=== PATIENT | female | born 1955 | race Hispanic/Latino ===

== ENCOUNTER 2016-11-19 06:08 | Day surgery (SDC) | payer BC ==
[2016-11-06 10:46] VITALS: BMI 31.3
[2016-11-19 06:46] VITALS: RESP 18
--- NOTE | 2016-11-19 07:15 | CP.SDSHP ---
Same Day Surgery H & P - History Proposed Procedure: partial osteoctomy tarsal metatarsal left foot Pre-Op Diagnosis: left dorsal ostosis with neuritis - Allergies Allergies: Allergies amoxicillin Allergy (Severe, Verified 06/06/15 09:43) VOMITING Sulfa (Sulfonamide Antibiotics) Allergy (Severe, Verified 06/06/15 09:43) CONVULSION moxifloxacin HCl [From Avelox] Adverse Reaction (Severe, Verified 06/06/15 09:43 ) MUSCLE PAIN - Physical Exam Vital Signs: Vital Signs 11/19/16 06:41 Temperature 98.2 F Pulse Rate 62 Respiratory 18 Rate Blood Pressure 111/53 L O2 Sat by Pulse 100 Oximetry Mental Status: Alert & Oriented x3 - Impression Impression: . Pt was seen and examined in [facility]. Pt NPO status was confirmed. All Pre-op testing and clearance was in the chart. Pt has exhausted all conservative treatment at this time and is opting for surgical intervention. Pt was explained procedure and post-operative course. All pt's questions were answered to satisfaction. No guarantees were made. Pt understands all risks, benefits and complications of procedure. Pt will follow-up with Dr. 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 Pt to resume medications per medical reconciliation. Resume regular diet. Please keep dressing clean, dry, & intact to surgical site, use plastic bag over bandage for showering, wear post op shoe at all times when ambulating, call clinic if you see signs of infection (redness, swelling, malodor), please make an appointment to see Dr. Dubon in office/clinic within 1 week for post-op check Progress Note/Discharge Note with Instructions: - Patient evaluated bedside in recovery s/p surgical procedure. - After surgical procedure patient in NAD - (+) Void, (+) Appetite - Capillary refill time <3s and NVSI intact. - Patient denies complaints at this time - Post operative instructions and plan of care explained to patient at length. - Pt. acknowledges understanding. - Patient stable for DC per podiatric surgery
--- NOTE | 2016-11-19 07:18 | CP.PCM.PN ---
Subjective - Date & Time of Evaluation Date of Evaluation: 11/19/16 Time of Evaluation: 07:15 - Subjective Subjective: 61 year old female with PMH of DM, HTN, GERD, COPD presents to [facility] for left foot dorsal ostosis with neuritis. Patient states that she has had this problem in the past and had surgery to resect the bone spur that was causing the problem. Had no problems for the last 18 years later, but recently reports having the same type pain. States the bone spur has grown back with bony prominence seen on the foot. Describes the pain as a tingling and shooting pain. With walking or standing, she rates the pain 10/10 with shooting pains radiating to her toes. She denies n/v/sob/cp or f. PMH: DM, HTN, GERD, COPD PSH: hysterectomy, bladder benign tumors removal, hernia repair, fistula repair ALL: amoxicillin, sulfa, moxifloxacin, avelox Meds: see medication list SH: 1ppd >40 years, socially drinks, denies elicited drug use FH: noncontributory Objective - Vital Signs/Intake and Output Vital Signs (last 24 hours): Temp Pulse Resp BP Pulse Ox 98.2 F 62 18 111/53 L 100 11/19/16 06:41 11/19/16 06:41 11/19/16 06:41 11/19/16 06:41 11/19/16 06:41 - Constitutional Appears: Well, Non-toxic, No Acute Distress - Extremities Exam Additional comments: Vasc: DP and PT 2/4 bilaterally, Temperature gradient WNL, CFT< 3 seconds, no edema Ortho: tinnel sign positive dorsal intermediate and medial cutaneous nerves, MM is 5/5 in dorsiflexion, plantarflexion, inversion, and eversion Neuro: reports numbness and tingling, gross sensation slightly diminished Derm: osvaldo prominence noted to the dorsum of the right foot at the medial tarsal metatarsal, skin is well hydrated, nails 1-10 wnl - Neurological Exam Neurological Exam: Alert, Awake, Oriented x3 - Psychiatric Exam Psychiatric exam: Normal Affect, Normal Mood Assessment and Plan - Assessment and Plan (Free Text) Assessment: 61 year old female with PMH of DM and HTN seen in same day surgery for left dorsal ostosis with neuritis Plan: Pt was seen and examined in [facility] Pt NPO status was confirmed All Pre-op testing and clearance was in the chart Pt has exhausted all conservative treatment at this time and is opting for surgical intervention Pt was explained procedure and post-operative course All pt's questions were answered to satisfaction No guarantees were made Pt understands all risks, benefits and complications of procedure Pt will follow-up with Dr. Dubon
[2016-11-19] MEDS ORDERED: Lidocaine 1% Inj (20ml) ONE (07:30)
[2016-11-19] MEDS ORDERED: Bupivacaine 0.5% Inj(30mL) ONE (07:30)
[2016-11-19] MEDS ORDERED: Lidocaine 2% Inj (20ml) ONE (07:40)
[2016-11-19] MEDS ORDERED: Propofol 10 mg/ml Inj (20 ML) ONE ×2 (07:40→07:54)
[2016-11-19] MEDS ORDERED: Midazolam 2 MG/2 ML VIAL ONE (07:40)
[2016-11-19] MEDS ORDERED: ePHEDrine 50 mg/ml Inj ONE ×2 (08:00→08:32)
[2016-11-19] MEDS ORDERED: Bupivacaine 0.5% Inj(30mL) SC ONE (08:02)
[2016-11-19] MEDS ORDERED: Lidocaine 1% Inj (20ml) SC ONE (08:02)
[2016-11-19] MEDS ORDERED: Liquid Adhesive TOP ONE (08:37)
[2016-11-19] MEDS ORDERED: Oxycodone/Acetaminophen 5/325 mg Tab PO PRN ×2 (08:58)
[2016-11-19] MEDS ORDERED: HYDROmorphone 0.5 mg/0.5 ml ISec IVP PRN (09:04)
[2016-11-19] MEDS ORDERED: Lactated Ringer's 1,000 ML IV SCH (09:15)
[2016-11-19] MEDS ORDERED: HYDROmorphone 0.5 mg/0.5 ml ISec ONE ×2 (09:30→09:47)
[2016-11-19] MEDS ORDERED: HYDROmorphone 0.5 mg/0.5 ml ISec IVP ONE ×2 (09:32→09:48)
[2016-11-19] MEDS ORDERED: Oxycodone/Acetaminophen 5/325 mg Tab ONE (10:39)
[2016-11-19 10:48] VITALS: PULSE 67; TEMP 97.9; O2SAT 93
--- NOTE | 2016-11-19 11:50 | RAD ---
PROCEDURE: Left Foot Radiographs. HISTORY: s/p left foot surgery COMPARISON: None. FINDINGS: BONES: Normal. No fracture. JOINTS: Normal. SOFT TISSUES: Normal. OTHER FINDINGS: There is a calcaneal spur. Small bony fragments are seen on the lateral aspect of the base of the 1st and 2nd proximal phalanges IMPRESSION: No acute findings
[2016-11-19 11:54] VITALS: BP 109/48
--- NOTE | 2016-11-20 03:14 | OP ---
PROCEDURE DATE: 11/19/2016 PREOPERATIVE DIAGNOSIS: Left foot dorsal ostosis with neuritis. POSTOPERATIVE DIAGNOSIS: Left foot dorsal ostosis with neuritis. PROCEDURE: Left foot exostectomy of tarsometatarsal ostosis. SURGEON: Erasmo Dubon DPM FOREIGN SERVICE OFFICER: Narendra Lomax DPM, PGY1 TYPE OF ANESTHESIA: IV sedation and local. ANESTHESIOLOGIST: Virgil Narvaez MD INDICATIONS: The patient is a 61-year-old female with above diagnosis. The patient has exhausted all conservative treatment at this time and now requires surgical intervention. The patient signed the consent after careful explanation of risks, benefits, complications and alternatives for surgical procedure. No guarantees were given nor implied. N.p.o. status was confirmed prior to taking the patient to the OR. PREPARATION: The patient was brought in to the operating room and placed to the operating room table in a supine position. Timeout was performed for identification of the correct patient procedure. After IV induction, the patient received a total of 10 mL of 0.5% Marcaine and 1% lidocaine plain in the local block fashion to the left lower extremity. Once local anesthesia was achieved, the left foot and ankle was then prepped and draped in a normal sterile manner. The patient's left foot was then exsanguinated with elevation and the pneumatic ankle tourniquet was inflated to 225 mmHg and the procedure began. DESCRIPTION OF PROCEDURE: Attention was directed to the medial left foot at the location of the tarsometatarsal joint where a bony prominence measuring approximately 1 cm x 1 cm was located. Using a marking pen, the bony prominence was marked circumferentially to identify the location throughout surgery and a surgical incision was drawn out. Next, utilizing a number 15 blade, a curvilinear incision about 4 cm in length was made along the dorsum of the second metatarsal base and intermediate cuneiform. The incision was carried down through subcutaneous tissue being careful to retract and ligate all neurovascular structures as necessary. The periosteum structures were then carefully dissected free of the osseous attachment and retracted medially and laterally thus exposing the second metatarsal base and intermediate cuneiform down to the operative site. At this time, noted to the second metatarsal base and the intermediate cuneiform were multiple large exostosis consistent with the site of the patient's pain. Next, utilizing a mallet and rongeur, the exostosis were removed and passed off the operating field to be sent to pathology. Next, utilizing a rongeur and nasal rasp all bony prominences from the second metatarsal base and intermediate cuneiform were smoothed. The wound was irrigated with copious amounts of normal sterile saline solution. Next, utilizing a #3-0 Vicryl suture material, the periosteum and subcutaneous layers were re-approximated. Then with the use of# 4-0 Biosyn, the skin edges were re-approximated and coapted with a running stitch. The Steri-Strips were then applied to the surgical site. Next, a total of 10 mL of 0.5% Marcaine plain and 1 mL of dexamethasone were injected surrounding the surgical site. The wound was then dressed with adaptic, gauze, Kerlix and Mj. The patient tolerated the anesthesia and procedure well and was escorted to the recovery room with the vital signs stable and neurovascular status intact to the left foot. The patient will follow up with Dr. Dubon in 1 week. Narendra Lomax DPM Erasmo Dubon DPM MTDRainer
== END 2016-11-19 12:15 | disposition home or self-care (01) ==
LOC: SDS 06:08
PROVIDERS: ATTEND Podiatrist
DX: D16.32 Benign neoplasm of short bones of left lower limb (principal); E11.41 Type 2 diabetes mellitus with diabetic mononeuropathy; K21.9 Gastro-esophageal reflux disease without esophagitis; I10 Essential (primary) hypertension; J44.9 Chronic obstructive pulmonary disease, unspecified; Z79.84 Long term (current) use of oral hypoglycemic drugs; Z88.1 Allergy status to other antibiotic agents; Z88.2 Allergy status to sulfonamides
CPT/HCPCS: 28104; 73630; 82948; 88304; 88311; J1100; J1170; J2250; J2704; J3010; J7120 ×2

== ENCOUNTER 2016-12-09 15:50 | Inpatient (IN) | payer BC ==
[2016-12-09 15:51] VITALS: BMI 31.3
--- NOTE | 2016-12-09 16:27 | ED PDOC ---
Arrival/HPI <Garrett Recio - Last Filed: 12/09/16 17:34> - General Historian: Patient - History of Present Illness Time/Duration: < week Symptom Course: Worsening Quality: Other (stinging) Severity Level: Mild, Moderate Context: Home <Karmen Hdz - Last Filed: 12/09/16 18:13> <Ike Nicolas - Last Filed: 12/09/16 22:01> - General Chief Complaint: Abdominal Pain Time Seen by Provider: 12/09/16 15:57 - History of Present Illness Narrative History of Present Illness (Text): 12/09/16 16:22 61F w/PMH sig for HTN, HLD, DM evaluated for abdominal pain x 1 week. Pain is "stinging", located in lower abdomen/suprapubic, with redness of lower abdominal hysterectomy scar, non radiating, intermittent, worse with pressure. Pt saw Dr. Wiggins with needle aspiration w/o aspirate in his clinic on 11/27, pt placed on Zyvox, continued to have abdominal pain, re-assessed on 12/07 with needle aspiration with purulent aspirate. Dr. Wiggins performed an I & D with more purulent drainage-sent for culture. Culture positive for Klebsiella Oxytoca. Dr. Wiggins saw pt on day of evaluation with recommendation to present to ED for CT of abdomen and lab work. Admits to fevers (Tmax 101.4), chills, nausea, poor appetite. Advil helped the fevers. Denies emesis, changes in bowel or bladder habits, SOB, chest pain, other complaints. PMH: HTN, HLD, DM, hx recto-vaginal fistula s/p colostomy reversal PSH: Ventral hernia repair x 2, hysterectomy, L foot surgery, colostomy w/ reversal and re-creation, bladder resection & bladder stimulator, L breast bx All: Amoxicillin, sulfa, moxifloxacin SH: Denies ETOH or illicit drug use, admits to tobacco use, 1ppd x 30+ yrs PMD: [facility] Out pt surgeon: Feliciano (Karmen Hdz) Past Medical History - Provider Review Nursing Documentation Reviewed: Yes - Past History Past History: No Previous - Tetanus Immunization Tetanus Immunization: Unknown - Cardiac Hx Pacemaker: No - Pulmonary Hx Chronic Obstructive Pulmonary Disease (COPD): Yes - Neurological Hx Paralysis: No - HEENT Hx HEENT Disorder: Yes (WEARS RX READING GLASSES) - Renal Hx Neurogenic Bladder: Yes (frequency) - Endocrine/Metabolic Hx Endocrine Disorders: Yes (borderline diabetic dx 2014) - Hematological/Oncological Hx Blood Transfusions: No Hx Blood Transfusion Reaction: No - Integumentary Hx Dermatological Disorder: No Other/Comment: abd dressing with binder and justine x1 intact - Musculoskeletal/Rheumatological Hx Musculoskeletal Disorders: No - Gastrointestinal Hx Gastrointestinal Disorders: Yes Hx Gastroesophageal Reflux: Yes - Genitourinary/Gynecological Hx Genitourinary Disorders: Yes - Psychiatric Hx Emotional Abuse: No Hx Physical Abuse: No Hx Substance Use: No - Surgical History Hx Appendectomy: Yes Hx Cardiac Catheterization: Yes (2010) Hx Hysterectomy: Yes Hx Inguinal Hernia Repair: Yes (11/02/13) Hx Orthopedic Surgery: Yes (l ft) Other/Comment: multiple hernia sx's, inguinal hernia repair 11/02/13, 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,ap, left ft sx,interstim of bladder [facility] 2004, box removed wires intact 2008, hernia sx today 06/19/2014, anastamosis, lysis of adnesions, removal of mech insertion of mesh that dissolves, justine, abd wound was reopening, recto/vaginal fistula - Anesthesia Hx Anesthesia Reactions: No Hx Malignant Hyperthermia: No - Suicidal Assessment Feels Threatened In Home Enviroment: No <Karmen Hdz - Last Filed: 12/09/16 18:13> Family/Social History - Physician Review Nursing Documentation Reviewed: Yes Family/Social History: No Known Family HX Smoking Status: Light Smoker < 10 Cigarettes Daily Hx Alcohol Use: No Hx Substance Use: No Hx Substance Use Treatment: No <Karmen Hdz - Last Filed: 12/09/16 18:13> Allergies/Home Meds <Garrett Recio - Last Filed: 12/09/16 17:34> <Karmen Hdz - Last Filed: 12/09/16 18:13> <Ike Nicolas - Last Filed: 12/09/16 22:01> Allergies/Adverse Reactions: Allergies amoxicillin Allergy (Severe, Verified 06/06/15 09:43) VOMITING Sulfa (Sulfonamide Antibiotics) Allergy (Severe, Verified 06/06/15 09:43) CONVULSION moxifloxacin HCl [From Avelox] Adverse Reaction (Severe, Verified 06/06/15 09:43 ) MUSCLE PAIN Home Medications: Home Meds Medication Instructions Recorded Confirmed Glimepiride 2 mg PO BID 06/06/15 12/09/16 Simvastatin 80 mg PO DAILY 06/06/15 12/09/16 Amlodipine/Valsartan [Exforge 1 tab PO DAILY 11/06/16 12/09/16 10-320 mg Tablet] Propranolol HCl [Propranolol HCl 60 mg PO DAILY 11/06/16 12/09/16 ER] cloNIDine [Catapres] 0.1 mg PO BID 11/06/16 12/09/16 oxyCODONE/Acetaminophen 1/2TAB 0.5 ea PO PRN PRN 11/06/16 12/09/16 [Percocet 5-325 mg HALF TAB] Ezetimibe [Zetia] 10 mg PO DAILY 11/07/16 12/09/16 Linezolid [Zyvox] 600 mg PO BID 12/09/16 12/09/16 Review of Systems - Review of Systems Constitutional: Fevers. absent: Normal Eyes: Normal. absent: Vision Changes ENT: Normal. absent: Sore Throat Respiratory: Normal. absent: SOB Cardiovascular: Normal. absent: Chest Pain Gastrointestinal: Abdominal Pain, Nausea, Appetite Changes (decreased). absent : Normal, Stool Changes, Constipation, Diarrhea, Vomiting Genitourinary Female: Normal. absent: Dysuria, Hematuria Musculoskeletal: Normal. absent: Arthralgias, Back Pain Skin: Cellulitis (lower abdomen). absent: Normal Neurological: Headache (chronic). absent: Normal Endocrine: Normal. absent: Diaphoresis <Karmen Hdz - Last Filed: 12/09/16 18:13> Physical Exam Vital Signs Reviewed: Yes Temperature: Afebrile Blood Pressure: Normal Pulse: Regular Respiratory Rate: Normal Appearance: Positive for: Non-Toxic, Comfortable Pain Distress: None Mental Status: Positive for: Alert and Oriented X 3 - Systems Exam Head: Present: Atraumatic, Normocephalic Extroacular Muscles: Present: EOMI Conjunctiva: Present: Normal Mouth: Present: Moist Mucous Membranes Nose (External): Present: Atraumatic Neck: Present: Normal Range of Motion Respiratory/Chest: Present: Clear to Auscultation, Good Air Exchange. No: Respiratory Distress, Accessory Muscle Use Cardiovascular: Present: Regular Rate and Rhythm, Normal S1, S2. No: Murmurs Abdomen: Present: Tenderness (infraumbilical), Normal Bowel Sounds, Guarding ( suprapubic/infraumbilical), Ostomy Tubes (RUQ), Scars (suprapubic to infraumbilical). No: Distention, Peritoneal Signs, Rebound Back: Present: Normal Inspection. No: CVA Tenderness Upper Extremity: Present: Normal Inspection. No: Cyanosis, Edema Lower Extremity: Present: Normal Inspection. No: Edema Neurological: Present: GCS=15, CN II-XII Intact, Speech Normal Skin: Present: Warm, Dry, Erythematous (suprapubic/ infraumbilical), Induration (suprapubic/ infraumbilical), Other (suprapubic/ infraumbilical area with small opening in skin, able to express purulent material from site) Psychiatric: Present: Alert, Oriented x 3, Normal Insight, Normal Concentration <Karmen Hdz - Last Filed: 12/09/16 18:13> Vital Signs Temp Pulse Resp BP Pulse Ox 12/09/16 16:00 99.2 F 66 18 124/65 98 Medical Decision Making <Garrett Recio - Last Filed: 12/09/16 17:34> <Karmen Hdz - Last Filed: 12/09/16 18:13> - RAD Interpretation Tile Ditcher: Radiologist <Ike Nicolas - Last Filed: 12/09/16 22:01> ED Course and Treatment: Patient Seen With Resident: In agreement with resident note which contains more details about the patient. Patient was seen and evaluated with resident. Came up with plan and treatment together. (Garrett Recio) 12/09/16 16:44 Pt seen/evaluated, case DW ED attending, will order imaging desired by Dr. Wiggins and lab work. 12/09/16 16:53 executive assistant to president notified. Will come assess pt. 12/09/16 17:[address] Cuellar assessing pt. 12/09/16 18:[address] scan results, Dr. Wiggins to be notified after results to determine if pt is to be admitted. (Karmen Hdz) 12/09/16 19:10 Case endorsed to me from .HPI noted.Sent by her surgeon for further evaluation.Pt. awaiting CT Abd/pelvis to rule out possible abdominal abscess/fistula.Pt. has been evaluated by the surgical scrub tech CT Abdomen and Pelvis Without Intravenous Contrast IMPRESSION: 1. There is an ostomy within the right ventral abdominal wall, with shallow herniation of small bowel into this defect. Eventration of the ventral abdominal wall is also visualized. A herniation is again visualized within the right inferior abdominal wall. 2. Postoperative changes are identified involving the ventral abdominal wall. Within the ventral abdominal subcutaneous tissues, there is soft tissue swelling and a small collection of gas. This collection of gas measures 1.8 x 1.1 cm and is new compared to the prior study. These changes have progressed and are likely postoperative or infectious in etiology. 3. There is a small fluid collection with foci of gas within the ventral abdominal wall. This fluid collection measures approximately 5.4 x 0.9 x 2.9 cm. This has also mildly progressed, and is likely postoperative or infectious. 4. At the right lung base, there is a stable 3-4 mm nodule on series 2 image 24. Mild atelectatic changes are identified within the lungs bilaterally. 5. Additional CT findings described above. Dictated and Authenticated by: Gurmeet Trimble MD 12/09/2016 8:37 PM Eastern Time ([place] & [place]) 12/09/16 21:[address] scan noted.executive assistant to president and aware/Request pt. admitted to service.Case to be d/w .Call placed to her service. 12/09/16 21:45 Case d/w .Accepted to her service. (Ike Nicolas) - Lab Interpretations Lab Results: 12/09/16 16:50 12/09/16 16:50 Lab Results 12/09/16 20:54: POC Glucose (mg/dL) 82 12/09/16 16:55: Urine Color Yellow, Urine Appearance Clear, Urine pH 6.0, Ur Specific Rex 1.020, Urine Protein Negative, Urine Glucose (UA) Negative, Urine Ketones Negative, Urine Blood Negative, Urine Nitrate Negative, Urine Bilirubin Negative, Urine Urobilinogen 0.2, Ur Leukocyte Esterase Trace H, Urine RBC Negative, Urine WBC 1 - 3, Ur Epithelial Cells 3 - 4, Urine Bacteria Few, Urine Other Uyeast 12/09/16 16:50: Sodium 139, Potassium 3.9, Chloride 103, Carbon Dioxide 24, Anion Gap 16, BUN 21, Creatinine 0.6 L, Est GFR ( Amer) > 60, Est GFR ( Non-Af Amer) > 60, Random Glucose 127 H, Calcium 9.9, Total Bilirubin 0.4, AST 26, ALT 51, Alkaline Phosphatase 117, Total Protein 7.3, Albumin 4.2, Globulin 3.1, Albumin/Globulin Ratio 1.4 12/09/16 16:50: WBC 8.1, RBC 4.53, Hgb 14.6, Hct 40.5, MCV 89.4, MCH 32.2, MCHC 36.0, RDW 12.6, Plt Count 310, MPV 10.2, Gran % 59.2, Lymph % (Auto) 24.4, Ford % (Auto) 9.3 H, Eos % (Auto) 6.5 H, Baso % (Auto) 0.6, Gran # 4.77, Lymph # 2.0 , Ford # 0.8 H, Eos # 0.5, Baso # 0.05 - RAD Interpretation Narrative RAD Interpretations (Text): 12/09/16 20:43 CT Abd/Pelvis-IMPRESSION: 1. There is an ostomy within the right ventral abdominal wall, with shallow herniation of small bowel into this defect. Eventration of the ventral abdominal wall is also visualized. A herniation is again visualized within the right inferior abdominal wall. 2. Postoperative changes are identified involving the ventral abdominal wall. Within the ventral abdominal subcutaneous tissues, there is soft tissue swelling and a small collection of gas. This collection of gas measures 1.8 x 1.1 cm and is new compared to the prior study. These changes have progressed and are likely postoperative or infectious in etiology. 3. There is a small fluid collection with foci of gas within the ventral abdominal wall. This fluid collection measures approximately 5.4 x 0.9 x 2.9 cm. This has also mildly progressed, and is likely postoperative or infectious. 4. At the right lung base, there is a stable 3-4 mm nodule on series 2 image 24. Mild atelectatic changes are identified within the lungs bilaterally. 5. Additional CT findings described above. (Ike Nicolas) Radiology Orders: 12/09/16 16:33 ABDOMEN & PELVIS [ABD & PELVIS PO CONTRAST ONLY] [CT] Stat - Medication Orders Current Medication Orders: Acetaminophen (Tylenol 325mg Tab) 650 mg PO Q6H PRN PRN Reason: Fever >100.4 F Amlodipine Besylate (Norvasc) 10 mg PO DAILY [facility] Atorvastatin Calcium (Lipitor) 40 mg PO DAILY [facility] Clonidine HCl (Catapres) 0.1 mg PO BID [facility] Glimepiride (Amaryl) 2 mg PO BID [facility] Heparin Sodium (Porcine) (Heparin) 5,000 units SC Q12 [facility] PRN Reason: Protocol Ceftazidime/Avibactam 1.25 gm/ (Sodium Chloride) 100 mls @ 50 mls/hr IVPB Q8H [facility] Stop: 12/10/16 07:29 Vancomycin HCl (Vancomycin 1gm) 1 gm in 250 mls @ 167 mls/hr IVPB Q12H [facility] PRN Reason: Protocol Insulin Human Regular (Humulin R Med) 0 units SC ACHS [facility] PRN Reason: Protocol Ondansetron HCl (Zofran Inj) 4 mg IVP Q4 PRN PRN Reason: Nausea/Vomiting Oxycodone/Acetaminophen (Percocet 5/325 Mg Tab) 1 tab PO Q4 PRN PRN Reason: Pain, severe (8-10) Stop: 12/13/16 00:01 Pantoprazole Sodium (Protonix Inj) 40 mg IVP ONCE [facility] Propranolol HCl (Inderal La) 60 mg PO DAILY [facility] Valsartan (Diovan) 320 mg PO DAILY [facility] Discontinued Medications Meropenem 1g/NS 100mL IVPB (Meropenem 1g/Ns 100ml Ivpb) 1 gm in 100 mls @ 100 mls/hr IVPB Q8 [facility] PRN Reason: Protocol Stop: 12/09/16 19:20 Last Admin: 12/09/16 21:20 Dose: 100 mls/hr eMAR Start Stop Document 12/09/16 21:20 SHANT (Rec: 12/09/16 21:21 SHANT [id number]) Intravenous Solution Start Date 12/09/16 Start Time 21:20 End Date 12/09/16 End time 22:20 Total Infusion Time 60 Ketorolac Tromethamine (Toradol) 15 mg IVP STAT STA Stop: 12/09/16 17:50 Last Admin: 12/09/16 18:13 Dose: 15 mg MAR Pain Assessment Document 12/09/16 18:13 AD (Rec: 12/09/16 18:14 AD [id number]) Pain Reassessment Is this a pain reassessment? No Presence of Pain Presence of Pain Yes Pain Scale Used Pain Scale Used Numeric Location Pain Location Body Site Abdomen Description Intensity of Pain at present 8 Pain Behavior Facial Grimacing IVP Administration Document 12/09/16 18:13 AD (Rec: 12/09/16 18:14 AD [id number]) Charges for Administration # of IVP Administrations 1 Ketorolac Tromethamine (Toradol) 15 mg IVP STAT STA Stop: 12/09/16 21:40 Ondansetron HCl (Zofran Inj) 4 mg IVP STAT STA Stop: 12/09/16 16:50 Last Admin: 12/09/16 17:02 Dose: 4 mg IVP Administration Document 12/09/16 17:02 AD (Rec: 12/09/16 17:03 AD [id number]) Charges for Administration # of IVP Administrations 1 Disposition/Present on Arrival <Garrett Recio - Last Filed: 12/09/16 17:34> - Present on Arrival Any Indicators Present on Arrival: No History of DVT/PE: No History of Uncontrolled Diabetes: No Urinary Catheter: No History Surgical Site Infection Following: None - Disposition Have Diagnosis and Disposition been Completed?: No Disposition Time: 19:00 <Karmen Hdz - Last Filed: 12/09/16 18:13> - Present on Arrival Any Indicators Present on Arrival: No History of DVT/PE: No History of Uncontrolled Diabetes: No Urinary Catheter: No History of Decub. Ulcer: No History Surgical Site Infection Following: None - Disposition Have Diagnosis and Disposition been Completed?: Yes Patient Plan: Observation <Ike Nicolas - Last Filed: 12/09/16 22:01> - Disposition Diagnosis: Infection of subcutaneous tissue Disposition: HOSPITALIZED Patient Problems: Current Active Problems Problem Status Onset Infection of subcutaneous tissue Acute Condition: STABLE Referrals: Olga Goyal MD [Primary Care Provider] - Follow up with primary Forms: Wander (Bahamian)
[2016-12-09 17:04] LABS: BASO # 0.05 K/mm3 (0.0-2.0); BASO % 0.6 % (0.0-3.0); EOS # 0.5 (0.0-0.7); EOS % 6.5 % (1.5-5.0); GRAN # 4.77 (1.4-6.5); GRAN % 59.2 % (50.0-68.0); HEMATOCRIT 40.5 % (36.0-48.0); LYMPH % 24.4 % (22.0-35.0); MEAN CELL VOLUME 89.4 fl (80.0-105.0); MEAN CORPUSCULAR HEMOGLOBIN 32.2 pg (25.0-35.0); MEAN PLATELET VOLUME 10.2 fl (7.0-11.0); MONO # 0.8 (0.1-0.6); MONO % 9.3 % (1.0-6.0); RED CELL DISTRIBUTION WIDTH 12.6 % (11.5-14.5); WHITE BLOOD COUNT 8.1 10^3/ul (4.5-11.0)
[2016-12-09 17:10] LABS: URINE BILIRUBIN NEGATIVE (NEGATIVE); URINE BLOOD NEGATIVE (NEGATIVE); URINE GLUCOSE (UA) NEGATIVE (NEGATIVE); URINE KETONE NEGATIVE (NEGATIVE); URINE LEUKOCYTE ESTERASE TRACE Leu/uL (NEGATIVE); URINE PROTEIN NEGATIVE mg/dL (<30 mg/dL); URINE UROBILINOGEN 0.2 E.U./dL (<1 E.U./dL)
[2016-12-09] MEDS ORDERED: Iohexol 240 (50 ml) ONE (17:11)
[2016-12-09 17:12] LABS: URINE APPEARANCE CLEAR (CLEAR); URINE COLOR YELLOW (YELLOW)
[2016-12-09 17:12] LABS: ALB/GLOB RATIO 1.4 (1.1-1.8); ALKALINE PHOSPHATASE 117 U/L (38-126); ALT/SGPT 51 U/L (7-56); AST/SGOT 26 U/L (14-36); BILIRUBIN,TOTAL 0.4 mg/dL (0.2-1.3); BLOOD UREA NITROGEN 21 mg/dL (7-21); CALCIUM 9.9 mg/dL (8.4-10.5); CARBON DIOXIDE 24 mmol/L (21-33); CHLORIDE 103 mmol/L (98-107); GFR AFRICAN-AMERICAN > 60; GLUCOSE,RANDOM 127 mg/dL (70-110); POTASSIUM 3.9 mmol/L (3.6-5.0); SODIUM 139 mmol/L (132-148); TOTAL PROTEIN 7.3 g/dL (5.8-8.3)
[2016-12-09 17:19] LABS: URINE BACTERIA FEW (NEG); URINE RBC NEGATIVE /hpf (0-2)
--- NOTE | 2016-12-09 17:42 | CP.PCM.CON ---
<Donte Cuellar - Last Filed: 12/09/16 21:46> History of Present Illness - History of Present Illness History of Present Illness: General Surgery Consult Note- Dr. Wiggins 61F pmhx significant for DM, hysterectomy in 2000, bladder resection, temporary colostomy to reversal to permanent colostomy approximately 5 years ago presented to [facility] with lower abdominal/ suprapubic burning sensation that started two weeks ago. She went to visit Dr. Wiggins Friday12/04/16 and performed a needle aspiration with minimal draw back. Zyvox was prescribed. Pt had continued pain w/ fever on and Friday Tm: 101.4. Reassesed Friday12/07/16 w I&D at Dr. Wiggins office with significant purulent drainage. Drainage continued to occur and was recommended by Dr. Wiggins to come in to get a CT w/ lab work. Cultures + Kelbsiella Oxytoca Denies Current fevers, chills, chest pain, shortness of breath, vomiting, diarrhea, headaches, numbness/tingling in extremities PMH: DM, HTN, HLD, hx of Fibroids, Bladder stimulator, recto-vaginal fistula, s/ p colostomy PSH: Hysterectomy 2000 03/2 uterine fibroids, ventral/incisional hernia repair w / mesh & appendectomy, s/p infected mesh, bladder resection, bladder stimulator , colostomy to reversal to permanent colostomy, left foot surgery, breast biopsy +cyst ALL: Amoxicillin, Sufa, Moxifloxacin SocialHx: +Tobacco 1ppd for 30 years, denies recreational or ETOH use. Review of Systems - Review of Systems All systems: reviewed and no additional remarkable complaints except - Constitutional Constitutional: As Per HPI Past Patient History - Infectious Disease Hx of Infectious Diseases: None - Tetanus Immunizations Tetanus Immunization: Unknown - Past Social History Smoking Status: Light Smoker < 10 Cigarettes Daily - CARDIAC Hx Pacemaker: No - PULMONARY Hx Chronic Obstructive Pulmonary Disease (COPD): Yes - NEUROLOGICAL Hx Paralysis: No - HEENT Hx HEENT Problems: Yes (WEARS RX READING GLASSES) - RENAL Hx Neurogenic Bladder: Yes (frequency) - ENDOCRINE/METABOLIC Hx Endocrine Disorders: Yes (borderline diabetic dx 2014) - HEMATOLOGICAL/ONCOLOGICAL Hx Blood Transfusions: No Hx Blood Transfusion Reaction: No - INTEGUMENTARY Hx Dermatological Problems: No Other/Comment: abd dressing with binder and justine x1 intact - MUSCULOSKELETAL/RHEUMATOLOGICAL Hx Musculoskeletal Disorders: No - GASTROINTESTINAL Hx Gastrointestinal Disorders: Yes Hx Gastroesophageal Reflux: Yes - GENITOURINARY/GYNECOLOGICAL Hx Genitourinary Disorders: Yes - PSYCHIATRIC Hx Emotional Abuse: No Hx Physical Abuse: No Hx Substance Use: No - SURGICAL HISTORY Hx Appendectomy: Yes Hx Cardiac Catheterization: Yes (2010) Hx Hysterectomy: Yes Hx Orthopedic Surgery: Yes (l ft) Other/Comment: multiple hernia sx's, inguinal hernia repair 11/02/13, 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,ap, left ft sx,interstim of bladder [facility] 2004, box removed wires intact 2008, hernia sx today 06/19/2014, anastamosis, lysis of adnesions, removal of mech insertion of mesh that dissolves, justine, abd wound was reopening, recto/vaginal fistula - ANESTHESIA Hx Anesthesia Reactions: No Hx Malignant Hyperthermia: No Meds Allergies/Adverse Reactions: Allergies Allergy/AdvReac Type Severity Reaction Status Date / Time amoxicillin Allergy Severe VOMITING Verified 06/06/15 09:43 Sulfa (Sulfonamide Allergy Severe CONVULSION Verified 06/06/15 09:43 Antibiotics) moxifloxacin HCl AdvReac Severe MUSCLE PAIN Verified 06/06/15 09:43 [From Avelox] adhesive tape AdvReac REDNESS Verified 12/10/16 16:38 Physical Exam - Constitutional Appears: Non-toxic, No Acute Distress - Head Exam Head Exam: ATRAUMATIC - Eye Exam Eye Exam: EOMI. absent: Scleral icterus - ENT Exam ENT Exam: Mucous Membranes Moist - Respiratory Exam Respiratory Exam: NORMAL BREATHING PATTERN. absent: Accessory Muscle Use, Respiratory Distress - Cardiovascular Exam Cardiovascular Exam: +S1, +S2. absent: Bradycardia, Tachycardia - GI/Abdominal Exam GI & Abdominal Exam: Guarding, Soft, Tenderness. absent: Distended, Firm, Rigid Additional comments: Tender to palpation subumbilical/suprapubic Actively draining open wound; indurated 5cm diameter around drainage site. - Neurological Exam Neurological exam: Alert, Oriented x3 - Psychiatric Exam Psychiatric exam: Normal Affect - Skin Skin Exam: Warm Results - Vital Signs Recent Vital Signs: Last Vital Signs Temp 99.2 F 12/09/16 16:00 Pulse 66 12/09/16 16:00 Resp 18 12/09/16 16:00 BP 124/65 12/09/16 16:00 Pulse Ox 98 12/09/16 16:00 - Labs Result Diagrams: 12/09/16 16:50 12/09/16 16:50 Labs: Laboratory Results - last 24 hr 12/09/16 12/09/16 12/09/16 16:50 16:50 16:55 WBC 8.1 RBC 4.53 Hgb 14.6 Hct 40.5 MCV 89.4 MCH 32.2 MCHC 36.0 RDW 12.6 Plt Count 310 MPV 10.2 Gran % 59.2 Lymph % (Auto) 24.4 [place] % (Auto) 9.3 H Eos % (Auto) 6.5 H Baso % (Auto) 0.6 Gran # 4.77 Lymph # 2.0 [place] # 0.8 H Eos # 0.5 Baso # 0.05 Sodium 139 Potassium 3.9 Chloride 103 Carbon Dioxide 24 Anion Gap 16 BUN 21 Creatinine 0.6 L Est GFR ( Amer) > 60 Est GFR (Non-Af Amer) > 60 Random Glucose 127 H Calcium 9.9 Total Bilirubin 0.4 AST 26 ALT 51 Alkaline Phosphatase 117 Total Protein 7.3 Albumin 4.2 Globulin 3.1 Albumin/Globulin Ratio 1.4 Urine Color Yellow Urine Appearance Clear Urine pH 6.0 Ur Specific [place] 1.020 Urine Protein Negative Urine Glucose (UA) Negative Urine Ketones Negative Urine Blood Negative Urine Nitrate Negative Urine Bilirubin Negative Urine Urobilinogen 0.2 Ur Leukocyte Esterase Trace H Urine RBC Negative Urine WBC 1 - 3 Ur Epithelial Cells 3 - 4 Urine Bacteria Few Urine Other Uyeast Assessment & Plan - Assessment and Plan (Free Text) Assessment: 61F w/ multiple abdominal surgeries w/ purulent drainage from abdomen growing Kelbsiella oxytoca, intra-abdominal abscess Plan: - CBC/CMP - CT with PO contrast to r/o fistula - IV Antibiotics- one does of Meropenam * ID consulted recs appreciated - patient admitted; will continue conservative management for now - Dressing changes PRN - further recs per Dr. Feliciano Cuellar PGY1 <Devon Wiggins - Last Filed: 12/12/16 09:27> Meds - Medications Medications: Current Medications Acetaminophen (Tylenol 325mg Tab) 650 mg PO Q6H PRN PRN Reason: Fever >100.4 F Last Admin: 12/11/16 08:13 Dose: 650 mg Amlodipine Besylate (Norvasc) 10 mg PO DAILY [facility] Last Admin: 12/11/16 10:07 Dose: 10 mg Atorvastatin Calcium (Lipitor) 40 mg PO DAILY [facility] Last Admin: 12/11/16 10:08 Dose: 40 mg Clonidine HCl (Catapres) 0.1 mg PO BID [facility] Last Admin: 12/11/16 17:25 Dose: Not Given Fluticasone Propionate (Flonase) 1 actuation NS DAILY [facility] Last Admin: 12/11/16 14:35 Dose: 1 spr Glimepiride (Amaryl) 2 mg PO BID [facility] Last Admin: 12/11/16 17:25 Dose: 2 mg Heparin Sodium (Porcine) (Heparin) 5,000 units SC Q12 [facility] PRN Reason: Protocol Last Admin: 12/11/16 21:44 Dose: 5,000 units Meropenem (Merrem Iv 1 Gm Premix) 50 mls @ 100 mls/hr IVPB Q8 [facility] PRN Reason: Protocol Stop: 12/17/16 07:01 Last Admin: 12/12/16 05:35 Dose: 100 mls/hr Insulin Human Regular (Humulin R Med) 0 units SC ACHS [facility] PRN Reason: Protocol Last Admin: 12/11/16 21:29 Dose: Not Given Ketorolac Tromethamine (Toradol) 30 mg IVP Q6 PRN PRN Reason: Breakthrough pain Last Admin: 12/12/16 06:23 Dose: 30 mg Metoclopramide HCl (Reglan) 5 mg IVP TID [facility] Last Admin: 12/11/16 17:24 Dose: 5 mg Ondansetron HCl (Zofran Inj) 4 mg IVP Q4 PRN PRN Reason: Nausea/Vomiting Last Admin: 12/11/16 21:55 Dose: 4 mg Oxycodone/Acetaminophen (Percocet 5/325 Mg Tab) 1 tab PO Q4 PRN PRN Reason: Pain, severe (8-10) Stop: 12/13/16 00:01 Last Admin: 12/12/16 03:26 Dose: 1 tab Pantoprazole Sodium (Protonix Inj) 40 mg IVP ONCE [facility] Last Admin: 12/11/16 08:15 Dose: Not Given Propranolol HCl (Inderal La) 60 mg PO DAILY [facility] Last Admin: 12/11/16 10:08 Dose: 60 mg Valsartan (Diovan) 320 mg PO DAILY [facility] Last Admin: 12/11/16 10:07 Dose: 320 mg Results - Vital Signs Recent Vital Signs: Last Vital Signs Temp 97.7 F 12/11/16 16:00 Pulse 50 L 12/11/16 16:00 Resp 19 12/11/16 16:00 BP 111/50 L 12/11/16 17:25 Pulse Ox 95 12/11/16 16:00 - Labs Result Diagrams: 12/12/16 07:00 12/12/16 07:00 Labs: Laboratory Results - last 24 hr 12/11/16 12/11/16 12/11/16 11:29 15:58 21:06 WBC RBC Hgb Hct MCV MCH MCHC RDW Plt Count MPV Gran % Lymph % (Auto) [place] % (Auto) Eos % (Auto) Baso % (Auto) Gran # Lymph # [place] # Eos # Baso # Sodium Potassium Chloride Carbon Dioxide Anion Gap BUN Creatinine Est GFR ( Amer) Est GFR (Non-Af Amer) POC Glucose (mg/dL) 252 H 106 197 H Random Glucose Calcium 12/12/16 12/12/16 12/12/16 07:00 07:00 07:41 WBC 7.0 RBC 4.36 Hgb 13.5 Hct 39.5 MCV 90.6 MCH 31.0 MCHC 34.2 RDW 12.4 Plt Count 270 MPV 10.2 Gran % 51.8 Lymph % (Auto) 31.1 [place] % (Auto) 10.4 H Eos % (Auto) 6.3 H Baso % (Auto) 0.4 Gran # 3.65 Lymph # 2.2 [place] # 0.7 H Eos # 0.4 Baso # 0.03 Sodium 143 Potassium 4.1 Chloride 105 Carbon Dioxide 31 Anion Gap 11 BUN 12 Creatinine 0.6 L Est GFR ( Amer) > 60 Est GFR (Non-Af Amer) > 60 POC Glucose (mg/dL) 135 H Random Glucose 130 H Calcium 9.4 Assessment & Plan - Assessment and Plan (Free Text) Assessment: Dx Abdominal wall infection(Klebsiella abscess)-? Contamination from urine This consult done under my supervision Mila Wiggins MD FACS
[2016-12-09] MEDS ORDERED: Meropenem 1g/NS 100mL IVPB 1 GM/100 ML PIGGYBACK IVPB SCH (18:21)
--- NOTE | 2016-12-09 20:38 | CT ---
EXAM: CT Abdomen and Pelvis Without Intravenous Contrast EXAM DATE/TIME: 12/09/2016 7:10 PM CLINICAL HISTORY: The patient age is 61 years old and is female; Signs and symptoms; Other: Abdominal infection TECHNIQUE: Axial computed tomography images of the abdomen and pelvis without intravenous contrast. All CT scans at this facility use one or more dose reduction techniques, viz.: automated exposure control; ma/kV adjustment per patient size (including targeted exams where dose is matched to indication; i.e. head); or iterative reconstruction technique. Coronal and sagittal reformatted images were created and reviewed. COMPARISON: CT - ABD PELVIS PO CONTRAST ONLY 2015-04-25 13:31 FINDINGS: Lower thorax: At the right lung base, there is a 3-4 mm nodule on series 2 image 24. Mild atelectatic changes are identified within the lungs bilaterally. ABDOMEN: Liver: The previously described herniation of the left hepatic lobe has decreased. Gallbladder and bile ducts: No calcified stones. No ductal dilation. Pancreas: Mild atrophic changes are noted of the pancreas. Spleen: No splenomegaly. Adrenals: No mass. Kidneys and ureters: No obstructing stones. No hydronephrosis. There is a tiny calcification or nonobstructing calculus within the left kidney. Stomach and bowel: There is an ostomy within the right ventral abdominal wall, with shallow herniation of small bowel into this defect. Eventration of the ventral abdominal wall is also visualized. A herniation is again visualized within the right inferior abdominal wall. There is no obstruction of small bowel. A partial colectomy is visualized. A duodenal diverticulum is visualized. Appendix: Aside from the base of the appendix, the appendix is not visualized. PELVIS: Bladder: No stones. Reproductive: The uterus is absent. ABDOMEN and PELVIS: Intraperitoneal space: Multiple surgical lily are identified within the abdomen and pelvis. Bones/joints: Mild degenerative changes are identified within the lumbar spine. Soft tissues: Postoperative changes are identified involving the ventral abdominal wall. Within the ventral abdominal subcutaneous tissues, there is soft tissue swelling and a small collection of gas. This collection of gas measures 1.8 x 1.1 cm and is new compared to the prior study. These changes have progressed and are likely postoperative or infectious in etiology. There is a small fluid collection with foci of gas within the ventral abdominal wall. This fluid collection measures approximately 5.4 x 0.9 x 2.9 cm. This has also mildly progressed, and is likely postoperative or infectious. Vasculature: There is atherosclerotic calcification of the abdominal aorta. No abdominal aortic aneurysm. Lymph nodes: No enlarged lymph nodes. IMPRESSION: 1. There is an ostomy within the right ventral abdominal wall, with shallow herniation of small bowel into this defect. Eventration of the ventral abdominal wall is also visualized. A herniation is again visualized within the right inferior abdominal wall. 2. Postoperative changes are identified involving the ventral abdominal wall. Within the ventral abdominal subcutaneous tissues, there is soft tissue swelling and a small collection of gas. This collection of gas measures 1.8 x 1.1 cm and is new compared to the prior study. These changes have progressed and are likely postoperative or infectious in etiology. 3. There is a small fluid collection with foci of gas within the ventral abdominal wall. This fluid collection measures approximately 5.4 x 0.9 x 2.9 cm. This has also mildly progressed, and is likely postoperative or infectious. 4. At the right lung base, there is a stable 3-4 mm nodule on series 2 image 24. Mild atelectatic changes are identified within the lungs bilaterally. 5. Additional CT findings described above.
[2016-12-09] MEDS: Insulin Reg-MEDIUM-Coverage SC SCH (22:12)
[2016-12-10] MEDS: Oxycodone/Acetaminophen 5/325 mg Tab PO PRN ×3 (00:27→21:17)
[2016-12-10] MEDS: Vancomycin 1gm in NS 250ml 1 GM/250 ML BAG IVPB SCH ×2 (05:48→17:40)
[2016-12-10 06:28] LABS: BASO # 0.04 K/mm3 (0.0-2.0); BASO % 0.6 % (0.0-3.0); EOS # 0.4 (0.0-0.7); EOS % 5.9 % (1.5-5.0); GRAN # 3.43 (1.4-6.5); GRAN % 49.4 % (50.0-68.0); HEMATOCRIT 38.9 % (36.0-48.0); LYMPH # 2.3 (1.2-3.4); LYMPH % 33.3 % (22.0-35.0); MEAN CORPUSCULAR HEMOGLOBIN 31.1 pg (25.0-35.0); MEAN PLATELET VOLUME 10.1 fl (7.0-11.0); MONO # 0.8 (0.1-0.6); MONO % 10.8 % (1.0-6.0); RED CELL DISTRIBUTION WIDTH 12.5 % (11.5-14.5); WHITE BLOOD COUNT 6.9 10^3/ul (4.5-11.0)
[2016-12-10 06:59] LABS: BLOOD UREA NITROGEN 16 mg/dL (7-21); CALCIUM 9.4 mg/dL (8.4-10.5); CARBON DIOXIDE 27 mmol/L (21-33); CHLORIDE 104 mmol/L (95-110); GFR AFRICAN-AMERICAN > 60; GLUCOSE,RANDOM 124 mg/dL (70-110); POTASSIUM 3.8 mmol/L (3.6-5.0); SODIUM 139 mmol/L (132-148)
[2016-12-10] MEDS ORDERED: Meropenem 1g/NS 100mL IVPB 1 GM/100 ML PIGGYBACK IVPB SCH (07:00)
--- NOTE | 2016-12-10 08:30 | CP.PCM.PN ---
Subjective - Date & Time of Evaluation Date of Evaluation: 12/10/16 Time of Evaluation: 08:25 - Subjective Subjective: General Surgery Note for Dr. Wiggins Patient seen and examined at beside this morning. Patient is seen resting comfortably in bed. Patient states she is still experiencing some discomfort in her abdomen but her pain has been well controlled. Patient is tolerating her diet. Denies f/c, n/v, sob, cp or headache. Objective - Vital Signs/Intake and Output Vital Signs (last 24 hours): Temp Pulse Resp BP Pulse Ox 97.6 F 62 20 118/65 96 12/10/16 08:19 12/10/16 08:19 12/10/16 08:19 12/10/16 08:19 12/10/16 08:19 - Medications Medications: Current Medications Acetaminophen (Tylenol 325mg Tab) 650 mg PO Q6H PRN PRN Reason: Fever >100.4 F Amlodipine Besylate (Norvasc) 10 mg PO DAILY [facility] Atorvastatin Calcium (Lipitor) 40 mg PO DAILY [facility] Clonidine HCl (Catapres) 0.1 mg PO BID [facility] Glimepiride (Amaryl) 2 mg PO BID [facility] Heparin Sodium (Porcine) (Heparin) 5,000 units SC Q12 [facility] PRN Reason: Protocol Vancomycin HCl (Vancomycin 1gm) 1 gm in 250 mls @ 167 mls/hr IVPB Q12H [facility] PRN Reason: Protocol Last Admin: 12/10/16 05:48 Dose: 167 mls/hr Meropenem 1g/NS 100mL IVPB (Meropenem 1g/Ns 100ml Ivpb) 1 gm in 100 mls @ 100 mls/hr IVPB Q8 [facility] PRN Reason: Protocol Stop: 12/17/16 07:01 Last Admin: 12/10/16 07:25 Dose: 100 mls/hr Insulin Human Regular (Humulin R Med) 0 units SC ACHS [facility] PRN Reason: Protocol Last Admin: 12/09/16 22:12 Dose: Not Given Ondansetron HCl (Zofran Inj) 4 mg IVP Q4 PRN PRN Reason: Nausea/Vomiting Last Admin: 12/10/16 06:17 Dose: 4 mg Oxycodone/Acetaminophen (Percocet 5/325 Mg Tab) 1 tab PO Q4 PRN PRN Reason: Pain, severe (8-10) Stop: 12/13/16 00:01 Last Admin: 12/10/16 00:27 Dose: 1 tab Pantoprazole Sodium (Protonix Inj) 40 mg IVP ONCE [facility] Propranolol HCl (Inderal La) 60 mg PO DAILY [facility] Valsartan (Diovan) 320 mg PO DAILY [facility] - Labs Labs: APTT 29.7 Seconds (25.1-36.5) 12/10/16 06:00 - Constitutional Appears: Non-toxic, No Acute Distress - Head Exam Head Exam: ATRAUMATIC - Eye Exam Eye Exam: EOMI, Normal appearance. absent: Scleral icterus - ENT Exam ENT Exam: Mucous Membranes Moist - Respiratory Exam Respiratory Exam: NORMAL BREATHING PATTERN. absent: Accessory Muscle Use, Respiratory Distress - Cardiovascular Exam Cardiovascular Exam: REGULAR RHYTHM, +S1, +S2. absent: Bradycardia, Tachycardia - GI/Abdominal Exam GI & Abdominal Exam: Guarding, Soft, Tenderness (subumbilical/suprapubic). absent: Distended, Rigid Additional comments: Actively draining purulent fluid from open wound; indurated 5cm diameter around drainage site. Ostomy bag in place, no leakage. - Neurological Exam Neurological Exam: Alert, Awake, Oriented x3 - Psychiatric Exam Psychiatric exam: Normal Affect, Normal Mood - Skin Skin Exam: Dry, Warm Assessment and Plan - Assessment and Plan (Free Text) Assessment: 61F w/ multiple abdominal surgeries w/ purulent drainage from abdomen growing Kelbsiella oxytoca, intra-abdominal abscess Plan: - f/u CT with PO contrast to r/o fistula - f/u wound culture - IV Antibiotics- one dose of Meropenam * ID consulted recs appreciated - continue conservative management for now - Dressing changes PRN - further recs per Dr. Wiggins Will discuss case with Dr. Feliciano Salomon Charlie PGY1
[2016-12-10] MEDS: Insulin Reg-MEDIUM-Coverage SC SCH ×4 (09:42→21:17)
[2016-12-10] MEDS: Propranolol 60 mg ER Cap PO SCH (09:42)
[2016-12-10] MEDS ORDERED: VALSARTAN PO SCH (10:00)
[2016-12-10] MEDS ORDERED: AMLODIPINE PO SCH (10:00)
--- NOTE | 2016-12-10 11:51 | CP.PCM.CON ---
History of Present Illness - History of Present Illness History of Present Illness: 61 year old female with PMH of obesity with BMI 31, DM, HTN, history of bladder resection with history of rectovaginal fistula, history of uterine fibroids S/P hysterectomy, S/P colostomy placement, history of ventral hernia S/P repair and mesh placement with history of mesh infection and removal, S/P appendectomy was sent in to [facility] because of lower abdominal pain. She initially had it about 2 weeks ago which was sharp in nature. She saw her surgeon and at the time needle aspiration was done with minimal amount of fluid aspirated. She was then started on PO Zyvox. Her pain continued and started having fevers about 4-5 days ago. She then came back to her surgeon, aspiration again was done which then showed purulent fluid. It was sent for cultures and bacteria grew. She has occasional nausea but no vomiting, no diarrhea, no headache or dizziness, no muscle aches, no sore throat, no cough or colds, no dysuria. Infectious diseases consult is requested to further evaluate and manage. Review of Systems - Review of Systems All systems: reviewed and no additional remarkable complaints except (as per HPI ) Past Patient History - Infectious Disease Hx of Infectious Diseases: None - Tetanus Immunizations Tetanus Immunization: Unknown - Past Social History Smoking Status: Heavy Smoker > 10 Cigarettes Daily - CARDIAC Hx Hypertension: Yes Hx Pacemaker: No - PULMONARY Hx Chronic Obstructive Pulmonary Disease (COPD): Yes - NEUROLOGICAL Hx Neurological Disorder: Yes (NEUROPATHY) Other/Comment: headaches - HEENT Hx HEENT Problems: Yes (WEARS RX READING GLASSES) - RENAL Hx Neurogenic Bladder: Yes (frequency) - ENDOCRINE/METABOLIC Hx Endocrine Disorders: Yes (borderline diabetic dx 2014) - HEMATOLOGICAL/ONCOLOGICAL Hx Blood Disorders: Yes Hx Anemia: Yes - INTEGUMENTARY Hx Dermatological Problems: No Other/Comment: abd dressing with binder and justine x1 intact - MUSCULOSKELETAL/RHEUMATOLOGICAL Hx Falls: Yes - GASTROINTESTINAL Hx Gastrointestinal Disorders: Yes Hx Gastroesophageal Reflux: Yes - GENITOURINARY/GYNECOLOGICAL Hx Genitourinary Disorders: Yes - PSYCHIATRIC Hx Emotional Abuse: No Hx Physical Abuse: No - SURGICAL HISTORY Hx Appendectomy: Yes Hx Cardiac Catheterization: Yes (2010) Hx Hysterectomy: Yes Hx Orthopedic Surgery: Yes (l ft) Other/Comment: multiple hernia sx's, inguinal hernia repair 11/02/13, 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,ap, left ft sx,interstim of bladder [facility] 2004, box removed wires intact 2008, hernia sx today 06/19/2014, anastamosis, lysis of adnesions, removal of mech insertion of mesh that dissolves, justine, abd wound was reopening, recto/vaginal fistula - ANESTHESIA Hx Anesthesia Reactions: No Hx Malignant Hyperthermia: No Meds Allergies/Adverse Reactions: Allergies Allergy/AdvReac Type Severity Reaction Status Date / Time amoxicillin Allergy Severe VOMITING Verified 06/06/15 09:43 Sulfa (Sulfonamide Allergy Severe CONVULSION Verified 06/06/15 09:43 Antibiotics) moxifloxacin HCl AdvReac Severe MUSCLE PAIN Verified 06/06/15 09:43 [From Avelox] - Medications Medications: Current Medications Acetaminophen (Tylenol 325mg Tab) 650 mg PO Q6H PRN PRN Reason: Fever >100.4 F Amlodipine Besylate (Norvasc) 10 mg PO DAILY [facility] Atorvastatin Calcium (Lipitor) 40 mg PO DAILY [facility] Clonidine HCl (Catapres) 0.1 mg PO BID [facility] Glimepiride (Amaryl) 2 mg PO BID [facility] Heparin Sodium (Porcine) (Heparin) 5,000 units SC Q12 [facility] PRN Reason: Protocol Ceftazidime/Avibactam 1.25 gm/ (Sodium Chloride) 100 mls @ 50 mls/hr IVPB Q8H [facility] Stop: 12/10/16 07:29 Last Admin: 12/10/16 06:18 Dose: 50 mls/hr Vancomycin HCl (Vancomycin 1gm) 1 gm in 250 mls @ 167 mls/hr IVPB Q12H [facility] PRN Reason: Protocol Last Admin: 12/10/16 05:48 Dose: 167 mls/hr Insulin Human Regular (Humulin R Med) 0 units SC ACHS [facility] PRN Reason: Protocol Last Admin: 12/09/16 22:12 Dose: Not Given Ondansetron HCl (Zofran Inj) 4 mg IVP Q4 PRN PRN Reason: Nausea/Vomiting Last Admin: 12/10/16 06:17 Dose: 4 mg Oxycodone/Acetaminophen (Percocet 5/325 Mg Tab) 1 tab PO Q4 PRN PRN Reason: Pain, severe (8-10) Stop: 12/13/16 00:01 Last Admin: 12/10/16 00:27 Dose: 1 tab Pantoprazole Sodium (Protonix Inj) 40 mg IVP ONCE [facility] Propranolol HCl (Inderal La) 60 mg PO DAILY [facility] Valsartan (Diovan) 320 mg PO DAILY [facility] Physical Exam - Constitutional Appears: Non-toxic, No Acute Distress - Head Exam Head Exam: NORMAL INSPECTION - ENT Exam ENT Exam: Mucous Membranes Moist - Neck Exam Neck exam: Negative for: Lymphadenopathy, Meningismus - Respiratory Exam Respiratory Exam: Decreased Breath Sounds. absent: Rales - Cardiovascular Exam Cardiovascular Exam: +S1, +S2 - GI/Abdominal Exam GI & Abdominal Exam: Soft, Tenderness (with area of induration in the lower abdomen) Results - Vital Signs Recent Vital Signs: Last Vital Signs Temp 97.8 F 12/10/16 00:41 Pulse 61 12/10/16 00:41 Resp 20 12/10/16 00:41 BP 130/62 12/10/16 00:41 Pulse Ox 100 12/09/16 21:51 - Labs Result Diagrams: 12/10/16 06:00 12/10/16 06:00 Labs: Laboratory Results - last 24 hr 12/10/16 06:00 APTT 29.7 Assessment & Plan - Assessment and Plan (Free Text) Plan: Assessment probable abdominal wall skin and skin structure infection, purulent, growing Klebsiella oxytoca obesity with BMI 31 DM HTN history of bladder resection with history of rectovaginal fistula history of uterine fibroids S/P hysterectomy S/P colostomy placement history of ventral hernia S/P repair and mesh placement with history of mesh infection and removal S/P appendectomy Plan Started patient on Merrem and follow up further Surgical plans; patient is for CT scan of the abdomen and pelvis to rule out fistula will monitor clinically
[2016-12-10] MEDS: Meropenem IV 1 gm in NS 50 ML IVPB SCH ×2 (13:37→21:17)
[2016-12-11] MEDS: Oxycodone/Acetaminophen 5/325 mg Tab PO PRN ×4 (03:24→19:22)
[2016-12-11] MEDS: Vancomycin 1gm in NS 250ml 1 GM/250 ML BAG IVPB SCH (05:17)
[2016-12-11] MEDS: Meropenem IV 1 gm in NS 50 ML IVPB SCH ×3 (05:18→21:44)
[2016-12-11 06:41] LABS: BASO # 0.03 K/mm3 (0.0-2.0); BASO % 0.5 % (0.0-3.0); EOS # 0.4 (0.0-0.7); EOS % 5.9 % (1.5-5.0); GRAN # 3.34 (1.4-6.5); GRAN % 51.8 % (50.0-68.0); HEMATOCRIT 37.6 % (36.0-48.0); LYMPH % 30.9 % (22.0-35.0); MEAN CELL VOLUME 90.2 fl (80.0-105.0); MEAN CORPUSCULAR HEMOGLOBIN 30.9 pg (25.0-35.0); MEAN CORPUSCULAR HGB CONC 34.3 g/dl (31.0-37.0); MEAN PLATELET VOLUME 9.9 fl (7.0-11.0); MONO # 0.7 (0.1-0.6); MONO % 10.9 % (1.0-6.0); RED CELL DISTRIBUTION WIDTH 12.7 % (11.5-14.5); WHITE BLOOD COUNT 6.4 10^3/ul (4.5-11.0)
[2016-12-11 07:14] LABS: BLOOD UREA NITROGEN 16 mg/dL (7-21); CALCIUM 9.2 mg/dL (8.4-10.5); CARBON DIOXIDE 27 mmol/L (21-33); CHLORIDE 106 mmol/L (98-107); GFR AFRICAN-AMERICAN > 60; GLUCOSE,RANDOM 121 mg/dL (70-110); SODIUM 141 mmol/L (132-148)
[2016-12-11] MEDS: Insulin Reg-MEDIUM-Coverage SC SCH ×4 (08:05→21:29)
[2016-12-11] MEDS: Propranolol 60 mg ER Cap PO SCH (10:08)
--- NOTE | 2016-12-11 10:37 | CP.PCM.PN ---
Subjective - Date & Time of Evaluation Date of Evaluation: 12/11/16 Time of Evaluation: 10:34 - Subjective Subjective: General Surgery Note for Dr. Wiggins Patient seen and examined at beside this morning. No acute events overnight. Patient states she has some mild discomfort in the LLQ of her abdomen but her pain has been well controlled. She reports needing multiple dressing changes throughout yesterday and this morning due to persistent drainage. Patient is tolerating her diet. Denies f/c, n/v, sob, cp or headache. Objective - Vital Signs/Intake and Output Vital Signs (last 24 hours): Temp Pulse Resp BP Pulse Ox 97.9 F 53 L 18 148/63 95 12/11/16 09:08 12/11/16 09:08 12/11/16 09:08 12/11/16 10:08 12/11/16 09:08 Intake and Output: 12/11/16 12/11/16 06:59 18:59 Intake Total 650 240 Balance 650 240 - Medications Medications: Current Medications Acetaminophen (Tylenol 325mg Tab) 650 mg PO Q6H PRN PRN Reason: Fever >100.4 F Last Admin: 12/11/16 08:13 Dose: 650 mg Amlodipine Besylate (Norvasc) 10 mg PO DAILY [facility] Last Admin: 12/11/16 10:07 Dose: 10 mg Atorvastatin Calcium (Lipitor) 40 mg PO DAILY [facility] Last Admin: 12/11/16 10:08 Dose: 40 mg Clonidine HCl (Catapres) 0.1 mg PO BID [facility] Last Admin: 12/11/16 10:07 Dose: 0.1 mg Glimepiride (Amaryl) 2 mg PO BID [facility] Last Admin: 12/11/16 10:07 Dose: 2 mg Heparin Sodium (Porcine) (Heparin) 5,000 units SC Q12 [facility] PRN Reason: Protocol Last Admin: 12/11/16 10:04 Dose: 5,000 units Meropenem (Merrem Iv 1 Gm Premix) 50 mls @ 100 mls/hr IVPB Q8 [facility] PRN Reason: Protocol Stop: 12/17/16 07:01 Last Admin: 12/11/16 05:18 Dose: 100 mls/hr Insulin Human Regular (Humulin R Med) 0 units SC ACHS [facility] PRN Reason: Protocol Last Admin: 12/11/16 08:05 Dose: Not Given Ketorolac Tromethamine (Toradol) 30 mg IVP Q6 PRN PRN Reason: Breakthrough pain Last Admin: 12/10/16 18:40 Dose: 30 mg Ondansetron HCl (Zofran Inj) 4 mg IVP Q4 PRN PRN Reason: Nausea/Vomiting Last Admin: 12/11/16 09:39 Dose: 4 mg Oxycodone/Acetaminophen (Percocet 5/325 Mg Tab) 1 tab PO Q4 PRN PRN Reason: Pain, severe (8-10) Stop: 12/13/16 00:01 Last Admin: 12/11/16 10:20 Dose: 1 tab Pantoprazole Sodium (Protonix Inj) 40 mg IVP ONCE [facility] Last Admin: 12/11/16 08:15 Dose: Not Given Propranolol HCl (Inderal La) 60 mg PO DAILY [facility] Last Admin: 12/11/16 10:08 Dose: 60 mg Valsartan (Diovan) 320 mg PO DAILY [facility] Last Admin: 12/11/16 10:07 Dose: 320 mg - Labs Labs: 12/11/16 05:30 12/11/16 05:30 APTT 29.7 Seconds (25.1-36.5) 12/10/16 06:00 - Constitutional Appears: Non-toxic, No Acute Distress - Head Exam Head Exam: ATRAUMATIC, NORMOCEPHALIC - Eye Exam Eye Exam: EOMI, Normal appearance. absent: Scleral icterus - ENT Exam ENT Exam: Mucous Membranes Moist - Respiratory Exam Respiratory Exam: NORMAL BREATHING PATTERN. absent: Accessory Muscle Use, Respiratory Distress - GI/Abdominal Exam GI & Abdominal Exam: Guarding (midline/LLQ), Soft, Tenderness (midline/LLQ) Additional comments: Draining purulent fluid from open wound, dressing was changed; indurated 5cm diameter around drainage site. Ostomy bag in place, no leakage. - Extremities Exam Extremities Exam: absent: Calf Tenderness, Pedal Edema - Neurological Exam Neurological Exam: Alert, Awake, Oriented x3 - Psychiatric Exam Psychiatric exam: Normal Affect, Normal Mood - Skin Skin Exam: Dry, Warm Assessment and Plan - Assessment and Plan (Free Text) Assessment: 61F w/ multiple abdominal surgeries w/ purulent drainage from abdomen growing Kelbsiella oxytoca, intra-abdominal abscess Plan: - CT with PO contrast - no fistula seen. Within the ventral abdominal subcutaneous tissues, there is soft tissue swelling and a small collection of gas. This collection of gas measures 1.8 x 1.1 cm and is new compared to the prior study. These changes have progressed and are likely postoperative or infectious in etiology - f/u wound culture: grew 2 types of gram negative rods - IV Antibiotics per ID recs - continue conservative management for now - Dressing changes PRN - further recs per Dr. Wiggins Will discuss case with Dr. Feliciano Salomon Charlie PGY1
--- NOTE | 2016-12-11 12:01 | HP ---
HISTORY OF PRESENT ILLNESS: The patient is a 61-year-old known to me from multiple previous admissions. The patient states at the end of last week, she started to have abdominal discomfort. She stated when she leans against the sink, she was having some discomfort in lower abdominal area. The next day, she spiked fever. She went to see Dr. Wiggins who tried to aspirate fluid from her lower abdominal swelling area and sent to the lab that grew Klebsiella. The patient states after that lot of yellowish blood tinged fluid started to come out. She called Dr. Wiggins who advised her to come to the Emergency Room for further evaluation, although once she started having discharge, her fever subsided. PAST MEDICAL HISTORY: She has very complicated past medical history includin, Hypertension. 2. Mgn-bioqvxd-whpqbkiyw diabetes. 3. History of rectovaginal fistula. 4. History of multiple surgeries for uterine fibroid. 5. Status post hysterectomy. 6. Status post colostomy. 7. Multiple surgeries for ventral hernia repair and mesh placement and she had mesh removal multiple times. 8. Status post appendectomy. ALLERGIES: SHE IS ALLERGIC TO AMOXICILLIN, BUT SHE IS NOT SURE THAT ONLY GIVE HER DIARRHEA, BUT THERE WAS NO RASH NOTED; HOWEVER, SHE IS HIGHLY ALLERGIC TO SULFA AND AVELOX AND ADHESIVE TAPE. MEDICATIONS AT HOME: She was taking Zyvox for 4 to 5 days prior to coming to the hospital, Percocet as needed, clonidine 0.1 twice a day, simvastatin 80 mg daily, propranolol 60 mg daily, mg daily, and Exforge 10/320 mg daily. SOCIAL HISTORY: She is single, active smoker. Denies alcohol use. REVIEW OF SYSTEMS: Significant for lower abdominal discomfort. PHYSICAL EXAMINATION GENERAL: She is awake, alert, oriented, communicative,and not in any distress. VITAL SIGNS: She is afebrile, pulse is 57, respirations are 20, and blood pressure is 98/51. LUNGS: Bilateral good air flow. No rhonchi or crackle. HEART: S1 and S2 audible. ABDOMEN: Soft. Lower abdomen revealed scar that is gaining yellowish blood tinged pus. EXTREMITIES: Bilateral legs; no edema. LABORATORY DATA: WBC is 6.9, hemoglobin is 13.6, hematocrit is 38.9, and platelets are 276. Chemistry: Sodium of 139, potassium of 3.8, chloride of 104, CO2 of 27, BUN of 16, creatinine of 0.5, and blood sugar of 290. Urinalysis was unremarkable. DIAGNOSTIC DATA: CT scan of the abdomen and pelvis was done that shows there is ostomy within the abdominal wall with shallow herniation of the small bowel into the defect. Postoperative changes with the ventral abdominal wall swelling and small collection of gas. Small fluid collection in the focus of the gas within the ventral abdominal wall area. ASSESSMENT: 1. Abdominal wall abscess, status post incision and drainage. 2. Hypertension. 3. Aje-yjyzfrk-jzqrvydys diabetes. 4. Status post colostomy. PLAN: Currently, the patient is on DVT prophylaxis. Her blood sugar is being monitored. She is on meropenem. We will follow up her wound cultures, out of bed to chair and local wound. Olga Goyal MD
--- NOTE | 2016-12-11 13:24 | CP.PCM.PN ---
Subjective - Date & Time of Evaluation Date of Evaluation: 12/11/16 Time of Evaluation: 10:55 - Subjective Subjective: Comfortable, not in distress but still with pain in the abdomen, no fevers overnight. Objective - Vital Signs/Intake and Output Vital Signs (last 24 hours): Temp Pulse Resp BP Pulse Ox 97.9 F 53 L 18 148/63 95 12/11/16 09:08 12/11/16 09:08 12/11/16 09:08 12/11/16 09:08 12/11/16 09:08 Intake and Output: 12/11/16 12/11/16 06:59 18:59 Intake Total 650 240 Balance 650 240 - Medications Medications: Current Medications Acetaminophen (Tylenol 325mg Tab) 650 mg PO Q6H PRN PRN Reason: Fever >100.4 F Last Admin: 12/11/16 08:13 Dose: 650 mg Amlodipine Besylate (Norvasc) 10 mg PO DAILY [facility] Last Admin: 12/10/16 09:43 Dose: 10 mg Atorvastatin Calcium (Lipitor) 40 mg PO DAILY [facility] Last Admin: 12/10/16 09:42 Dose: 40 mg Clonidine HCl (Catapres) 0.1 mg PO BID [facility] Last Admin: 12/10/16 17:39 Dose: Not Given Glimepiride (Amaryl) 2 mg PO BID [facility] Last Admin: 12/10/16 17:39 Dose: 2 mg Heparin Sodium (Porcine) (Heparin) 5,000 units SC Q12 [facility]EROY PRN Reason: Protocol Last Admin: 12/10/16 21:17 Dose: 5,000 units Vancomycin HCl (Vancomycin 1gm) 1 gm in 250 mls @ 167 mls/hr IVPB Q12H [facility] PRN Reason: Protocol Last Admin: 12/11/16 05:17 Dose: 167 mls/hr Meropenem (Merrem Iv 1 Gm Premix) 50 mls @ 100 mls/hr IVPB Q8 [facility] PRN Reason: Protocol Stop: 12/17/16 07:01 Last Admin: 12/11/16 05:18 Dose: 100 mls/hr Insulin Human Regular (Humulin R Med) 0 units SC ACHS [facility] PRN Reason: Protocol Last Admin: 12/11/16 08:05 Dose: Not Given Ketorolac Tromethamine (Toradol) 30 mg IVP Q6 PRN PRN Reason: Breakthrough pain Last Admin: 12/10/16 18:40 Dose: 30 mg Ondansetron HCl (Zofran Inj) 4 mg IVP Q4 PRN PRN Reason: Nausea/Vomiting Last Admin: 12/11/16 09:39 Dose: 4 mg Oxycodone/Acetaminophen (Percocet 5/325 Mg Tab) 1 tab PO Q4 PRN PRN Reason: Pain, severe (8-10) Stop: 12/13/16 00:01 Last Admin: 12/11/16 03:24 Dose: 1 tab Pantoprazole Sodium (Protonix Inj) 40 mg IVP ONCE [facility] Last Admin: 12/11/16 08:15 Dose: Not Given Propranolol HCl (Inderal La) 60 mg PO DAILY [facility] Last Admin: 12/10/16 09:42 Dose: 60 mg Valsartan (Diovan) 320 mg PO DAILY [facility] Last Admin: 12/10/16 09:40 Dose: 320 mg - Labs Labs: 12/11/16 05:30 12/11/16 05:30 APTT 29.7 Seconds (25.1-36.5) 12/10/16 06:00 - Constitutional Appears: Non-toxic - Head Exam Head Exam: NORMAL INSPECTION - ENT Exam ENT Exam: Mucous Membranes Moist - Neck Exam Neck Exam: absent: Lymphadenopathy, Meningismus - Respiratory Exam Respiratory Exam: Decreased Breath Sounds - Cardiovascular Exam Cardiovascular Exam: +S1, +S2 - GI/Abdominal Exam GI & Abdominal Exam: Soft, Tenderness (in the mid to lower abdomen ) Assessment and Plan - Assessment and Plan (Free Text) Plan: Assessment probable abdominal wall skin and skin structure infection, purulent, growing Klebsiella oxytoca, new cultures with two types of gram negative abcilli obesity with BMI 31 DM HTN history of bladder resection with history of rectovaginal fistula history of uterine fibroids S/P hysterectomy S/P colostomy placement history of ventral hernia S/P repair and mesh placement with history of mesh infection and removal S/P appendectomy Plan continue Merrem day 2 and will follow up identification and sensitivities of the gram negative bacilli in the wound;reviewed CT scan of the abdomen and pelvis discussed with Dr. Wiggins will continue to monitor clinically
[2016-12-11] MEDS: Fluticasone Nasal 50 mcg/Spray NS SCH (14:35)
--- NOTE | 2016-12-11 15:00 | PN ---
DATE: SUBJECTIVE: The patient is a 61-year-old, seen and examined, lying in bed, seems to be comfortable, complaining of feeling nauseous at times, currently Zofran is not working. No complaint of fever or chills. She does have nausea that comes in waves at times. PHYSICAL EXAMINATION VITAL SIGNS: She is afebrile, pulse is 53, respiration 18, blood pressure 148/63. LUNGS: Bilateral fair airflow. No rhonchi or crackle. HEART: S1 and S2 audible. ABDOMEN: She has a small opening in the lower part of her old surgical site where she is draining blood-tinged pus. NEUROLOGIC: She is awake, alert, oriented, communicative. LABORATORY DATA: WBC is 6.4, hemoglobin 12.9, hematocrit 37.6, platelets of 254. Chemistry; sodium 141, potassium 4.0, chloride 106, CO2 of 27, BUN 16, creatinine 0.6, blood sugar 252. Urine is unremarkable. Her abdominal wound is growing Gram-negative rods, identification to follow. ASSESSMENT: 1. Abdominal wall abscess status post incision and drainage, growing Klebsiella. 2. Hypertension. 3. Kue-aogeocq-wcacvkkfm diabetes. 4. Hyperlipidemia. PLAN: The patient also complained of some postnasal drip. I will order for Flonase and the patient states her Zofran is not relieving her nausea. I will start her on Reglan and I will follow sensitivity and for now, she is on antibiotics as recommended by ID, that is, meropenem. We will follow up with this patient. Olga Goyal MD
[2016-12-12] MEDS: Oxycodone/Acetaminophen 5/325 mg Tab PO PRN (03:26)
[2016-12-12] MEDS: Meropenem IV 1 gm in NS 50 ML IVPB SCH ×2 (05:35→13:42)
--- NOTE | 2016-12-12 07:40 | CP.PCM.PN ---
Subjective - Date & Time of Evaluation Date of Evaluation: 12/12/16 Time of Evaluation: 07:35 - Subjective Subjective: PGY1 General Surgery Note for Dr. Wiggins Patient seen and examined at bedside this morning. No acute events overnight. Patient states she is still experiencing a stinging pain towards the left of site draining. The patient reports that her dressing needed to be changed multiple times throughout the day/night yesterday due to becoming saturated. She states the percocet and toradol are helping with the pain and that it tolerable at this time. She reports periodic episodes of nausea with no vomiting. The nausea is quickly resolved once she asks the nurse for nausea medication. She denies fevers, chills, diarrhea, constipation, sob, chest pain or headache. Objective - Vital Signs/Intake and Output Vital Signs (last 24 hours): Temp Pulse Resp BP Pulse Ox 97.7 F 50 L 19 111/50 L 95 12/11/16 16:00 12/11/16 16:00 12/11/16 16:00 12/11/16 17:25 12/11/16 16:00 Intake and Output: 12/12/16 12/12/16 06:59 18:59 Intake Total 690 240 Balance 690 240 - Medications Medications: Current Medications Acetaminophen (Tylenol 325mg Tab) 650 mg PO Q6H PRN PRN Reason: Fever >100.4 F Last Admin: 12/11/16 08:13 Dose: 650 mg Amlodipine Besylate (Norvasc) 10 mg PO DAILY [facility] Last Admin: 12/11/16 10:07 Dose: 10 mg Atorvastatin Calcium (Lipitor) 40 mg PO DAILY [facility] Last Admin: 12/11/16 10:08 Dose: 40 mg Clonidine HCl (Catapres) 0.1 mg PO BID [facility] Last Admin: 12/11/16 17:25 Dose: Not Given Fluticasone Propionate (Flonase) 1 actuation NS DAILY [facility] Last Admin: 12/11/16 14:35 Dose: 1 spr Glimepiride (Amaryl) 2 mg PO BID [facility] Last Admin: 12/11/16 17:25 Dose: 2 mg Heparin Sodium (Porcine) (Heparin) 5,000 units SC Q12 [facility] PRN Reason: Protocol Last Admin: 12/11/16 21:44 Dose: 5,000 units Meropenem (Merrem Iv 1 Gm Premix) 50 mls @ 100 mls/hr IVPB Q8 [facility] PRN Reason: Protocol Stop: 12/17/16 07:01 Last Admin: 12/12/16 05:35 Dose: 100 mls/hr Insulin Human Regular (Humulin R Med) 0 units SC ACHS [facility] PRN Reason: Protocol Last Admin: 12/11/16 21:29 Dose: Not Given Ketorolac Tromethamine (Toradol) 30 mg IVP Q6 PRN PRN Reason: Breakthrough pain Last Admin: 12/12/16 06:23 Dose: 30 mg Metoclopramide HCl (Reglan) 5 mg IVP TID [facility] Last Admin: 12/11/16 17:24 Dose: 5 mg Ondansetron HCl (Zofran Inj) 4 mg IVP Q4 PRN PRN Reason: Nausea/Vomiting Last Admin: 12/11/16 21:55 Dose: 4 mg Oxycodone/Acetaminophen (Percocet 5/325 Mg Tab) 1 tab PO Q4 PRN PRN Reason: Pain, severe (8-10) Stop: 12/13/16 00:01 Last Admin: 12/12/16 03:26 Dose: 1 tab Pantoprazole Sodium (Protonix Inj) 40 mg IVP ONCE [facility] Last Admin: 12/11/16 08:15 Dose: Not Given Propranolol HCl (Inderal La) 60 mg PO DAILY [facility] Last Admin: 12/11/16 10:08 Dose: 60 mg Valsartan (Diovan) 320 mg PO DAILY [facility] Last Admin: 12/11/16 10:07 Dose: 320 mg - Labs Labs: 12/11/16 05:30 12/11/16 05:30 APTT 29.7 Seconds (25.1-36.5) 12/10/16 06:00 - Constitutional Appears: Non-toxic, No Acute Distress - Head Exam Head Exam: ATRAUMATIC, NORMOCEPHALIC - Eye Exam Eye Exam: EOMI, Normal appearance - ENT Exam ENT Exam: Mucous Membranes Moist - Respiratory Exam Respiratory Exam: NORMAL BREATHING PATTERN. absent: Accessory Muscle Use, Respiratory Distress - Cardiovascular Exam Cardiovascular Exam: REGULAR RHYTHM - GI/Abdominal Exam GI & Abdominal Exam: Soft, Tenderness (left and inferior to drainging site ( inferior to umbilicus), dressing was saturated with brown/pinkish purulent fluid. No active draining during dressing change.). absent: Distended, Firm, Guarding, Rigid - Extremities Exam Extremities Exam: Normal Inspection. absent: Calf Tenderness, Pedal Edema - Neurological Exam Neurological Exam: Alert, Awake, Oriented x3 - Psychiatric Exam Psychiatric exam: Normal Affect, Normal Mood - Skin Skin Exam: Dry, Warm Additional comments: erythema surrounding drainage site, most likely 2/2 adhesive irritation. Assessment and Plan - Assessment and Plan (Free Text) Assessment: 61F w/ multiple abdominal surgeries w/ purulent drainage from abdomen growing Kelbsiella oxytoca, intra-abdominal abscess Plan: - CT with PO contrast - no fistula seen. Within the ventral abdominal subcutaneous tissues, there is soft tissue swelling and a small collection of gas. This collection of gas measures 1.8 x 1.1 cm and is new compared to the prior study. These changes have progressed and are likely postoperative or infectious in etiology - f/u wound culture: grew 2 types of gram negative rods; blood cultures neg at 48 hours. - IV Antibiotics per ID recs - continue conservative management for now - Dressing changes PRN - further recs per Dr. Wiggins Will discuss case with Dr. Feliciano Salomon Charlie PGY1
[2016-12-12 07:49] LABS: BASO # 0.03 K/mm3 (0.0-2.0); BASO % 0.4 % (0.0-3.0); EOS # 0.4 (0.0-0.7); EOS % 6.3 % (1.5-5.0); GRAN # 3.65 (1.4-6.5); GRAN % 51.8 % (50.0-68.0); HEMATOCRIT 39.5 % (36.0-48.0); LYMPH # 2.2 (1.2-3.4); LYMPH % 31.1 % (22.0-35.0); MEAN CELL VOLUME 90.6 fl (80.0-105.0); MEAN CORPUSCULAR HGB CONC 34.2 g/dl (31.0-37.0); MEAN PLATELET VOLUME 10.2 fl (7.0-11.0); MONO # 0.7 (0.1-0.6); MONO % 10.4 % (1.0-6.0); RED CELL DISTRIBUTION WIDTH 12.4 % (11.5-14.5)
[2016-12-12 07:56] LABS: BLOOD UREA NITROGEN 12 mg/dL (7-21); CALCIUM 9.4 mg/dL (8.4-10.5); CARBON DIOXIDE 31 mmol/L (21-33); CHLORIDE 105 mmol/L (98-107); GFR AFRICAN-AMERICAN > 60; GLUCOSE,RANDOM 130 mg/dL (70-110); POTASSIUM 4.1 mmol/L (3.6-5.0); SODIUM 143 mmol/L (132-148)
[2016-12-12] MEDS: Fluticasone Nasal 50 mcg/Spray NS SCH (09:21)
[2016-12-12] MEDS: Propranolol 60 mg ER Cap PO SCH (09:22)
[2016-12-12] MEDS: Insulin Reg-MEDIUM-Coverage SC SCH ×4 (09:22→21:38)
--- NOTE | 2016-12-12 13:07 | CP.PCM.PN ---
Subjective - Date & Time of Evaluation Date of Evaluation: 12/12/16 Time of Evaluation: 11:00 - Subjective Subjective: Comfortable, not in distress, afebrile, still with drainage from the abdominal area. Objective - Vital Signs/Intake and Output Vital Signs (last 24 hours): Temp Pulse Resp BP Pulse Ox 97.9 F 53 L 18 127/57 L 94 L 12/12/16 09:26 12/12/16 09:26 12/12/16 09:26 12/12/16 09:26 12/12/16 09:26 Intake and Output: 12/12/16 12/12/16 06:59 18:59 Intake Total 690 240 Balance 690 240 - Medications Medications: Current Medications Acetaminophen (Tylenol 325mg Tab) 650 mg PO Q6H PRN PRN Reason: Fever >100.4 F Last Admin: 12/11/16 08:13 Dose: 650 mg Amlodipine Besylate (Norvasc) 10 mg PO DAILY [facility] Last Admin: 12/12/16 09:22 Dose: 10 mg Atorvastatin Calcium (Lipitor) 40 mg PO DAILY [facility] Last Admin: 12/11/16 10:08 Dose: 40 mg Clonidine HCl (Catapres) 0.1 mg PO BID [facility] Last Admin: 12/12/16 09:21 Dose: Not Given Fluticasone Propionate (Flonase) 1 actuation NS DAILY [facility] Last Admin: 12/12/16 09:21 Dose: 1 spr Glimepiride (Amaryl) 2 mg PO BID [facility] Last Admin: 12/12/16 09:21 Dose: 2 mg Heparin Sodium (Porcine) (Heparin) 5,000 units SC Q12 [facility] PRN Reason: Protocol Last Admin: 12/12/16 09:21 Dose: 5,000 units Meropenem (Merrem Iv 1 Gm Premix) 50 mls @ 100 mls/hr IVPB Q8 [facility] PRN Reason: Protocol Stop: 12/17/16 07:01 Last Admin: 12/12/16 05:35 Dose: 100 mls/hr Insulin Human Regular (Humulin R Med) 0 units SC ACHS [facility] PRN Reason: Protocol Last Admin: 12/12/16 09:22 Dose: Not Given Ketorolac Tromethamine (Toradol) 30 mg IVP Q6 PRN PRN Reason: Breakthrough pain Last Admin: 12/12/16 06:23 Dose: 30 mg Metoclopramide HCl (Reglan) 5 mg IVP TID [facility] Last Admin: 12/12/16 09:23 Dose: 5 mg Ondansetron HCl (Zofran Inj) 4 mg IVP Q4 PRN PRN Reason: Nausea/Vomiting Last Admin: 12/11/16 21:55 Dose: 4 mg Oxycodone/Acetaminophen (Percocet 5/325 Mg Tab) 1 tab PO Q4 PRN PRN Reason: Pain, severe (8-10) Stop: 12/13/16 00:01 Last Admin: 12/12/16 03:26 Dose: 1 tab Pantoprazole Sodium (Protonix Inj) 40 mg IVP ONCE [facility] Last Admin: 12/11/16 08:15 Dose: Not Given Propranolol HCl (Inderal La) 60 mg PO DAILY [facility] Last Admin: 12/12/16 09:22 Dose: 60 mg Valsartan (Diovan) 320 mg PO DAILY [facility] Last Admin: 12/12/16 09:21 Dose: 320 mg - Labs Labs: 12/12/16 07:00 12/12/16 07:00 APTT 29.7 Seconds (25.1-36.5) 12/10/16 06:00 - Constitutional Appears: Non-toxic, No Acute Distress - Head Exam Head Exam: NORMAL INSPECTION - ENT Exam ENT Exam: Mucous Membranes Moist - Neck Exam Neck Exam: absent: Meningismus - Respiratory Exam Respiratory Exam: Decreased Breath Sounds - Cardiovascular Exam Cardiovascular Exam: +S1, +S2 - GI/Abdominal Exam GI & Abdominal Exam: Soft. absent: Tenderness Additional comments: dressings in place Assessment and Plan - Assessment and Plan (Free Text) Plan: Assessment probable abdominal wall skin and skin structure infection, purulent, growing Klebsiella oxytoca and E. coli obesity with BMI 31 DM HTN history of bladder resection with history of rectovaginal fistula history of uterine fibroids S/P hysterectomy S/P colostomy placement history of ventral hernia S/P repair and mesh placement with history of mesh infection and removal S/P appendectomy Plan continue Merrem day 3; reviewed CT scan of the abdomen and pelvis awaiting further plans by surgery discussed with patient regarding antibiotic allergies - probably had side effects instead of true allergies to amoxicillin - we can switch to PO Keflex and Flagyl if no surgical intervention is necessary for 10-14 days with outpatient follow up with PMD and surgery will continue to monitor clinically
[2016-12-12] MEDS: HYDROmorphone 0.5 mg/0.5 ml ISec IVP PRN ×2 (14:54→21:16)
--- NOTE | 2016-12-12 17:12 | PN ---
DATE: SUBJECTIVE: Complained of excessive purulent discharge from her abdominal wound, complained of feeling nausea. No fever or chills. PHYSICAL EXAMINATION VITAL SIGNS: She is afebrile, pulse 53, respirations 18, blood pressure 127/57. LUNGS: Bilateral fair airflow. No rhonchi or crackle. HEART: S1 and S2 audible. ABDOMEN: Soft. She has small knotted area that is palpably painful on the left side of her discharging wound. LABORATORY DATA: WBCs 7.0, hemoglobin 13, hematocrit 39, and platelet of 270. Chemistry: Sodium 143, potassium 4.1, chloride 105, CO2 of 31, BUN 12, and creatinine 0.6. Blood sugar of 195. Urinalysis is unremarkable. She is growing Klebsiella and E. coli from her abdominal wound, sensitive to meropenem. ASSESSMENT: 1. Abdominal wall cellulitis and abscess, status post incision and drainage, currently being treated for Klebsiella and Escherichia coli. 2. Hypertension. 3. Hyperlipidemia. 4. Qef-ryfznxi-itstusywl diabetes. PLAN: Continue the patient on local wound care. She is on oral hypoglycemic. She is getting oral antihypertensive. She is on DVT prophylaxis. , we will follow this patient. Olga Goyal MD
[2016-12-12] MEDS: Meropenem 1 GM in Sodium Chloride 0.9% 100 ML IVPB SCH (21:52)
[2016-12-13] MEDS: HYDROmorphone 0.5 mg/0.5 ml ISec IVP PRN ×5 (01:00→20:57)
[2016-12-13] MEDS: Meropenem 1 GM in Sodium Chloride 0.9% 100 ML IVPB SCH ×3 (05:40→22:05)
[2016-12-13 07:16] LABS: BASO # 0.02 K/mm3 (0.0-2.0); BASO % 0.3 % (0.0-3.0); EOS # 0.5 (0.0-0.7); EOS % 5.7 % (1.5-5.0); GRAN # 4.58 (1.4-6.5); GRAN % 58.4 % (50.0-68.0); HEMATOCRIT 39.9 % (36.0-48.0); LYMPH # 2.1 (1.2-3.4); LYMPH % 26.5 % (22.0-35.0); MEAN CELL VOLUME 91.1 fl (80.0-105.0); MEAN CORPUSCULAR HEMOGLOBIN 31.1 pg (25.0-35.0); MEAN CORPUSCULAR HGB CONC 34.1 g/dl (31.0-37.0); MONO # 0.7 (0.1-0.6); MONO % 9.1 % (1.0-6.0); RED CELL DISTRIBUTION WIDTH 12.4 % (11.5-14.5); WHITE BLOOD COUNT 7.8 10^3/ul (4.5-11.0)
--- NOTE | 2016-12-13 07:21 | CP.PCM.PCO ---
Physician Communication Note - Physician Communication Note Physician Communication Note: Wound source prob colostomy into skin--Abscess
[2016-12-13 07:37] LABS: BLOOD UREA NITROGEN 11 mg/dL (7-21); CALCIUM 9.7 mg/dL (8.4-10.5); CARBON DIOXIDE 32 mmol/L (21-33); CHLORIDE 106 mmol/L (98-107); GFR AFRICAN-AMERICAN > 60; GLUCOSE,RANDOM 121 mg/dL (70-110); POTASSIUM 4.3 mmol/L (3.6-5.0); SODIUM 143 mmol/L (132-148)
[2016-12-13] MEDS: Insulin Reg-MEDIUM-Coverage SC SCH ×4 (10:05→22:06)
[2016-12-13] MEDS: Propranolol 60 mg ER Cap PO SCH (10:17)
--- NOTE | 2016-12-13 10:47 | CP.PCM.PN ---
<Aime Guerra - Last Filed: 12/13/16 10:38> Subjective - Date & Time of Evaluation Date of Evaluation: 12/13/16 Time of Evaluation: 10:38 - Subjective Subjective: PGY1 General Surgery Note for Dr. Wiggins Patient seen and examined at bedside this morning. No acute events overnight. Patient is still experiencing pain and drainage from her abdomen. The patient states she needed multiple dressing changes throughout the day and night due to drainage. The patient reports periodic nausea with no vomiting throughout the day yesterday. She is currently not nauseous. Denies fevers, chills, diarrhea, constipation, sob or chest pain. Objective - Vital Signs/Intake and Output Vital Signs (last 24 hours): Temp Pulse Resp BP Pulse Ox 97.7 F 58 L 20 122/68 95 12/13/16 09:16 12/13/16 09:16 12/13/16 09:16 12/13/16 10:17 12/13/16 09:16 Intake and Output: 12/13/16 12/13/16 06:59 18:59 Intake Total 1080 Balance 1080 - Medications Medications: Current Medications Acetaminophen (Tylenol 325mg Tab) 650 mg PO Q6H PRN PRN Reason: Fever >100.4 F Last Admin: 12/13/16 01:01 Dose: 650 mg Amlodipine Besylate (Norvasc) 10 mg PO DAILY [facility] Last Admin: 12/13/16 10:17 Dose: 10 mg Atorvastatin Calcium (Lipitor) 40 mg PO DAILY [facility] Last Admin: 12/13/16 10:17 Dose: 40 mg Clonidine HCl (Catapres) 0.1 mg PO BID [facility] Last Admin: 12/13/16 10:17 Dose: 0.1 mg Fluticasone Propionate (Flonase) 1 actuation NS DAILY [facility] Last Admin: 12/12/16 09:21 Dose: 1 spr Glimepiride (Amaryl) 2 mg PO BID [facility] Last Admin: 12/13/16 10:17 Dose: 2 mg Heparin Sodium (Porcine) (Heparin) 5,000 units SC Q12 [facility] PRN Reason: Protocol Last Admin: 12/13/16 10:18 Dose: 5,000 units Hydromorphone HCl (Dilaudid) 0.5 mg IVP Q4H PRN PRN Reason: Pain, severe (8-10) Last Admin: 12/13/16 06:14 Dose: 0.5 mg Meropenem 1 gm/ Sodium (Chloride) 100 mls @ 100 mls/hr IVPB Q8 [facility] PRN Reason: Protocol Stop: 12/17/16 07:01 Last Admin: 12/13/16 05:40 Dose: 100 mls/hr Insulin Human Regular (Humulin R Med) 0 units SC ACHS [facility] PRN Reason: Protocol Last Admin: 12/13/16 10:05 Dose: Not Given Ketorolac Tromethamine (Toradol) 30 mg IVP Q6 PRN PRN Reason: Breakthrough pain Last Admin: 12/12/16 06:23 Dose: 30 mg Metoclopramide HCl (Reglan) 5 mg IVP TID [facility] Last Admin: 12/13/16 10:18 Dose: 5 mg Ondansetron HCl (Zofran Inj) 4 mg IVP Q4 PRN PRN Reason: Nausea/Vomiting Last Admin: 12/11/16 21:55 Dose: 4 mg Pantoprazole Sodium (Protonix Inj) 40 mg IVP DAILY [facility] Last Admin: 12/13/16 10:17 Dose: 40 mg Propranolol HCl (Inderal La) 60 mg PO DAILY [facility] Last Admin: 12/13/16 10:17 Dose: 60 mg Valsartan (Diovan) 320 mg PO DAILY [facility] Last Admin: 12/13/16 10:17 Dose: 320 mg - Labs Labs: 12/13/16 06:50 12/13/16 06:50 APTT 29.7 Seconds (25.1-36.5) 12/10/16 06:00 - Constitutional Appears: Non-toxic, No Acute Distress - Head Exam Head Exam: ATRAUMATIC, NORMOCEPHALIC - Eye Exam Eye Exam: EOMI, Normal appearance. absent: Scleral icterus - ENT Exam ENT Exam: Mucous Membranes Moist - Respiratory Exam Respiratory Exam: NORMAL BREATHING PATTERN. absent: Accessory Muscle Use, Respiratory Distress - GI/Abdominal Exam GI & Abdominal Exam: Soft, Tenderness (eft and inferior to drainging site ( inferior to umbilicus), dressing was saturated with brown/pinkish purulent fluid. No active draining during dressing change.). absent: Distended, Firm, Guarding, Rigid, Rebound - Exam Exam: NORMAL INSPECTION - Extremities Exam Extremities Exam: Normal Inspection. absent: Calf Tenderness, Pedal Edema - Neurological Exam Neurological Exam: Alert, Awake, Oriented x3 - Psychiatric Exam Psychiatric exam: Normal Affect, Normal Mood - Skin Skin Exam: Dry, Warm Additional comments: erythema surrounding drainage site Assessment and Plan - Assessment and Plan (Free Text) Assessment: 61F w/ multiple abdominal surgeries w/ purulent drainage from abdomen growing Kelbsiella oxytoca, intra-abdominal abscess Plan: - CT with PO contrast - no fistula seen. Within the ventral abdominal subcutaneous tissues, there is soft tissue swelling and a small collection of gas. This collection of gas measures 1.8 x 1.1 cm and is new compared to the prior study. These changes have progressed and are likely postoperative or infectious in etiology - wound culture: Klebsiella and E.Coli; blood cultures neg at 72 hours. - IV Antibiotics per ID recs - continue conservative management for now - Dressing changes PRN - further recs per Dr. Wiggins Will discuss case with Dr. Feliciano Bostonn PGY1 <Devon Wiggins - Last Filed: 12/13/16 13:18> Objective - Vital Signs/Intake and Output Vital Signs (last 24 hours): Temp Pulse Resp BP Pulse Ox 97.7 F 58 L 20 122/68 95 12/13/16 09:16 12/13/16 09:16 12/13/16 09:16 12/13/16 10:17 12/13/16 09:16 Intake and Output: 12/13/16 12/13/16 06:59 18:59 Intake Total 1080 Balance 1080 - Medications Medications: Current Medications Acetaminophen (Tylenol 325mg Tab) 650 mg PO Q6H PRN PRN Reason: Fever >100.4 F Last Admin: 12/13/16 01:01 Dose: 650 mg Amlodipine Besylate (Norvasc) 10 mg PO DAILY [facility] Last Admin: 12/13/16 10:17 Dose: 10 mg Atorvastatin Calcium (Lipitor) 40 mg PO DAILY [facility] Last Admin: 12/13/16 10: Dose: 40 mg Clonidine HCl (Catapres) 0.1 mg PO BID [facility] Last Admin: 12/13/16 10:17 Dose: 0.1 mg Fluticasone Propionate (Flonase) 1 actuation NS DAILY [facility] Last Admin: 12/12/16 09:21 Dose: 1 spr Glimepiride (Amaryl) 2 mg PO BID [facility] Last Admin: 10/27/17 10:17 Dose: 2 mg Heparin Sodium (Porcine) (Heparin) 5,000 units SC Q12 [facility] PRN Reason: Protocol Last Admin: 12/13/16 10:18 Dose: 5,000 units Hydromorphone HCl (Dilaudid) 0.5 mg IVP Q4H PRN PRN Reason: Pain, severe (8-10) Last Admin: 12/13/16 11:20 Dose: 0.5 mg Meropenem 1 gm/ Sodium (Chloride) 100 mls @ 100 mls/hr IVPB Q8 [facility] PRN Reason: Protocol Stop: 12/17/16 07:01 Last Admin: 12/13/16 05:40 Dose: 100 mls/hr Insulin Human Regular (Humulin R Med) 0 units SC ACHS [facility] PRN Reason: Protocol Last Admin: 12/13/16 10:05 Dose: Not Given Ketorolac Tromethamine (Toradol) 30 mg IVP Q6 PRN PRN Reason: Breakthrough pain Last Admin: 12/12/16 06:23 Dose: 30 mg Metoclopramide HCl (Reglan) 5 mg IVP TID [facility] Last Admin: 12/13/16 10:18 Dose: 5 mg Ondansetron HCl (Zofran Inj) 4 mg IVP Q4 PRN PRN Reason: Nausea/Vomiting Last Admin: 12/13/16 11:20 Dose: 4 mg Pantoprazole Sodium (Protonix Inj) 40 mg IVP DAILY [facility] Last Admin: 12/13/16 10:17 Dose: 40 mg Propranolol HCl (Inderal La) 60 mg PO DAILY [facility] Last Admin: 12/13/16 10:17 Dose: 60 mg Valsartan (Diovan) 320 mg PO DAILY [facility] Last Admin: 12/13/16 10:17 Dose: 320 mg - Labs Labs: 12/13/16 06:50 12/13/16 06:50 APTT 29.7 Seconds (25.1-36.5) 12/10/16 06:00 Assessment and Plan - Assessment and Plan (Free Text) Assessment: Wound Infection(E>Coli/Klebsiella) secondary to stoma skin contamination and abscess formation Wound opened further to facilitate drainage Needs 48 Hrs IV Mercalista Wiggins MD FACS
--- NOTE | 2016-12-13 12:45 | CP.PCM.PN ---
Subjective - Date & Time of Evaluation Date of Evaluation: 12/13/16 Time of Evaluation: 10:35 - Subjective Subjective: Still with some pain in the lower abdomen, no fevers overnight, abdominal wound is still draining. Objective - Vital Signs/Intake and Output Vital Signs (last 24 hours): Temp Pulse Resp BP Pulse Ox 97.7 F 58 L 20 122/68 95 12/13/16 09:16 12/13/16 09:16 12/13/16 09:16 12/13/16 09:16 12/13/16 09:16 Intake and Output: 12/13/16 12/13/16 06:59 18:59 Intake Total 1080 Balance 1080 - Medications Medications: Current Medications Acetaminophen (Tylenol 325mg Tab) 650 mg PO Q6H PRN PRN Reason: Fever >100.4 F Last Admin: 12/13/16 01:01 Dose: 650 mg Amlodipine Besylate (Norvasc) 10 mg PO DAILY [facility] Last Admin: 12/12/16 09:22 Dose: 10 mg Atorvastatin Calcium (Lipitor) 40 mg PO DAILY [facility] Last Admin: 12/12/16 10:00 Dose: 40 mg Clonidine HCl (Catapres) 0.1 mg PO BID [facility] Last Admin: 12/12/16 18:00 Dose: 0.1 mg Fluticasone Propionate (Flonase) 1 actuation NS DAILY [facility] Last Admin: 12/12/16 09:21 Dose: 1 spr Glimepiride (Amaryl) 2 mg PO BID [facility] Last Admin: 12/12/16 18:00 Dose: 2 mg Heparin Sodium (Porcine) (Heparin) 5,000 units SC Q12 [facility] PRN Reason: Protocol Last Admin: 12/12/16 21:17 Dose: 5,000 units Hydromorphone HCl (Dilaudid) 0.5 mg IVP Q4H PRN PRN Reason: Pain, severe (8-10) Last Admin: 12/13/16 06:14 Dose: 0.5 mg Meropenem 1 gm/ Sodium (Chloride) 100 mls @ 100 mls/hr IVPB Q8 [facility] PRN Reason: Protocol Stop: 12/17/16 07:01 Last Admin: 12/13/16 05:40 Dose: 100 mls/hr Insulin Human Regular (Humulin R Med) 0 units SC ACHS [facility] PRN Reason: Protocol Last Admin: 12/12/16 21:38 Dose: Not Given Ketorolac Tromethamine (Toradol) 30 mg IVP Q6 PRN PRN Reason: Breakthrough pain Last Admin: 12/12/16 06:23 Dose: 30 mg Metoclopramide HCl (Reglan) 5 mg IVP TID [facility] Last Admin: 12/12/16 18:00 Dose: 5 mg Ondansetron HCl (Zofran Inj) 4 mg IVP Q4 PRN PRN Reason: Nausea/Vomiting Last Admin: 12/11/16 21:55 Dose: 4 mg Pantoprazole Sodium (Protonix Inj) 40 mg IVP DAILY [facility] Propranolol HCl (Inderal La) 60 mg PO DAILY [facility] Last Admin: 12/12/16 09:22 Dose: 60 mg Valsartan (Diovan) 320 mg PO DAILY [facility] Last Admin: 12/12/16 09:21 Dose: 320 mg - Labs Labs: 12/13/16 06:50 12/13/16 06:50 APTT 29.7 Seconds (25.1-36.5) 12/10/16 06:00 - Constitutional Appears: Non-toxic - Head Exam Head Exam: NORMAL INSPECTION - ENT Exam ENT Exam: Mucous Membranes Moist - Neck Exam Neck Exam: absent: Lymphadenopathy, Meningismus - Respiratory Exam Respiratory Exam: Decreased Breath Sounds. absent: Rales - Cardiovascular Exam Cardiovascular Exam: +S1, +S2 - GI/Abdominal Exam GI & Abdominal Exam: Soft, Tenderness (around the abdominal wound site on the lower abdomen, still with serosanguinous drainage) Assessment and Plan - Assessment and Plan (Free Text) Plan: Assessment probable abdominal wall skin and skin structure infection, purulent, growing Klebsiella oxytoca and E. coli S/P I and D at the bedside today by Dr. 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 Wiggins and discussed with him discussed with patient regarding antibiotic allergies - probably had side effects instead of true allergies to amoxicillin - we can switch to PO Keflex and Flagyl if cleared by surgery to complete up to 10 days of therapy with outpatient follow up with PMD and surgery will continue to monitor clinically
[2016-12-13] MEDS: Fluticasone Nasal 50 mcg/Spray NS SCH (13:51)
--- NOTE | 2016-12-13 22:58 | PN ---
DATE: SUBJECTIVE: The patient is a 61-year-old, seen and examined. She said she had I and D done by the bedside and the spot was stinging, otherwise she is doing okay. She does have nausea, but no vomiting. PHYSICAL EXAMINATION: VITAL SIGNS: She is afebrile, pulse 58, respirations 20, blood pressure 94/51. LUNGS: Bilateral fair airflow. No rhonchi or crackle. HEART: S1 and S2 audible. ABDOMEN: She has left paraumbilical area induration and discomfort with blood-tinged discharge on the dressing. LABORATORY EXAM: WBC 7.8, hemoglobin 13.6, hematocrit 39.9, and platelet 269. Chemistry: Sodium 143, potassium 4.3, chloride 106, CO2 of 32, BUN 11, and creatinine 0.6. Blood sugar of 157. ASSESSMENT AND PLAN: 1. Status post bedside incision and drainage. 2. Klebsiella wound infection. 3. [id number] diabetes. 4. Hypertension. 5. Active smoker. PLAN: We will give her small dose of Nicoderm patch. The patient may take shower and we will continue her on current medication that include meropenem. Follow up her blood sugar. Follow up in a.m. Olga Goyal MD
[2016-12-14] MEDS: Meropenem 1 GM in Sodium Chloride 0.9% 100 ML IVPB SCH ×3 (06:00→22:00)
[2016-12-14] MEDS: HYDROmorphone 0.5 mg/0.5 ml ISec IVP PRN ×5 (06:02→22:45)
[2016-12-14] MEDS: Insulin Reg-MEDIUM-Coverage SC SCH ×4 (09:55→22:00)
[2016-12-14] MEDS: Propranolol 60 mg ER Cap PO SCH (09:55)
--- NOTE | 2016-12-14 11:14 | CP.PCM.PCO ---
Physician Communication Note - Physician Communication Note Physician Communication Note: I&D Packing out-? PO AB AM Friday
[2016-12-14] MEDS: Fluticasone Nasal 50 mcg/Spray NS SCH (14:02)
--- NOTE | 2016-12-14 16:44 | PN ---
DATE: SUBJECTIVE: The patient is 61 years old, seen and examined. Still complaining of pain around the wound area that is draining. Denies any fever or chills. She is stable at home. PHYSICAL EXAMINATION: VITAL SIGNS: She is afebrile. Pulse 57, respirations 20 and blood pressure 132/57. LUNGS: Bilateral fair airflow. No rhonchi or crackle. HEART: S1 and S2 audible. ABDOMEN: Soft. Has dressing at the wound that was I&D'ed yesterday, draining blood-tinge serous fluid. NEUROLOGIC: She is awake, alert, oriented and communicative. LABORATORY DATA: Blood sugar is 168. She is growing Klebsiella pneumoniae and E. coli from the wound. Blood cultures are negative. ASSESSMENT: 1. Abdominal wall abscess, status post incision and drainage, growing Klebsiella and Escherichia coli. 2. Hypertension. 3. Hyperlipidemia. 4. Noninsulin-dependent diabetes. PLAN: Currently, the patient is on meropenem. She was on Cipro as outpatient. Discussed with the surgeon. Probably can be discharged tomorrow on p.o. antibiotics as per ID recommendation. Olga Goyal MD
--- NOTE | 2016-12-15 01:25 | PN ---
DATE: 12/14/2016 SUBJECTIVE: The patient is in bed, in no acute distress, and nontoxic. PHYSICAL EXAMINATION: VITAL SIGNS: Temperature is 98, blood pressure is 120/80, and respiratory rate of 16. soft. LABORATORY DATA: Reveals a white count of 7.8, hemoglobin of 13.6, and platelets of 269. Chemistry reveals the patient has a BUN of 11 and creatinine of 0.6. Urinalysis is noted. Microbiology reveals there is Klebsiella species in the abdominal wound. Review of orders reveals the patient to be on meropenem. ASSESSMENT AND PLAN: This is a 61-year-old female with probable abdominal wall, skin and skin soft tissue infection and purulent growing Klebsiella and Escherichia coli. The patient with diabetes, hypertension, obesity, and body mass index of 31. Currently, on day number 5 of meropenem. We will follow with you. Juan Thompson MD
[2016-12-15] MEDS: HYDROmorphone 0.5 mg/0.5 ml ISec IVP PRN ×3 (02:39→11:36)
[2016-12-15] MEDS: Meropenem 1 GM in Sodium Chloride 0.9% 100 ML IVPB SCH (06:18)
--- NOTE | 2016-12-15 08:02 | CP.PCM.PCO ---
Physician Communication Note - Physician Communication Note Physician Communication Note: OK discharge home-f/u office this week
[2016-12-15] MEDS: Insulin Reg-MEDIUM-Coverage SC SCH ×2 (08:46→11:35)
[2016-12-15 09:34] VITALS: BP 162/79; PULSE 54; RESP 18; TEMP 98.3; O2SAT 96
[2016-12-15] MEDS: Propranolol 60 mg ER Cap PO SCH (10:01)
[2016-12-15] MEDS: Fluticasone Nasal 50 mcg/Spray NS SCH (10:02)
--- NOTE | 2016-12-15 17:25 | PN ---
DATE: 12/15/2016 SUBJECTIVE: The patient is in bed, in no acute distress, nontoxic. PHYSICAL EXAMINATION: VITAL SIGNS: Temperature is 98, blood pressure is 160/50, respiratory of 18. HEENT: Unremarkable. NECK: Supple. LUNGS: Have decreased breath sounds. HEART: Normal S1, S2. ABDOMEN: Soft, nontender. LABORATORY EXAMINATION: Reveals a white count of 7.8, hemoglobin of 13. Chemistries are noted. BUN of 11, creatinine of 0.6. Review of orders reveals the patient to be on meropenem. Dr. Portillo's communication report this morning is reviewed. ASSESSMENT AND PLAN: This is a 61-year-old female, probable abdominal wall skin and skin soft tissue infection, purulent, growing Klebsiella and Escherichia coli and hypertension, obesity, BMI of 31, currently on day #6 of meropenem with microbiology significant for Klebsiella species and Escherichia coli species, pansensitive, sensitive ceftriaxone, may be able to use p.o. Vantin 10 and p.o. Flagyl, although THE PATIENT IS ALLERGIC TO AMOXICILLIN, TYPE OF ALLERGY IS NOT ENTIRELY CLEAR. We will follow with you. Juan Thompson MD
--- NOTE | 2016-12-16 00:44 | DS ---
DISCHARGE DIAGNOSES: 1. Abdominal wall abscess status post drainage. 2. Hypertension. 3. Lipidemia. 4. Diabetes mellitus type 2. 5. Leukocytosis. HOSPITAL COURSE: The patient was admitted with abdominal wall abscess. Incision and drainage done. She was treated with IV antibiotics and meropenem. The wound first grew Klebsiella and Escherichia coli, sensitive to ciprofloxacin. She is being discharged on oral antibiotics. Surgery followed during the hospitalization. Infectious Diseases specialist also followed during hospitalization. PHYSICAL EXAMINATION ON DISCHARGE: VITAL SIGNS: Afebrile, heart rate is 60 per minute, respiratory is 18 per minute, and blood pressure 130/60. HEENT: Normal. CHEST: Air entry present and equal bilateral. No added sounds. CARDIOVASCULAR: S1 and S2 normal. No murmur. No gallop. ABDOMEN: Soft and nontender. No hepatosplenomegaly. EXTREMITIES: No edema. SPINE: Nontender. CENTRAL NERVOUS SYSTEM: Alert and oriented x3. No sensory or motor deficits. CONDITION ON DISCHARGE: Stable. DISPOSITION: Discharge home. DISCHARGE MEDICATIONS: Cipro 500 mg p.o. b.i.d. for two weeks, Norvasc 5 mg daily, Lipitor 40 mg daily, Catapres 0.1 mg p.o. b.i.d., Flonase p.r.n., Amaryl 2 mg p.o. b.i.d., Diovan 320 mg daily, and Inderal 60 mg daily. DISCHARGE INSTRUCTIONS: Follow up with Dr. Goyal in one week and followup with surgery in one week. DIET: Regular. Prescription given to the patient. Discussed with the staff nurse, discussed with the patient. Time spent in preparing discharge and coordinating care is 50 minutes. Cece Andres MD
== END 2016-12-15 15:09 | disposition home or self-care (01) | DRG 603 ==
LOC: ED 15:50 → ERH 21:45 → 3RSO 12-10 00:17 → OBSVTOIN 12-10 07:37
PROVIDERS: ADMIT Internal Medicine; ATTEND Internal Medicine
PROC: 0W9F3ZZ Drainage of Abdominal Wall, Percutaneous Approach (ICD-10-PCS; principal; 2016-12-13)
DX: L02.211 Cutaneous abscess of abdominal wall (principal); L03.311 Cellulitis of abdominal wall; B96.1 Klebsiella pneumoniae [K. pneumoniae] as the cause of diseases classified elsewhere; B96.20 Unspecified Escherichia coli [E. coli] as the cause of diseases classified elsewhere; I10 Essential (primary) hypertension; J44.9 Chronic obstructive pulmonary disease, unspecified; E11.9 Type 2 diabetes mellitus without complications; E78.5 Hyperlipidemia, unspecified; F17.210 Nicotine dependence, cigarettes, uncomplicated; K21.9 Gastro-esophageal reflux disease without esophagitis; R09.82 Postnasal drip; E66.9 Obesity, unspecified; Z68.31 Body mass index [BMI] 31.0-31.9, adult; Z79.84 Long term (current) use of oral hypoglycemic drugs; Z93.3 Colostomy status; Z90.49 Acquired absence of other specified parts of digestive tract; Z90.710 Acquired absence of both cervix and uterus; Z88.0 Allergy status to penicillin

== ENCOUNTER 2017-01-28 06:48 | Inpatient (IN) | payer BC ==
[2017-01-28 06:48] VITALS: BMI 31.3
[2017-01-28] MEDS ORDERED: cefTRIAXone 1 gm 1 GM/100 ML BAG IVPB STA (07:19)
--- NOTE | 2017-01-28 07:21 | ED PDOC ---
Arrival/HPI - General Chief Complaint: Wound Check Time Seen by Provider: 01/28/17 06:55 Historian: Patient - History of Present Illness Time/Duration: Other (2 months) Symptom Onset: Gradual Symptom Course: Worsening Severity Level: Moderate Activities at Onset: Rest Associated Symptoms (Text): 01/28/17 07:18 Patient complains of a 2 month history of an abdominal wall abscess. She was admitted to the hospital approximately 6 weeks ago for one week of IV antibiotics, but is not getting better. The wound grew Klebsiella and Escherichia coli pansensitive. Both are sensitive to Rocephin. The patient has a penicillin allergy on her chart. I discussed this in detail with the patient. She reports that she is not allergic to penicillin, but is rather allergic to sulfa medications. She states that she had a problem with Augmentin causing diarrhea and upset stomach but no allergic reaction. Therefore, Rocephin will be used as the treatment of choice. I spoke with her surgeon Dr. Wiggins who is planning on taking her to the operating room later today for wide excision. I also discussed the case with the surgical services director. Nothing by mouth this morning. Her colostomy is functioning well. No fever or chills. No vomiting or diarrhea. Past Medical History - Past History Past History: No Previous - Infectious Disease Hx of Infectious Diseases: None - Tetanus Immunization Tetanus Immunization: Unknown - Reproductive Currently : No - Cardiac Hx Hypertension: Yes Hx Pacemaker: No - Pulmonary Hx Chronic Obstructive Pulmonary Disease (COPD): Yes - Neurological Hx Neurological Disorder: Yes (NEUROPATHY) Other/Comment: headaches - HEENT Hx HEENT Disorder: Yes (WEARS RX READING GLASSES) - Renal Hx Neurogenic Bladder: Yes (frequency) - Endocrine/Metabolic Hx Endocrine Disorders: Yes (borderline diabetic dx 2014) - Hematological/Oncological Hx Blood Disorders: Yes Hx Anemia: Yes - Integumentary Hx Dermatological Disorder: No Other/Comment: abd dressing with binder and justine x1 intact - Musculoskeletal/Rheumatological Hx Falls: Yes - Gastrointestinal Hx Gastrointestinal Disorders: Yes Hx Gastroesophageal Reflux: Yes - Genitourinary/Gynecological Hx Genitourinary Disorders: Yes - Psychiatric Hx Emotional Abuse: No Hx Physical Abuse: No Hx Substance Use: No - Surgical History Hx Appendectomy: Yes Hx Cardiac Catheterization: Yes (2010) Hx Hysterectomy: Yes Hx Orthopedic Surgery: Yes (l ft) Other/Comment: multiple hernia sx's, inguinal hernia repair 11/02/13, 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,ap, left ft sx,interstim of bladder [facility] 2004, box removed wires intact 2008, hernia sx today 06/19/2014, anastamosis, lysis of adnesions, removal of mech insertion of mesh that dissolves, justine, abd wound was reopening, recto/vaginal fistula - Anesthesia Hx Anesthesia Reactions: No Hx Malignant Hyperthermia: No - Suicidal Assessment Feels Threatened In Home Enviroment: No Family/Social History - Physician Review Nursing Documentation Reviewed: Yes Family/Social History: Unknown Family HX Smoking Status: Heavy Smoker > 10 Cigarettes Daily Hx Alcohol Use: No Hx Substance Use: No Hx Substance Use Treatment: No Allergies/Home Meds Allergies/Adverse Reactions: Allergies amoxicillin Allergy (Severe, Verified 06/06/15 09:43) VOMITING Sulfa (Sulfonamide Antibiotics) Allergy (Severe, Verified 06/06/15 09:43) CONVULSION moxifloxacin HCl [From Avelox] Adverse Reaction (Severe, Verified 06/06/15 09:43 ) MUSCLE PAIN adhesive tape Adverse Reaction (Verified 12/10/16 16:38) REDNESS Home Medications: Home Meds Medication Instructions Recorded Confirmed Glimepiride 2 mg PO BID 06/06/15 01/28/17 Simvastatin 80 mg PO DAILY 06/06/15 01/28/17 Amlodipine/Valsartan [Exforge 1 tab PO DAILY 11/06/16 01/28/17 10-320 mg Tablet] Propranolol HCl [Propranolol HCl 60 mg PO DAILY 11/06/16 01/28/17 ER] cloNIDine [Catapres] 0.1 mg PO BID 11/06/16 01/28/17 oxyCODONE/Acetaminophen 1/2TAB 0.5 ea PO PRN PRN 11/06/16 01/28/17 [Percocet 5-325 mg HALF TAB] Ezetimibe [Zetia] 10 mg PO DAILY 11/07/16 01/28/17 Linezolid [Zyvox] 600 mg PO BID 12/09/16 01/28/17 Review of Systems - Physician Review All systems were reviewed & negative as marked: Yes - Review of Systems Constitutional: absent: Fatigue, Fevers Respiratory: Normal Cardiovascular: Normal Gastrointestinal: absent: Constipation, Diarrhea, Nausea, Vomiting, Anorexia Genitourinary Female: absent: Dysuria, Frequency, Hematuria Neurological: Normal Physical Exam Vital Signs Temp Pulse Resp BP Pulse Ox 01/28/17 06:48 98.1 F 68 16 136/76 100 Temperature: Afebrile Blood Pressure: Normal Pulse: Regular Respiratory Rate: Normal Appearance: Positive for: Well-Appearing, Non-Toxic, Comfortable Pain Distress: None Mental Status: Positive for: Alert and Oriented X 3 - Systems Exam Head: Present: Atraumatic, Normocephalic Pupils: Present: PERRL Extroacular Muscles: Present: EOMI Conjunctiva: Present: Normal Mouth: Present: Moist Mucous Membranes Pharnyx: No: ERYTHEMA, EXUDATE, TONSILS ENLARGED Neck: Present: Normal Range of Motion Respiratory/Chest: Present: Clear to Auscultation, Good Air Exchange. No: Respiratory Distress, Accessory Muscle Use Cardiovascular: Present: Regular Rate and Rhythm, Normal S1, S2. No: Murmurs Abdomen: Present: Tenderness, Other (There is a functioning colostomy. Multiple previous surgical scars. There is an open wound with purulent drainage. She has some mild tenderness to the left of the wound. No guarding or rebound.) Back: Present: Normal Inspection Upper Extremity: Present: Normal Inspection. No: Cyanosis, Edema Lower Extremity: Present: Normal Inspection. No: Edema Neurological: Present: GCS=15, CN II-XII Intact, Speech Normal, Motor Func Grossly Intact Skin: Present: Other (as above) Psychiatric: Present: Alert, Oriented x 3, Normal Insight, Normal Concentration Medical Decision Making ED Course and Treatment: 01/28/17 07:59 EKG shows normal sinus rhythm rate approximately [address] or T-wave changes - Lab Interpretations Lab Results: 01/28/17 07:32 Lab Results 01/28/17 07:32: WBC 12.7 H D, RBC 5.04, Hgb 16.1 H D, Hct 45.6, MCV 90.5, MCH 31.9, MCHC 35.3, RDW 13.2, Plt Count 255, MPV 11.1 H, Gran % 78.1 H, Lymph % ( Auto) 12.8 L, [place] % (Auto) 6.4 H, Eos % (Auto) 2.4, Baso % (Auto) 0.3, Gran # 9.88 H, Lymph # 1.6, [place] # 0.8 H, Eos # 0.3, Baso # 0.04 - RAD Interpretation Radiology Orders: 01/28/17 07:11 CHEST PORTABLE [RAD] Stat - Medication Orders Current Medication Orders: Acetaminophen (Tylenol 325mg Tab) 650 mg PO Q6 PRN PRN Reason: Pain, moderate (4-7) Docusate Sodium (Colace) 100 mg PO BID LEROY Vancomycin HCl (Vancomycin 1gm) 1 gm in 250 mls @ 167 mls/hr IVPB Q12H LEROY PRN Reason: Protocol Piperacillin Sod/Tazobactam Sod (Zosyn 3.375 In Ns 100ml) 100 mls @ 200 mls/hr IVPB Q6 LEROY PRN Reason: Protocol Stop: 01/28/17 18:29 Ibuprofen (Motrin Tab) 400 mg PO Q6 PRN PRN Reason: Fever >100.4 F Ondansetron HCl (Zofran Inj) 4 mg IVP Q6 PRN PRN Reason: Nausea/Vomiting Discontinued Medications Ceftriaxone Sodium (Rocephin 1 Gram Ivpb (D5w)) 1 gm in 100 mls @ 200 mls/hr IVPB STAT STA PRN Reason: Protocol Stop: 01/28/17 07:48 Last Admin: 01/28/17 07:51 Dose: 200 mls/hr eMAR Start Stop Document 01/28/17 07:51 MR (Rec: 01/28/17 07:51 MR [id number]) Intravenous Solution Start Date 01/28/17 Start Time 07:51 End Date 01/28/17 End time 08:21 Total Infusion Time 30 Disposition/Present on Arrival - Present on Arrival Any Indicators Present on Arrival: No History of DVT/PE: No History of Uncontrolled Diabetes: No Urinary Catheter: No History of Decub. Ulcer: No History Surgical Site Infection Following: None - Disposition Have Diagnosis and Disposition been Completed?: Yes Diagnosis: Infection of subcutaneous tissue, Wound dehiscence, Surgical wound infection, Abscess Disposition: HOSPITALIZED Disposition Time: 07:22 Patient Plan: Admission Patient Problems: Current Active Problems Problem Status Onset Abscess Acute Infection of subcutaneous tissue Acute Surgical wound infection Acute Wound dehiscence Acute Condition: GOOD
--- NOTE | 2017-01-28 07:45 | CP.PCM.HP ---
History of Present Illness - History of Present Illness History of Present Illness: General Surgery H/P - Dr. Wiggins HPI: 61F presents to the ED with a 2 month history of and draining abscess in her abdomen. She is also complaining of pain in her left abdomen. She has been following with Dr. Wiggins regularly. She complains that the abscess is tender. Nothing makes it better or worse. She describes the pain as dull in nature. It radiates to the left side of her abdomen. The pain is constant. She denies any nausea or vomiting. Denies chest pain or SOB. No Fevers or chills PMH: DM, HTN, HLD, hx of Fibroids, Bladder stimulator, recto-vaginal fistula, s/ p colostomy PSH: Hysterectomy 2000 03/2 uterine fibroids, ventral/incisional hernia repair w / mesh & appendectomy, s/p infected mesh, bladder resection, bladder stimulator , colostomy to reversal to permanent colostomy, left foot surgery, breast biopsy +cyst FH: Noncontributory SH: +Tobacco 1ppd for 30 years, denies recreational or ETOH use Meds: See MAR All: Amoxicillin, Sufa, Moxifloxacin Present on Admission - Present on Admission Any Indicators Present on Admission: No Review of Systems - Review of Systems Review of Systems: per hpi Past Patient History - Infectious Disease Hx of Infectious Diseases: None - Tetanus Immunizations Tetanus Immunization: Unknown - Past Social History Smoking Status: Heavy Smoker > 10 Cigarettes Daily - CARDIAC Hx Hypertension: Yes Hx Pacemaker: No - PULMONARY Hx Chronic Obstructive Pulmonary Disease (COPD): Yes - NEUROLOGICAL Hx Neurological Disorder: Yes (NEUROPATHY) Other/Comment: headaches - HEENT Hx HEENT Problems: Yes (WEARS RX READING GLASSES) - RENAL Hx Neurogenic Bladder: Yes (frequency) - ENDOCRINE/METABOLIC Hx Endocrine Disorders: Yes (borderline diabetic dx 2014) - HEMATOLOGICAL/ONCOLOGICAL Hx Blood Disorders: Yes Hx Anemia: Yes - INTEGUMENTARY Hx Dermatological Problems: No Other/Comment: abd dressing with binder and justine x1 intact - MUSCULOSKELETAL/RHEUMATOLOGICAL Hx Falls: Yes - GASTROINTESTINAL Hx Gastrointestinal Disorders: Yes Hx Gastroesophageal Reflux: Yes - GENITOURINARY/GYNECOLOGICAL Hx Genitourinary Disorders: Yes - PSYCHIATRIC Hx Emotional Abuse: No Hx Physical Abuse: No Hx Substance Use: No - SURGICAL HISTORY Hx Appendectomy: Yes Hx Cardiac Catheterization: Yes (2010) Hx Hysterectomy: Yes Hx Orthopedic Surgery: Yes (l ft) Other/Comment: multiple hernia sx's, inguinal hernia repair 11/02/13, 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,ap, left ft sx,interstim of bladder [facility] 2004, box removed wires intact 2008, hernia sx today 06/19/2014, anastamosis, lysis of adnesions, removal of mech insertion of mesh that dissolves, justine, abd wound was reopening, recto/vaginal fistula - ANESTHESIA Hx Anesthesia Reactions: No Hx Malignant Hyperthermia: No Meds Allergies/Adverse Reactions: Allergies Allergy/AdvReac Type Severity Reaction Status Date / Time amoxicillin Allergy Severe VOMITING Verified 06/06/15 09:43 Sulfa (Sulfonamide Allergy Severe CONVULSION Verified 06/06/15 09:43 Antibiotics) moxifloxacin HCl AdvReac Severe MUSCLE PAIN Verified 06/06/15 09:43 [From Avelox] adhesive tape AdvReac REDNESS Verified 12/10/16 16:38 Physical Exam - Constitutional Appears: Non-toxic - Head Exam Head Exam: ATRAUMATIC, NORMAL INSPECTION, NORMOCEPHALIC - Eye Exam Eye Exam: EOMI Pupil Exam: NORMAL ACCOMODATION - ENT Exam ENT Exam: Mucous Membranes Moist - Respiratory Exam Respiratory Exam: Clear to Auscultation Bilateral, NORMAL BREATHING PATTERN - Cardiovascular Exam Cardiovascular Exam: REGULAR RHYTHM - GI/Abdominal Exam GI & Abdominal Exam: Soft, Tenderness (mild tnederness to palpation around abscess). absent: Distended - Extremities Exam Extremities exam: Negative for: joint swelling, tenderness - Neurological Exam Neurological exam: Alert, Oriented x3 - Psychiatric Exam Psychiatric exam: Normal Affect, Normal Mood - Skin Skin Exam: Dry, Intact, Normal Color, Warm Results - Vital Signs Recent Vital Signs: Last Vital Signs Temp 98.1 F 01/28/17 06:48 Pulse 68 01/28/17 06:48 Resp 16 01/28/17 06:48 BP 136/76 01/28/17 06:48 Pulse Ox 100 01/28/17 06:48 Assessment & Plan - Assessment and Plan (Free Text) Assessment: 61F w/ abdominal wall abscess Plan: * OR today for I/D of abdominal wall abscess * Abx: Vanco/Zosyn * NPO * DW Dr. Feliciano Murillo PGY1
[2017-01-28 07:51] LABS: BASO # 0.04 K/mm3 (0.0-2.0); BASO % 0.3 % (0.0-3.0); EOS # 0.3 (0.0-0.7); EOS % 2.4 % (1.5-5.0); GRAN # 9.88 (1.4-6.5); GRAN % 78.1 % (50.0-68.0); HEMATOCRIT 45.6 % (36.0-48.0); LYMPH # 1.6 (1.2-3.4); LYMPH % 12.8 % (22.0-35.0); MEAN CELL VOLUME 90.5 fl (80.0-105.0); MEAN CORPUSCULAR HEMOGLOBIN 31.9 pg (25.0-35.0); MEAN CORPUSCULAR HGB CONC 35.3 g/dl (31.0-37.0); MEAN PLATELET VOLUME 11.1 fl (7.0-11.0); MONO # 0.8 (0.1-0.6); MONO % 6.4 % (1.0-6.0); RED CELL DISTRIBUTION WIDTH 13.2 % (11.5-14.5); WHITE BLOOD COUNT 12.7 10^3/ul (4.5-11.0)
[2017-01-28 08:01] LABS: ALB/GLOB RATIO 1.4 (1.1-1.8); ALKALINE PHOSPHATASE 101 U/L (38-126); ALT/SGPT 48 U/L (7-56); AST/SGOT 39 U/L (14-36); BILIRUBIN,TOTAL 0.6 mg/dL (0.2-1.3); BLOOD UREA NITROGEN 15 mg/dL (7-21); CALCIUM 10.1 mg/dL (8.4-10.5); CARBON DIOXIDE 27 mmol/L (21-33); CHLORIDE 105 mmol/L (98-107); GFR AFRICAN-AMERICAN > 60; GLUCOSE,RANDOM 186 mg/dL (70-110); POTASSIUM 4.2 mmol/L (3.6-5.0); SODIUM 141 mmol/L (132-148); TOTAL PROTEIN 7.4 g/dL (5.8-8.3)
[2017-01-28 08:09] LABS: INR 1.07 (0.93-1.08)
[2017-01-28 08:12] LABS: TROPONIN I < 0.01 ng/mL
--- NOTE | 2017-01-28 08:37 | RAD ---
HISTORY: OR COMPARISON: 11/18/2026 the. FINDINGS: LUNGS: The lungs are well inflated. There is mild pulmonary venous congestion. There is linear scarring in the right lower lobe. No focal consolidation. PLEURA: No significant pleural effusion identified, no pneumothorax apparent. CARDIOVASCULAR: This persistent severe cardiomegaly. OSSEOUS STRUCTURES: No significant abnormalities. VISUALIZED UPPER ABDOMEN: Normal. OTHER FINDINGS: None. IMPRESSION: Severe cardiomegaly and mild pulmonary venous congestion. No focal consolidation.
[2017-01-28] MEDS: Vancomycin 1gm in NS 250ml 1 GM/250 ML BAG IVPB SCH ×2 (08:46→21:59)
[2017-01-28 10:56] LABS: URINE BILIRUBIN NEGATIVE (NEGATIVE); URINE BLOOD NEGATIVE (NEGATIVE); URINE COLOR YELLOW (YELLOW); URINE GLUCOSE (UA) NEGATIVE (NEGATIVE); URINE KETONE NEGATIVE (NEGATIVE); URINE LEUKOCYTE ESTERASE TRACE Leu/uL (NEGATIVE); URINE PROTEIN NEGATIVE mg/dL (<30 mg/dL); URINE UROBILINOGEN 0.2 E.U./dL (<1 E.U./dL)
[2017-01-28 10:57] LABS: URINE APPEARANCE CLEAR (CLEAR)
[2017-01-28 11:05] LABS: URINE BACTERIA TRACE (NEG); URINE EPITHELIAL CELLS MANY /hpf (0-5); URINE RBC NEGATIVE /hpf (0-2)
[2017-01-28] MEDS ORDERED: Lactated Ringer's 1,000 ML IV SCH ×2 (12:00→14:45)
[2017-01-28] MEDS: Piperacillin/Tazobact 3.375 gm 100 ML IVPB SCH ×2 (12:03→18:18)
[2017-01-28] MEDS ORDERED: Methylene Blue 10 mg/mL(10ml) IV ONE (12:31)
[2017-01-28] MEDS ORDERED: Bupivacaine 0.5% Inj(30mL) ONE (12:32)
[2017-01-28] MEDS ORDERED: Propofol 10 mg/ml Inj (20 ML) ONE (12:44)
[2017-01-28] MEDS ORDERED: Rocuronium 10 mg/ml (5 ml) ONE (12:45)
[2017-01-28] MEDS ORDERED: Midazolam 2 MG/2 ML VIAL ONE (12:45)
[2017-01-28] MEDS ORDERED: Neostigmine Methylsulfate 3mg/3ml Syringe IV ONE (13:49)
[2017-01-28] MEDS ORDERED: Glycopyrrolate 0.2 mg/ml (2ml vial) ONE (13:49)
[2017-01-28] MEDS ORDERED: Racepinephrine 2.25% Inhal Soln 0.5 ML UD ONE (14:15)
[2017-01-28] MEDS ORDERED: Levalbuterol 1.25 MG/3 ML Inhal Soln UD ONE (14:19)
[2017-01-28] MEDS ORDERED: Levalbuterol 1.25 MG/3 ML Inhal Soln UD IH ONE (14:20)
[2017-01-28] MEDS: HYDROmorphone 0.5 mg/0.5 ml ISec IVP PRN ×6 (14:20→20:19)
[2017-01-28] MEDS ORDERED: HYDROmorphone 0.5 mg/0.5 ml ISec ONE ×5 (14:20→16:27)
[2017-01-28] MEDS ORDERED: HYDROmorphone 0.5 mg/0.5 ml ISec IVP PRN ×2 (14:28→14:42)
[2017-01-28] MEDS ORDERED: HYDROmorphone 1 mg/ml ISec IVP STA (14:40)
[2017-01-28] MEDS ORDERED: HYDROmorphone 1 mg/ml ISec ONE (14:41)
--- NOTE | 2017-01-28 14:46 | PCM.SURG1 ---
Surgeon's Initial Post Op Note - Surgeon's Notes Surgeon: Feliciano Developmental Behavioral Physician: PGY1, Chidi PGY1 Type of Anesthesia: General Endo Pre-Operative Diagnosis: Abdominal wall abscess Operative Findings: Ventral abdominal hernia and infected mesh Post-Operative Diagnosis: Ventral abdominal hernia and infected mesh Operation Performed: Wide/Deep Excision of Abdominal wall abscess, removal of infected mesh, lysis of adhesions, primary closure of abdominal wall Specimen/Specimens Removed: infected mesh Estimated Blood Loss: EBL {In ML}: 5 Blood Products Given: N/A Drains Used: Wound Vac Post-Op Condition: Good Date of Surgery/Procedure: 01/28/17 Time of Surgery/Procedure: 14:45
[2017-01-28] MEDS ORDERED: Albuterol-Ipratrop 3 mg / 0.5 (3 ml) UD IH PRN (14:54)
--- NOTE | 2017-01-28 15:15 | RAD ---
HISTORY: post-op COMPARISON: 01/28/2017 FINDINGS: LUNGS: No active pulmonary disease. PLEURA: No significant pleural effusion identified, no pneumothorax apparent. CARDIOVASCULAR: Moderate cardiomegaly OSSEOUS STRUCTURES: No significant abnormalities. VISUALIZED UPPER ABDOMEN: Normal. OTHER FINDINGS: None. IMPRESSION: No active disease.
--- NOTE | 2017-01-28 16:08 | CP.PCM.PN ---
Subjective - Date & Time of Evaluation Date of Evaluation: 01/28/17 Time of Evaluation: 16:00 - Subjective Subjective: Anesthesia Note post Procedure, patient had an episode of desaturation in the PACU which recovered after supplemental oxygen; patient states that she feels short of breath as compared to her baseline. Currently, her oxygen saturation is wnl with oxygen, and she is responding appropriately Ordered chest xray Spoke to surgery team regarding her preexisting comorbities; in the light of current/recent status evolution, patient will benefit from follow up with PMD; Dr. Richardson, who is known to the patient, has been requested to follow up with the patient. Patient currently is being set for transport out of the pacu as her vital signs has been stable ever since the initial/single desaturation event and is currently awaiting medical evaluation Objective - Vital Signs/Intake and Output Vital Signs (last 24 hours): Temp Pulse Resp BP Pulse Ox 98.1 F 73 17 111/54 L 96 01/28/17 14:09 01/28/17 14:09 01/28/17 14:09 01/28/17 14:09 01/28/17 14:09 Intake and Output: 01/28/17 01/28/17 06:59 18:59 Output Total 300 Balance -300 - Medications Medications: Current Medications Acetaminophen (Tylenol 325mg Tab) 650 mg PO Q6 PRN PRN Reason: Pain, moderate (4-7) Last Admin: 01/28/17 08:27 Dose: 650 mg Albuterol/Ipratropium (Duoneb 3 Mg/0.5 Mg (3 Ml) Ud) 3 ml IH Q2H PRN PRN Reason: Shortness of Breath Amlodipine Besylate (Norvasc) 10 mg PO DAILY LEROY Clonidine HCl (Catapres) 0.1 mg PO BID LEROY Docusate Sodium (Colace) 100 mg PO BID LEROY Ezetimibe (Zetia) 10 mg PO DAILY LEROY Hydromorphone HCl (Dilaudid) 0.5 mg IVP Q15M PRN PRN Reason: Pain, moderate (4-7) Stop: 01/28/17 23:59 Hydromorphone HCl (Dilaudid) 0.5 mg IVP Q15M PRN PRN Reason: Pain, moderate (4-7) Stop: 01/28/17 16:42 Hydromorphone HCl (Dilaudid) 0.5 mg IVP Q4H PRN PRN Reason: Pain, moderate (4-7) Vancomycin HCl (Vancomycin 1gm) 1 gm in 250 mls @ 167 mls/hr IVPB Q12H LEROY PRN Reason: Protocol Last Admin: 01/28/17 08:46 Dose: 167 mls/hr Piperacillin Sod/Tazobactam Sod (Zosyn 3.375 In Ns 100ml) 100 mls @ 200 mls/hr IVPB Q6 LEROY PRN Reason: Protocol Stop: 01/28/17 18:29 Last Admin: 01/28/17 12:03 Dose: 0 mls Lactated Ringer's (Lactated Ringer's) 1,000 mls @ 75 mls/hr IV .[id number] [facility] Stop: 01/28/17 20:01 Lactated Ringer's (Lactated Ringer's) 1,000 mls @ 75 mls/hr IV .[id number] [facility] Stop: 01/28/17 16:46 Ibuprofen (Motrin Tab) 400 mg PO Q6 PRN PRN Reason: Fever >100.4 F Insulin Human Regular (Humulin R Med) 0 units SC ACHS [facility] PRN Reason: Protocol Ondansetron HCl (Zofran Inj) 4 mg IVP Q6 PRN PRN Reason: Nausea/Vomiting Ondansetron HCl (Zofran Inj) 4 mg IVP ONCE PRN PRN Reason: Nausea/Vomiting Ondansetron HCl (Zofran Inj) 4 mg IVP Q4H PRN PRN Reason: Nausea/Vomiting Pantoprazole Sodium (Protonix Inj) 40 mg IVP Q12 [facility] Propranolol HCl (Inderal La) 60 mg PO DAILY [facility] Valsartan (Diovan) 320 mg PO DAILY [facility] - Labs Labs: 01/28/17 07:32 01/28/17 07:32 PT 11.8 SECONDS (9.4-12.5) 01/28/17 07:32 INR 1.07 (0.93-1.08) 01/28/17 07:32 APTT 29.0 Seconds (25.1-36.5) 01/28/17 07:32
[2017-01-28] MEDS ORDERED: Insulin Reg-MEDIUM-Coverage SC SCH (16:30)
--- NOTE | 2017-01-28 17:33 | CARD ---
APPROVED REPORT EKG Measurement Heart [id number] <Conclusion> Normal sinus rhythm Normal ECG
[2017-01-28] MEDS: Insulin Reg-MEDIUM-Coverage SC SCH ×2 (17:53→22:01)
--- NOTE | 2017-01-28 23:10 | CP.PCM.CON ---
History of Present Illness - History of Present Illness History of Present Illness: Infectious Disease Consultation: January 28, 2017 61 yo female known to me from the outpatient setting. The patient again has abdominal wall abscess with history of ventral abdominal hernia with multiple operations and infected mesh. 2 month history of draining abscess in the abdominal with increasing pain in the left lower abdomen. The patient has multiple surgeries to the abdominal area over the last few years. There is alot of adhesions and scar tissue in the abdominal area. Taken to OR and wound vac placed now. PMHx: DM, HTN, hyperlipidemia, Fibroids, recto-vaginal surgery PSHx: Hysterectomy 2000 for uterine fibroids, ventral/incisional hernia repair with mesh, appendectomy, bladder resection, bladder stimulator, colostomy, reversal of colostomy, permanent colostomy now, left foot surgery, breast biopsy Allergies: Amoxicillin, Sulfa, Moxifloxacin Social Hx: 30 year history of tobacco, No EtOH or illicit drug use Active Medications Acetaminophen (Tylenol 325mg Tab) 650 mg PO Q6 PRN PRN Reason: Pain, moderate (4-7) Last Admin: 01/28/17 08:27 Dose: 650 mg Albuterol/Ipratropium (Duoneb 3 Mg/0.5 Mg (3 Ml) Ud) 3 ml IH Q2H PRN PRN Reason: Shortness of Breath Amlodipine Besylate (Norvasc) 10 mg PO DAILY [facility] Clonidine HCl (Catapres) 0.1 mg PO BID [facility] Last Admin: 01/28/17 17:52 Dose: Not Given Docusate Sodium (Colace) 100 mg PO BID [facility] Last Admin: 01/28/17 17:52 Dose: Not Given Ezetimibe (Zetia) 10 mg PO DAILY [facility] Hydromorphone HCl (Dilaudid) 0.5 mg IVP Q4H PRN PRN Reason: Pain, moderate (4-7) Last Admin: 01/29/17 00:26 Dose: 0.5 mg Vancomycin HCl (Vancomycin 1gm) 1 gm in 250 mls @ 167 mls/hr IVPB Q12H [facility] PRN Reason: Protocol Last Admin: 01/28/17 21:59 Dose: 167 mls/hr Ibuprofen (Motrin Tab) 400 mg PO Q6 PRN PRN Reason: Fever >100.4 F Insulin Human Regular (Humulin R Med) 0 units SC ACHS [facility] PRN Reason: Protocol Last Admin: 01/28/17 22:01 Dose: Not Given Ondansetron HCl (Zofran Inj) 4 mg IVP Q6 PRN PRN Reason: Nausea/Vomiting Ondansetron HCl (Zofran Inj) 4 mg IVP ONCE PRN PRN Reason: Nausea/Vomiting Ondansetron HCl (Zofran Inj) 4 mg IVP Q4H PRN PRN Reason: Nausea/Vomiting Oxycodone/Acetaminophen (Percocet 5/325 Mg Tab) 2 tab PO Q4H PRN PRN Reason: Pain, moderate (4-7) Stop: 01/31/17 23:20 Last Admin: 01/28/17 23:24 Dose: 2 tab Pantoprazole Sodium (Protonix Inj) 40 mg IVP Q12 [facility] Last Admin: 01/28/17 22:37 Dose: 40 mg Propranolol HCl (Inderal La) 60 mg PO DAILY [facility] Valsartan (Diovan) 320 mg PO DAILY [facility] Family Hx: none given ROS: abdominal pain, abdominal abscess drainage. No fevers, chills, nausea, vomiting, diarrhea, headaches, dizziness, chest pain , melena, hematuria, hematemesis, hematochezia, depression Past Patient History - Infectious Disease Hx of Infectious Diseases: None - Tetanus Immunizations Tetanus Immunization: Unknown - Past Social History Smoking Status: Current Some Days Smoker - CARDIAC Hx Hypercholesterolemia: Yes Hx Hypertension: Yes - PULMONARY Hx Chronic Obstructive Pulmonary Disease (COPD): Yes - NEUROLOGICAL Hx Neurological Disorder: Yes (NEUROPATHY) Other/Comment: headaches - HEENT Hx HEENT Problems: Yes (WEARS RX READING GLASSES) - RENAL Hx Neurogenic Bladder: Yes (frequency) - ENDOCRINE/METABOLIC Hx Diabetes Mellitus Type 2: Yes - HEMATOLOGICAL/ONCOLOGICAL Hx Blood Transfusions: Yes Hx Blood Transfusion Reaction: No - INTEGUMENTARY Hx Dermatological Problems: No Other/Comment: abd dressing with binder and justine x1 intact - MUSCULOSKELETAL/RHEUMATOLOGICAL Hx Musculoskeletal Disorders: No Hx Falls: Yes (6 months ago) - GASTROINTESTINAL Hx Colostomy: Yes Other/Comment: mid abdomen wound vac. 01-28-17 - GENITOURINARY/GYNECOLOGICAL Hx Genitourinary Disorders: No - PSYCHIATRIC Hx Psychophysiologic Disorder: No - SURGICAL HISTORY Hx Surgeries: Yes Hx Hysterectomy: Yes - ANESTHESIA Hx Anesthesia Reactions: No Hx Malignant Hyperthermia: No Meds Allergies/Adverse Reactions: Allergies Allergy/AdvReac Type Severity Reaction Status Date / Time amoxicillin Allergy Severe VOMITING Verified 06/06/15 09:43 Sulfa (Sulfonamide Allergy Severe CONVULSION Verified 06/06/15 09:43 Antibiotics) moxifloxacin HCl AdvReac Severe MUSCLE PAIN Verified 06/06/15 09:43 [From Avelox] adhesive tape AdvReac REDNESS Verified 12/10/16 16:38 - Medications Medications: Current Medications Acetaminophen (Tylenol 325mg Tab) 650 mg PO Q6 PRN PRN Reason: Pain, moderate (4-7) Last Admin: 01/28/17 08:27 Dose: 650 mg Albuterol/Ipratropium (Duoneb 3 Mg/0.5 Mg (3 Ml) Ud) 3 ml IH Q2H PRN PRN Reason: Shortness of Breath Amlodipine Besylate (Norvasc) 10 mg PO DAILY [facility] Clonidine HCl (Catapres) 0.1 mg PO BID [facility] Last Admin: 01/28/17 17:52 Dose: Not Given Docusate Sodium (Colace) 100 mg PO BID [facility] Last Admin: 01/28/17 17:52 Dose: Not Given Ezetimibe (Zetia) 10 mg PO DAILY [facility] Hydromorphone HCl (Dilaudid) 0.5 mg IVP Q15M PRN PRN Reason: Pain, moderate (4-7) Stop: 01/28/17 23:59 Last Admin: 01/28/17 16:30 Dose: 0.5 mg Hydromorphone HCl (Dilaudid) 0.5 mg IVP Q4H PRN PRN Reason: Pain, moderate (4-7) Last Admin: 01/28/17 20:19 Dose: 0.5 mg Vancomycin HCl (Vancomycin 1gm) 1 gm in 250 mls @ 167 mls/hr IVPB Q12H [facility] PRN Reason: Protocol Last Admin: 01/28/17 21:59 Dose: 167 mls/hr Ibuprofen (Motrin Tab) 400 mg PO Q6 PRN PRN Reason: Fever >100.4 F Insulin Human Regular (Humulin R Med) 0 units SC ACHS [facility] PRN Reason: Protocol Last Admin: 01/28/17 22:01 Dose: Not Given Ondansetron HCl (Zofran Inj) 4 mg IVP Q6 PRN PRN Reason: Nausea/Vomiting Ondansetron HCl (Zofran Inj) 4 mg IVP ONCE PRN PRN Reason: Nausea/Vomiting Ondansetron HCl (Zofran Inj) 4 mg IVP Q4H PRN PRN Reason: Nausea/Vomiting Pantoprazole Sodium (Protonix Inj) 40 mg IVP Q12 [facility] Last Admin: 01/28/17 22:37 Dose: 40 mg Propranolol HCl (Inderal La) 60 mg PO DAILY [facility] Valsartan (Diovan) 320 mg PO DAILY [facility] Physical Exam - Constitutional Appears: Non-toxic, No Acute Distress, Chronically Ill - Head Exam Head Exam: ATRAUMATIC, NORMOCEPHALIC - Eye Exam Eye Exam: EOMI, PERRL Pupil Exam: NORMAL ACCOMODATION, PERRL - ENT Exam ENT Exam: Mucous Membranes Moist, Normal External Ear Exam, TM's Normal Bilaterally - Respiratory Exam Respiratory Exam: Clear to Auscultation Bilateral, NORMAL BREATHING PATTERN. absent: Rales, Rhonchi, Wheezes - Cardiovascular Exam Cardiovascular Exam: REGULAR RHYTHM, RRR, +S1, +S2 - GI/Abdominal Exam GI & Abdominal Exam: Diminished Bowel Sounds, Soft. absent: Distended Additional comments: wound vac in place, colostomy on right side. - Extremities Exam Extremities exam: Positive for: full ROM, normal inspection. Negative for: joint swelling, pedal edema - Neurological Exam Neurological exam: Alert, CN II-XII Intact, Oriented x3 - Psychiatric Exam Psychiatric exam: Normal Affect, Normal Mood - Skin Skin Exam: Intact, Normal Color Results - Vital Signs Recent Vital Signs: Last Vital Signs Temp 98.1 F 01/28/17 16:30 Pulse 54 L 01/28/17 17:52 Resp 15 01/28/17 18:28 BP 104/49 L 01/28/17 17:52 Pulse Ox 97 01/28/17 16:30 - Labs Result Diagrams: 01/28/17 07:32 01/28/17 07:32 Labs: Laboratory Results - last 24 hr 01/28/17 17:47 POC Glucose (mg/dL) 100 Assessment & Plan - Assessment and Plan (Free Text) Assessment: 61 yo female with multiple drug allergies including Amoxicillin, Sulfa , and Moxifloxacin. Patient had I&D with debridement of an abdominal abscess today with placement of a wound vac. Limited antibiotic options for the patient. Klebsiella and E. coli in past cultures. Will start Aztreonam for antibiotic coverage. Wound care as per surgery. Tigecycline may be a reason choice for antibiotics as it enters fatty tissue well. Thank you for allowing me to participate in the care of the patient, we will follow with you.
[2017-01-28] MEDS: Oxycodone/Acetaminophen 5/325 mg Tab PO PRN (23:24)
[2017-01-29] MEDS: HYDROmorphone 0.5 mg/0.5 ml ISec IVP PRN ×3 (00:26→10:41)
--- NOTE | 2017-01-29 02:59 | CON ---
DATE: HISTORY OF PRESENT ILLNESS: The patient is a 61-year-old known to me from multiple previous admission. She was brought in by Dr. Wiggins for the procedure and same day surgery. Postprocedure, the patient had episode of hypoxia while she was in PACU. She complained of short of breath. She was given nebulizer treatment, but being admitted for further observation. She complained of some abdominal discomfort. PAST MEDICAL HISTORY: Significant for: 1. Hypertension. 2. Hyperlipidemia. 3. Multiple abdominal wall surgeries for hernia repair. The patient recently had abscess drained. 4. History of rectovaginal fistula status post colostomy. 5. Status post hysterostomatomy in 2000. 6. Status post ventral incisional repair and mesh placement. 7. Status post appendectomy. SOCIAL HISTORY: She is active smoker. She is single. She works in [employer]. ALLERGIES: SHE IS ALLERGIC TO AMOXICILLIN, SULFA AND AVELOX. MEDICATIONS AT HOME: She is on Zetia 10 mg daily, Keflex 500 b.i.d., daily, glimepiride 2 mg twice a day, simvastatin 80 mg daily, propranolol 60 mg daily, clonidine 0.1 twice a day, metronidazole 500 t.i.d. and Zyvox. REVIEW OF SYSTEMS: Significant for abdominal pain and shortness of breath. PHYSICAL EXAMINATION: GENERAL: She is awake, alert, oriented and communicative. VITAL SIGNS: She is afebrile, pulse is 54, respirations are 15 and blood pressure is 114/49. LUNGS: Bilateral good airflow. No rhonchi or crackles. HEART: S1 and S2 audible. ABDOMEN: Soft, but tender to touch, on surgical wound. NEUROLOGIC: She is awake, alert, oriented and communicative. EXTREMITIES: Bilateral leg, no edema. LABORATORY DATA: WBC of 12.7, hemoglobin of 16, hematocrit of 45 and platelet of 255. Chemistry: Sodium of 141, potassium of 4.2, chloride of 105, CO2 of 27, BUN of 15, creatinine of 0.6 and blood sugar of 188. AST of 39 and ALT of 48. Urinalysis is unremarkable. ASSESSMENT: 1. Ventral hernia repair. 2. Status post infected mesh removal. 3. Hypertension. 4. Hyperlipidemia. 5. Non-insulin dependent diabetes. 6. Postoperative hypoxia. PLAN: We will start the patient on nebulizer treatment. We will resume her usual medication as needed. We will monitor blood sugar. Follow up the patient in a.m. Thank you for the consultation. Olga Goyal MD
[2017-01-29] MEDS: Aztreonam 2 Gm in NS 100mL 100 ML IVPB SCH ×3 (05:38→21:34)
[2017-01-29 07:17] LABS: BASO # 0.03 K/mm3 (0.0-2.0); BASO % 0.3 % (0.0-3.0); EOS # 0.4 (0.0-0.7); EOS % 3.1 % (1.5-5.0); GRAN # 8.91 (1.4-6.5); GRAN % 75.5 % (50.0-68.0); HEMATOCRIT 41.8 % (36.0-48.0); LYMPH # 1.5 (1.2-3.4); LYMPH % 12.4 % (22.0-35.0); MEAN CELL VOLUME 92.7 fl (80.0-105.0); MEAN CORPUSCULAR HEMOGLOBIN 31.3 pg (25.0-35.0); MEAN CORPUSCULAR HGB CONC 33.7 g/dl (31.0-37.0); MEAN PLATELET VOLUME 10.9 fl (7.0-11.0); MONO % 8.7 % (1.0-6.0); RED CELL DISTRIBUTION WIDTH 13.7 % (11.5-14.5); WHITE BLOOD COUNT 11.8 10^3/ul (4.5-11.0)
[2017-01-29] MEDS: Oxycodone/Acetaminophen 5/325 mg Tab PO PRN ×4 (07:27→21:40)
[2017-01-29 07:32] LABS: ALB/GLOB RATIO 1.3 (1.1-1.8); ALKALINE PHOSPHATASE 89 U/L (38-126); ALT/SGPT 45 U/L (7-56); AST/SGOT 19 U/L (14-36); BILIRUBIN,TOTAL 0.8 mg/dL (0.2-1.3); BLOOD UREA NITROGEN 15 mg/dL (7-21); CALCIUM 8.9 mg/dL (8.4-10.5); CARBON DIOXIDE 29 mmol/L (21-33); CHLORIDE 103 mmol/L (98-107); GFR AFRICAN-AMERICAN > 60; GLUCOSE,RANDOM 121 mg/dL (70-110); POTASSIUM 4.2 mmol/L (3.6-5.0); SODIUM 137 mmol/L (132-148); TOTAL PROTEIN 6.5 g/dL (5.8-8.3)
[2017-01-29] MEDS: Vancomycin 1gm in NS 250ml 1 GM/250 ML BAG IVPB SCH ×2 (08:37→21:33)
[2017-01-29] MEDS: Insulin Reg-MEDIUM-Coverage SC SCH ×4 (08:37→21:36)
[2017-01-29] MEDS ORDERED: AMLODIPINE PO SCH (10:00)
[2017-01-29] MEDS ORDERED: VALSARTAN PO SCH (10:00)
[2017-01-29] MEDS: Propranolol 60 mg ER Cap PO SCH (10:54)
--- NOTE | 2017-01-29 11:34 | CP.PCM.PCO ---
Physician Communication Note - Physician Communication Note Physician Communication Note: PO1:Inf Vstt-[id number] 6wk IV AB/Wound Vac
--- NOTE | 2017-01-29 12:48 | CP.PCM.PN ---
Subjective - Date & Time of Evaluation Date of Evaluation: 01/29/17 Time of Evaluation: 10:45 - Subjective Subjective: General Surgery- Dr. Wiggins Patient seen and examined at bedside this AM. No acute events overnight. Patient complaining of rayna-incisional abdominal pain. No output via ostomy. wound vac in place. Tolerating CLD. Denies fevers, chills, chest pain, nausea, vomiting. Objective - Vital Signs/Intake and Output Vital Signs (last 24 hours): Temp Pulse Resp BP Pulse Ox 98.6 F 70 18 106/49 L 95 01/29/17 07:59 01/29/17 10:55 01/29/17 07:59 01/29/17 10:55 01/29/17 07:59 Intake and Output: 01/29/17 01/29/17 06:59 18:59 Intake Total 240 Balance 240 - Medications Medications: Current Medications Acetaminophen (Tylenol 325mg Tab) 650 mg PO Q6 PRN PRN Reason: Pain, moderate (4-7) Last Admin: 01/28/17 08:27 Dose: 650 mg Albuterol/Ipratropium (Duoneb 3 Mg/0.5 Mg (3 Ml) Ud) 3 ml IH Q2H PRN PRN Reason: Shortness of Breath Amlodipine Besylate (Norvasc) 10 mg PO DAILY [facility] Last Admin: 01/29/17 10:55 Dose: 10 mg Clonidine HCl (Catapres) 0.1 mg PO BID [facility] Last Admin: 01/29/17 10:55 Dose: Not Given Docusate Sodium (Colace) 100 mg PO BID [facility] Last Admin: 01/29/17 10:42 Dose: 100 mg Ezetimibe (Zetia) 10 mg PO DAILY [facility] Last Admin: 01/29/17 10:55 Dose: 10 mg Hydromorphone HCl (Dilaudid) 1 mg IVP Q4H PRN PRN Reason: Pain, moderate (4-7) Vancomycin HCl (Vancomycin 1gm) 1 gm in 250 mls @ 167 mls/hr IVPB Q12H [facility] PRN Reason: Protocol Last Admin: 01/29/17 08:37 Dose: 167 mls/hr Aztreonam (Azactam 2 Gm) 100 mls @ 100 mls/hr IVPB Q8 [facility] PRN Reason: Protocol Last Admin: 01/29/17 05:38 Dose: 100 mls/hr Ibuprofen (Motrin Tab) 400 mg PO Q6 PRN PRN Reason: Fever >100.4 F Insulin Human Regular (Humulin R Med) 0 units SC ACHS [facility] PRN Reason: Protocol Last Admin: 01/29/17 12:18 Dose: Not Given Ondansetron HCl (Zofran Inj) 4 mg IVP ONCE PRN PRN Reason: Nausea/Vomiting Ondansetron HCl (Zofran Inj) 4 mg IVP Q4H PRN PRN Reason: Nausea/Vomiting Oxycodone/Acetaminophen (Percocet 5/325 Mg Tab) 2 tab PO Q4H PRN PRN Reason: Pain, moderate (4-7) Stop: 01/31/17 23:20 Last Admin: 01/29/17 12:29 Dose: 2 tab Pantoprazole Sodium (Protonix Inj) 40 mg IVP Q12 [facility] Last Admin: 01/28/17 22:37 Dose: 40 mg Propranolol HCl (Inderal La) 60 mg PO DAILY [facility] Last Admin: 01/29/17 10:54 Dose: 60 mg Valsartan (Diovan) 320 mg PO DAILY [facility] Last Admin: 01/29/17 10:55 Dose: 320 mg - Labs Labs: 01/29/17 07:10 01/29/17 07:10 PT 11.8 SECONDS (9.4-12.5) 01/28/17 07:32 INR 1.07 (0.93-1.08) 01/28/17 07:32 APTT 29.0 Seconds (25.1-36.5) 01/28/17 07:32 - Constitutional Appears: Non-toxic, No Acute Distress - Head Exam Head Exam: ATRAUMATIC - Eye Exam Eye Exam: EOMI. absent: Scleral icterus - ENT Exam ENT Exam: Mucous Membranes Moist - Respiratory Exam Respiratory Exam: NORMAL BREATHING PATTERN. absent: Accessory Muscle Use, Respiratory Distress - Cardiovascular Exam Cardiovascular Exam: +S1, +S2. absent: Bradycardia, Tachycardia - GI/Abdominal Exam GI & Abdominal Exam: Soft, Tenderness. absent: Distended, Firm Additional comments: wound vac in place. no leak. tenderness rayna-incisional - Neurological Exam Neurological Exam: Alert, Awake, Oriented x3 - Psychiatric Exam Psychiatric exam: Normal Affect - Skin Skin Exam: Intact, Warm Assessment and Plan - Assessment and Plan (Free Text) Assessment: 61F s/p ventral hernia repair, removal of infected mess and woundvac placement POD#1 Plan: - will need 6weeks of abx - Abx per ID recs - keep wound vac on - pain control - DVT ppx - further recs per Dr. Wiggins surgical attending Donte Cuellar PGY1
[2017-01-29] MEDS: HYDROmorphone 2 mg/ml ISec IVP PRN ×3 (14:52→23:21)
--- NOTE | 2017-01-29 16:07 | PN ---
DATE: SUBJECTIVE: The patient is 61-year-old female, seen and examined. She complained of abdominal discomfort at wound VAC site. PHYSICAL EXAMINATION: GENERAL: The patient is being prepped for PICC line. VITAL SIGNS: She is afebrile, pulse is 70, respirations are 18, and blood pressure is 106/49. LUNGS: Bilateral good airflow. No rhonchi or crackles. HEART: S1 and S2 audible. ABDOMEN: Soft. She has wound VAC at the surgical site and she has colostomy that is functioning. EXTREMITIES: Bilateral leg, no edema. NEUROLOGIC: The patient is awake, alert, oriented, and able to communicate. LABORATORY DATA: WBC is 11.8, hemoglobin is 14, hematocrit is 41.8, and platelets are . Chemistries: Sodium of 137, potassium of 4.2, chloride of 103, CO2 of 29, BUN of 15, creatinine of 0.7, and blood sugar of 111. She has Gram-negative rods from wound, and sensitivity to follow. ASSESSMENT AND PLAN: 1. Status post infected mesh removal and Gram-negative wound infection. 2. Hypertension. 3. Hyperlipidemia. 4. Active smoker. PLAN: Currently, the patient is on Azactam, also need Gram-negative coverage and will continue all other medications. Monitor her blood sugar. The patient states Percocet is not working, she is requesting for Dilaudid. We will give her 1 mg q.4 hours p.r.n. Olga Goyal MD
--- NOTE | 2017-01-29 23:22 | CP.PCM.PN ---
Subjective - Date & Time of Evaluation Date of Evaluation: 01/29/17 Time of Evaluation: 22:45 - Subjective Subjective: Infectious Disease Follow Up: January 29, 2017 61 yo female known to me from the outpatient setting. The patient again has abdominal wall abscess with history of ventral abdominal hernia with multiple operations and infected mesh. 2 month history of draining abscess in the abdominal with increasing pain in the left lower abdomen. The patient has multiple surgeries to the abdominal area over the last few years. There is alot of adhesions and scar tissue in the abdominal area. Taken to OR and wound vac placed during this hospitalization. Cultures from OR are showing multiple gram negative organisms. Objective - Vital Signs/Intake and Output Vital Signs (last 24 hours): Temp Pulse Resp BP Pulse Ox 97.6 F 57 L 18 123/48 L 98 01/29/17 16:21 01/29/17 17:44 01/29/17 16:21 01/29/17 17:44 01/29/17 16:21 Intake and Output: 01/29/17 01/30/17 18:59 06:59 Intake Total 420 Balance 420 - Medications Medications: Current Medications Acetaminophen (Tylenol 325mg Tab) 650 mg PO Q6 PRN PRN Reason: Pain, moderate (4-7) Last Admin: 01/28/17 08:27 Dose: 650 mg Albuterol/Ipratropium (Duoneb 3 Mg/0.5 Mg (3 Ml) Ud) 3 ml IH Q2H PRN PRN Reason: Shortness of Breath Amlodipine Besylate (Norvasc) 10 mg PO DAILY [facility] Last Admin: 01/29/17 10:55 Dose: 10 mg Clonidine HCl (Catapres) 0.1 mg PO BID [facility] Last Admin: 01/29/17 17:44 Dose: Not Given Docusate Sodium (Colace) 100 mg PO BID [facility] Last Admin: 01/29/17 17:40 Dose: 100 mg Ezetimibe (Zetia) 10 mg PO DAILY [facility] Last Admin: 01/29/17 10:55 Dose: 10 mg Hydromorphone HCl (Dilaudid) 1 mg IVP Q4H PRN PRN Reason: Pain, moderate (4-7) Last Admin: 01/29/17 18:56 Dose: 1 mg Vancomycin HCl (Vancomycin 1gm) 1 gm in 250 mls @ 167 mls/hr IVPB Q12H [facility] PRN Reason: Protocol Last Admin: 01/29/17 21:33 Dose: 167 mls/hr Aztreonam (Azactam 2 Gm) 100 mls @ 100 mls/hr IVPB Q8 [facility] PRN Reason: Protocol Last Admin: 01/29/17 21:34 Dose: 100 mls/hr Ibuprofen (Motrin Tab) 400 mg PO Q6 PRN PRN Reason: Fever >100.4 F Insulin Human Regular (Humulin R Med) 0 units SC ACHS [facility] PRN Reason: Protocol Last Admin: 01/29/17 21:36 Dose: Not Given Ondansetron HCl (Zofran Inj) 4 mg IVP ONCE PRN PRN Reason: Nausea/Vomiting Ondansetron HCl (Zofran Inj) 4 mg IVP Q4H PRN PRN Reason: Nausea/Vomiting Oxycodone/Acetaminophen (Percocet 5/325 Mg Tab) 2 tab PO Q4H PRN PRN Reason: Pain, moderate (4-7) Stop: 01/31/17 23:20 Last Admin: 01/29/17 21:40 Dose: 2 tab Pantoprazole Sodium (Protonix Inj) 40 mg IVP Q12 [facility] Last Admin: 01/29/17 21:40 Dose: 40 mg Propranolol HCl (Inderal La) 60 mg PO DAILY [facility] Last Admin: 01/29/17 10:54 Dose: 60 mg Valsartan (Diovan) 320 mg PO DAILY [facility] Last Admin: 01/29/17 10:55 Dose: 320 mg - Labs Labs: 01/29/17 07:10 01/29/17 07:10 PT 11.8 SECONDS (9.4-12.5) 01/28/17 07:32 INR 1.07 (0.93-1.08) 01/28/17 07:32 APTT 29.0 Seconds (25.1-36.5) 01/28/17 07:32 - Constitutional Appears: Non-toxic, No Acute Distress, Chronically Ill - Head Exam Head Exam: ATRAUMATIC, NORMOCEPHALIC - Eye Exam Eye Exam: EOMI, PERRL Pupil Exam: NORMAL ACCOMODATION, PERRL - ENT Exam ENT Exam: Mucous Membranes Moist, Normal External Ear Exam, TM's Normal Bilaterally - Respiratory Exam Respiratory Exam: Clear to Ausculation Bilateral, NORMAL BREATHING PATTERN. absent: Rales, Rhonchi, Wheezes - Cardiovascular Exam Cardiovascular Exam: REGULAR RHYTHM, RRR, +S1, +S2 - GI/Abdominal Exam GI & Abdominal Exam: Soft, Diminished Bowel Sounds. absent: Distended Additional comments: wound vac in place, colostomy on right side. - Extremities Exam Extremities Exam: Full ROM, Normal Inspection - Neurological Exam Neurological Exam: Alert, Awake, CN II-XII Intact, Oriented x3 - Psychiatric Exam Psychiatric exam: Normal Affect, Normal Mood - Skin Skin Exam: Intact, Normal Color Assessment and Plan - Assessment and Plan (Free Text) Assessment: 61 yo female with multiple drug allergies including Amoxicillin, Sulfa , and Moxifloxacin. Patient had I&D with debridement of an abdominal abscess today with placement of a wound vac. Limited antibiotic options for the patient. Klebsiella and E. coli in past cultures. Will start Aztreonam for antibiotic coverage. Wound care as per surgery. Tigecycline may be a reason choice for antibiotics as it enters fatty tissue well. Awaiting identification and sensitivities of the gram negative rods. Thank you for allowing me to participate in the care of the patient, we will follow with you.
[2017-01-30] MEDS: Oxycodone/Acetaminophen 5/325 mg Tab PO PRN (02:27)
[2017-01-30] MEDS: HYDROmorphone 2 mg/ml ISec IVP PRN ×6 (03:13→23:56)
[2017-01-30] MEDS: Aztreonam 2 Gm in NS 100mL 100 ML IVPB SCH ×3 (05:34→21:29)
[2017-01-30] MEDS ORDERED: Albuterol-Ipratrop 3 mg / 0.5 (3 ml) UD ONE (06:53)
--- NOTE | 2017-01-30 07:32 | CP.PCM.PN ---
Subjective - Date & Time of Evaluation Date of Evaluation: 01/30/17 Time of Evaluation: 06:40 - Subjective Subjective: General Surgery- Dr. Wiggins Patient seen and examined at bedside this AM. No acute events overnight. Patient fusing machine tender, and having abd pain that is not well controlled with current pain regiment. Wound vac on place, no leak. Denies N/V/D F/C/ CP/SOB Objective - Vital Signs/Intake and Output Vital Signs (last 24 hours): Temp Pulse Resp BP Pulse Ox 97.6 F 70 18 123/48 L 98 01/29/17 16:21 01/30/17 06:58 01/29/17 16:21 01/29/17 17:44 01/29/17 16:21 Intake and Output: 01/30/17 01/30/17 06:59 18:59 Intake Total 660 Balance 660 - Medications Medications: Current Medications Acetaminophen (Tylenol 325mg Tab) 650 mg PO Q6 PRN PRN Reason: Pain, moderate (4-7) Last Admin: 01/28/17 08:27 Dose: 650 mg Albuterol/Ipratropium (Duoneb 3 Mg/0.5 Mg (3 Ml) Ud) 3 ml IH Q2H PRN PRN Reason: Shortness of Breath Last Admin: 01/30/17 06:57 Dose: 3 ml Amlodipine Besylate (Norvasc) 10 mg PO DAILY [facility] Last Admin: 01/29/17 10:55 Dose: 10 mg Clonidine HCl (Catapres) 0.1 mg PO BID [facility] Last Admin: 01/29/17 17:44 Dose: Not Given Docusate Sodium (Colace) 100 mg PO BID [facility] Last Admin: 01/29/17 17:40 Dose: 100 mg Ezetimibe (Zetia) 10 mg PO DAILY [facility] Last Admin: 01/29/17 10:55 Dose: 10 mg Hydromorphone HCl (Dilaudid) 1 mg IVP Q4H PRN PRN Reason: Pain, moderate (4-7) Last Admin: 01/30/17 07:04 Dose: 1 mg Vancomycin HCl (Vancomycin 1gm) 1 gm in 250 mls @ 167 mls/hr IVPB Q12H [facility] PRN Reason: Protocol Last Admin: 01/29/17 21:33 Dose: 167 mls/hr Aztreonam (Azactam 2 Gm) 100 mls @ 100 mls/hr IVPB Q8 [facility] PRN Reason: Protocol Last Admin: 01/30/17 05:34 Dose: 100 mls/hr Ibuprofen (Motrin Tab) 400 mg PO Q6 PRN PRN Reason: Fever >100.4 F Insulin Human Regular (Humulin R Med) 0 units SC ACHS [facility] PRN Reason: Protocol Last Admin: 01/29/17 21:36 Dose: Not Given Ondansetron HCl (Zofran Inj) 4 mg IVP ONCE PRN PRN Reason: Nausea/Vomiting Ondansetron HCl (Zofran Inj) 4 mg IVP Q4H PRN PRN Reason: Nausea/Vomiting Oxycodone/Acetaminophen (Percocet 5/325 Mg Tab) 2 tab PO Q4H PRN PRN Reason: Pain, moderate (4-7) Stop: 01/31/17 23:20 Last Admin: 01/30/17 02:27 Dose: 2 tab Pantoprazole Sodium (Protonix Inj) 40 mg IVP Q12 [facility] Last Admin: 01/29/17 21:40 Dose: 40 mg Propranolol HCl (Inderal La) 60 mg PO DAILY [facility] Last Admin: 01/29/17 10:54 Dose: 60 mg Valsartan (Diovan) 320 mg PO DAILY [facility] Last Admin: 01/29/17 10:55 Dose: 320 mg - Labs Labs: 01/29/17 07:10 01/29/17 07:10 PT 11.8 SECONDS (9.4-12.5) 01/28/17 07:32 INR 1.07 (0.93-1.08) 01/28/17 07:32 APTT 29.0 Seconds (25.1-36.5) 01/28/17 07:32 - Constitutional Appears: Non-toxic, No Acute Distress - Eye Exam Eye Exam: EOMI. absent: Scleral icterus - ENT Exam ENT Exam: Mucous Membranes Moist - Respiratory Exam Respiratory Exam: NORMAL BREATHING PATTERN. absent: Accessory Muscle Use, Respiratory Distress - Cardiovascular Exam Cardiovascular Exam: +S1, +S2. absent: Bradycardia, Tachycardia - GI/Abdominal Exam GI & Abdominal Exam: Soft, Tenderness. absent: Distended, Firm, Guarding, Rigid Additional comments: wound vac in place w/ no leaks no output from ostomy - Extremities Exam Extremities Exam: Normal Inspection. absent: Calf Tenderness - Neurological Exam Neurological Exam: Alert, Awake, Oriented x3 - Psychiatric Exam Psychiatric exam: Normal Affect - Skin Skin Exam: Dry, Warm Assessment and Plan - Assessment and Plan (Free Text) Assessment: 61F w/ intrabdominal abscess and infected mesh s/p ventral hernia repair, removal of infected mess and woundvac placement POD#2 Plan: - Abx per ID, recs appreciated - PICC line today - keep wound vac on, plan to DC on wound vac - pain control PRN - rilestor to help w/ bowel function return - DVT ppx - further recs per Dr. Wiggins surgical attending Donte Cuellar PGY1
[2017-01-30] MEDS ORDERED: HYDROmorphone 0.5 mg/0.5 ml ISec IVP STA ×2 (08:20→09:29)
[2017-01-30] MEDS ORDERED: Lidocaine 2% Inj (20ml) ONE (09:34)
[2017-01-30] MEDS: Vancomycin 1gm in NS 250ml 1 GM/250 ML BAG IVPB SCH ×2 (10:48→21:30)
--- NOTE | 2017-01-30 10:53 | CP.PCM.PCO ---
Physician Communication Note - Physician Communication Note Physician Communication Note: +Infect abd mesh:C/O severe abd -back pain/? constipation
[2017-01-30] MEDS: POLYETHYLENE GLYCOL 3350 17 GM/Dose PACKET PO SCH ×2 (10:54→18:18)
[2017-01-30] MEDS ORDERED: Barium Sulfate Susp 2.1% w/v, 2.0% w/w 450 mL Bottle PO ONE (11:16)
[2017-01-30] MEDS: Propranolol 60 mg ER Cap PO SCH (11:42)
[2017-01-30] MEDS: Insulin Reg-MEDIUM-Coverage SC SCH ×4 (13:07→21:39)
[2017-01-30] MEDS ORDERED: Iohexol 350 MG/100 ML VIAL ONE (14:02)
--- NOTE | 2017-01-30 14:16 | CP.PCM.PN ---
Subjective - Date & Time of Evaluation Date of Evaluation: 01/30/17 Time of Evaluation: 13:00 - Subjective Subjective: Infectious Disease Follow Up: January 30, 2017 61 yo female known to me from the outpatient setting. The patient again has abdominal wall abscess with history of ventral abdominal hernia with multiple operations and infected mesh. 2 month history of draining abscess in the abdominal with increasing pain in the left lower abdomen. The patient has multiple surgeries to the abdominal area over the last few years. There is alot of adhesions and scar tissue in the abdominal area. Taken to OR and wound vac placed during this hospitalization. Cultures from OR are showing multiple gram negative organisms. Growth of E. coli and Klebsiella. Both highly sensitive to Aztreonam. Objective - Vital Signs/Intake and Output Vital Signs (last 24 hours): Temp Pulse Resp BP Pulse Ox 97.6 F 60 18 114/52 L 98 01/29/17 16:21 01/30/17 11:42 01/29/17 16:21 01/30/17 11:44 01/29/17 16:21 Intake and Output: 01/30/17 01/30/17 06:59 18:59 Intake Total 660 Balance 660 - Medications Medications: Current Medications Acetaminophen (Tylenol 325mg Tab) 650 mg PO Q6 PRN PRN Reason: Pain, moderate (4-7) Last Admin: 01/28/17 08:27 Dose: 650 mg Albuterol/Ipratropium (Duoneb 3 Mg/0.5 Mg (3 Ml) Ud) 3 ml IH Q2H PRN PRN Reason: Shortness of Breath Last Admin: 01/30/17 06:57 Dose: 3 ml Amlodipine Besylate (Norvasc) 10 mg PO DAILY [facility] Last Admin: 01/30/17 11:44 Dose: Not Given Clonidine HCl (Catapres) 0.1 mg PO BID [facility] Last Admin: 01/30/17 11:41 Dose: 0.1 mg Docusate Sodium (Colace) 100 mg PO BID [facility] Last Admin: 01/30/17 10:54 Dose: 100 mg Ezetimibe (Zetia) 10 mg PO DAILY [facility] Last Admin: 01/30/17 11:41 Dose: 10 mg Hydromorphone HCl (Dilaudid) 1 mg IVP Q4H PRN PRN Reason: Pain, moderate (4-7) Last Admin: 01/30/17 11:07 Dose: 1 mg Vancomycin HCl (Vancomycin 1gm) 1 gm in 250 mls @ 167 mls/hr IVPB Q12H [facility] PRN Reason: Protocol Last Admin: 01/30/17 10:48 Dose: 167 mls/hr Aztreonam (Azactam 2 Gm) 100 mls @ 100 mls/hr IVPB Q8 [facility] PRN Reason: Protocol Last Admin: 01/30/17 13:16 Dose: 100 mls/hr Ibuprofen (Motrin Tab) 400 mg PO Q6 PRN PRN Reason: Fever >100.4 F Insulin Human Regular (Humulin R Med) 0 units SC ACHS [facility] PRN Reason: Protocol Last Admin: 01/30/17 13:08 Dose: Not Given Ondansetron HCl (Zofran Inj) 4 mg IVP ONCE PRN PRN Reason: Nausea/Vomiting Ondansetron HCl (Zofran Inj) 4 mg IVP Q4H PRN PRN Reason: Nausea/Vomiting Last Admin: 01/30/17 13:37 Dose: 4 mg Oxycodone/Acetaminophen (Percocet 5/325 Mg Tab) 2 tab PO Q4H PRN PRN Reason: Pain, moderate (4-7) Stop: 01/31/17 23:20 Last Admin: 01/30/17 02:27 Dose: 2 tab Pantoprazole Sodium (Protonix Inj) 40 mg IVP Q12 [facility] Last Admin: 01/30/17 11:46 Dose: Not Given Polyethylene Glycol (Miralax) 17 gm PO BID [facility] Last Admin: 01/30/17 10:54 Dose: 17 gm Propranolol HCl (Inderal La) 60 mg PO DAILY [facility] Last Admin: 01/30/17 11:42 Dose: 60 mg Valsartan (Diovan) 320 mg PO DAILY [facility] Last Admin: 01/30/17 11:42 Dose: 320 mg - Labs Labs: 01/29/17 07:10 01/29/17 07:10 PT 11.8 SECONDS (9.4-12.5) 01/28/17 07:32 INR 1.07 (0.93-1.08) 01/28/17 07:32 APTT 29.0 Seconds (25.1-36.5) 01/28/17 07:32 - Constitutional Appears: Non-toxic, No Acute Distress, Chronically Ill - Head Exam Head Exam: ATRAUMATIC, NORMOCEPHALIC - Eye Exam Eye Exam: EOMI, PERRL Pupil Exam: NORMAL ACCOMODATION, PERRL - ENT Exam ENT Exam: Mucous Membranes Moist, Normal External Ear Exam, TM's Normal Bilaterally - Neck Exam Neck Exam: Full ROM, Normal Inspection - Respiratory Exam Respiratory Exam: Clear to Ausculation Bilateral, NORMAL BREATHING PATTERN. absent: Rales, Rhonchi, Wheezes - Cardiovascular Exam Cardiovascular Exam: REGULAR RHYTHM, RRR, +S1, +S2 - GI/Abdominal Exam GI & Abdominal Exam: Soft, Normal Bowel Sounds. absent: Distended, Tenderness Additional comments: wound vac in place. right sided colostomy. - Extremities Exam Extremities Exam: Full ROM, Normal Inspection - Neurological Exam Neurological Exam: Alert, Awake, CN II-XII Intact, Oriented x3 - Psychiatric Exam Psychiatric exam: Normal Affect, Normal Mood - Skin Skin Exam: Intact, Normal Color Assessment and Plan - Assessment and Plan (Free Text) Assessment: 61 yo female with multiple drug allergies including Amoxicillin, Sulfa , and Moxifloxacin. Patient had I&D with debridement of an abdominal abscess today with placement of a wound vac. Limited antibiotic options for the patient. Klebsiella and E. coli in past cultures. Will start Aztreonam for antibiotic coverage. Wound care as per surgery. Tigecycline may be a reason choice for antibiotics as it enters fatty tissue well. Awaiting identification and sensitivities of the gram negative rods. Identification of E. coli and Klebsiella. Both highly sensitive to Aztreonam. Will increase dosing of Aztreonam. Patient will need 4 weeks of therapy at the very least if not 6 weeks of therapy with IV Aztreonam. Aminoglycosides normally will be of limited use due to poor tissue penetration of Aminoglycosides. Will consider addition of Tigecycline as well. Spoke with Dr. Wiggins regarding case and extent of infection. Thank you for allowing me to participate in the care of the patient, we will follow with you.
--- NOTE | 2017-01-30 14:57 | OP ---
PROCEDURE DATE: 01/28/2017 MEDICAL BILLING SPECIALIST: DO Alisa, PGY1 [employer]: Antonio Murillo DO, PGY1 TECHNICIAN TRAINEE: Dr. Joshi ANESTHESIA: General endotracheal. PREOPERATIVE DIAGNOSES: 1. Massive chronic abdominal wall infection. 2. Diabetes mellitus. 3. Hypertension. 4. Severe chronic obstructive pulmonary disease. POSTOPERATIVE DIAGNOSES: 1. Massive chronic abdominal wall infection. 2. Diabetes mellitus. 3. Hypertension. 4. Severe chronic obstructive pulmonary disease. 5. Infected ventral hernia (mesh) - intra-abdominal abscess. PROCEDURES: On 01/28/2017 is ventral herniorrhaphy. Wide and deep excision of abdominal wall abscess. OPERATIVE INDICATIONS: The patient is a 61-year-old female with multiple months of abdominal wall drainage with increasing pain and failure to respond to treatment. The patient has grown Klebsiella and a E-coli out of the wound and continues to have worsening pain prompting her visit to the emergency room this morning and subsequent urgent admission. The recommendation at that time was for abdominal wall exploration and wide unroofing to elucidate any tunneling tracks and localizing abscess is not draining. Risks, benefits and alternatives with their anticipated outcomes were discussed with the patient, and she signs the informed consent. OPERATIVE NOTE: The patient is identified by her wrist band, undergoes time-out procedure and was then placed on the operative table in a supine manner. Following the induction of general anesthesia and the insertion of an endotracheal tube, the abdomen was prepped with Betadine and the patient is aseptically draped. Infiltration through the abdominal wall opening with methylene blue and peroxide was performed and once this was done, wide transverse elliptical incision was made over the abdominal wall and the area was estimated to contain abscess pocketing. Sharp dissection was carried on down through the subcutaneous tissues to the anterior abdominal wall fascia and methylene blue was seen alongside this incision and dissection was carried down through the abdominal wall down to the peritoneum. The infection has apparently tracked directly into the abdomen, going through the peritoneum. On opening the peritoneum and exposing the underlying bowel content and multiple adhesions, it was apparent that previous abdominal wall mesh has become secondarily infected. Cultures have been taken at this point once more and the mesh and the abdominal wall abscess was widely excised dissecting carefully onto the small bowel content where the abscess cavity has infiltrated and invaded. Hemostasis was maintained with electrocoagulating cautery throughout and the entire area including blue discolored mesh was excised. This specimen was then submitted to pathology in formalin and extensive dissection was now performed carefully freeing the small bowel from the anterior fascia. It is apparent at this point that an absorbable mesh is not available for placement and a primary approximation with #1 PDS suture, [id number] type closure is utilized which will allow for chronic antibiotic therapy to sterilize any further infection. Once this closure was performed, a wound vacuum mesh sponge was placed into the wound and the wound then covered with the occlusive plastic adhesive tape. Suction was applied. Leak proof seal was obtained, and the patient was then awakened, extubated and transported to the recovery room in a satisfactory condition. Sponge, instrument and suture count were verified as correct at the end of the procedure. Estimated blood loss during this procedure was less than 30 mL of blood. The surgical assistants were present throughout the entire procedure and were extremely helpful in assisting in the dissection and exposure required for this extremely difficult procedure. This dictation will be electronically signed without being read. Devon Wiggins MD
--- NOTE | 2017-01-30 17:03 | CT ---
PROCEDURE: CT Abdomen and Pelvis with contrast HISTORY: r/o obstruction-leak COMPARISON: 12/09/2016 TECHNIQUE: Contrast dose: 100 cc of Omni 350 Radiation dose: Total exam DLP = 1251 mGy-cm. This CT exam was performed using one or more of the following dose reduction techniques: Automated exposure control, adjustment of the mA and/or kV according to patient size, and/or use of iterative reconstruction technique. FINDINGS: LOWER THORAX: Unremarkable. LIVER: Unremarkable. No gross lesion or ductal dilatation. GALLBLADDER AND BILE DUCTS: Unremarkable. PANCREAS: Unremarkable. No gross lesion or ductal dilatation. SPLEEN: Unremarkable. ADRENALS: Unremarkable. No mass. KIDNEYS AND URETERS: Unremarkable. No hydronephrosis. No solid mass. VASCULATURE: Unremarkable. No aortic aneurysm. BOWEL: Unremarkable. No obstruction. No gross mural thickening. There is a colostomy in the right upper abdomen. There has been hernia repair in the ventral abdominal wall. There is some scarring in this area. There is no evidence of bowel obstruction or recurrent herniation. There is some thinning of the rectus muscle and anterior abdominal wall to the right of midline APPENDIX: No evidence of appendicitis PERITONEUM: Unremarkable. No free fluid. No free air. LYMPH NODES: Unremarkable. No enlarged lymph nodes. BLADDER: Unremarkable. REPRODUCTIVE: Unremarkable. BONES: No acute fracture. OTHER FINDINGS: None. IMPRESSION: No acute intra-abdominal findings
[2017-01-30] MEDS ORDERED: Bisacodyl 5mg EC Tab PO ONE (19:37)
--- NOTE | 2017-01-30 19:41 | PN ---
DATE: SUBJECTIVE: The patient is a 61-year-old complain of pain, states she did not have bowel movement for two days. Her colostomy bag is empty, complain of back pain, and hurts when moving even within the bed. PHYSICAL EXAMINATION: VITAL SIGNS: She is afebrile, pulse 60, respirations 18, and blood pressure 114/52. LUNGS: Bilateral good airflow. No rhonchi or crackles. HEART: S1 and S2 audible. ABDOMEN: Soft and tender around the side where wound VAC was placed and radiates to the back. ASSESSMENT: 1. Ventral hernia repair. 2. Infected mesh removal. 3. Hypertension. 4. Hyperlipidemia. PLAN: The patient is currently getting Azactam. She is on clonidine. She is on Colace. She is on Dilaudid 1 mg q.4 hours. We will continue her on valsartan. Monitor her blood sugar. She is on Inderal for her tachycardia and headache. We will follow up this patient in a.m. Dr. Portillo has recommended CT of the abdomen and pelvis and we will follow that. Olga Goyal MD
[2017-01-31] MEDS: HYDROmorphone 2 mg/ml ISec IVP PRN ×5 (04:05→23:49)
[2017-01-31] MEDS: Aztreonam 2 Gm in NS 100mL 100 ML IVPB SCH ×3 (06:55→22:32)
[2017-01-31] MEDS ORDERED: Bisacodyl 5mg EC Tab PO ONE (07:21)
[2017-01-31] MEDS ORDERED: Magnesium Citrate Oral SOL (300 ml) PO ONE (07:22)
[2017-01-31 08:02] LABS: BASO # 0.02 K/mm3 (0.0-2.0); BASO % 0.2 % (0.0-3.0); EOS # 0.6 (0.0-0.7); GRAN # 7.44 (1.4-6.5); GRAN % 72.8 % (50.0-68.0); HEMATOCRIT 38.6 % (36.0-48.0); LYMPH # 1.2 (1.2-3.4); LYMPH % 11.9 % (22.0-35.0); MEAN CELL VOLUME 92.1 fl (80.0-105.0); MEAN CORPUSCULAR HEMOGLOBIN 31.3 pg (25.0-35.0); MEAN CORPUSCULAR HGB CONC 33.9 g/dl (31.0-37.0); MONO # 0.9 (0.1-0.6); MONO % 9.1 % (1.0-6.0); RED CELL DISTRIBUTION WIDTH 13.3 % (11.5-14.5); WHITE BLOOD COUNT 10.2 10^3/ul (4.5-11.0)
[2017-01-31 08:10] LABS: ALB/GLOB RATIO 1.3 (1.1-1.8); ALKALINE PHOSPHATASE 90 U/L (38-126); ALT/SGPT 43 U/L (7-56); AMYLASE < 30 U/L (35-125); AST/SGOT 23 U/L (14-36); BILIRUBIN,TOTAL 0.6 mg/dL (0.2-1.3); BLOOD UREA NITROGEN 12 mg/dL (7-21); CALCIUM 9.2 mg/dL (8.4-10.5); CARBON DIOXIDE 26 mmol/L (21-33); CHLORIDE 107 mmol/L (98-107); GFR AFRICAN-AMERICAN > 60; GLUCOSE,RANDOM 140 mg/dL (70-110); POTASSIUM 4.4 mmol/L (3.6-5.0); SODIUM 138 mmol/L (132-148); TOTAL PROTEIN 6.5 g/dL (5.8-8.3)
[2017-01-31] MEDS: Insulin Reg-MEDIUM-Coverage SC SCH ×4 (08:54→22:39)
[2017-01-31] MEDS: POLYETHYLENE GLYCOL 3350 17 GM/Dose PACKET PO SCH ×2 (09:00→17:47)
--- NOTE | 2017-01-31 09:38 | CP.PCM.PN ---
Subjective - Date & Time of Evaluation Date of Evaluation: 01/31/17 Time of Evaluation: 09:17 - Subjective Subjective: Surgery Progress Note for Dr. Wiggins Pt seen and examined at bedside. No acute overnight events. Pt states that pain is severe in lower abdomen to upper thighs. + BM. Pt denied CP, SOB, nausea, vomiting, diarrhea, fever, chills, DIAS, or fatigue. Objective - Vital Signs/Intake and Output Vital Signs (last 24 hours): Temp Pulse Resp BP Pulse Ox 97.6 F 72 20 119/59 L 95 01/29/17 16:21 01/30/17 20:49 01/30/17 16:00 01/30/17 20:49 01/30/17 16:00 Intake and Output: 01/31/17 01/31/17 06:59 18:59 Intake Total 480 Balance 480 - Medications Medications: Current Medications Acetaminophen (Tylenol 325mg Tab) 650 mg PO Q6 PRN PRN Reason: Pain, moderate (4-7) Last Admin: 01/28/17 08:27 Dose: 650 mg Albuterol/Ipratropium (Duoneb 3 Mg/0.5 Mg (3 Ml) Ud) 3 ml IH Q2H PRN PRN Reason: Shortness of Breath Last Admin: 01/30/17 06:57 Dose: 3 ml Amlodipine Besylate (Norvasc) 10 mg PO DAILY [facility] Clonidine HCl (Catapres) 0.1 mg PO BID [facility] Last Admin: 01/30/17 20:49 Dose: Not Given Docusate Sodium (Colace) 100 mg PO BID [facility] Last Admin: 01/31/17 09:00 Dose: Not Given Ezetimibe (Zetia) 10 mg PO DAILY [facility] Last Admin: 01/30/17 11:41 Dose: 10 mg Gabapentin (Neurontin) 300 mg PO TID [facility] PRN Reason: Protocol Hydromorphone HCl (Dilaudid) 1 mg IVP Q4H PRN PRN Reason: Pain, moderate (4-7) Last Admin: 01/31/17 08:03 Dose: 1 mg Vancomycin HCl (Vancomycin 1gm) 1 gm in 250 mls @ 167 mls/hr IVPB Q12H [facility] PRN Reason: Protocol Last Admin: 01/30/17 21:30 Dose: 167 mls/hr Aztreonam (Azactam 2 Gm) 100 mls @ 100 mls/hr IVPB Q8 [facility] PRN Reason: Protocol Last Admin: 01/31/17 06:55 Dose: 100 mls/hr Ibuprofen (Motrin Tab) 400 mg PO Q6 PRN PRN Reason: Fever >100.4 F Insulin Human Regular (Humulin R Med) 0 units SC ACHS [facility] PRN Reason: Protocol Last Admin: 01/31/17 08:54 Dose: Not Given Ketorolac Tromethamine (Toradol) 15 mg IVP Q6 PRN PRN Reason: Pain, severe (8-10) Last Admin: 01/31/17 00:34 Dose: 15 mg Ondansetron HCl (Zofran Inj) 4 mg IVP ONCE PRN PRN Reason: Nausea/Vomiting Last Admin: 01/30/17 21:42 Dose: 4 mg Ondansetron HCl (Zofran Inj) 4 mg IVP Q4H PRN PRN Reason: Nausea/Vomiting Last Admin: 01/30/17 13:37 Dose: 4 mg Oxycodone/Acetaminophen (Percocet 5/325 Mg Tab) 2 tab PO Q4H PRN PRN Reason: Pain, moderate (4-7) Stop: 01/31/17 23:20 Last Admin: 01/30/17 02:27 Dose: 2 tab Pantoprazole Sodium (Protonix Inj) 40 mg IVP Q12 [facility] Polyethylene Glycol (Miralax) 17 gm PO BID [facility] Last Admin: 01/31/17 09:00 Dose: Not Given Propranolol HCl (Inderal La) 60 mg PO DAILY [facility] Tramadol HCl (Ultram) 50 mg PO TID [facility] Valsartan (Diovan) 320 mg PO DAILY [facility] - Labs Labs: 01/31/17 07:45 01/31/17 07:45 PT 11.8 SECONDS (9.4-12.5) 01/28/17 07:32 INR 1.07 (0.93-1.08) 01/28/17 07:32 APTT 29.0 Seconds (25.1-36.5) 01/28/17 07:32 - Constitutional Appears: No Acute Distress - Head Exam Head Exam: NORMAL INSPECTION - Eye Exam Eye Exam: Normal appearance - ENT Exam ENT Exam: Normal Exam - Respiratory Exam Respiratory Exam: NORMAL BREATHING PATTERN. absent: Accessory Muscle Use, Respiratory Distress - Cardiovascular Exam Cardiovascular Exam: RRR. absent: Gallop, Rubs, Murmur - GI/Abdominal Exam GI & Abdominal Exam: Soft, Tenderness (lower abdomen). absent: Distended, Guarding, Mass, Rebound Additional comments: wound vac in place with good seal - Extremities Exam Extremities Exam: Normal Inspection - Neurological Exam Neurological Exam: Alert, Awake, Oriented x3 - Skin Skin Exam: Normal Color Assessment and Plan - Assessment and Plan (Free Text) Assessment: 61F w/ intrabdominal abscess and infected mesh s/p ventral hernia repair, removal of infected mess and woundvac placement POD#3 Plan: - Abx per ID, recs appreciated - PICC line in place - Cont wound vac, will DC with wound vac - Pain control, added Gabapentin - DVT ppx - DW Dr. Feliciano Ashraf, PGY1
[2017-01-31] MEDS: Propranolol 60 mg ER Cap PO SCH (09:50)
[2017-01-31] MEDS: Vancomycin 1gm in NS 250ml 1 GM/250 ML BAG IVPB SCH ×2 (11:15→20:23)
--- NOTE | 2017-01-31 17:17 | CP.PCM.PN ---
Subjective - Date & Time of Evaluation Date of Evaluation: 01/31/17 Time of Evaluation: 15:30 - Subjective Subjective: Infectious Disease Follow Up: January 31, 2017 61 yo female known to me from the outpatient setting. The patient again has abdominal wall abscess with history of ventral abdominal hernia with multiple operations and infected mesh. 2 month history of draining abscess in the abdominal with increasing pain in the left lower abdomen. The patient has multiple surgeries to the abdominal area over the last few years. There is alot of adhesions and scar tissue in the abdominal area. Taken to OR and wound vac placed during this hospitalization. Cultures from OR are showing multiple gram negative organisms. Growth of E. coli and Klebsiella. Both highly sensitive to Aztreonam. Will continue on Aztreonam for now. Objective - Vital Signs/Intake and Output Vital Signs (last 24 hours): Temp Pulse Resp BP Pulse Ox 98.0 F 63 18 135/51 L 96 01/31/17 08:00 01/31/17 09:50 01/31/17 08:00 01/31/17 09:51 01/31/17 08:00 Intake and Output: 01/31/17 01/31/17 06:59 18:59 Intake Total 480 Balance 480 - Medications Medications: Current Medications Acetaminophen (Tylenol 325mg Tab) 650 mg PO Q6 PRN PRN Reason: Pain, moderate (4-7) Last Admin: 01/28/17 08:27 Dose: 650 mg Albuterol/Ipratropium (Duoneb 3 Mg/0.5 Mg (3 Ml) Ud) 3 ml IH Q2H PRN PRN Reason: Shortness of Breath Last Admin: 01/30/17 06:57 Dose: 3 ml Amlodipine Besylate (Norvasc) 10 mg PO DAILY [facility] Last Admin: 01/31/17 09:51 Dose: 10 mg Clonidine HCl (Catapres) 0.1 mg PO BID [facility] Last Admin: 01/31/17 12:52 Dose: Not Given Docusate Sodium (Colace) 100 mg PO BID [facility] Last Admin: 01/31/17 09:00 Dose: Not Given Ezetimibe (Zetia) 10 mg PO DAILY [facility] Last Admin: 01/31/17 12:45 Dose: 10 mg Gabapentin (Neurontin) 300 mg PO TID [facility] PRN Reason: Protocol Last Admin: 01/31/17 14:07 Dose: 300 mg Hydromorphone HCl (Dilaudid) 1 mg IVP Q4H PRN PRN Reason: Pain, moderate (4-7) Last Admin: 01/31/17 12:44 Dose: 1 mg Vancomycin HCl (Vancomycin 1gm) 1 gm in 250 mls @ 167 mls/hr IVPB Q12H [facility] PRN Reason: Protocol Last Admin: 01/31/17 11:15 Dose: 167 mls/hr Aztreonam (Azactam 2 Gm) 100 mls @ 100 mls/hr IVPB Q8 [facility] PRN Reason: Protocol Last Admin: 01/31/17 14:08 Dose: 100 mls/hr Ibuprofen (Motrin Tab) 400 mg PO Q6 PRN PRN Reason: Fever >100.4 F Insulin Human Regular (Humulin R Med) 0 units SC ACHS [facility] PRN Reason: Protocol Last Admin: 01/31/17 11:36 Dose: Not Given Ketorolac Tromethamine (Toradol) 15 mg IVP Q6 PRN PRN Reason: Pain, severe (8-10) Last Admin: 01/31/17 00:34 Dose: 15 mg Ondansetron HCl (Zofran Inj) 4 mg IVP Q4H PRN PRN Reason: Nausea/Vomiting Last Admin: 01/30/17 13:37 Dose: 4 mg Oxycodone/Acetaminophen (Percocet 5/325 Mg Tab) 2 tab PO Q4H PRN PRN Reason: Pain, moderate (4-7) Stop: 01/31/17 23:20 Last Admin: 01/30/17 02:27 Dose: 2 tab Pantoprazole Sodium (Protonix Inj) 40 mg IVP Q12 [facility] Last Admin: 01/31/17 09:50 Dose: 40 mg Polyethylene Glycol (Miralax) 17 gm PO BID [facility] Last Admin: 01/31/17 09:00 Dose: Not Given Propranolol HCl (Inderal La) 60 mg PO DAILY [facility] Last Admin: 01/31/17 09:50 Dose: 60 mg Tramadol HCl (Ultram) 50 mg PO TID [facility] Last Admin: 01/31/17 14:08 Dose: 50 mg Valsartan (Diovan) 320 mg PO DAILY [facility] Last Admin: 01/31/17 09:51 Dose: 320 mg - Labs Labs: 01/31/17 07:45 01/31/17 07:45 PT 11.8 SECONDS (9.4-12.5) 01/28/17 07:32 INR 1.07 (0.93-1.08) 01/28/17 07:32 APTT 29.0 Seconds (25.1-36.5) 01/28/17 07:32 - Constitutional Appears: Non-toxic, No Acute Distress, Chronically Ill - Head Exam Head Exam: ATRAUMATIC, NORMOCEPHALIC - Eye Exam Eye Exam: EOMI, PERRL Pupil Exam: NORMAL ACCOMODATION, PERRL - ENT Exam ENT Exam: Mucous Membranes Moist, Normal External Ear Exam, TM's Normal Bilaterally - Neck Exam Neck Exam: Full ROM, Normal Inspection - Respiratory Exam Respiratory Exam: Clear to Ausculation Bilateral, NORMAL BREATHING PATTERN. absent: Rales, Rhonchi, Wheezes - Cardiovascular Exam Cardiovascular Exam: REGULAR RHYTHM, RRR, +S1, +S2 - GI/Abdominal Exam GI & Abdominal Exam: Soft, Normal Bowel Sounds. absent: Distended, Tenderness - Extremities Exam Extremities Exam: Full ROM, Normal Inspection - Neurological Exam Neurological Exam: Alert, Awake, CN II-XII Intact, Oriented x3 - Psychiatric Exam Psychiatric exam: Normal Affect, Normal Mood - Skin Skin Exam: Intact, Normal Color Assessment and Plan - Assessment and Plan (Free Text) Assessment: 61 yo female with multiple drug allergies including Amoxicillin, Sulfa , and Moxifloxacin. Patient had I&D with debridement of an abdominal abscess today with placement of a wound vac. Limited antibiotic options for the patient. Klebsiella and E. coli in past cultures. Will start Aztreonam for antibiotic coverage. Wound care as per surgery. Tigecycline may be a reason choice for antibiotics as it enters fatty tissue well. Awaiting identification and sensitivities of the gram negative rods. Identification of E. coli and Klebsiella. Both highly sensitive to Aztreonam. Will increase dosing of Aztreonam. Patient will need 4 weeks of therapy at the very least if not 6 weeks of therapy with IV Aztreonam. Aminoglycosides normally will be of limited use due to poor tissue penetration of Aminoglycosides. Will consider addition of Tigecycline as well. Would see if patient is able to obtain Tigecycline for treatment in concurrence with Aztreonam given patient's complicated infection history. Spoke with Dr. Wiggins regarding case and extent of infection. Thank you for allowing me to participate in the care of the patient, we will follow with you.
--- NOTE | 2017-01-31 19:41 | PN ---
DATE: SUBJECTIVE: The patient is 61-year-old female, seen and examined, sitting in chair. Seems to be relatively doing well. Pain is less, although she still has pain requiring narcotics. PHYSICAL EXAMINATION: VITAL SIGNS: She is afebrile, pulse 63, respirations 18, and blood pressure 135/51. LUNGS: Bilateral good airflow. No rhonchi or crackles. HEART: S1 and S2 audible. ABDOMEN: Soft. Slight palpable discomfort around surgical site. She has wound VAC on. NEUROLOGIC: She is awake, alert, oriented, and communicative. LABORATORY DATA: WBC is 10.2, hemoglobin 13, hematocrit is 38, and platelets are 192. Chemistries: Sodium of 138, potassium 4.4, chloride 107, CO2 of 26, BUN 12, creatinine 0.5, and blood sugar of 125. Her wound cultures are positive for E. coli and Klebsiella pneumonia. ASSESSMENT AND PLAN: 1. Status post ventral hernia repair with old infected mesh removal. 2. Hypertension. 3. Hyperlipidemia. 4. Constipation. PLAN: Currently, the patient is on Azactam. The patient is getting Azactam and she is on clonidine. She was given magnesium citrate, waiting the result. We will continue her on Dilaudid 1 mg q. 3 hour and she stated to wears off and she gets excruciating pain. We will continue the patient on current antibiotic regimen and laxative as needed. She has PICC line placed and scheduled to be discharge on Friday. Olga Goyal MD
--- NOTE | 2017-01-31 20:28 | VASCULAR ---
PROCEDURE: Ultrasound and fluoroscopically placed left upper extremity PICC line. HISTORY: Infected abdominal wall mesh. Long-term IV antibiotics. Needs PICC line PHYSICIAN(S): Erasmo Haney MD. TECHNIQUE: The relative risks and indications of the procedure were explained to the patient and consent obtained. The patient was placed supine on the arteriogram table and the left arm prepped and draped in the usual sterile fashion. A tourniquet was applied to the left axilla. 1% Xylocaine was used to anesthetize the skin and soft tissues at the puncture site above the elbow. The left basilic vein was punctured under direct ultrasound guidance with a micropuncture set. A 0.018 guidewire was advanced centrally and used to measure the length to the SVC/RA junction. A 5 Micronesian single-lumen PICC line 50 cm long was advanced to the SVC/RA junction. The catheter was flushed and secured. The patient tolerated the procedure well. IMPRESSION: 1. Ultrasound and fluoroscopically placed left upper extremity PICC line. A 5 Micronesian single-lumen PICC line 50 cm long was advanced to the SVC/RA junction.
[2017-02-01] MEDS: HYDROmorphone 2 mg/ml ISec IVP PRN (04:25)
[2017-02-01] MEDS: Aztreonam 2 Gm in NS 100mL 100 ML IVPB SCH ×3 (06:12→21:40)
--- NOTE | 2017-02-01 08:46 | CP.PCM.PN ---
Subjective - Date & Time of Evaluation Date of Evaluation: 02/01/17 Time of Evaluation: 07:00 - Subjective Subjective: General Surgery Note for Dr. Wiggins Patient seen and examined at bedside. No acute event overnight. Patient sitting up in bed comfortably. Patient still has some pain in lower abdomen. She is tolerating diet and ambulating without difficulty. She is having normal BMs and passing flatus. No other complaints at this time. Objective - Vital Signs/Intake and Output Vital Signs (last 24 hours): Temp Pulse Resp BP Pulse Ox 98.5 F 62 290 H 115/58 L 98 02/01/17 06:27 02/01/17 06:27 02/01/17 06:27 02/01/17 06:27 02/01/17 06:27 Intake and Output: 02/01/17 02/01/17 06:59 18:59 Intake Total 1020 Balance 1020 - Medications Medications: Current Medications Acetaminophen (Tylenol 325mg Tab) 650 mg PO Q6 PRN PRN Reason: Pain, moderate (4-7) Last Admin: 01/28/17 08:27 Dose: 650 mg Albuterol/Ipratropium (Duoneb 3 Mg/0.5 Mg (3 Ml) Ud) 3 ml IH Q2H PRN PRN Reason: Shortness of Breath Last Admin: 01/30/17 06:57 Dose: 3 ml Amlodipine Besylate (Norvasc) 10 mg PO DAILY [facility] Last Admin: 01/31/17 09:51 Dose: 10 mg Clonidine HCl (Catapres) 0.1 mg PO BID [facility] Last Admin: 01/31/17 18:30 Dose: Not Given Docusate Sodium (Colace) 100 mg PO BID [facility] Last Admin: 01/31/17 17:47 Dose: Not Given Ezetimibe (Zetia) 10 mg PO DAILY [facility] Last Admin: 01/31/17 12:45 Dose: 10 mg Gabapentin (Neurontin) 300 mg PO TID [facility] PRN Reason: Protocol Last Admin: 01/31/17 17:46 Dose: 300 mg Hydromorphone HCl (Dilaudid) 1 mg IVP Q3H PRN PRN Reason: Pain, moderate (4-7) Last Admin: 02/01/17 04:25 Dose: 1 mg Vancomycin HCl (Vancomycin 1gm) 1 gm in 250 mls @ 167 mls/hr IVPB Q12H [facility] PRN Reason: Protocol Last Admin: 01/31/17 20:23 Dose: 167 mls/hr Aztreonam (Azactam 2 Gm) 100 mls @ 100 mls/hr IVPB Q8 [facility] PRN Reason: Protocol Last Admin: 02/01/17 06:12 Dose: 100 mls/hr Ibuprofen (Motrin Tab) 400 mg PO Q6 PRN PRN Reason: Fever >100.4 F Insulin Human Regular (Humulin R Med) 0 units SC ACHS [facility] PRN Reason: Protocol Last Admin: 01/31/17 22:39 Dose: Not Given Ketorolac Tromethamine (Toradol) 15 mg IVP Q6 PRN PRN Reason: Pain, severe (8-10) Last Admin: 01/31/17 00:34 Dose: 15 mg Ondansetron HCl (Zofran Inj) 4 mg IVP Q4H PRN PRN Reason: Nausea/Vomiting Last Admin: 01/30/17 13:37 Dose: 4 mg Pantoprazole Sodium (Protonix Inj) 40 mg IVP Q12 [facility] Last Admin: 01/31/17 22:33 Dose: 40 mg Polyethylene Glycol (Miralax) 17 gm PO BID [facility] Last Admin: 01/31/17 17:47 Dose: Not Given Propranolol HCl (Inderal La) 60 mg PO DAILY [facility] Last Admin: 01/31/17 09:50 Dose: 60 mg Tramadol HCl (Ultram) 50 mg PO TID [facility] Last Admin: 01/31/17 17:46 Dose: 50 mg Valsartan (Diovan) 320 mg PO DAILY [facility] Last Admin: 01/31/17 09:51 Dose: 320 mg - Labs Labs: 01/31/17 07:45 01/31/17 07:45 PT 11.8 SECONDS (9.4-12.5) 01/28/17 07:32 INR 1.07 (0.93-1.08) 01/28/17 07:32 APTT 29.0 Seconds (25.1-36.5) 01/28/17 07:32 - Constitutional Appears: No Acute Distress - Head Exam Head Exam: ATRAUMATIC, NORMOCEPHALIC - Eye Exam Eye Exam: EOMI, Normal appearance Pupil Exam: PERRL - ENT Exam ENT Exam: Mucous Membranes Moist - Respiratory Exam Respiratory Exam: NORMAL BREATHING PATTERN - Cardiovascular Exam Cardiovascular Exam: REGULAR RHYTHM - GI/Abdominal Exam GI & Abdominal Exam: Soft. absent: Distended, Firm, Guarding, Rigid, Tenderness , Rebound Additional comments: wound vac in place with no leak on continuous suction at 125mmhg - Extremities Exam Extremities Exam: Normal Capillary Refill - Neurological Exam Neurological Exam: Alert, Awake, Oriented x3 - Psychiatric Exam Psychiatric exam: Normal Affect, Normal Mood - Skin Skin Exam: Dry, Normal Color, Warm Assessment and Plan - Assessment and Plan (Free Text) Plan: 61F with intrabdominal abscess and infected mesh s/p ventral hernia repair with removal of infected mess and wound vac placement POD#4 -Mod carb consistent diet -Continue IV antibiotics per Infectious disease -Negative pressure wound therapy - discharge home with wound vac -Pain control -GI/DVT ppx -Will discuss with Dr. Feliciano Whitmore PGY1
[2017-02-01] MEDS: Insulin Reg-MEDIUM-Coverage SC SCH ×4 (09:02→21:45)
[2017-02-01] MEDS: Propranolol 60 mg ER Cap PO SCH (09:19)
[2017-02-01] MEDS: POLYETHYLENE GLYCOL 3350 17 GM/Dose PACKET PO SCH ×2 (09:19→17:16)
[2017-02-01] MEDS: Vancomycin 1gm in NS 250ml 1 GM/250 ML BAG IVPB SCH ×2 (09:20→21:31)
[2017-02-01] MEDS: HYDROmorphone 0.5 mg/0.5 ml ISec IVP PRN ×3 (09:20→21:32)
[2017-02-01] MEDS: Levalbuterol 1.25 MG/3 ML Inhal Soln UD IH SCH ×2 (13:32→19:56)
--- NOTE | 2017-02-01 17:25 | CP.PCM.PN ---
Subjective - Date & Time of Evaluation Date of Evaluation: 02/01/17 Time of Evaluation: 16:45 - Subjective Subjective: Infectious Disease Follow Up: February 01, 2017 61 yo female known to me from the outpatient setting. The patient again has abdominal wall abscess with history of ventral abdominal hernia with multiple operations and infected mesh. 2 month history of draining abscess in the abdominal with increasing pain in the left lower abdomen. The patient has multiple surgeries to the abdominal area over the last few years. There is alot of adhesions and scar tissue in the abdominal area. Taken to OR and wound vac placed during this hospitalization. Cultures from OR are showing multiple gram negative organisms. Growth of E. coli and Klebsiella. Both highly sensitive to Aztreonam. Will continue on Aztreonam for now. Objective - Vital Signs/Intake and Output Vital Signs (last 24 hours): Temp Pulse Resp BP Pulse Ox 98.5 F 62 20 115/58 L 98 02/01/17 08:48 02/01/17 09:19 02/01/17 08:48 02/01/17 09:19 02/01/17 08:48 Intake and Output: 02/01/17 02/01/17 06:59 18:59 Intake Total 1020 720 Balance 1020 720 - Medications Medications: Current Medications Acetaminophen (Tylenol 325mg Tab) 650 mg PO Q6 PRN PRN Reason: Pain, moderate (4-7) Last Admin: 02/01/17 11:31 Dose: 650 mg Albuterol/Ipratropium (Duoneb 3 Mg/0.5 Mg (3 Ml) Ud) 3 ml IH Q2H PRN PRN Reason: Shortness of Breath Last Admin: 01/30/17 06:57 Dose: 3 ml Amlodipine Besylate (Norvasc) 10 mg PO DAILY [facility] Last Admin: 02/01/17 09:16 Dose: 10 mg Clonidine HCl (Catapres) 0.1 mg PO BID [facility] Last Admin: 02/01/17 13:54 Dose: Not Given Docusate Sodium (Colace) 100 mg PO BID [facility] Last Admin: 02/01/17 09:17 Dose: 100 mg Ezetimibe (Zetia) 10 mg PO DAILY [facility] Last Admin: 02/01/17 13:50 Dose: 10 mg Gabapentin (Neurontin) 300 mg PO TID [facility] PRN Reason: Protocol Last Admin: 02/01/17 13:25 Dose: 300 mg Hydromorphone HCl (Dilaudid) 0.5 mg IVP Q3H PRN PRN Reason: Pain, moderate (4-7) Last Admin: 02/01/17 13:25 Dose: 0.5 mg Vancomycin HCl (Vancomycin 1gm) 1 gm in 250 mls @ 167 mls/hr IVPB Q12H [facility] PRN Reason: Protocol Last Admin: 02/01/17 09:20 Dose: 167 mls/hr Aztreonam (Azactam 2 Gm) 100 mls @ 100 mls/hr IVPB Q8 [facility] PRN Reason: Protocol Last Admin: 02/01/17 13:23 Dose: 100 mls/hr Ibuprofen (Motrin Tab) 400 mg PO Q6 PRN PRN Reason: Fever >100.4 F Insulin Human Regular (Humulin R Med) 0 units SC ACHS [facility] PRN Reason: Protocol Last Admin: 02/01/17 13:24 Dose: 1 units Ketorolac Tromethamine (Toradol) 15 mg IVP Q6 PRN PRN Reason: Pain, severe (8-10) Last Admin: 01/31/17 00:34 Dose: 15 mg Levalbuterol HCl (Xopenex) 1.25 mg IH [id number] [facility] Last Admin: 02/01/17 13:32 Dose: 1.25 mg Ondansetron HCl (Zofran Inj) 4 mg IVP Q4H PRN PRN Reason: Nausea/Vomiting Last Admin: 01/30/17 13:37 Dose: 4 mg Pantoprazole Sodium (Protonix Inj) 40 mg IVP Q12 [facility] Last Admin: 02/01/17 09:15 Dose: 40 mg Polyethylene Glycol (Miralax) 17 gm PO BID [facility] Last Admin: 02/01/17 09:19 Dose: 17 gm Promethazine HCl/Dextromethorphan (Phenergan Dm Syrup) 5 ml PO Q6H PRN PRN Reason: Cough Propranolol HCl (Inderal La) 60 mg PO DAILY [facility] Last Admin: 02/01/17 09:19 Dose: Not Given Tramadol HCl (Ultram) 50 mg PO TID [facility] Last Admin: 02/01/17 15:22 Dose: 50 mg Valsartan (Diovan) 320 mg PO DAILY [facility] Last Admin: 02/01/17 09:18 Dose: 320 mg - Labs Labs: 01/31/17 07:45 01/31/17 07:45 PT 11.8 SECONDS (9.4-12.5) 01/28/17 07:32 INR 1.07 (0.93-1.08) 01/28/17 07:32 APTT 29.0 Seconds (25.1-36.5) 01/28/17 07:32 - Constitutional Appears: Non-toxic, No Acute Distress, Chronically Ill - Head Exam Head Exam: ATRAUMATIC, NORMOCEPHALIC - Eye Exam Eye Exam: EOMI, PERRL Pupil Exam: NORMAL ACCOMODATION, PERRL - ENT Exam ENT Exam: Mucous Membranes Moist, Normal External Ear Exam, TM's Normal Bilaterally - Neck Exam Neck Exam: Full ROM, Normal Inspection - Respiratory Exam Respiratory Exam: Clear to Ausculation Bilateral, NORMAL BREATHING PATTERN. absent: Rales, Rhonchi, Wheezes - Cardiovascular Exam Cardiovascular Exam: REGULAR RHYTHM, RRR, +S1, +S2 - GI/Abdominal Exam GI & Abdominal Exam: Soft, Normal Bowel Sounds. absent: Distended, Tenderness Additional comments: wound vac in place. - Extremities Exam Extremities Exam: Full ROM, Normal Inspection - Neurological Exam Neurological Exam: Alert, Awake, Oriented x3 - Psychiatric Exam Psychiatric exam: Normal Affect, Normal Mood - Skin Skin Exam: Intact, Normal Color Assessment and Plan - Assessment and Plan (Free Text) Assessment: 61 yo female with multiple drug allergies including Amoxicillin, Sulfa , and Moxifloxacin. Patient had I&D with debridement of an abdominal abscess today with placement of a wound vac. Limited antibiotic options for the patient. Klebsiella and E. coli in past cultures. Will start Aztreonam for antibiotic coverage. Wound care as per surgery. Tigecycline may be a reason choice for antibiotics as it enters fatty tissue well. Awaiting identification and sensitivities of the gram negative rods. Identification of E. coli and Klebsiella. Both highly sensitive to Aztreonam. Will increase dosing of Aztreonam. Patient will need 4 weeks of therapy at the very least if not 6 weeks of therapy with IV Aztreonam. Aminoglycosides normally will be of limited use due to poor tissue penetration of Aminoglycosides. Will consider addition of Tigecycline as well. Would see if patient is able to obtain Tigecycline for treatment in concurrence with Aztreonam given patient's complicated infection history. Spoke with Dr. Wiggins regarding case and extent of infection. Thank you for allowing me to participate in the care of the patient, we will follow with you.
[2017-02-01] MEDS: Promethazine DM 6.25 mg-15 mg/5 ml Syrup PO PRN (21:56)
[2017-02-02] MEDS: Levalbuterol 1.25 MG/3 ML Inhal Soln UD IH SCH ×4 (01:39→19:09)
[2017-02-02] MEDS: HYDROmorphone 0.5 mg/0.5 ml ISec IVP PRN ×2 (01:59→07:04)
--- NOTE | 2017-02-02 02:42 | PN ---
DATE: SUBJECTIVE: The patient is a 61-year-old seen and examined, complained of some abdominal discomfort at the site of wound VAC. The patient does have bowel movement in her colostomy bag. CT scan done yesterday is unremarkable. PHYSICAL EXAMINATION: VITAL SIGNS: She is afebrile, pulse 60, respirations 16, and blood pressure 115/51. LUNGS: Bilateral good airflow. No rhonchi or crackles. HEART: S1 and S2 audible. ABDOMEN: Soft. Slight palpable discomfort around surgical site. She has wound VAC in place. NEUROLOGIC: She is awake, alert, oriented, communicative, and ambulatory. LABORATORY DATA: WBC is 10.2, hemoglobin is 13, hematocrit is 38, and platelets are 192. Chemistries: Blood sugar is 140. Her wound cultures are positive for E. coli and Klebsiella pneumoniae. ASSESSMENT: 1. Status post ventral hernia repair and removal of infected mesh and had wound VAC placed. 2. Vfw-[id number] diabetes. 3. Hypertension. 4. Hyperlipidemia. 5. Status post PICC line placement. PLAN: Currently, patient is on Azactam and vancomycin. Wound VAC is functional and draining blood tinged fluid. The patient is scheduled to be discharged on Friday with wound VAC and IV home infusion to complete her course of antibiotics. Olga Goyal MD
[2017-02-02] MEDS: Promethazine DM 6.25 mg-15 mg/5 ml Syrup PO PRN (03:31)
[2017-02-02] MEDS: Aztreonam 2 Gm in NS 100mL 100 ML IVPB SCH ×3 (07:02→21:04)
--- NOTE | 2017-02-02 08:01 | CP.PCM.PN ---
Objective - Vital Signs/Intake and Output Vital Signs (last 24 hours): Temp Pulse Resp BP Pulse Ox 98.1 F 60 16 115/51 L 96 02/01/17 16:00 02/01/17 17:19 02/01/17 16:00 02/01/17 17:19 02/01/17 16:00 Intake and Output: 02/02/17 02/02/17 06:59 18:59 Intake Total 360 Output Total 0 Balance 360 - Medications Medications: Current Medications Acetaminophen (Tylenol 325mg Tab) 650 mg PO Q6 PRN PRN Reason: Pain, moderate (4-7) Last Admin: 02/01/17 11:31 Dose: 650 mg Albuterol/Ipratropium (Duoneb 3 Mg/0.5 Mg (3 Ml) Ud) 3 ml IH Q2H PRN PRN Reason: Shortness of Breath Last Admin: 01/30/17 06:57 Dose: 3 ml Amlodipine Besylate (Norvasc) 10 mg PO DAILY [facility] Last Admin: 02/01/17 09:16 Dose: 10 mg Clonidine HCl (Catapres) 0.1 mg PO BID [facility] Last Admin: 02/01/17 17:19 Dose: Not Given Docusate Sodium (Colace) 100 mg PO BID [facility] Last Admin: 02/01/17 17:16 Dose: 100 mg Ezetimibe (Zetia) 10 mg PO DAILY [facility] Last Admin: 02/01/17 13:50 Dose: 10 mg Gabapentin (Neurontin) 300 mg PO TID [facility] PRN Reason: Protocol Last Admin: 02/01/17 17:18 Dose: 300 mg Hydromorphone HCl (Dilaudid) 0.5 mg IVP Q3H PRN PRN Reason: Pain, moderate (4-7) Last Admin: 02/02/17 07:04 Dose: 0.5 mg Vancomycin HCl (Vancomycin 1gm) 1 gm in 250 mls @ 167 mls/hr IVPB Q12H [facility] PRN Reason: Protocol Last Admin: 02/01/17 21:31 Dose: 167 mls/hr Aztreonam (Azactam 2 Gm) 100 mls @ 100 mls/hr IVPB Q8 [facility] PRN Reason: Protocol Last Admin: 02/02/17 07:02 Dose: 100 mls/hr Ibuprofen (Motrin Tab) 400 mg PO Q6 PRN PRN Reason: Fever >100.4 F Insulin Human Regular (Humulin R Med) 0 units SC ACHS [facility] PRN Reason: Protocol Last Admin: 02/01/17 21:45 Dose: Not Given Ketorolac Tromethamine (Toradol) 15 mg IVP Q6 PRN PRN Reason: Pain, severe (8-10) Last Admin: 02/02/17 03:31 Dose: 15 mg Levalbuterol HCl (Xopenex) 1.25 mg IH [id number] [facility] Last Admin: 02/02/17 07:04 Dose: 1.25 mg Ondansetron HCl (Zofran Inj) 4 mg IVP Q4H PRN PRN Reason: Nausea/Vomiting Last Admin: 01/30/17 13:37 Dose: 4 mg Pantoprazole Sodium (Protonix Inj) 40 mg IVP Q12 [facility] Last Admin: 02/01/17 21:32 Dose: 40 mg Polyethylene Glycol (Miralax) 17 gm PO BID [facility] Last Admin: 02/01/17 17:16 Dose: 17 gm Promethazine HCl/Dextromethorphan (Phenergan Dm Syrup) 5 ml PO Q6H PRN PRN Reason: Cough Last Admin: 02/02/17 03:31 Dose: 5 ml Propranolol HCl (Inderal La) 60 mg PO DAILY [facility] Last Admin: 02/01/17 09:19 Dose: Not Given Tramadol HCl (Ultram) 50 mg PO TID [facility] Last Admin: 02/01/17 17:17 Dose: 50 mg Valsartan (Diovan) 320 mg PO DAILY [facility] Last Admin: 02/01/17 09:18 Dose: 320 mg - Labs Labs: 01/31/17 07:45 01/31/17 07:45 PT 11.8 SECONDS (9.4-12.5) 01/28/17 07:32 INR 1.07 (0.93-1.08) 01/28/17 07:32 APTT 29.0 Seconds (25.1-36.5) 01/28/17 07:32
[2017-02-02 08:08] LABS: BASO # 0.03 K/mm3 (0.0-2.0); BASO % 0.4 % (0.0-3.0); EOS # 0.6 (0.0-0.7); EOS % 9.2 % (1.5-5.0); GRAN # 4.02 (1.4-6.5); GRAN % 59.4 % (50.0-68.0); LYMPH # 1.5 (1.2-3.4); MEAN CORPUSCULAR HEMOGLOBIN 31.1 pg (25.0-35.0); MEAN CORPUSCULAR HGB CONC 33.8 g/dl (31.0-37.0); MONO # 0.6 (0.1-0.6); WHITE BLOOD COUNT 6.8 10^3/ul (4.5-11.0)
[2017-02-02 08:24] LABS: BLOOD UREA NITROGEN 11 mg/dL (7-21); CALCIUM 8.8 mg/dL (8.4-10.5); CARBON DIOXIDE 27 mmol/L (21-33); CHLORIDE 108 mmol/L (98-107); GFR AFRICAN-AMERICAN > 60; GLUCOSE,RANDOM 101 mg/dL (70-110); POTASSIUM 3.4 mmol/L (3.6-5.0); SODIUM 142 mmol/L (132-148)
[2017-02-02] MEDS: Vancomycin 1gm in NS 250ml 1 GM/250 ML BAG IVPB SCH (08:25)
[2017-02-02] MEDS ORDERED: Potassium Chloride 20 mEq ER Tab PO ONE (08:33)
[2017-02-02] MEDS: Insulin Reg-MEDIUM-Coverage SC SCH ×4 (09:14→21:13)
[2017-02-02] MEDS: Propranolol 60 mg ER Cap PO SCH (09:44)
--- NOTE | 2017-02-02 09:45 | CP.PCM.PCO ---
Physician Communication Note - Physician Communication Note Physician Communication Note: Tapering dilaudid/Silver wound vac 02/03=D/C?
[2017-02-02] MEDS: POLYETHYLENE GLYCOL 3350 17 GM/Dose PACKET PO SCH ×2 (09:46→17:52)
[2017-02-02] MEDS: Oxycodone/Acetaminophen 5/325 mg Tab PO PRN ×2 (11:02→17:53)
[2017-02-02] MEDS: HYDROmorphone 0.5 mg/0.5 ml ISec SC PRN ×2 (13:27→20:35)
--- NOTE | 2017-02-02 18:46 | CP.PCM.PN ---
Subjective - Date & Time of Evaluation Date of Evaluation: 02/02/17 Time of Evaluation: 17:15 - Subjective Subjective: Infectious Disease Follow Up: February 02, 2017 61 yo female known to me from the outpatient setting. The patient again has abdominal wall abscess with history of ventral abdominal hernia with multiple operations and infected mesh. 2 month history of draining abscess in the abdominal with increasing pain in the left lower abdomen. The patient has multiple surgeries to the abdominal area over the last few years. There is alot of adhesions and scar tissue in the abdominal area. Taken to OR and wound vac placed during this hospitalization. Cultures from OR are showing multiple gram negative organisms. Growth of E. coli and Klebsiella. Both highly sensitive to Aztreonam. Will continue on Aztreonam for now. Objective - Vital Signs/Intake and Output Vital Signs (last 24 hours): Temp Pulse Resp BP Pulse Ox 98.5 F 53 L 18 125/56 L 94 L 02/02/17 16:00 02/02/17 17:53 02/02/17 16:00 02/02/17 17:53 02/02/17 16:00 Intake and Output: 02/02/17 02/02/17 06:59 18:59 Intake Total 360 480 Output Total 0 Balance 360 480 - Medications Medications: Current Medications Acetaminophen (Tylenol 325mg Tab) 650 mg PO Q6 PRN PRN Reason: Pain, moderate (4-7) Last Admin: 02/01/17 11:31 Dose: 650 mg Albuterol/Ipratropium (Duoneb 3 Mg/0.5 Mg (3 Ml) Ud) 3 ml IH Q2H PRN PRN Reason: Shortness of Breath Last Admin: 01/30/17 06:57 Dose: 3 ml Amlodipine Besylate (Norvasc) 10 mg PO DAILY [facility] Last Admin: 02/02/17 09:44 Dose: 10 mg Clonidine HCl (Catapres) 0.1 mg PO BID [facility] Last Admin: 02/02/17 17:53 Dose: 0.1 mg Docusate Sodium (Colace) 100 mg PO BID [facility] Last Admin: 02/02/17 17:52 Dose: 100 mg Ezetimibe (Zetia) 10 mg PO DAILY [facility] Last Admin: 02/02/17 11:02 Dose: 10 mg Gabapentin (Neurontin) 300 mg PO TID [facility] PRN Reason: Protocol Last Admin: 02/02/17 17:53 Dose: 300 mg Hydromorphone HCl (Dilaudid) 0.5 mg SC Q6H PRN PRN Reason: Pain, severe (8-10) Last Admin: 02/02/17 13:27 Dose: 0.5 mg Vancomycin HCl (Vancomycin 1gm) 1 gm in 250 mls @ 167 mls/hr IVPB Q12H [facility] PRN Reason: Protocol Last Admin: 02/02/17 08:25 Dose: 167 mls/hr Aztreonam (Azactam 2 Gm) 100 mls @ 100 mls/hr IVPB Q8 [facility] PRN Reason: Protocol Last Admin: 02/02/17 14:51 Dose: 100 mls/hr Ibuprofen (Motrin Tab) 400 mg PO Q6 PRN PRN Reason: Fever >100.4 F Insulin Human Regular (Humulin R Med) 0 units SC ACHS [facility] PRN Reason: Protocol Last Admin: 02/02/17 17:52 Dose: Not Given Ketorolac Tromethamine (Toradol) 15 mg IVP Q6 PRN PRN Reason: Pain, severe (8-10) Last Admin: 02/02/17 03:31 Dose: 15 mg Levalbuterol HCl (Xopenex) 1.25 mg IH [id number] [facility] Last Admin: 02/02/17 14:31 Dose: 1.25 mg Ondansetron HCl (Zofran Inj) 4 mg IVP Q4H PRN PRN Reason: Nausea/Vomiting Last Admin: 01/30/17 13:37 Dose: 4 mg Oxycodone/Acetaminophen (Percocet 5/325 Mg Tab) 1 tab PO Q4H PRN PRN Reason: Pain, moderate (4-7) Stop: 02/05/17 09:43 Last Admin: 02/02/17 17:53 Dose: 1 tab Pantoprazole Sodium (Protonix Inj) 40 mg IVP Q12 [facility] Last Admin: 02/02/17 09:46 Dose: 40 mg Polyethylene Glycol (Miralax) 17 gm PO BID [facility] Last Admin: 02/02/17 17:52 Dose: 17 gm Promethazine HCl/Dextromethorphan (Phenergan Dm Syrup) 5 ml PO Q6H PRN PRN Reason: Cough Last Admin: 02/02/17 03:31 Dose: 5 ml Propranolol HCl (Inderal La) 60 mg PO DAILY [facility] Last Admin: 02/02/17 09:44 Dose: 60 mg Valsartan (Diovan) 320 mg PO DAILY [facility] Last Admin: 02/02/17 09:44 Dose: 320 mg Zolpidem Tartrate (Ambien) 5 mg PO HS [facility] PRN Reason: Protocol - Labs Labs: 02/02/17 07:00 02/02/17 07:00 PT 11.8 SECONDS (9.4-12.5) 01/28/17 07:32 INR 1.07 (0.93-1.08) 01/28/17 07:32 APTT 29.0 Seconds (25.1-36.5) 01/28/17 07:32 - Constitutional Appears: Non-toxic, No Acute Distress, Chronically Ill - Head Exam Head Exam: ATRAUMATIC, NORMOCEPHALIC - Eye Exam Eye Exam: EOMI, PERRL Pupil Exam: NORMAL ACCOMODATION, PERRL - ENT Exam ENT Exam: Mucous Membranes Moist, Normal External Ear Exam, TM's Normal Bilaterally - Neck Exam Neck Exam: Full ROM, Normal Inspection - Respiratory Exam Respiratory Exam: Clear to Ausculation Bilateral, NORMAL BREATHING PATTERN. absent: Rales, Rhonchi, Wheezes - Cardiovascular Exam Cardiovascular Exam: REGULAR RHYTHM, RRR, +S1, +S2 - GI/Abdominal Exam GI & Abdominal Exam: Soft, Normal Bowel Sounds. absent: Distended, Tenderness Additional comments: wound vac in place. - Extremities Exam Extremities Exam: Full ROM, Normal Inspection - Neurological Exam Neurological Exam: Alert, Awake, CN II-XII Intact, Oriented x3 - Psychiatric Exam Psychiatric exam: Normal Affect, Normal Mood - Skin Skin Exam: Intact, Normal Color Assessment and Plan - Assessment and Plan (Free Text) Assessment: 61 yo female with multiple drug allergies including Amoxicillin, Sulfa , and Moxifloxacin. Patient had I&D with debridement of an abdominal abscess today with placement of a wound vac. Limited antibiotic options for the patient. Klebsiella and E. coli in past cultures. Will start Aztreonam for antibiotic coverage. Wound care as per surgery. Tigecycline may be a reason choice for antibiotics as it enters fatty tissue well. Awaiting identification and sensitivities of the gram negative rods. Identification of E. coli and Klebsiella. Both highly sensitive to Aztreonam. Will increase dosing of Aztreonam. Patient will need 4 weeks of therapy at the very least if not 6 weeks of therapy with IV Aztreonam. Aminoglycosides normally will be of limited use due to poor tissue penetration of Aminoglycosides. Will consider addition of Tigecycline as well. Would see if patient is able to obtain Tigecycline for treatment in concurrence with Aztreonam given patient's complicated infection history. Spoke with Dr. Wiggins regarding case and extent of infection. Thank you for allowing me to participate in the care of the patient, we will follow with you.
--- NOTE | 2017-02-02 19:13 | PN ---
DATE: SUBJECTIVE: The patient is a 61-year-old, seen and examined, lying in bed, complaint of cough and congestion. Thus complain of some abdominal discomfort at the wound VAC site. PHYSICAL EXAMINATION: VITAL SIGNS: She is afebrile, pulse 57, respirations 18, and blood pressure 144/72. LUNGS: Bilateral good airflow. No rhonchi or crackles. HEART: S1 and S2 audible. ABDOMEN: Soft. Slight palpable discomfort at the surgical site. NEUROLOGIC: She is awake, alert, oriented, and communicative. LABORATORY DATA: WBC is 6.8, hemoglobin is 12.5, hematocrit is 37, and platelets are 195. Chemistries: Sodium 142, potassium 3.4, chloride 108, CO2 27, BUN 11, creatinine 0.5, blood sugar of 91. ASSESSMENT: 1. Ventral hernia repair. 2. Escherichia coli and Klebsiella pneumonia wound infection. 3. Hypertension. 4. Hyperlipidemia. 5. Status post multiple abdominal wall surgeries in the past. PLAN: Currently, patient has wound VAC. She has PICC line. She will be discharged home on IV antibiotic and she will be followed by visiting nurse services. Complaint of some bronchospasm and also complaint of not sleeping well, give her a dose of zolpidem. Continue her on laxative. Olga Goyal MD
[2017-02-03] MEDS: Levalbuterol 1.25 MG/3 ML Inhal Soln UD IH SCH ×3 (01:51→13:39)
[2017-02-03] MEDS: HYDROmorphone 0.5 mg/0.5 ml ISec SC PRN (04:12)
[2017-02-03] MEDS: Aztreonam 2 Gm in NS 100mL 100 ML IVPB SCH ×2 (05:01→14:25)
[2017-02-03] MEDS: Insulin Reg-MEDIUM-Coverage SC SCH ×2 (08:08→11:53)
[2017-02-03] MEDS: Oxycodone/Acetaminophen 5/325 mg Tab PO PRN ×2 (09:57→14:11)
[2017-02-03] MEDS: POLYETHYLENE GLYCOL 3350 17 GM/Dose PACKET PO SCH (09:57)
[2017-02-03] MEDS: Propranolol 60 mg ER Cap PO SCH (09:58)
[2017-02-03 10:01] VITALS: BP 149/77
[2017-02-03 10:54] VITALS: PULSE 57; RESP 20; TEMP 97.9; O2SAT 95
--- NOTE | 2017-02-03 12:39 | CP.PCM.PN ---
Subjective - Date & Time of Evaluation Date of Evaluation: 02/03/17 Time of Evaluation: 06:35 - Subjective Subjective: General Surgery- Dr. Wiggins Patient seen and examined at bedside this AM. No acute events overnight. Tolerating current diet. Back pain minimal. BM and flatus via ostomy. Denies fevers, chills, chest pain, shortness of breath, nausea, vomiting, diarrhea. wound vac on w/ no leaks Objective - Vital Signs/Intake and Output Vital Signs (last 24 hours): Temp Pulse Resp BP Pulse Ox 97.9 F 57 L 20 149/77 95 02/03/17 07:30 02/03/17 07:30 02/03/17 07:30 02/03/17 09:58 02/03/17 07:30 Intake and Output: 02/03/17 02/03/17 06:59 18:59 Intake Total 900 Balance 900 - Medications Medications: Current Medications Acetaminophen (Tylenol 325mg Tab) 650 mg PO Q6 PRN PRN Reason: Pain, moderate (4-7) Last Admin: 02/01/17 11:31 Dose: 650 mg Albuterol/Ipratropium (Duoneb 3 Mg/0.5 Mg (3 Ml) Ud) 3 ml IH Q2H PRN PRN Reason: Shortness of Breath Last Admin: 01/30/17 06:57 Dose: 3 ml Amlodipine Besylate (Norvasc) 10 mg PO DAILY [facility] Last Admin: 02/03/17 09:58 Dose: 10 mg Clonidine HCl (Catapres) 0.1 mg PO BID [facility] Last Admin: 02/03/17 09:59 Dose: 0.1 mg Docusate Sodium (Colace) 100 mg PO BID [facility] Last Admin: 02/03/17 09:58 Dose: 100 mg Ezetimibe (Zetia) 10 mg PO DAILY [facility] Last Admin: 02/03/17 09:58 Dose: 10 mg Gabapentin (Neurontin) 300 mg PO TID [facility] PRN Reason: Protocol Last Admin: 02/03/17 09:57 Dose: 300 mg Hydromorphone HCl (Dilaudid) 0.5 mg SC Q6H PRN PRN Reason: Pain, severe (8-10) Last Admin: 02/03/17 04:12 Dose: 0.5 mg Aztreonam (Azactam 2 Gm) 100 mls @ 100 mls/hr IVPB Q8 [facility] PRN Reason: Protocol Last Admin: 02/03/17 05:01 Dose: 100 mls/hr Tigecycline 50 mg/ Sodium (Chloride) 100 mls @ 100 mls/hr IVPB Q12 [facility] PRN Reason: Protocol Stop: 02/04/17 22:59 Last Admin: 02/03/17 09:57 Dose: 100 mls/hr Ibuprofen (Motrin Tab) 400 mg PO Q6 PRN PRN Reason: Fever >100.4 F Insulin Human Regular (Humulin R Med) 0 units SC ACHS [facility] PRN Reason: Protocol Last Admin: 02/03/17 11:53 Dose: Not Given Ketorolac Tromethamine (Toradol) 15 mg IVP Q6 PRN PRN Reason: Pain, severe (8-10) Last Admin: 02/02/17 03:31 Dose: 15 mg Levalbuterol HCl (Xopenex) 1.25 mg IH [id number] [facility] Last Admin: 02/03/17 07:27 Dose: 1.25 mg Ondansetron HCl (Zofran Inj) 4 mg IVP Q4H PRN PRN Reason: Nausea/Vomiting Last Admin: 01/30/17 13:37 Dose: 4 mg Oxycodone/Acetaminophen (Percocet 5/325 Mg Tab) 1 tab PO Q4H PRN PRN Reason: Pain, moderate (4-7) Stop: 02/05/17 09:43 Last Admin: 02/03/17 09:57 Dose: 1 tab Pantoprazole Sodium (Protonix Inj) 40 mg IVP Q12 [facility] Last Admin: 02/03/17 09:57 Dose: 40 mg Polyethylene Glycol (Miralax) 17 gm PO BID [facility] Last Admin: 02/03/17 09:57 Dose: 17 gm Promethazine HCl/Dextromethorphan (Phenergan Dm Syrup) 5 ml PO Q6H PRN PRN Reason: Cough Last Admin: 02/02/17 03:31 Dose: 5 ml Propranolol HCl (Inderal La) 60 mg PO DAILY [facility] Last Admin: 02/03/17 09:58 Dose: 60 mg Valsartan (Diovan) 320 mg PO DAILY [facility] Last Admin: 02/03/17 09:58 Dose: 320 mg Zolpidem Tartrate (Ambien) 5 mg PO HS [facility] PRN Reason: Protocol Last Admin: 02/02/17 21:03 Dose: 5 mg - Labs Labs: 02/02/17 07:00 02/02/17 07:00 PT 11.8 SECONDS (9.4-12.5) 01/28/17 07:32 INR 1.07 (0.93-1.08) 01/28/17 07:32 APTT 29.0 Seconds (25.1-36.5) 01/28/17 07:32 - Constitutional Appears: Non-toxic, No Acute Distress - Head Exam Head Exam: ATRAUMATIC - Eye Exam Eye Exam: EOMI. absent: Scleral icterus - ENT Exam ENT Exam: Mucous Membranes Moist - Respiratory Exam Respiratory Exam: absent: Accessory Muscle Use - Cardiovascular Exam Cardiovascular Exam: +S1, +S2. absent: Bradycardia, Tachycardia - GI/Abdominal Exam GI & Abdominal Exam: Soft, Tenderness. absent: Distended, Firm, Guarding, Rigid Additional comments: abd wound vac on in place w/ no leaks ostomy bag in place w/ no leaks; - Extremities Exam Extremities Exam: Normal Inspection. absent: Calf Tenderness - Neurological Exam Neurological Exam: Alert, Awake, Oriented x3 Assessment and Plan - Assessment and Plan (Free Text) Assessment: 61F w/ intrabdominal abscess and infected mesh s/p ventral hernia repair, removal of infected mess and woundvac placement POD#6 Plan: - c/w IV abx; PICC in place - wound vac change today w/ silver foam; will DC with wound vac - Pain control PRN - DVT ppx - cleared for discharge w/ wound vac; plan for D/C today - discussed w/ Dr. Wiggins Surgical attending Donte Cuellar PGY1
[2017-02-03] MEDS: Promethazine DM 6.25 mg-15 mg/5 ml Syrup PO PRN (14:04)
--- NOTE | 2017-02-03 18:25 | CP.PCM.PN ---
Subjective - Date & Time of Evaluation Date of Evaluation: 02/03/17 Time of Evaluation: 15:00 - Subjective Subjective: Infectious Disease Follow Up: February 03, 2017 61 yo female known to me from the outpatient setting. The patient again has abdominal wall abscess with history of ventral abdominal hernia with multiple operations and infected mesh. 2 month history of draining abscess in the abdominal with increasing pain in the left lower abdomen. The patient has multiple surgeries to the abdominal area over the last few years. There is alot of adhesions and scar tissue in the abdominal area. Taken to OR and wound vac placed during this hospitalization. Cultures from OR are showing multiple gram negative organisms. Growth of E. coli and Klebsiella. Both highly sensitive to Aztreonam. Will continue on Aztreonam and Tigecycine for now. For discharge with Home IV infusion for antibiotics. Objective - Vital Signs/Intake and Output Vital Signs (last 24 hours): Temp Pulse Resp BP Pulse Ox 97.9 F 57 L 20 149/77 95 02/03/17 07:30 02/03/17 07:30 02/03/17 07:30 02/03/17 09:58 02/03/17 07:30 Intake and Output: 02/03/17 02/03/17 06:59 18:59 Intake Total 900 300 Balance 900 300 - Labs Labs: 02/02/17 07:00 02/02/17 07:00 PT 11.8 SECONDS (9.4-12.5) 01/28/17 07:32 INR 1.07 (0.93-1.08) 01/28/17 07:32 APTT 29.0 Seconds (25.1-36.5) 01/28/17 07:32 - Constitutional Appears: Non-toxic, No Acute Distress, Chronically Ill - Head Exam Head Exam: ATRAUMATIC, NORMOCEPHALIC - Eye Exam Eye Exam: EOMI, PERRL Pupil Exam: NORMAL ACCOMODATION, PERRL - ENT Exam ENT Exam: Mucous Membranes Moist, Normal External Ear Exam, TM's Normal Bilaterally - Neck Exam Neck Exam: Full ROM, Normal Inspection - Respiratory Exam Respiratory Exam: Clear to Ausculation Bilateral, NORMAL BREATHING PATTERN. absent: Rales, Rhonchi, Wheezes - Cardiovascular Exam Cardiovascular Exam: REGULAR RHYTHM, RRR, +S1, +S2 - GI/Abdominal Exam GI & Abdominal Exam: Soft, Normal Bowel Sounds. absent: Distended, Tenderness Additional comments: wound vac in place. - Extremities Exam Extremities Exam: Full ROM, Normal Inspection - Neurological Exam Neurological Exam: Alert, Awake, CN II-XII Intact, Oriented x3 - Psychiatric Exam Psychiatric exam: Normal Affect, Normal Mood - Skin Skin Exam: Intact, Normal Color Assessment and Plan - Assessment and Plan (Free Text) Assessment: 61 yo female with multiple drug allergies including Amoxicillin, Sulfa , and Moxifloxacin. Patient had I&D with debridement of an abdominal abscess today with placement of a wound vac. Limited antibiotic options for the patient. Klebsiella and E. coli in past cultures. Will start Aztreonam for antibiotic coverage. Wound care as per surgery. Tigecycline may be a reason choice for antibiotics as it enters fatty tissue well. Awaiting identification and sensitivities of the gram negative rods. Identification of E. coli and Klebsiella. Both highly sensitive to Aztreonam. Will increase dosing of Aztreonam. Patient will need 4 weeks of therapy at the very least if not 6 weeks of therapy with IV Aztreonam. Aminoglycosides normally will be of limited use due to poor tissue penetration of Aminoglycosides. Will consider addition of Tigecycline as well. Would see if patient is able to obtain Tigecycline for treatment in concurrence with Aztreonam given patient's complicated infection history. Submitted to outpatient home infusion for approval. Spoke with Dr. Wiggins regarding case and extent of infection. Thank you for allowing me to participate in the care of the patient, we will follow with you.
--- NOTE | 2017-02-04 05:57 | CP.PCM.DIS ---
Provider - Provider Date of Admission: 01/28/17 16:21 Attending physician: Devon Wiggins MD Primary care physician: Olga Goyal MD Time Spent in preparation of Discharge (in minutes): 45 Hospital Course - Lab Results Lab Results: Most Recent Lab Values WBC 6.8 10^3/ul (4.5-11.0) D 02/02/17 07:00 RBC 4.02 10^6/uL (3.5-6.1) 02/02/17 07:00 Hgb 12.5 g/dL (12.0-16.0) 02/02/17 07:00 Hct 37.0 % (36.0-48.0) 02/02/17 07:00 MCV 92.0 fl (80.0-105.0) 02/02/17 07:00 MCH 31.1 pg (25.0-35.0) 02/02/17 07:00 MCHC 33.8 g/dl (31.0-37.0) 02/02/17 07:00 RDW 13.0 % (11.5-14.5) 02/02/17 07:00 Plt Count 195 10^3/uL (120.0-450.0) 02/02/17 07:00 MPV 11.0 fl (7.0-11.0) 02/02/17 07:00 Gran % 59.4 % (50.0-68.0) 02/02/17 07:00 Lymph % (Auto) 22.0 % (22.0-35.0) 02/02/17 07:00 [place] % (Auto) 9.0 % (1.0-6.0) H 02/02/17 07:00 Eos % (Auto) 9.2 % (1.5-5.0) H 02/02/17 07:00 Baso % (Auto) 0.4 % (0.0-3.0) 02/02/17 07:00 Gran # 4.02 (1.4-6.5) 02/02/17 07:00 Lymph # 1.5 (1.2-3.4) 02/02/17 07:00 [place] # 0.6 (0.1-0.6) 02/02/17 07:00 Eos # 0.6 (0.0-0.7) 02/02/17 07:00 Baso # 0.03 K/mm3 (0.0-2.0) 02/02/17 07:00 PT 11.8 SECONDS (9.4-12.5) 01/28/17 07:32 INR 1.07 (0.93-1.08) 01/28/17 07:32 APTT 29.0 Seconds (25.1-36.5) 01/28/17 07:32 Sodium 142 mmol/L (132-148) 02/02/17 07:00 Potassium 3.4 mmol/L (3.6-5.0) L 02/02/17 07:00 Chloride 108 mmol/L (98-107) H 02/02/17 07:00 Carbon Dioxide 27 mmol/L (21-33) 02/02/17 07:00 Anion Gap 10 (10-20) 02/02/17 07:00 BUN 11 mg/dL (7-21) 02/02/17 07:00 Creatinine 0.5 mg/dl (0.7-1.2) L 02/02/17 07:00 Est GFR ( Amer) > 60 02/02/17 07:00 Est GFR (Non-Af Amer) > 60 02/02/17 07:00 POC Glucose (mg/dL) 95 mg/dL (65-110) 02/03/17 11:18 Random Glucose 101 mg/dL (70-110) 02/02/17 07:00 Calcium 8.8 mg/dL (8.4-10.5) 02/02/17 07:00 Total Bilirubin 0.6 mg/dL (0.2-1.3) 01/31/17 07:45 AST 23 U/L (14-36) 01/31/17 07:45 ALT 43 U/L (7-56) 01/31/17 07:45 Alkaline Phosphatase 90 U/L (38-126) 01/31/17 07:45 Lactate Dehydrogenase 433 U/L (333-699) 01/28/17 07:32 Total Creatine Kinase 41 U/L (35-230) 01/28/17 07:32 Troponin I < 0.01 ng/mL 01/28/17 07:32 Total Protein 6.5 g/dL (5.8-8.3) 01/31/17 07:45 Albumin 3.7 g/dL (3.0-4.8) 01/31/17 07:45 Globulin 2.9 gm/dL 01/31/17 07:45 Albumin/Globulin Ratio 1.3 (1.1-1.8) 01/31/17 07:45 Amylase < 30 U/L (35-125) L 01/31/17 07:45 Urine Color Yellow (YELLOW) 01/28/17 10:45 Urine Appearance Clear (CLEAR) 01/28/17 10:45 Urine pH 7.0 (4.7-8.0) 01/28/17 10:45 Ur Specific [place] 1.015 (1.005-1.035) 01/28/17 10:45 Urine Protein Negative mg/dL (<30 mg/dL) 01/28/17 10:45 Urine Glucose (UA) Negative mg/dL (NEGATIVE) 01/28/17 10:45 Urine Ketones Negative mg/dL (NEGATIVE) 01/28/17 10:45 Urine Blood Negative (NEGATIVE) 01/28/17 10:45 Urine Nitrate Negative (NEGATIVE) 01/28/17 10:45 Urine Bilirubin Negative (NEGATIVE) 01/28/17 10:45 Urine Urobilinogen 0.2 E.U./dL (<1 E.U./dL) 01/28/17 10:45 Ur Leukocyte Esterase Trace [place]/uL (NEGATIVE) H 01/28/17 10:45 Urine RBC Negative /hpf (0-2) 01/28/17 10:45 Urine WBC 1 - 3 /hpf (0-6) 01/28/17 10:45 Ur Epithelial Cells Many /hpf (0-5) 01/28/17 10:45 Urine Bacteria Trace (NEG) 01/28/17 10:45 - Hospital Course Hospital Course: 61F presented to the ED with a 2 month history of and draining abscess in her abdomen. She is also complaining of pain in her left abdomen. She has been following with Dr. Wiggins regularly. She complains that the abscess is tender. Nothing makes it better or worse. She describes the pain as dull in nature. It radiates to the left side of her abdomen. After further imaging studies, patient was taken to the OR for an incision and drainage of the abdomen. Upon entry it was determined that the abscess tracked deep and involved infected mesh. lysis of adhesions was performed, fascia was closed primarily and wound vac was placed and patient left the OR in stable condition. During hospital course, patient was started on IV antibiotics, picc line was placed and prior to discharge wound vac was changed. Patient was discharged in stable condition; set to follow up with Dr. Wiggins in 1-2 weeks for a more detailed hospital course please look over progress and consult notes during patient's stay. Discharge Exam - Head Exam Head Exam: ATRAUMATIC, NORMOCEPHALIC - Eye Exam Eye Exam: EOMI. absent: Scleral icterus - ENT Exam ENT Exam: Mucous Membranes Moist - Respiratory Exam Respiratory Exam: NORMAL BREATHING PATTERN. absent: Accessory Muscle Use, Respiratory Distress - Cardiovascular Exam Cardiovascular Exam: +S1, +S2. absent: Bradycardia, Tachycardia - GI/Abdominal Exam GI & Abdominal Exam: Guarding, Soft, Tenderness. absent: Distended, Firm, Hernia, Rebound, Rigid Additional comments: wound vac on, and in place w/ no leaks detected output via ostomy voluntary guarding to palpation - Neurological Exam Neurological exam: Alert, Oriented x3 - Skin Skin Exam: Warm Discharge Plan - Discharge Medications Prescriptions: Aztreonam 2 Gm in NS 100mL [Azactam 2 gm] 2 gm IVPB Q8 28 Days ml Gabapentin [Neurontin] 300 mg PO BID #60 cap oxyCODONE/Acetaminophen [Percocet 5/325 mg Tab] 1 ea PO QID #120 tab Promethazine/Codeine [Codeine/Promethazine 10 MG/5 Ml-6.25 MG/5 Ml] 5 ml PO TID PRN #1 udc PRN Reason: Cough Tigecycline [Tygacil] 50 mg IV Q12 28 Days vial - Follow Up Plan Condition: GOOD Disposition: HOME/ ROUTINE Instructions: Pneumococcal Vaccine for Adults (DC), Peripherally Inserted Central Catheters and Midline Catheters (DC), Influenza Vaccine (GEN), Chronic Wound Care (DC), Abscess (GEN), Negative Pressure Wound Therapy (DC) Additional Instructions: Take medications as directed. Prescription filled. Prescription for blood work given for visiting nurses. Visiting nurses will be at home 02/04/17 IV antibiotic therapy set up for tonight. Continue wound vac educations given. Referrals: Olga Goyal MD [Primary Care Provider] -
== END 2017-02-03 16:41 | disposition home or self-care (01) | DRG 907 ==
LOC: ED 06:48 → SDS 07:49 → ERH 16:21 → 5RSO 17:29
PROVIDERS: ADMIT Surgery; ATTEND Surgery
PROC: 0WPF0JZ Removal of Synthetic Substitute from Abdominal Wall, Open Approach (ICD-10-PCS; 2017-01-28)
PROC: 0WBF0ZZ Excision of Abdominal Wall, Open Approach (ICD-10-PCS; principal; 2017-01-28 13:00)
PROC: 02HV33Z Insertion of Infusion Device into Superior Vena Cava, Percutaneous Approach (ICD-10-PCS; 2017-01-30)
PROC: B548ZZA Ultrasonography of Superior Vena Cava, Guidance (ICD-10-PCS; 2017-01-30)
PROC: 3E0F7GC Introduction of Other Therapeutic Substance into Respiratory Tract, Via Natural or Artificial Opening (ICD-10-PCS; 2017-01-30)
DX: T85.79XA Infection and inflammatory reaction due to other internal prosthetic devices, implants and grafts, initial encounter (principal); L02.211 Cutaneous abscess of abdominal wall; K65.1 Peritoneal abscess; N31.9 Neuromuscular dysfunction of bladder, unspecified; E11.9 Type 2 diabetes mellitus without complications; B96.20 Unspecified Escherichia coli [E. coli] as the cause of diseases classified elsewhere; B96.1 Klebsiella pneumoniae [K. pneumoniae] as the cause of diseases classified elsewhere; E78.5 Hyperlipidemia, unspecified; Y83.2 Surgical operation with anastomosis, bypass or graft as the cause of abnormal reaction of the patient, or of later complication, without mention of misadventure at the time of the procedure; K66.0 Peritoneal adhesions (postprocedural) (postinfection); I10 Essential (primary) hypertension; R09.02 Hypoxemia; K43.9 Ventral hernia without obstruction or gangrene; K59.00 Constipation, unspecified; K21.9 Gastro-esophageal reflux disease without esophagitis; F17.210 Nicotine dependence, cigarettes, uncomplicated; Z93.3 Colostomy status; Z79.84 Long term (current) use of oral hypoglycemic drugs; Z88.2 Allergy status to sulfonamides; Z90.710 Acquired absence of both cervix and uterus

== ENCOUNTER 2017-09-23 13:58 | Emergency (ER) | payer BC ==
[2017-09-23 15:14] VITALS: TEMP 97.8
[2017-09-23 15:16] VITALS: BMI 30.5
[2017-09-23 15:58] LABS: BASO # 0.03 K/mm3 (0.0-2.0); BASO % 0.3 % (0.0-3.0); EOS # 0.3 (0.0-0.7); EOS % 2.5 % (1.5-5.0); GRAN # 8.15 (1.4-6.5); GRAN % 72.4 % (50.0-68.0); HEMOGLOBIN 15.1 g/dL (12.0-16.0); LYMPH # 1.8 (1.2-3.4); LYMPH % 15.5 % (22.0-35.0); MEAN CELL VOLUME 88.5 fl (80.0-105.0); MEAN CORPUSCULAR HEMOGLOBIN 31.7 pg (25.0-35.0); MEAN CORPUSCULAR HGB CONC 35.8 g/dl (31.0-37.0); MONO # 1.1 (0.1-0.6); MONO % 9.3 % (1.0-6.0); RBC 4.77 10^6/uL (3.5-6.1); RED CELL DISTRIBUTION WIDTH 12.5 % (11.5-14.5); WHITE BLOOD COUNT 11.3 10^3/ul (4.5-11.0)
[2017-09-23 16:04] LABS: URINE BILIRUBIN NEGATIVE (NEGATIVE); URINE BLOOD NEGATIVE (NEGATIVE); URINE GLUCOSE (UA) NEGATIVE (NEGATIVE); URINE LEUKOCYTE ESTERASE TRACE Leu/uL (NEGATIVE); URINE PROTEIN NEGATIVE mg/dL (<30 mg/dL); URINE UROBILINOGEN 0.2 E.U./dL (<1 E.U./dL)
[2017-09-23 16:06] LABS: URINE COLOR YELLOW (YELLOW)
[2017-09-23 16:07] LABS: URINE APPEARANCE CLEAR (CLEAR)
[2017-09-23 16:09] LABS: URINE BACTERIA NEG (NEG); URINE RBC NEGATIVE /hpf (0-2); URINE WBC 0 - 2 /hpf (0-6)
[2017-09-23 16:12] LABS: INR 1.03; PARTIAL THROMBOPLASTIN TIME 28.7 Seconds (25.1-36.5); PROTHROMBIN TIME 11.8 SECONDS (9.4-12.5)
[2017-09-23 16:17] LABS: ALB/GLOB RATIO 1.3 (1.1-1.8); ALBUMIN 4.4 g/dL (3.0-4.8); ALT/SGPT 41 U/L (7-56); AST/SGOT 21 U/L (14-36); BLOOD UREA NITROGEN 17 mg/dL (7-21); CALCIUM 10.3 mg/dL (8.4-10.5); GFR AFRICAN-AMERICAN > 60; GFR NON-AFRICAN AMERICAN > 60
--- NOTE | 2017-09-23 16:35 | ED PDOC ---
Arrival/HPI - General Chief Complaint: Abnormal Skin Integrity Time Seen by Provider: 09/23/17 15:00 Historian: Patient - History of Present Illness Narrative History of Present Illness (Text): 09/23/17 62 yo female w/PMHx of DM, HTN, HLD, hx of Fibroids, Bladder stimulator, recto- vaginal fistula, s/p colostomy, 8 months hx of draining abscess in her abdomen s /p last revision on 01/28/17, regularly F/u with . Today, pt present to ED for evaluation of small open wound over incision line, " that was closed with lily#2 2 weeks ago by and one lily came out." Pt also reports, was placed on antibiotic for 2 weeks after wound closure with lily, completed few days ago. Today, noted some red discharge from wound, " was concerned, came to ED'. Otherwise, pt denies fever, chills, recent illness, CP, SOB, denies abdominal pain, N/V/D, back pain, UTI sx, denies any other active complaints. TRiage review, pt was asked again about abd. pain, reports " its mild discomfort around the open wound". Ambulate to Ed for evaluation, not in any apparent distress. PSH: Hysterectomy 2000 03/ uterine fibroids, ventral/incisional hernia repair w / mesh & appendectomy, s/p infected mesh, bladder resection, bladder stimulator , colostomy to reversal to permanent colostomy, left foot surgery, breast biopsy +cyst Past Medical History - Provider Review Nursing Documentation Reviewed: Yes - Travel History Have you recently traveled outside [place] w/in the past 3 mons?: No - Infectious Disease Hx of Infectious Diseases: None - Tetanus Immunization Tetanus Immunization: Unknown - Cardiac Hx Cardiac Disorders: Yes Hx Hypertension: Yes - Pulmonary Hx Respiratory Disorders: Yes Hx Chronic Obstructive Pulmonary Disease (COPD): Yes - Neurological Hx Neurological Disorder: Yes (NEUROPATHY) Other/Comment: headaches - HEENT Hx HEENT Disorder: Yes (WEARS RX READING GLASSES) - Renal Hx Renal Disorder: Yes Hx Neurogenic Bladder: Yes (frequency) - Endocrine/Metabolic Hx Endocrine Disorders: Yes Hx Diabetes Mellitus Type 2: Yes - Hematological/Oncological Hx Blood Disorders: Yes Hx Blood Transfusions: Yes - Integumentary Hx Dermatological Disorder: No Other/Comment: abd dressing with binder and justine x1 intact - Musculoskeletal/Rheumatological Hx Musculoskeletal Disorders: Yes Hx Falls: Yes (6 months ago) - Gastrointestinal Hx Gastrointestinal Disorders: Yes Hx Colostomy: Yes Other/Comment: mid abdomen wound vac. 01-28-17 - Genitourinary/Gynecological Hx Genitourinary Disorders: No - Psychiatric Hx Psychophysiologic Disorder: No Hx Substance Use: No - Surgical History Hx Hysterectomy: Yes - Anesthesia Hx Anesthesia Reactions: No Hx Malignant Hyperthermia: No - Suicidal Assessment Feels Threatened In Home Enviroment: No Family/Social History - Physician Review Nursing Documentation Reviewed: Yes Family/Social History: No Known Family HX Smoking Status: Current Some Days Smoker Hx Alcohol Use: No Hx Substance Use: No Hx Substance Use Treatment: No Allergies/Home Meds Allergies/Adverse Reactions: Allergies amoxicillin Allergy (Severe, Verified 09/23/17 15:25) VOMITING Sulfa (Sulfonamide Antibiotics) Allergy (Severe, Verified 09/23/17 15:25) CONVULSION moxifloxacin HCl [From Avelox] Adverse Reaction (Severe, Verified 09/23/17 15:25 ) MUSCLE PAIN adhesive tape Adverse Reaction (Verified 09/23/17 15:25) REDNESS Home Medications: Home Meds Medication Instructions Recorded Confirmed Glimepiride 2 mg PO BID 06/06/15 01/28/17 Simvastatin 80 mg PO DAILY 06/06/15 01/28/17 Amlodipine/Valsartan [Exforge 1 tab PO DAILY 11/06/16 01/28/17 10-320 mg Tablet] Propranolol HCl [Propranolol HCl 60 mg PO DAILY 11/06/16 01/28/17 ER] cloNIDine [Catapres] 0.1 mg PO BID 11/06/16 01/28/17 oxyCODONE/Acetaminophen 1/2TAB 0.5 ea PO PRN PRN 11/06/16 01/28/17 [Percocet 5-325 mg HALF TAB] Ezetimibe [Zetia] 10 mg PO DAILY 11/07/16 01/28/17 Linezolid [Zyvox] 600 mg PO BID 12/09/16 01/28/17 Review of Systems - Review of Systems Constitutional: Normal Eyes: Normal ENT: Normal Respiratory: Normal Cardiovascular: Normal Gastrointestinal: Normal Genitourinary Female: Normal Musculoskeletal: Normal Skin: Other (chronic open wound over abd incision line) Neurological: Normal Endocrine: Normal Hemo/Lymphatic: Normal Psychiatric: Normal Physical Exam Vital Signs Reviewed: Yes Vital Signs Temp Pulse Resp BP Pulse Ox 09/23/17 16:44 97.8 F 65 19 130/61 98 09/23/17 16:38 97.8 F 65 18 130/61 98 09/23/17 15:14 97.8 F 69 19 139/68 97 Temperature: Afebrile Blood Pressure: Normal Pulse: Regular Respiratory Rate: Normal Appearance: Positive for: Well-Appearing, Non-Toxic, Comfortable Pain Distress: None Mental Status: Positive for: Alert and Oriented X 3 Finger Stick Blood Glucose: 111 - Systems Exam Conjunctiva: Present: Normal Mouth: Present: Moist Mucous Membranes Neck: Present: Trachea Midline. No: JVD, Bruit Respiratory/Chest: Present: Clear to Auscultation, Good Air Exchange. No: Respiratory Distress, Accessory Muscle Use Cardiovascular: Present: Regular Rate and Rhythm, Normal S1, S2. No: Murmurs Abdomen: Present: Scars (inferior to umbilical area well healed scrars, small open wound noted with scant greenish base, no discharge, 1 staple noted inferior to open wound. No palpable mass, no erythema. NO flactulance.), Other ( (+)colostomy, villa,dry, intact). No: Tenderness, Distention, Peritoneal Signs, Rebound, Guarding Back: No: CVA Tenderness Upper Extremity: Present: Normal ROM. No: Deformity Lower Extremity: Present: Normal ROM. No: CALF TENDERNESS, Swelling, Deformity Neurological: Present: GCS=15, Speech Normal Skin: Present: Warm, Dry, Normal Color. No: Rashes Psychiatric: Present: Alert, Oriented x 3, Normal Insight, Normal Concentration Medical Decision Making ED Course and Treatment: 09/23/17 After pt was seen by me initially, was contacted. case discussed with and blood work, wound cx recommend with discharge and outpt f/u tomorrow. Pt was OBS in ED for 3 hours and remained stable. On re-eval, pt remained asymptomatic, afebrile, hemodynamicaly stable. NOn-toxic. Ambulatory in Ed with stable gait. Neck: SUpple, (-) JVD, (-) carotid bruits Lungs: CTA B/L, BS equal B/L. ABd: benign, (-) guarding, (-) rebound, (+) small open wound noted, no evidence of cellulitis, no proxmal streaking or flatulence. neurologicaly intact. Blood work review and appears at baseline. Wound Cx, Blood Cx- pending. As per discussed with , pt has scheduled F/u tomorrow outpt for further eval and tx as need Pt advised, agrees with plan. Pt is stable for discharge now. - Lab Interpretations Lab Results: 09/23/17 15:35 09/23/17 15:35 Lab Results 09/23/17 15:37: POC Glucose (mg/dL) 111 H 09/23/17 15:35: Sodium 141, Potassium 4.2, Chloride 101, Carbon Dioxide 30, Anion Gap 14, BUN 17, Creatinine 0.6 L, Est GFR ( Amer) > 60, Est GFR ( Non-Af Amer) > 60, Random Glucose 112 H, Calcium 10.3, Total Bilirubin 0.5, AST 21, ALT 41, Alkaline Phosphatase 121, Total Protein 7.7, Albumin 4.4, Globulin 3.3, Albumin/Globulin Ratio 1.3 09/23/17 15:35: Urine Color Yellow, Urine Appearance Clear, Urine pH 7.0, Ur Specific [place] 1.010, Urine Protein Negative, Urine Glucose (UA) Negative, Urine Ketones Negative, Urine Blood Negative, Urine Nitrate Negative, Urine Bilirubin Negative, Urine Urobilinogen 0.2, Ur Leukocyte Esterase Trace H, Urine RBC Negative, Urine WBC 0 - 2, Ur Epithelial Cells 1 - 3, Urine Bacteria Neg 09/23/17 15:35: PT 11.8, INR 1.03, APTT 28.7 09/23/17 15:35: WBC 11.3 H D, RBC 4.77, Hgb 15.1 D, Hct 42.2, MCV 88.5 D, MCH 31.7, MCHC 35.8, RDW 12.5, Plt Count 265, MPV 11.0, Gran % 72.4 H, Lymph % (Auto ) 15.5 L, [place] % (Auto) 9.3 H, Eos % (Auto) 2.5, Baso % (Auto) 0.3, Gran # 8.15 H, Lymph # (Auto) 1.8, [place] # (Auto) 1.1 H, Eos # (Auto) 0.3, Baso # (Auto) 0.03 Disposition/Present on Arrival - Present on Arrival Any Indicators Present on Arrival: No History of DVT/PE: No History of Uncontrolled Diabetes: No Urinary Catheter: No History of Decub. Ulcer: No History Surgical Site Infection Following: Abdominal Surgery, None - Disposition Have Diagnosis and Disposition been Completed?: Yes Diagnosis: Chronic wound infection of abdomen Disposition: HOME/ ROUTINE Disposition Time: 16:32 Patient Plan: Discharge Condition: STABLE Discharge Instructions (ExitCare): Surgical Wound (DC) Additional Instructions: Follow up with tomorrow outpatient for re-evaluation without fail. return to Ed if any worsening or new changes. Referrals: Olga Goyal MD [Primary Care Provider] - Follow up with primary Devon Wiggins MD [Staff Provider] - Follow up with primary Forms: [employer] ([place])
[2017-09-23 16:41] VITALS: BP 130/61; PULSE 65; O2SAT 98
[2017-09-23 16:46] VITALS: RESP 19
== END 2017-09-23 16:44 | disposition home or self-care (01) ==
LOC: ED 13:58
DX: T81.4XXA Infection following a procedure, initial encounter (principal); E11.9 Type 2 diabetes mellitus without complications; E78.5 Hyperlipidemia, unspecified; I10 Essential (primary) hypertension

== ENCOUNTER 2017-10-14 18:32 | Inpatient (IN) | payer BC ==
[2017-10-14] MEDS ORDERED: Vancomycin 1gm in NS 250ml 1 GM/250 ML BAG IVPB STA (19:55)
[2017-10-14 20:20] LABS: BASO # 0.02 K/mm3 (0.0-2.0); BASO % 0.2 % (0.0-3.0); EOS # 0.1 (0.0-0.7); EOS % 0.5 % (1.5-5.0); GRAN # 8.51 (1.4-6.5); GRAN % 80.5 % (50.0-68.0); HEMOGLOBIN 14.8 g/dL (12.0-16.0); LYMPH % 9.1 % (22.0-35.0); MEAN CORPUSCULAR HEMOGLOBIN 31.4 pg (25.0-35.0); MEAN CORPUSCULAR HGB CONC 36.1 g/dl (31.0-37.0); MONO % 9.7 % (1.0-6.0); RBC 4.71 10^6/uL (3.5-6.1); RED CELL DISTRIBUTION WIDTH 13.2 % (11.5-14.5); WHITE BLOOD COUNT 10.6 10^3/ul (4.5-11.0)
[2017-10-14 20:21] LABS: ALB/GLOB RATIO 1.5 (1.1-1.8); ALBUMIN 4.4 g/dL (3.0-4.8); ALT/SGPT 37 U/L (7-56); AMYLASE 44 U/L (35-125); AST/SGOT 24 U/L (14-36); BLOOD UREA NITROGEN 19 mg/dL (7-21); CALCIUM 10.2 mg/dL (8.4-10.5); GFR NON-AFRICAN AMERICAN > 60; LIPASE 23 U/L (23-300); URINE BILIRUBIN NEGATIVE (NEGATIVE); URINE BLOOD NEGATIVE (NEGATIVE); URINE GLUCOSE (UA) NEGATIVE (NEGATIVE); URINE LEUKOCYTE ESTERASE NEGATIVE Leu/uL (NEGATIVE); URINE PROTEIN NEGATIVE mg/dL (<30 mg/dL); URINE UROBILINOGEN 0.2 E.U./dL (<1 E.U./dL)
[2017-10-14 20:23] LABS: URINE APPEARANCE CLEAR (CLEAR); URINE COLOR YELLOW (YELLOW)
[2017-10-14 20:25] LABS: INR 1.09; PARTIAL THROMBOPLASTIN TIME 25.4 Seconds (25.1-36.5); PROTHROMBIN TIME 12.5 SECONDS (9.4-12.5)
[2017-10-14 20:32] LABS: TROPONIN I < 0.01 ng/mL
[2017-10-14] MEDS: Morphine 2 mg/ml ISec IVP PRN (20:34)
[2017-10-14] MEDS: Sodium Chloride 0.9% 1,000 ML IV SCH (20:40)
--- NOTE | 2017-10-14 21:15 | ED PDOC ---
Arrival/HPI - General Chief Complaint: Abdominal Pain Time Seen by Provider: 10/14/17 19:18 Historian: Patient - History of Present Illness Narrative History of Present Illness (Text): 10/14/17 19:21 62 year old female, with past medical history of DM, HTN, HLD, hx of Fibroids, Bladder stimulator, and recto-vaginal fistula s/p colostomy, presents to the Emergency department complaining of fever and infected incision area since 1 month. Patient informs infection of the incision area secondary to abdominal hernia surgery and has been started on antibiotics by Dr. Goyal. As per patient, antibiotics has been ineffective with no improvement to symptoms for the past month and was consequently referred to the Emergency department by Dr. Goyal for medical evaluation. Patient denies any chills, nausea, vomiting, diarrhea, abdominal pain, headache, dizziness, chest pain, shortness of breath, dyspnea on exertion, cough, back pain, neck pain, or any other complaints. Patient denies any recent travel or sick contact. PMD: Dr. Goyal Time/Duration: < month Symptom Onset: Gradual Symptom Course: Unchanged Activities at Onset: Light Context: Home Past Medical History - Provider Review Nursing Documentation Reviewed: Yes - Past History Past History: No Previous - Infectious Disease Hx of Infectious Diseases: None - Tetanus Immunization Tetanus Immunization: Unknown - Reproductive Menopause: Yes - Cardiac Hx Cardiac Disorders: Yes Hx Hypertension: Yes - Pulmonary Hx Respiratory Disorders: Yes Hx Chronic Obstructive Pulmonary Disease (COPD): Yes - Neurological Hx Neurological Disorder: Yes (NEUROPATHY) Other/Comment: headaches - HEENT Hx HEENT Disorder: Yes (WEARS RX READING GLASSES) - Renal Hx Renal Disorder: Yes Hx Neurogenic Bladder: Yes (frequency) - Endocrine/Metabolic Hx Endocrine Disorders: Yes Hx Diabetes Mellitus Type 2: Yes - Hematological/Oncological Hx Blood Disorders: Yes Hx Blood Transfusions: Yes - Integumentary Hx Dermatological Disorder: No Other/Comment: abd dressing with binder and justine x1 intact - Musculoskeletal/Rheumatological Hx Musculoskeletal Disorders: Yes Hx Falls: Yes (6 months ago) - Gastrointestinal Hx Gastrointestinal Disorders: Yes Hx Colostomy: Yes Other/Comment: mid abdomen wound vac. 01-28-17 - Genitourinary/Gynecological Hx Genitourinary Disorders: No - Psychiatric Hx Psychophysiologic Disorder: No Hx Substance Use: No - Surgical History Hx Hysterectomy: Yes - Anesthesia Hx Anesthesia Reactions: No Hx Malignant Hyperthermia: No - Suicidal Assessment Feels Threatened In Home Enviroment: No Family/Social History - Physician Review Nursing Documentation Reviewed: Yes Family/Social History: No Known Family HX Smoking Status: Current Some Days Smoker Hx Alcohol Use: No Hx Substance Use: No Hx Substance Use Treatment: No Allergies/Home Meds Allergies/Adverse Reactions: Allergies amoxicillin Allergy (Severe, Verified 09/23/17 15:25) VOMITING Sulfa (Sulfonamide Antibiotics) Allergy (Severe, Verified 09/23/17 15:25) CONVULSION clavulanic acid [From Augmentin] Allergy (Verified 10/14/17 19:00) RASH moxifloxacin HCl [From Avelox] Adverse Reaction (Severe, Verified 09/23/17 15:25 ) MUSCLE PAIN adhesive tape Adverse Reaction (Verified 09/23/17 15:25) REDNESS Home Medications: Home Meds Medication Instructions Recorded Confirmed Glimepiride 2 mg PO BID 06/06/15 10/14/17 Simvastatin 80 mg PO DAILY 06/06/15 10/14/17 Amlodipine/Valsartan [Exforge 1 tab PO DAILY 11/06/16 10/14/17 10-320 mg Tablet] Propranolol HCl [Propranolol HCl 60 mg PO DAILY 11/06/16 10/14/17 ER] cloNIDine [Catapres] 0.1 mg PO BID 11/06/16 10/14/17 Ezetimibe [Zetia] 10 mg PO DAILY 11/07/16 10/14/17 Ciprofloxacin [Cipro] 500 mg PO BID 10/14/17 10/14/17 Dulaglutide [Trulicity] 0.75 mg SQ QWK 10/14/17 10/14/17 Review of Systems - Physician Review All systems were reviewed & negative as marked: Yes - Review of Systems Constitutional: Fevers Respiratory: absent: SOB, Cough Cardiovascular: absent: Chest Pain Gastrointestinal: absent: Abdominal Pain, Diarrhea, Nausea, Vomiting Musculoskeletal: absent: Back Pain, Neck Pain Neurological: absent: Headache, Dizziness Physical Exam Vital Signs Reviewed: Yes Vital Signs Temp Pulse Resp BP Pulse Ox 10/14/17 18:55 100.1 F H 72 20 139/65 96 Temperature: Febrile Blood Pressure: Normal Pulse: Regular Respiratory Rate: Normal Appearance: Positive for: Well-Appearing, Non-Toxic, Comfortable Pain Distress: None Mental Status: Positive for: Alert and Oriented X 3 - Systems Exam Head: Present: Atraumatic, Normocephalic Pupils: Present: PERRL Extroacular Muscles: Present: EOMI Conjunctiva: Present: Normal Mouth: Present: Moist Mucous Membranes Neck: Present: Normal Range of Motion Respiratory/Chest: Present: Clear to Auscultation, Good Air Exchange. No: Respiratory Distress, Accessory Muscle Use Cardiovascular: Present: Regular Rate and Rhythm, Normal S1, S2. No: Murmurs Abdomen: Present: Other (surgical wound noted in lower abdomen draining yellow discharge). No: Tenderness, Distention, Peritoneal Signs Back: Present: Normal Inspection Upper Extremity: Present: Normal Inspection. No: Cyanosis, Edema Lower Extremity: Present: Normal Inspection. No: Edema Neurological: Present: GCS=15, CN II-XII Intact, Speech Normal Skin: Present: Warm, Dry, Normal Color. No: Rashes Psychiatric: Present: Alert, Oriented x 3, Normal Insight, Normal Concentration Medical Decision Making ED Course and Treatment: 10/14/17 19:21 Impression: 62 year old female presents to the Emergency department complaining of infected incision area and fever since past month. Plan: -- CT of Abdomen/Pelvis -- EKG -- Labs -- Morphine -- IV Fluids -- Vancomycin -- Zofran -- Blood Culture -- Urine Culture -- Urinalysis -- Reassess and disposition Prior Visits: Notes and results from previous visits were reviewed. Progress Notes:case d/w dr goyal will admit for iv antibiotics 10/15/17 00:46 - Lab Interpretations Lab Results: 10/14/17 19:54 10/14/17 19:54 Lab Results 10/14/17 19:54: Sodium 141, Potassium 3.9, Chloride 103, Carbon Dioxide 25, Anion Gap 16, BUN 19, Creatinine 0.6 L, Est GFR ( Amer) > 60, Est GFR ( Non-Af Amer) > 60, Random Glucose 76, Calcium 10.2, Total Bilirubin 0.6, AST 24 , ALT 37, Alkaline Phosphatase 105, Lactate Dehydrogenase 484, Total Creatine Kinase 53, Troponin I < 0.01, Total Protein 7.4, Albumin 4.4, Globulin 3.0, Albumin/Globulin Ratio 1.5, Amylase 44, Lipase 23 10/14/17 19:54: Urine Color Yellow, Urine Appearance Clear, Urine pH 6.0, Ur Specific [place] <= 1.005, Urine Protein Negative, Urine Glucose (UA) Negative, Urine Ketones Negative, Urine Blood Negative, Urine Nitrate Negative, Urine Bilirubin Negative, Urine Urobilinogen 0.2, Ur Leukocyte Esterase Negative 10/14/17 19:54: PT 12.5, INR 1.09, APTT 25.4 10/14/17 19:54: WBC 10.6, RBC 4.71, Hgb 14.8, Hct 41.0, MCV 87.0, MCH 31.4, MCHC 36.1, RDW 13.2, Plt Count 210, MPV 11.0, Gran % 80.5 H, Lymph % (Auto) 9.1 L, [place] % (Auto) 9.7 H, Eos % (Auto) 0.5 L, Baso % (Auto) 0.2, Gran # 8.51 H, Lymph # (Auto) 1.0 L, [place] # (Auto) 1.0 H, Eos # (Auto) 0.1, Baso # (Auto) 0.02 - RAD Interpretation Radiology Orders: 10/14/17 19:22 ABD & PELVIS IV CONTRAST ONLY [CT] Stat - Medication Orders Current Medication Orders: Acetaminophen (Tylenol 325mg Tab) 650 mg PO Q6H PRN PRN Reason: Fever >100.4 F Last Admin: 10/14/17 23:31 Dose: 650 mg MAR Pain/Vitals Document 10/14/17 23:31 SS (Rec: 10/14/17 23:32 SS [id number]) Pain Reassessment Is This A Pain ReAssessment? Yes Sleep Is patient sleeping during reassessment? No Presence of Pain Presence of Pain Yes Location Left, Right or Bilateral Left Upper or Lower Lower Pain Location Body Site Abdomen Atorvastatin Calcium (Lipitor) 40 mg PO DAILY LEROY Clonidine HCl (Catapres) 0.1 mg PO BID LEROY Ezetimibe (Zetia) 10 mg PO DAILY LEROY Glimepiride (Amaryl) 2 mg PO BID LEROY Sodium Chloride (Sodium Chloride 0.9%) 1,000 mls @ 80 mls/hr IV .[id number] LEROY Last Admin: 10/14/17 20:40 Dose: 80 mls/hr eMAR Start Stop Document 10/14/17 20:40 SS (Rec: 08/28/18 20:41 SS [id number]) Intravenous Solution Start Date 10/14/17 Start Time 20:41 Vancomycin HCl (Vancomycin 1gm) 1 gm in 250 mls @ 167 mls/hr IVPB Q12H LEROY PRN Reason: Protocol Insulin Human Regular (Humulin R Med) 0 units SC ACHS LEROY PRN Reason: Protocol Morphine Sulfate (Morphine) 2 mg IVP Q4H PRN PRN Reason: Pain, moderate (4-7) Last Admin: 10/15/17 00:34 Dose: 2 mg MAR Pain Assessment Document 10/15/17 00:34 SS (Rec: 10/15/17 00:40 SS [id number]) Pain Reassessment Is this a pain reassessment? Yes Sleep Is patient sleeping during reassessment? No Presence of Pain Presence of Pain Yes Pain Scale Used Pain Scale Used Numeric Location Left, Right or Bilateral Left Upper or Lower Lower Pain Location Body Site Abdomen IVP Administration Document 10/15/17 00:34 SS (Rec: 10/15/17 00:40 SS [id number]) Charges for Administration # of IVP Administrations 1 Ondansetron HCl (Zofran Inj) 4 mg IVP Q6H PRN PRN Reason: Nausea/Vomiting Propranolol HCl (Inderal La) 60 mg PO DAILY LEROY Discontinued Medications Vancomycin HCl (Vancomycin 1gm) 1 gm in 250 mls @ 167 mls/hr IVPB STAT STA PRN Reason: Protocol Stop: 10/14/17 21:24 Last Admin: 10/14/17 20:40 Dose: 167 mls/hr eMAR Start Stop Document 10/14/17 20:40 SS (Rec: 10/14/17 20:40 SS [id number]) Intravenous Solution Start Date 10/14/17 Start Time 20:40 End Date 10/14/17 End time 22:10 Total Infusion Time 90 Meropenem 500 mg/ Sodium (Chloride) 50 mls @ 100 mls/hr IVPB Q12 LEROY PRN Reason: Protocol Stop: 10/14/17 22:44 Last Admin: 10/14/17 23:50 Dose: 100 mls/hr eMAR Start Stop Document 10/14/17 23:50 SS (Rec: 10/14/17 23:51 SS [id number]) Intravenous Solution Start Date 10/14/17 Start Time 23:51 End Date 10/15/17 End time 00:21 Total Infusion Time 30 Ondansetron HCl (Zofran Inj) 4 mg IVP STAT STA Stop: 10/14/17 19:57 Last Admin: 10/14/17 20:34 Dose: 4 mg IVP Administration Document 10/14/17 20:34 SS (Rec: 10/14/17 20:34 SS [id number]) Charges for Administration # of IVP Administrations 1 - Scribe Statement The provider has reviewed the documentation as recorded by the Scribe Thompson Mcmullen. All medical record entries made by the Scribe were at my direction and personally dictated by me. I have reviewed the chart and agree that the record accurately reflects my personal performance of the history, physical exam, medical decision making, and the department course for this patient. I have also personally directed, reviewed, and agree with the discharge instructions and disposition. Disposition/Present on Arrival - Present on Arrival Any Indicators Present on Arrival: No History of DVT/PE: No History of Uncontrolled Diabetes: No Urinary Catheter: No History of Decub. Ulcer: No History Surgical Site Infection Following: Abdominal Surgery - Disposition Have Diagnosis and Disposition been Completed?: Yes Diagnosis: Infection of subcutaneous tissue, Surgical wound infection Disposition: HOSPITALIZED Disposition Time: 22:00 Condition: FAIR
[2017-10-14] MEDS ORDERED: Meropenem 500 MG in Sodium Chloride 0.9% 50 ML IVPB SCH (22:15)
[2017-10-14] MEDS ORDERED: Iohexol 350 MG/100 ML VIAL ONE (22:42)
[2017-10-15] MEDS: Morphine 2 mg/ml ISec IVP PRN ×5 (00:34→20:45)
[2017-10-15 02:28] VITALS: BMI 29.7
[2017-10-15] MEDS: Insulin Reg-MEDIUM-Coverage SC SCH ×4 (08:39→21:52)
[2017-10-15] MEDS: Meropenem IV 1 gm in NS 50 ML IVPB SCH ×3 (08:43→21:47)
[2017-10-15] MEDS ORDERED: Vancomycin 1gm in NS 250ml 1 GM/250 ML BAG IVPB SCH (09:00)
--- NOTE | 2017-10-15 09:42 | CP.PCM.CON ---
History of Present Illness - History of Present Illness History of Present Illness: General Surgery Consult Note for Dr. Linares 62F, PMH of DM, HTN, HLD, hx of Fibroids, Bladder stimulator, recto-vaginal fistula, s/p colostomy, presented to the ED with a changing skin lesion on the abdominal wall. Surgery was consulted for suspected infection of the wound secondary to underlying infected mesh from a previous hernia repair. Patient was seen and evaluated at bedside. There is an open wound with surrounding tenderness and redness that has been going on for one month. She felt the mesh was leaking and increased pressure in the abdomen. She admits to fevers, highest being 103.4 at noon yesterday while at home. She took Tylenol and went to Dr. Goyal's office. She was found to have a temperature of 101.6 in the office and told to come to the ED for further evaluation. Patient was started on antibiotics per her primary care doctor however she states they have not helped or provided significant improvement in her symptoms. She has a history of infected mesh in the past. She sees Dr. Wiggins in the office twice a month for wound care of the abdominal wall wound. PMH: see above PSH: Hysterectomy 03/21 uterine fibroids, ventral/incisional hernia repair w / mesh & appendectomy, s/p infected mesh, bladder resection, bladder stimulator , colostomy to reversal to permanent colostomy, left foot surgery, breast biopsy +cyst FH: Noncontributory SH: +Tobacco 1ppd for 30 years, denies recreational drugs or ETOH use ALL: Amoxicillin, Sufa, Moxifloxacin, Clavulonic acid PMD: Dr. Goyal Review of Systems - Constitutional Constitutional: Fever. absent: Chills, Weakness - EENT Eyes: absent: Blurred Vision, Change in Vision Ears: absent: Ear Discharge, Ear Pain, Tinnitus Nose/Mouth/Throat: absent: Nasal Congestion, Nasal Discharge - Cardiovascular Cardiovascular: absent: Chest Pain, Dyspnea - Respiratory Respiratory: absent: Cough, Dyspnea - Gastrointestinal Gastrointestinal: absent: Abdominal Pain, Nausea, Vomiting - Genitourinary Genitourinary: absent: Difficulty Urinating, Dysuria - Musculoskeletal Musculoskeletal: absent: Back Pain, Neck Pain - Integumentary Integumentary: Changing Lesions, Non-Healing Lesions, Wounds - Neurological Neurological: absent: Confusion, Dizziness, Numbness - Psychiatric Psychiatric: absent: Anxiety, Depression Past Patient History - Infectious Disease Hx of Infectious Diseases: None - Tetanus Immunizations Tetanus Immunization: Unknown - Past Social History Smoking Status: Current Some Days Smoker - CARDIAC Hx Cardiac Disorders: Yes Hx Hypertension: Yes - PULMONARY Hx Respiratory Disorders: Yes Hx Chronic Obstructive Pulmonary Disease (COPD): Yes - NEUROLOGICAL Hx Neurological Disorder: Yes (NEUROPATHY) Other/Comment: headaches - HEENT Hx HEENT Problems: Yes (WEARS RX READING GLASSES) - RENAL Hx Chronic Kidney Disease: Yes Hx Neurogenic Bladder: Yes (frequency) - ENDOCRINE/METABOLIC Hx Endocrine Disorders: Yes Hx Diabetes Mellitus Type 2: Yes - HEMATOLOGICAL/ONCOLOGICAL Hx Blood Disorders: Yes - INTEGUMENTARY Hx Dermatological Problems: No Other/Comment: abd dressing with binder and justine x1 intact - MUSCULOSKELETAL/RHEUMATOLOGICAL Hx Musculoskeletal Disorders: Yes Hx Falls: Yes (6 months ago) - GASTROINTESTINAL Hx Gastrointestinal Disorders: Yes Hx Colostomy: Yes Other/Comment: mid abdomen wound vac. 01-28-17 - GENITOURINARY/GYNECOLOGICAL Hx Genitourinary Disorders: No - PSYCHIATRIC Hx Psychophysiologic Disorder: No Hx Substance Use: No - SURGICAL HISTORY Hx Hysterectomy: Yes - ANESTHESIA Hx Anesthesia Reactions: No Hx Malignant Hyperthermia: No Meds Allergies/Adverse Reactions: Allergies Allergy/AdvReac Type Severity Reaction Status Date / Time amoxicillin Allergy Severe VOMITING Verified 09/23/17 15:25 Sulfa (Sulfonamide Allergy Severe CONVULSION Verified 09/23/17 15:25 Antibiotics) clavulanic acid Allergy RASH Verified 10/14/17 19:00 [From Augmentin] moxifloxacin HCl AdvReac Severe MUSCLE PAIN Verified 09/23/17 15:25 [From Avelox] adhesive tape AdvReac REDNESS Verified 09/23/17 15:25 - Medications Medications: Current Medications Acetaminophen (Tylenol 325mg Tab) 650 mg PO Q6H PRN PRN Reason: Fever >100.4 F Last Admin: 10/14/17 23:31 Dose: 650 mg Atorvastatin Calcium (Lipitor) 40 mg PO DAILY [facility] Clonidine HCl (Catapres) 0.1 mg PO BID [facility] Last Admin: 10/15/17 00:45 Dose: 0.1 mg Ezetimibe (Zetia) 10 mg PO DAILY [facility] Glimepiride (Amaryl) 2 mg PO BID [facility] Last Admin: 10/15/17 05:59 Dose: Not Given Sodium Chloride (Sodium Chloride 0.9%) 1,000 mls @ 80 mls/hr IV .[id number] [facility] Last Admin: 10/14/17 20:40 Dose: 80 mls/hr Vancomycin HCl (Vancomycin 1gm) 1 gm in 250 mls @ 167 mls/hr IVPB Q12H [facility] PRN Reason: Protocol Meropenem (Merrem Iv 1 Gm Premix) 50 mls @ 100 mls/hr IVPB Q8 [facility] PRN Reason: Protocol Stop: 10/24/17 08:32 Last Admin: 10/15/17 08:43 Dose: 100 mls/hr Vancomycin HCl (Vancomycin 1gm) 1 gm in 250 mls @ 167 mls/hr IVPB Q12H [facility] PRN Reason: Protocol Stop: 10/24/17 08:31 Insulin Human Regular (Humulin R Med) 0 units SC ACHS [facility] PRN Reason: Protocol Last Admin: 10/15/17 08:39 Dose: Not Given Morphine Sulfate (Morphine) 2 mg IVP Q4H PRN PRN Reason: Pain, moderate (4-7) Last Admin: 10/15/17 04:45 Dose: 2 mg Ondansetron HCl (Zofran Inj) 4 mg IVP Q6H PRN PRN Reason: Nausea/Vomiting Last Admin: 10/15/17 08:21 Dose: 4 mg Propranolol HCl (Inderal La) 60 mg PO DAILY [facility] Physical Exam - Constitutional Appears: Well, Non-toxic, No Acute Distress - Head Exam Head Exam: ATRAUMATIC, NORMAL INSPECTION, NORMOCEPHALIC - Eye Exam Eye Exam: EOMI Pupil Exam: PERRL - ENT Exam ENT Exam: Mucous Membranes Dry - Respiratory Exam Respiratory Exam: Clear to Auscultation Bilateral, NORMAL BREATHING PATTERN - Cardiovascular Exam Cardiovascular Exam: REGULAR RHYTHM, +S1, +S2. absent: Systolic Murmur - GI/Abdominal Exam GI & Abdominal Exam: Normal Bowel Sounds, Soft. absent: Tenderness - Neurological Exam Neurological exam: Alert, Oriented x3 - Psychiatric Exam Psychiatric exam: Normal Affect, Normal Mood - Skin Additional comments: Abdominal periumbilical wound erythematous, tender to palpation, warm No active drainage of purulent fluid or blood Packed and dressings applied c/d/i Results - Vital Signs Recent Vital Signs: Last Vital Signs Temp 98.3 F 10/15/17 06:00 Pulse 59 L 10/15/17 06:00 Resp 18 10/15/17 06:00 BP 98/47 L 10/15/17 06:00 Pulse Ox 96 10/15/17 06:00 - Labs Result Diagrams: 10/14/17 19:54 10/14/17 19:54 Labs: Laboratory Results - last 24 hr 10/14/17 23:30 POC Glucose (mg/dL) 83 Assessment & Plan - Assessment and Plan (Free Text) Assessment: 62F, w/ abdominal wall wound infection w/ underlying mesh Plan: - Packing BID - Continue Local wound care - Continue to monitor vitals and labs - Medical management per primary team - Further recommendations per Dr. Vijay Carson PGY1
--- NOTE | 2017-10-15 09:52 | HP ---
Copied To: Olga Goyal MD Attending MD: Olga Goyal MD HISTORY OF PRESENT ILLNESS: The patient is 62-year- old known to me from office practice and multiple previous admissions. The patient had ventral hernia surgery done and had mesh placed by Dr. Portillo late last year. She had ventral hernia repair done in 01/2017, the patient states she was well initially, but she started to have discharge from her hernia site. She was followed by Dr. Portillo multiple time in his office, had I&D done, had multiple courses of antibiotics including Zyvox for two weeks along with doxycycline, lately she had wound culture done, sensitive to Cipro; so, she was given Cipro for two weeks by Dr. Portillo. She came to my office, she states since this morning, she woke up very weak, dizzy, lightheaded, sweating and she checked her temperature, it was 103. She was having chills, shakes; so, she came to my office to be evaluated and she took Tylenol before coming to office and temperature was almost 101. So, I advised her to come to Emergency Room for IV antibiotics since oral antibiotics are not working and will need to be evaluated by general surgeon. PAST MEDICAL HISTORY: She has significant past medical history of: 1. Hypertension. 2. History of hysterectomy followed by multiple gynecological procedures for fibroid removal. 3. History of bladder stimulator. 4. History of rectovaginal fistula repair and patient ended up having colostomy that she is dealing with for multiple years. 5. She recently had ventral hernia repair done in 01/2017. 6. She also has history of [id number] diabetes. 7. Status post appendectomy. 8. Status post bladder resection. 9. History of breast biopsy. ALLERGIES: THE PATIENT IS ALLERGIC TO AMOXICILLIN, SULFA AND AVELOX. MEDICATIONS AT HOME: She is on Percocet, she is on clonidine 0.1 twice a day, she is on Cipro 500 twice a day, Trulicity 0.75 once a week. She is on Exforge, glimepiride 2 mg twice a day, Zetia 10 mg daily, simvastatin 80 mg daily and propranolol 60 mg daily. SOCIAL HISTORY: She is active smoker, smokes more when she is anxious. Socially drinks here and there on certain occasions. REVIEW OF SYSTEMS: Feels drained, lightheaded, weak, dizzy because of fever. PHYSICAL EXAMINATION GENERAL: She looks pale, dehydrated. VITAL SIGNS: She has temperature 100.1, pulse 72, respirations 20, blood pressure 139/65. LUNGS: Bilateral good air flow. No rhonchi or crackle. HEART: S1 and S2 audible. ABDOMEN: Soft. Nontender. She has only induration below umbilicus with copious puffy discharge. Colostomy in place. EXTREMITIES: Bilateral legs, no edema. LABORATORY DATA: WBC is 10.6, hemoglobin 14.8, hematocrit 41, platelets 210. PT 12.5, INR 1.09. Chemistry: Sodium of 141, potassium 3.9, chloride 103, CO2 of 25, BUN 19, creatinine 0.6 and blood sugar is 76. LFTs are within normal limits. Urinalysis is unremarkable. CT scan of the abdomen and pelvis was done in 09/29/2017 and shows postop changes along the anterior abdominal wall with loss of fat planes around the adjacent bowel loops. There is no evidence of obstruction of hernia. Colostomy is in place. ASSESSMENT: 1. Abdominal wall draining, infection and abscess. She had incision and drainage done by Dr. Portillo in his office last week and was growing Escherichia coli; so, has been on Cipro, but the patient states she has copious amount of puffy discharge and that messed up all her bed sheet this morning when she woke up. 2. Hypertension. 3. Bic-fvzgapo-tetfghtjd diabetes. 4. Status post colostomy because of rectovaginal fistula. PLAN: The patient will be admitted on Med/Surg floor. We will start her empirically on vancomycin and Maxipime. Analgesic as needed. Monitor blood sugar. We will give antihypertensive. ID consult with Dr. Thompson and surgical consult with Dr. Linares has been requested. Olga Goyal MD
[2017-10-15] MEDS: Propranolol 60 mg ER Cap PO SCH (10:31)
[2017-10-15] MEDS: Vancomycin 1gm in NS 250ml 1 GM/250 ML BAG IVPB SCH ×2 (10:31→20:02)
--- NOTE | 2017-10-15 10:31 | CT ---
Date of service: 10/14/2017 PROCEDURE: CT Abdomen and Pelvis with contrast HISTORY: abd pain COMPARISON: CT abdomen and pelvis without contrast performed 09/29/17 TECHNIQUE: Contrast dose: 95 mL Omnipaque 350 IV Radiation dose: Total exam DLP = 943.57 mGy-cm. This CT exam was performed using one or more of the following dose reduction techniques: Automated exposure control, adjustment of the mA and/or kV according to patient size, and/or use of iterative reconstruction technique. FINDINGS: LOWER THORAX: Mild bibasilar atelectasis. No visible consolidation, pleural effusion, or pneumothorax. LIVER: Unremarkable. GALLBLADDER AND BILE DUCTS: Unremarkable. PANCREAS: Unremarkable. SPLEEN: Unremarkable. ADRENALS: Unremarkable. KIDNEYS AND URETERS: The kidneys enhance symmetrically. No hydronephrosis or obstructing calculus identified. 7 mm hypodensity, right midpole kidney, statistically likely cysts. VASCULATURE: Atherosclerotic calcifications of the aorta and branches. No aortic aneurysm. BOWEL: Stomach is nondistended. Lack of oral contrast limits evaluation for bowel pathology. Postoperative changes re-identified offering anterior abdominal wall consistent with hernia repair. In the region of prior abdominal wall surgery there is evidence of musculature atrophy, skin thickening, and possible 5 x 16 mm fluid collection, possibly small abscess reverses decompressed bowel containing fluid. Correlate clinically. Right lower quadrant colostomy. Status post left hemicolectomy. PERITONEUM: No significant free fluid. No definite free air. LYMPH NODES: No bulky adenopathy identified. BLADDER: Unremarkable. REPRODUCTIVE: The uterus is absent, consistent with hysterectomy. BONES: Degenerative changes. OTHER FINDINGS: None. IMPRESSION: Postoperative changes as above. In the region of prior abdominal wall surgery there is evidence of musculature atrophy, skin thickening, and possible 5 x 16 mm fluid collection, possibly small abscess reverses decompressed bowel containing fluid. Correlate clinically. Additional findings as above. Preliminary impression was provided by virtual radiologic. Study marked for PA review.
--- NOTE | 2017-10-15 11:12 | CARD ---
APPROVED REPORT Date of service: 10/14/2017 EKG Measurement Heart [id number] <Conclusion> Normal sinus rhythm Nonspecific T wave abnormality
[2017-10-15] MEDS: Apap-Butalbital-Caffeine 325-50-40mg Tab PO PRN ×2 (13:39→22:15)
--- NOTE | 2017-10-15 18:21 | CON ---
Copied To: Juan Thompson MD Attending MD: Juan Thompson MD DATE: 10/15/2017 LOCATION: Patient is seen in room 568, bed 2. CHIEF COMPLAINT: Abdominal wound drainage times weeks. HISTORY OF PRESENT ILLNESS: This is a 62-year-old female known to me from previous admissions. 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 Patient has a mesh in the wound. REVIEW OF SYSTEMS: Reveals she denies any abdominal pain, cyst or discharge. No dysuria or frequency. No headaches or blurred vision. PAST MEDICAL HISTORY: Significant for hyperlipidemia, hypertension, coronary artery disease, diabetes mellitus. PAST SURGICAL HISTORY: Significant for colectomy, colostomy, ventral hernia repair with a mesh and appendectomy. ALLERGIES: PATIENT HAS ALLERGIES TO AMOXICILLIN, SULFA, CLAVULANIC ACID, MOXIFLOXACIN, ADHESIVE TAPE. However, she has received cephalosporins in the past and tolerated the antibiotics well. The patient has had Keflex at home. In discussion with Dr. Courtney, allergies that occurred and she had side effects, not true allergy to amoxicillin. PHYSICAL EXAMINATION: VITAL SIGNS: Patient is in bed with a temperature of 98, T-max is 100.1, pulse is 72, respiratory rate of 20, blood pressure is 96/39. HEENT: Unremarkable. NECK: Supple. LUNGS: Decreased breath sounds. HEART: Normal S1 and S2. ABDOMEN: Soft, nontender. Examination of the wound, there is purulent discharge on the abdominal wound. DATA: Laboratory examination reveals a white count of 10,000, hemoglobin of 14. Coagulation is noted. Chemistries reveals the BUN of 19, creatinine of 0.6. Urinalysis is noted. Review of Microbiology revealed in the past patient has had staph epidermidis from the abdominal wound. Patient has also had E. coli and Klebsiella, both have been sensitive in the past and also had Klebsiella and E. coli again in 2017, also pansensitive with another Klebsiella oxytoca from 11/2016, also sensitive. Patient has had yeast in the urine and Enterobacter cloacae and Enterococcus in the abdominal wound. 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 We will treat the patient with vancomycin, meropenem, and pending repeat cultures. The case was discussed with Dr. Wiggins as outpatient. Patient will need a mesh removal. This infection will not improve without surgical intervention of removing the mesh. I have discussed that with the patient this morning. She prefers to wait for Dr. Wiggins to come back from vacation and however at this time since the significant discharge and wound infection in this patient, we will treat the patient with vancomycin, meropenem, pending culture results and we will follow closely with you. We will also order a new wound cultures and Gram stain. Patient has also had a HIV test which was negative in 2013. We will order a fourth generation test. Juan Thompson MD
--- NOTE | 2017-10-15 20:27 | PN ---
Copied To: Olga Goyal MD Attending MD: Olga Goyal MD DATE: 10/15/2017 SUBJECTIVE: The patient is 62 years old, seen and examined, complained of headache. Had surgical team evaluate her wound. Cultures were taken. Has been started on IV antibiotics. Anxious to go home. PHYSICAL EXAMINATION: VITAL SIGNS: She is afebrile, pulse 70, respirations 18, blood pressure 101/56. LUNGS: Bilateral good airflow. No rhonchi or crackle. HEART: S1 and S2 audible. ABDOMEN: Soft. Nontender. There is a dressing on her wound and her colostomy is functional. Blood sugar is 155. ASSESSMENT: 1. Discharging abdominal wall wound, probably infected mesh. There is fluid collection, possibly small abscess. 2. Hypertension. 3. Noninsulin-dependent diabetes. 4. Migraine headache. PLAN: Currently, the patient is on clonidine, glimepiride. We will give her Fioricet. Continue her usual medications. She has been started on meropenem and vancomycin. Follow up blood culture and make further recommendation. Olga Goyal MD
[2017-10-16] MEDS: Morphine 2 mg/ml ISec IVP PRN ×5 (00:44→20:53)
[2017-10-16] MEDS: Meropenem IV 1 gm in NS 50 ML IVPB SCH ×3 (05:00→22:52)
[2017-10-16] MEDS: Apap-Butalbital-Caffeine 325-50-40mg Tab PO PRN (06:07)
[2017-10-16] MEDS: Insulin Reg-MEDIUM-Coverage SC SCH ×4 (08:21→22:57)
[2017-10-16] MEDS: Vancomycin 1gm in NS 250ml 1 GM/250 ML BAG IVPB SCH ×2 (09:33→21:28)
[2017-10-16] MEDS: Propranolol 60 mg ER Cap PO SCH (09:45)
[2017-10-16] MEDS ORDERED: Apap-Butalbital-Caffeine 325-50-40mg Tab PO STA (12:56)
--- NOTE | 2017-10-16 13:40 | PN ---
Copied To: Juan Thompson MD Attending MD: Juan Thompson MD DATE: 10/16/2017 SUBJECTIVE: The patient is in bed, no acute distress, nontoxic. She wants to be discharged. PHYSICAL EXAMINATION: VITAL SIGNS: On exam, temperature is 99, blood pressure is 120/70, respiratory rate of 16. HEENT: Examination of HEENT is unremarkable. NECK: Supple. LUNGS: Have decreased breath sounds. HEART: Normal S1, S2. ABDOMEN: Soft. LABORATORY DATA: Laboratory examination reveals the blood cultures are no growth. The white count is 10,000. Chemistries are noted. Urinalysis is noted and HIV serology is negative. Microbiology of the wound is still pending. Review of systems reveals the patient is on meropenem and vancomycin. Dr. Goyal's note is reviewed. ASSESSMENT AND PLAN: A 62-year-old with diabetes and coronary artery disease, hypertension, hyperlipidemia, recurrent abdominal wound infections with mesh infection, abdominal wall discharge, purulent cellulitis, mesh infection. On vancomycin and meropenem. Waiting for culture results. We will follow with you. Juan Thompson MD
--- NOTE | 2017-10-16 20:21 | CP.PCM.PN ---
Subjective - Date & Time of Evaluation Date of Evaluation: 10/16/17 Time of Evaluation: 07:00 - Subjective Subjective: General Surgery Note For Dr. Linares Patient seen and examined at bedside. No acute event overnight. Patient still complaining of abdominal pain. She also reports drainage from abdominal wound. Patient tolerating diet. She has no other complaints. Objective - Vital Signs/Intake and Output Vital Signs (last 24 hours): Temp Pulse Resp BP Pulse Ox 98.8 F 70 18 124/57 L 95 10/16/17 14:00 10/16/17 14:00 10/16/17 14:00 10/16/17 17:29 10/16/17 14:00 - Medications Medications: Current Medications Acetaminophen (Tylenol 325mg Tab) 650 mg PO Q6H PRN PRN Reason: Fever >100.4 F Last Admin: 10/14/17 23:31 Dose: 650 mg Acetaminophen/Butalbital/Caffeine (Fioricet) 2 tab PO Q8H PRN PRN Reason: Headache Last Admin: 10/16/17 06:07 Dose: 2 tab Atorvastatin Calcium (Lipitor) 40 mg PO DAILY [facility] Last Admin: 10/16/17 09:33 Dose: 40 mg Clonidine HCl (Catapres) 0.1 mg PO BID [facility] Last Admin: 10/16/17 17:29 Dose: Not Given Ezetimibe (Zetia) 10 mg PO DAILY [facility] Last Admin: 10/16/17 09:33 Dose: 10 mg Glimepiride (Amaryl) 2 mg PO BID [facility] Last Admin: 10/16/17 17:35 Dose: Not Given Sodium Chloride (Sodium Chloride 0.9%) 1,000 mls @ 80 mls/hr IV .[id number] [facility] Last Admin: 10/14/17 20:40 Dose: 80 mls/hr Meropenem (Merrem Iv 1 Gm Premix) 50 mls @ 100 mls/hr IVPB Q8 [facility] PRN Reason: Protocol Stop: 10/24/17 08:32 Last Admin: 10/16/17 13:14 Dose: 100 mls/hr Vancomycin HCl (Vancomycin 1gm) 1 gm in 250 mls @ 167 mls/hr IVPB Q12H [facility] PRN Reason: Protocol Stop: 10/24/17 08:31 Last Admin: 10/16/17 09:33 Dose: 167 mls/hr Insulin Human Regular (Humulin R Med) 0 units SC ACHS [facility] PRN Reason: Protocol Last Admin: 10/16/17 16:55 Dose: Not Given Morphine Sulfate (Morphine) 2 mg IVP Q4H PRN PRN Reason: Pain, moderate (4-7) Last Admin: 10/16/17 14:36 Dose: 2 mg Ondansetron HCl (Zofran Inj) 4 mg IVP Q6H PRN PRN Reason: Nausea/Vomiting Last Admin: 10/16/17 17:32 Dose: 4 mg Propranolol HCl (Inderal La) 60 mg PO DAILY [facility] Last Admin: 10/16/17 09:45 Dose: Not Given Zolpidem Tartrate (Ambien) 5 mg PO HS PRN; Protocol PRN Reason: Insomnia - Labs Labs: PT 12.5 SECONDS (9.4-12.5) 10/14/17 19:54 INR 1.09 10/14/17 19:54 APTT 25.4 Seconds (25.1-36.5) 10/14/17 19:54 - Constitutional Appears: No Acute Distress - Eye Exam Eye Exam: Normal appearance - ENT Exam ENT Exam: Mucous Membranes Moist - Respiratory Exam Respiratory Exam: NORMAL BREATHING PATTERN - Cardiovascular Exam Cardiovascular Exam: REGULAR RHYTHM - GI/Abdominal Exam GI & Abdominal Exam: Soft, Tenderness (periumbilical), Normal Bowel Sounds. absent: Distended, Firm, Guarding, Rigid Additional comments: abdominal wound packed and dressing on top - Extremities Exam Extremities Exam: Normal Capillary Refill - Neurological Exam Neurological Exam: Alert, Awake, Oriented x3 - Psychiatric Exam Psychiatric exam: Normal Affect, Normal Mood - Skin Skin Exam: Dry, Intact, Normal Color, Warm Assessment and Plan - Assessment and Plan (Free Text) Assessment: 62 F with draining abdominal wound Plan: -Packing changes BID -Change dressing as needed -Continue IV abx -f/u final cx report -Further recommendations as per Dr. Vijay Camilo PGY2
--- NOTE | 2017-10-16 20:53 | PN ---
Copied To: Olga Goyal MD Attending MD: Olga Goyal MD DATE: 10/16/2017 SUBJECTIVE: The patient is 62 years old, seen and examined, complained of headache, complained of some abdominal discomfort. Denies any nausea. Does have a decreased appetite. PHYSICAL EXAMINATION: VITAL SIGNS: She is afebrile, pulse 60, respirations 18, and blood pressure 122/46. LUNGS: Bilateral fair airflow. No rhonchi or crackle. HEART: S1 and S2 audible. ABDOMEN: Soft. Nontender. No rebound. No guarding. NEUROLOGICALLY: She is awake, alert, oriented, communicative, ambulatory. LABORATORY DATA: Blood cultures are negative. Blood sugar is 125. ASSESSMENT: 1. Abdominal wall abscess, chronically discharging wounds, probably infected mesh. Wound cultures are pending . 2. Noninsulin-dependent diabetes. 3. Hypertension. 4. Hyperlipidemia. 5. Headache. PLAN: The patient stated that she usually did develop headaches after she gets vancomycin, so we will monitor until night. If she gets headache after vancomycin, we might have to discontinue further coverage. We will follow up this patient in a.m. I will order for procalcitonin also. Olga Goyal MD
[2017-10-16] MEDS: Sodium Chloride 0.9% 1,000 ML IV SCH (22:54)
[2017-10-16 23:19] VITALS: O2SAT 97
[2017-10-17] MEDS: Morphine 2 mg/ml ISec IVP PRN ×3 (00:28→09:45)
[2017-10-17] MEDS: Insulin Reg-MEDIUM-Coverage SC SCH ×2 (07:22→11:20)
[2017-10-17] MEDS: Meropenem IV 1 gm in NS 50 ML IVPB SCH (07:27)
[2017-10-17 07:42] VITALS: BP 140/59; PULSE 69; RESP 18; TEMP 98.3
--- NOTE | 2017-10-17 08:02 | CP.PCM.PN ---
Subjective - Date & Time of Evaluation Date of Evaluation: 10/17/17 Time of Evaluation: 06:50 - Subjective Subjective: General Surgery Note For Dr. Linares Patient seen and examined at bedside. No acute event overnight. Patient states pain is controlled. Still has drainage from abdominal wound. Patient tolerating diet. Patient is frustrated and wants to go home. She feels like nothing is being mckeon for her. Patient reassured. No other complaints at this time. Objective - Vital Signs/Intake and Output Vital Signs (last 24 hours): Temp Pulse Resp BP Pulse Ox 98.3 F 69 18 140/59 L 97 10/17/17 06:00 10/17/17 06:00 10/17/17 06:00 10/17/17 06:00 10/17/17 06:00 Intake and Output: 10/17/17 10/17/17 06:59 18:59 Intake Total 660 Balance 660 - Medications Medications: Current Medications Acetaminophen (Tylenol 325mg Tab) 650 mg PO Q6H PRN PRN Reason: Fever >100.4 F Last Admin: 10/14/17 23:31 Dose: 650 mg Acetaminophen/Butalbital/Caffeine (Fioricet) 2 tab PO Q8H PRN PRN Reason: Headache Last Admin: 10/16/17 06:07 Dose: 2 tab Atorvastatin Calcium (Lipitor) 40 mg PO DAILY [facility] Last Admin: 10/16/17 09:33 Dose: 40 mg Clonidine HCl (Catapres) 0.1 mg PO BID [facility] Last Admin: 10/16/17 17:29 Dose: Not Given Ezetimibe (Zetia) 10 mg PO DAILY [facility] Last Admin: 10/16/17 09:33 Dose: 10 mg Glimepiride (Amaryl) 2 mg PO BID [facility] Last Admin: 10/16/17 17:35 Dose: Not Given Sodium Chloride (Sodium Chloride 0.9%) 1,000 mls @ 80 mls/hr IV .[id number] [facility] Last Admin: 10/16/17 22:54 Dose: 80 mls/hr Meropenem (Merrem Iv 1 Gm Premix) 50 mls @ 100 mls/hr IVPB Q8 [facility] PRN Reason: Protocol Stop: 10/24/17 08:32 Last Admin: 10/17/17 07:27 Dose: 100 mls/hr Vancomycin HCl (Vancomycin 1gm) 1 gm in 250 mls @ 167 mls/hr IVPB Q12H [facility] PRN Reason: Protocol Stop: 10/24/17 08:31 Last Admin: 10/16/17 21:28 Dose: 167 mls/hr Insulin Human Regular (Humulin R Med) 0 units SC ACHS [facility] PRN Reason: Protocol Last Admin: 10/17/17 07:22 Dose: Not Given Morphine Sulfate (Morphine) 2 mg IVP Q4H PRN PRN Reason: Pain, moderate (4-7) Last Admin: 10/17/17 05:37 Dose: 2 mg Ondansetron HCl (Zofran Inj) 4 mg IVP Q6H PRN PRN Reason: Nausea/Vomiting Last Admin: 10/16/17 17:32 Dose: 4 mg Propranolol HCl (Inderal La) 60 mg PO DAILY [facility] Last Admin: 10/16/17 09:45 Dose: Not Given Zolpidem Tartrate (Ambien) 5 mg PO HS PRN; Protocol PRN Reason: Insomnia Last Admin: 10/16/17 22:52 Dose: 5 mg - Labs Labs: PT 12.5 SECONDS (9.4-12.5) 10/14/17 19:54 INR 1.09 10/14/17 19:54 APTT 25.4 Seconds (25.1-36.5) 10/14/17 19:54 - Constitutional Appears: Agitated - Head Exam Head Exam: ATRAUMATIC, NORMOCEPHALIC - Eye Exam Eye Exam: Normal appearance - ENT Exam ENT Exam: Mucous Membranes Moist - Respiratory Exam Respiratory Exam: NORMAL BREATHING PATTERN - Cardiovascular Exam Cardiovascular Exam: REGULAR RHYTHM - GI/Abdominal Exam GI & Abdominal Exam: Soft, Tenderness, Normal Bowel Sounds. absent: Distended, Firm, Guarding, Rigid, Hernia, Mass, Rebound - Extremities Exam Extremities Exam: Normal Capillary Refill - Neurological Exam Neurological Exam: Alert, Awake, Oriented x3 - Psychiatric Exam Psychiatric exam: Agitated, Anxious - Skin Skin Exam: Dry, Warm Assessment and Plan - Assessment and Plan (Free Text) Assessment: 62 F with draining abdominal wound Plan: -Packing changes BID, patient was educated to change packing by herself at home -Change dressing as needed -Continue IV abx -Patient clear for discharge from surgical standpoint -f/u with Dr. Wiggins in office early next week -Further recommendations as per Dr. Vijay Whitmore PGY2
[2017-10-17] MEDS: Vancomycin 1gm in NS 250ml 1 GM/250 ML BAG IVPB SCH (09:09)
[2017-10-17] MEDS: Propranolol 60 mg ER Cap PO SCH (10:05)
[2017-10-17] MEDS ORDERED: Apap-Butalbital-Caffeine 325-50-40mg Tab PO STA (11:09)
--- NOTE | 2017-10-17 19:03 | PN ---
Copied To: Juan Thompson MD Attending MD: Juan Thompson MD DATE: 10/17/2017 SUBJECTIVE: The patient is in bed, in no acute distress, nontoxic. PHYSICAL EXAMINATION: VITAL SIGNS: Temperature is 98, blood pressure is 140/50, and respiratory rate of 18. HEENT: Unremarkable. NECK: Supple. LUNGS: Decreased breath sounds. HEART: Normal S1, S2. ABDOMEN: Soft. LABORATORY EXAMINATION: Reveals a white count of 10,000, hemoglobin of 14. Chemistries are noted. Urinalysis is noted. HIV is negative. Microbiology reveals the cultures are negative. ASSESSMENT AND PLAN: A 62-year-old female seen earlier today in [facility], bed 2, with history of diabetes, coronary artery disease, hypertension, hyperlipidemia, recurrent abdominal wound infection with a mesh infection with purulence, cellulitis, on antibiotics. Cultures negative. The patient is to discharge today in followup with the PMD and possible surgery with mesh removal at discharge. At this time, we will not use any antibiotics and we will follow with you. Juan Thompson MD
--- NOTE | 2017-10-18 11:17 | DS ---
Copied To: Olga Goyal MD Attending MD: Olga Goyal MD HISTORY OF PRESENT ILLNESS: The patient is 62 years old, known to me from multiple previous admissions, came to my office because of copious puffy discharge coming out of her abdominal wall. She had I and D done by Dr. Portillo. Last week, she has been on Cipro. She has 103 fever and was having shaking chills, but she was admitted and started on IV antibiotics, was seen by Dr. Linares's team and Dr. Thompson. The patient was on vancomycin and meropenem, was evaluated by Dr. Linares's team and they did packing and they trained the patient how to do packing and I also spoke with Dr. Thompson who does not feel that the patient needed anymore antibiotics. He states that the mesh is infected, need to be removed. PHYSICAL EXAMINATION: GENERAL: Today, the patient is anxious to go home. She is afebrile, eating and tolerating. VITAL SIGNS: She is afebrile, pulse 69, respirations 18, blood pressure 140/69. LUNGS: Bilateral fair airflow. No rhonchi or crackle. HEART: S1 and S2 audible. ABDOMEN: Soft, nontender. No rebound. No guarding. NEUROLOGICAL: The patient is awake, alert, oriented, communicative. LABORATORY DATA: Her blood culture, urine culture, wound cultures are negative. ASSESSMENT AND PLAN: 1. Abdominal wall cellulitis and wound with drainage, was packed by surgical team and is being discharged today and she was educated how to do a packing until she sees Dr. Portillo on Friday. 2. Hypertension. 3. Hyperlipidemia. 4. Rhg-nueypac-zqflddahd diabetes. So, plan is the patient is being discharged today. She will resume her medication as prior to admission and she was not given any antibiotics, was given Percocet 10/325 every 6 hours p.r.n. Olga Goyal MD
== END 2017-10-17 14:42 | disposition home or self-care (01) | DRG 920 ==
LOC: ED 18:32 → ERH 22:22 → 5RNO 10-15 01:31
PROVIDERS: ADMIT Internal Medicine; ATTEND Internal Medicine
DX: T85.79XA Infection and inflammatory reaction due to other internal prosthetic devices, implants and grafts, initial encounter (principal); L02.211 Cutaneous abscess of abdominal wall; I25.10 Atherosclerotic heart disease of native coronary artery without angina pectoris; J44.9 Chronic obstructive pulmonary disease, unspecified; N31.9 Neuromuscular dysfunction of bladder, unspecified; I10 Essential (primary) hypertension; E11.40 Type 2 diabetes mellitus with diabetic neuropathy, unspecified; G43.909 Migraine, unspecified, not intractable, without status migrainosus; F17.200 Nicotine dependence, unspecified, uncomplicated; E78.5 Hyperlipidemia, unspecified; Y83.2 Surgical operation with anastomosis, bypass or graft as the cause of abnormal reaction of the patient, or of later complication, without mention of misadventure at the time of the procedure; Z79.84 Long term (current) use of oral hypoglycemic drugs; Z93.3 Colostomy status; Z88.0 Allergy status to penicillin; Z88.2 Allergy status to sulfonamides

== ENCOUNTER 2017-12-09 10:44 | Inpatient (IN) | payer BC ==
[2017-11-28 11:27] VITALS: BMI 31.3
[2017-12-09 12:09] LABS: INR 1.03; PARTIAL THROMBOPLASTIN TIME 30.4 Seconds (25.1-36.5); PROTHROMBIN TIME 11.8 SECONDS (9.4-12.5)
[2017-12-09] MEDS ORDERED: Bupivacaine 0.5% 50 ML IJ ONE (13:03)
[2017-12-09] MEDS ORDERED: Propofol 10 mg/ml Inj (20 ML) ONE (13:33)
[2017-12-09] MEDS ORDERED: Rocuronium 10 mg/ml (5 ml) ONE ×3 (13:33→17:59)
[2017-12-09] MEDS ORDERED: Succinylcholine 200 mg/10 ml Inj IV ONE (13:33)
[2017-12-09] MEDS ORDERED: Meropenem IV 1 gm in NS 1 GM/50 ML BAG IVPB SCH (14:15)
[2017-12-09] MEDS ORDERED: metroNIDAZOLE IV 500 mg/100 ml 500 MG/100 ML BAG ONE (16:39)
[2017-12-09] MEDS ORDERED: MetroNIDAZOLE 500 mg/100 ml IVPB ONE (16:42)
[2017-12-09] MEDS ORDERED: Neostigmine Methylsulfate 3mg/3ml Syringe IV ONE (18:30)
[2017-12-09] MEDS ORDERED: Glycopyrrolate 0.2 mg/ml (2ml vial) ONE (18:30)
[2017-12-09] MEDS ORDERED: HYDROmorphone 0.5 mg/0.5 ml ISec IVP PRN (18:46)
[2017-12-09] MEDS ORDERED: Lactated Ringer's 1,000 ML IV SCH (19:00)
[2017-12-09] MEDS ORDERED: Bupivacaine Liposomal Inj 20 ml ONE (19:10)
[2017-12-09] MEDS ORDERED: Liquid Adhesive TOP ONE (19:26)
[2017-12-09] MEDS ORDERED: HYDROmorphone 0.5 mg/0.5 ml ISec ONE (19:47)
[2017-12-09] MEDS ORDERED: HYDROmorphone 0.2 mg/ml (30ml) 30 ML IV PRN (20:05)
[2017-12-09] MEDS: HYDROmorphone 1 mg/ml ISec IVP STA (20:05)
[2017-12-09] MEDS ORDERED: Dextrose 50% SYRINGE Inj (50 ml) IV PRN (20:13)
--- NOTE | 2017-12-09 20:18 | PCM.SURG1 ---
Surgeon's Initial Post Op Note - Surgeon's Notes Surgeon: Dr. Wiggins Nurses Supervisor: Dr. Encarnacion PGY4, Dr. Kaufman PGY3 Type of Anesthesia: General Endo Pre-Operative Diagnosis: ventral hernia. infected mesh Operative Findings: infected mesh. abdominal wall abscesses. mesh incorporated into bowel Post-Operative Diagnosis: same Operation Performed: exploratory laparotomy. ventral hernia repair with biologic mesh. extensive lysis of adhesions. excision of infected mesh. small bowel resection with primary anastomosis x2. enterorrhaphyx2. abdominal washout Specimen/Specimens Removed: infected mesh. abdominal wall abscess cultures x3. small bowel. mesenteric nodule Estimated Blood Loss: EBL {In ML}: 100 Blood Products Given: N/A Drains Used: Al Post-Op Condition: Good Date of Surgery/Procedure: 12/09/17 Time of Surgery/Procedure: 14:00
[2017-12-09] MEDS: HYDROmorphone 0.5 mg/0.5 ml ISec IVP PRN (21:34)
[2017-12-09] MEDS: Meropenem IV 1 gm in NS 1 GM/50 ML BAG IVPB SCH (23:02)
[2017-12-09] MEDS: metroNIDAZOLE IV 500 mg/100 ml 500 MG/100 ML BAG IVPB SCH (23:02)
[2017-12-10] MEDS: Insulin Reg-MEDIUM-Coverage SC SCH ×4 (00:27→20:51)
[2017-12-10] MEDS ORDERED: HYDROmorphone 0.2 mg/ml (30ml) 30 ML IV PRN (00:31)
[2017-12-10] MEDS: HYDROmorphone 0.5 mg/0.5 ml ISec IVP PRN ×6 (02:11→22:57)
[2017-12-10] MEDS: Meropenem IV 1 gm in NS 1 GM/50 ML BAG IVPB SCH ×3 (06:10→21:41)
[2017-12-10] MEDS: metroNIDAZOLE IV 500 mg/100 ml 500 MG/100 ML BAG IVPB SCH ×3 (06:11→21:41)
[2017-12-10 06:52] LABS: BASO # 0.04 K/mm3 (0.0-2.0); BASO % 0.3 % (0.0-3.0); EOS # 0.8 (0.0-0.7); GRAN # 11.88 (1.4-6.5); GRAN % 76.6 % (50.0-68.0); HEMOGLOBIN 12.5 g/dL (12.0-16.0); LYMPH % 6.7 % (22.0-35.0); MEAN CELL VOLUME 91.5 fl (80.0-105.0); MEAN CORPUSCULAR HEMOGLOBIN 30.5 pg (25.0-35.0); MEAN CORPUSCULAR HGB CONC 33.3 g/dl (31.0-37.0); MEAN PLATELET VOLUME 10.8 fl (7.0-11.0); MONO # 1.8 (0.1-0.6); MONO % 11.4 % (1.0-6.0); RBC 4.1 10^6/uL (3.5-6.1); RED CELL DISTRIBUTION WIDTH 13.3 % (11.5-14.5); WHITE BLOOD COUNT 15.5 10^3/ul (4.5-11.0)
[2017-12-10 06:53] LABS: BLOOD UREA NITROGEN 18 mg/dL (7-21); CALCIUM 8.6 mg/dL (8.4-10.5); GFR NON-AFRICAN AMERICAN > 60
[2017-12-10] MEDS ORDERED: HYDROmorphone 0.5 mg/0.5 ml ISec IVP STA ×2 (08:41→11:29)
[2017-12-10] MEDS: HYDROmorphone 0.2 mg/ml (30ml) 30 ML IV PRN ×2 (09:04→21:49)
[2017-12-10] MEDS ORDERED: Magnesium Sulfate 2 gm/50 ml 2 GM/50 ML BAG IVPB ONE (09:11)
[2017-12-10] MEDS: Lidocaine 5% Patch TD SCH ×2 (09:39→09:44)
--- NOTE | 2017-12-10 11:27 | CP.PCM.PN ---
Subjective - Date & Time of Evaluation Date of Evaluation: 12/10/17 Time of Evaluation: 11:19 - Subjective Subjective: Surgery: Dr. Wiggins Patient still complaining of moderate pain in the abdomen today. She denies n/v/f/c. She denies bowel function. She states she would like to be OOB today. Per nursing, patient required breakthrough dilaudid pushes along with the BODY DESIGN CHECKER through the night. Objective - Vital Signs/Intake and Output Vital Signs (last 24 hours): Temp Pulse Resp BP Pulse Ox 98.3 F 61 18 103/45 L 98 12/10/17 07:00 12/10/17 07:00 12/10/17 07:00 12/10/17 07:00 12/10/17 06:00 Intake and Output: 12/10/17 12/10/17 06:59 18:59 Intake Total 1807.3 Output Total 1100 Balance 707.3 - Medications Medications: Current Medications Dextrose (Dextrose 50% Inj) 0 ml IV STAT PRN; Protocol PRN Reason: Hypoglycemia Protocol Fentanyl (Duragesic) 1 patch TD Q72H [facility] Last Admin: 12/10/17 10:42 Dose: 1 patch Hydromorphone HCl (Dilaudid) 0.5 mg IVP Q4H PRN PRN Reason: Pain, severe (8-10) Last Admin: 12/10/17 10:42 Dose: 0.5 mg Metronidazole (Flagyl) 500 mg in 100 mls @ 100 mls/hr IVPB Q8 [facility]; Protocol Last Admin: 12/10/17 06:11 Dose: 100 mls/hr Lactated Ringer's (Lactated Ringer's) 1,000 mls @ 150 mls/hr IV .Q6H40M [facility] Dextrose (Dextrose 5% In Water 1000 Ml) 1,000 mls @ 0 mls/hr IV .Q0M PRN; Protocol PRN Reason: Hypoglycemia Protocol Meropenem (Merrem Iv 1 Gm Premix) 1 gm in 50 mls @ 100 mls/hr IVPB Q8 [facility]; Protocol Stop: 12/19/17 14:01 Hydromorphone HCl (Dilaudid 0.2 Mg/Ml Drop Hammer Operator Helper) 30 mls @ 0.2 mls/hr IV PRN PRN PRN Reason: BODY DESIGN CHECKER PER MD ORDER Last Admin: 12/10/17 09:04 Dose: 0.2 mls/hr Insulin Human Regular (Humulin R Med) 0 units SC 0000,0600,1200,1800 [facility]; Protocol Lidocaine (Lidoderm) 1 ea TD DAILY [facility] Last Admin: 12/10/17 09:44 Dose: Not Given Ondansetron HCl (Zofran Inj) 4 mg IVP Q6H PRN PRN Reason: Nausea/Vomiting - Labs Labs: 12/10/17 05:00 12/10/17 05:00 PT 11.8 SECONDS (9.4-12.5) 12/09/17 11:45 INR 1.03 12/09/17 11:45 APTT 30.4 Seconds (25.1-36.5) 12/09/17 11:45 - Constitutional Appears: Non-toxic, No Acute Distress - Head Exam Head Exam: ATRAUMATIC, NORMOCEPHALIC - Eye Exam Eye Exam: EOMI, Normal appearance - ENT Exam ENT Exam: Mucous Membranes Moist - Respiratory Exam Respiratory Exam: NORMAL BREATHING PATTERN. absent: Respiratory Distress - Cardiovascular Exam Cardiovascular Exam: REGULAR RHYTHM. absent: Tachycardia - GI/Abdominal Exam GI & Abdominal Exam: Soft, Tenderness (diffuse ). absent: Guarding, Rebound Additional comments: surgical dressing CDI with abdominal binder in place. - Extremities Exam Extremities Exam: Normal Inspection. absent: Calf Tenderness - Neurological Exam Neurological Exam: Alert, Awake, Oriented x3 - Psychiatric Exam Psychiatric exam: Normal Affect, Normal Mood - Skin Skin Exam: Dry, Normal Color, Warm Assessment and Plan - Assessment and Plan (Free Text) Assessment: 62F with recurrent ventral hernia, infected mesh s/p ex lap with excision of infected mesh, drainage of abscess, small bowl resection w/ primary anastomosis, and ventral hernia repair with biologic mesh on 12/09/17 Plan: -cont NPO -replace electrolyte prn -flush NGT Q shift w/ sterile irrigation, 50cc -OOB -DVT ppx -cont BODY DESIGN CHECKER, add fentanyl patch to optimize pain control -keep aguiar due to history of neurologic bladder dysfunction -monitor intake and output Q shift -cont Merrem abx -f/u cultures -appreciate medical and ID recs -further recs per Dr. Feliciano THURMANsarah PGY4
[2017-12-10] MEDS: Enoxaparin 40 mg Syringe SC SCH (12:36)
[2017-12-10] MEDS: Lactated Ringer's 1,000 ML IV SCH ×2 (15:25→20:53)
--- NOTE | 2017-12-10 16:41 | RAD ---
Date of service: 12/10/2017 HISTORY: NGT placement COMPARISON: 11/07/2017 FINDINGS: LUNGS: No active pulmonary disease.Limited examination. Upper chest not included. PLEURA: No significant pleural effusion identified, no pneumothorax apparent. CARDIOVASCULAR: No aortic atherosclerotic calcification present Nasogastric tube seen extending to central upper abdomen. No infiltrate or effusion at lung bases. Left parasagittal surgical lily noted in the abdomen. Mild cardiomegaly. OSSEOUS STRUCTURES: No significant abnormalities. VISUALIZED UPPER ABDOMEN: Normal. OTHER FINDINGS: None. IMPRESSION: Nasogastric tube appropriately positioned.
--- NOTE | 2017-12-10 19:09 | CON ---
DATE: 12/10/2017 The patient is seen earlier this morning in room 352, bed one. CHIEF COMPLAINT: Abdominal pain times several days. HISTORY OF PRESENT ILLNESS: This is a 62-year-old female, known to me from previous admissions with past medical history of hypertension, bladder stimulator. The patient had a rectovaginal fistula, who had a colostomy and had a longstanding mesh infection in a patient who is also diabetic, in a patient with coronary artery disease and hypertension.. The patient was admitted, was taken to the OR and had a mesh removal yesterday and Infectious Disease consultation requested. The patient had a ventral hernia repair in addition, removal of an infected mesh. The patient is complaining of abdominal pain from the surgery yesterday. She has no fevers, no nausea or vomiting, no chest pain, no headaches or blurred vision. PAST MEDICAL HISTORY: Significant for coronary artery disease, hypertension, diabetes, hyperlipidemia. PAST SURGICAL HISTORY: Significant for hysterectomy, appendectomy, ventral hernia surgery, colostomy. ALLERGIES: THE PATIENT IS ALLERGIC TO AMOXICILLIN, SULFA, MOXIFLOXACIN, ADHESIVE TAPES. MEDICATIONS: Medications at home are reviewed. PHYSICAL EXAMINATION: VITAL SIGNS: She is in bed, in no acute distress, complaining of the abdominal discomfort from the surgery with a temperature of 98, blood pressure is 103/40, heart rate of 84 and respiratory rate of 17. HEENT: Unremarkable. NECK: Supple. LUNGS: Have decreased breath sounds. HEART: Normal S1, S2. ABDOMEN: Soft and primary dressing is present. No rebound or guarding. LABORATORY EXAMINATION: Reveals a white count of 15,500, hemoglobin of 12 and coagulation is noted. Chemistries reveals a BUN of 18, creatinine of 0.9. Microbiology reveals the cultures from the wound are pending. Also reviewed the microbiology from previous admissions from the wound. There is sensitive E. coli resistant to Cipro and intermedium ampicillin sensitivity and also had a staph epi from the abdominal wound. Another culture from 2017 with E. coli and Klebsiella from the abdominal abscess relatively sensitive organisms, both of them, and earlier that year also had early Klebsiella and E. coli. ASSESSMENT/PLAN: A 62-year-old female with hypertension, diabetes and the rectovaginal fistula, now with leukocytosis, status post hernia repair, ventral removal of infected mesh. We will start the patient on meropenem, pending OR cultures, and we will order blood cultures. The patient has had a HIV test in September which was negative. We will follow closely with you. Juan MD Jay
[2017-12-10] MEDS: Insulin Lispro (humaLOG) MEDIUM Coverage SC SCH (22:57)
[2017-12-11] MEDS: HYDROmorphone 0.5 mg/0.5 ml ISec IVP PRN ×4 (03:04→20:54)
--- NOTE | 2017-12-11 05:48 | CON ---
DATE: 12/09/2017 HISTORY OF PRESENT ILLNESS: The patient is a 62-year-old known to me from multiple previous admissions. The patient has chronically discharging abdominal wall wound. Back in 06/2015, she had ventral hernia repair. At that time, the laparotomy was done, mesh was removed and ventral hernia repair was done. The patient has been having intermittent infections. She was treated with multiple rounds of antibiotics and now the patient was brought to same-day surgery for infected mesh removal, done. PAST MEDICAL HISTORY: She has past medical history significant for: 1. Hypertension. 2. Asn-jzzrauv-kxobglnku diabetes. 3. Hyperlipidemia. 4. Status post colostomy because of multiple pelvic surgeries. ALLERGIES: SHE IS ALLERGIC TO AMOXICILLIN, SULFA, CLAVULANIC ACID, AVELOX, AND ADHESIVE TAPES. MEDICATIONS AT HOME: She is on Percocet as needed, Catapres 0.1 twice a day, simvastatin 80 mg daily, propranolol 60 mg daily, meropenem, glimepiride 2 mg twice a day, Zetia 10 mg daily, and Exforge. SOCIAL HISTORY: She is active smoker. Works in [place]. REVIEW OF SYSTEMS: Significant for pain in the surgical site. She has nasogastric tube in and has no significant aspirate. PHYSICAL EXAMINATION GENERAL: On examination, she is awake and alert. Complains of pain at surgical site. VITAL SIGNS: She is afebrile, pulse 73, respirations 18, blood pressure 135/55. LUNGS: Bilateral clear air flow. No rhonchi or crackles. HEART: S1, S2 audible. ABDOMEN: Has palpable tenderness. Colostomy in place. Has nasogastric tube in. EXTREMITIES: Bilateral legs, no edema. LABORATORY EXAM: WBC is 16.5, hemoglobin 12.5, hematocrit 37.5, platelets 246. PT 11.8, INR 1.03. Chemistry: Sodium 140, potassium 4.2, chloride 104, CO2 of 29, BUN 18, creatinine 4.9, blood sugar of 119. Magnesium is 1.6. ASSESSMENT: 1. Status post laparotomy, mesh, and mesh removal. 2. Non-insulin dependent diabetes. 3. Hypertension. 4. Hyperlipidemia. 5. Partial small-bowel resection and had biological mesh placed. PLAN: The patient is currently n.p.o. We will do nasogastric suction. We will monitor her blood sugar. Her blood pressure seems to be holding without antihypertensive, give analgesic and currently she is on IV fluids. She is on Dilaudid METAL ROASTER pump. She is also on Duragesic patch. She is on metronidazole. She is on DVT prophylaxis. Magnesium has been supplemented. We will monitor her blood sugar. We will follow up electrolytes in the a.m. Olga Goyal MD
[2017-12-11] MEDS: Meropenem IV 1 gm in NS 1 GM/50 ML BAG IVPB SCH ×3 (06:16→21:00)
[2017-12-11] MEDS: metroNIDAZOLE IV 500 mg/100 ml 500 MG/100 ML BAG IVPB SCH (06:16)
[2017-12-11 07:15] LABS: BLOOD UREA NITROGEN 12 mg/dL (7-21); CALCIUM 8.6 mg/dL (8.4-10.5); GFR NON-AFRICAN AMERICAN > 60
[2017-12-11 07:17] LABS: BASO # 0.02 K/mm3 (0.0-2.0); BASO % 0.1 % (0.0-3.0); EOS # 0.9 (0.0-0.7); EOS % 6.1 % (1.5-5.0); GRAN # 11.52 (1.4-6.5); GRAN % 77.9 % (50.0-68.0); HEMOGLOBIN 12.1 g/dL (12.0-16.0); LYMPH # 1.6 (1.2-3.4); LYMPH % 10.8 % (22.0-35.0); MEAN CELL VOLUME 92.8 fl (80.0-105.0); MEAN CORPUSCULAR HGB CONC 32.3 g/dl (31.0-37.0); MEAN PLATELET VOLUME 10.8 fl (7.0-11.0); MONO # 0.8 (0.1-0.6); MONO % 5.1 % (1.0-6.0); RBC 4.04 10^6/uL (3.5-6.1); RED CELL DISTRIBUTION WIDTH 13.5 % (11.5-14.5); WHITE BLOOD COUNT 14.8 10^3/ul (4.5-11.0)
[2017-12-11] MEDS: Insulin Lispro (humaLOG) MEDIUM Coverage SC SCH ×4 (08:41→22:15)
[2017-12-11] MEDS: Lactated Ringer's 1,000 ML IV SCH ×4 (09:36→20:58)
[2017-12-11] MEDS: Enoxaparin 40 mg Syringe SC SCH (09:43)
[2017-12-11] MEDS: Lidocaine 5% Patch TD SCH ×2 (09:43→14:03)
[2017-12-11] MEDS: Vancomycin 1gm in NS 250ml 1 GM/250 ML BAG IVPB SCH ×2 (09:53→20:59)
[2017-12-11] MEDS: HYDROmorphone 0.2 mg/ml (30ml) 30 ML IV PRN ×4 (10:05→22:31)
--- NOTE | 2017-12-11 12:20 | PN ---
DATE: 12/11/2017 SUBJECTIVE: The patient is 62 years old, seen and examined. Complained of belly pain. She has nasogastric tube in and has greenish bowel suction in the drain. PHYSICAL EXAMINATION: VITAL SIGNS: She had temperature of 100.4, pulse 88, respirations 20, blood pressure 146/61. LUNGS: Bilateral fair airflow. No rhonchi or crackle. HEART: S1 and S2 audible. ABDOMEN: Soft. She has sluggish bowel sound. Colostomy in place. AMPARO tube is draining hemorrhagic fluid. LABORATORY EXAM: WBC is 14.8, hemoglobin 12, hematocrit 37.5, platelet Of 236. Chemistry: Sodium 140, potassium 3.6, chloride 103, CO2 of 33, BUN 12, creatinine 0.4, blood sugar 104. ASSESSMENT: 1. Status post infected mesh removal. 2. Status post exploratory laparotomy. 3. Status of incision and drainage of her collection. 4. Status post small bowel resection with primary anastomosis and ventral hernia repair with biological mesh. PLAN: Currently, the patient is n.p.o. with nasogastric suction. She is on meropenem. She is on HEAD OF ART pump. She is on IV fluid. Follow up her electrolyte. Follow up the patient in the a.m. Olga Goyal MD
[2017-12-11 13:49] LABS: ALB/GLOB RATIO 1.2 (1.1-1.8); ALBUMIN 3.3 g/dL (3.0-4.8); ALT/SGPT 37 U/L (7-56); AST/SGOT 26 U/L (14-36); BLOOD UREA NITROGEN 11 mg/dL (7-21); CALCIUM 8.7 mg/dL (8.4-10.5); GFR NON-AFRICAN AMERICAN > 60
--- NOTE | 2017-12-11 20:20 | PN ---
DATE: 12/11/2017 SUBJECTIVE: The patient is in bed, was seen early this morning. She still complains of pain. She had low-grade fevers and she states her abdominal pain has not improved. PHYSICAL EXAMINATION: VITAL SIGNS: On exam, temperature is 100.4, T-max yesterday was 101 with a pulse of 73 and the blood pressure is 135/50, respiratory rate of 18. HEENT: Examination of HEENT is unremarkable. NECK: Supple. LUNGS: Have decreased breath sounds. HEART: Normal S1, S2. ABDOMEN: Soft. LABORATORY DATA: Laboratory examination reveals a white count of 14,800, hemoglobin of 12, platelets of 236. Chemistries reveals a BUN of 12, creatinine of 0.4. Microbiology reveals the blood cultures are negative and the abscess culture is no growth and the abdominal culture is no growth. Review of orders reveals the patient to be on Merrem and Flagyl. ASSESSMENT AND PLAN: A 62-year-old female with hypertension, bladder stimulator, rectovaginal fistula, who has had a longstanding mesh infection in a patient who is diabetic, has coronary artery disease, hypertension, status post hernia repair, ventral, and removal of infected mesh. The patient does have bronchial sounds on the right side today and continues to have fever. We will add vancomycin 1 g every 12. The patient had a chest x-ray yesterday. No active lung disease. I suspect this patient will develop nosocomial pneumonia. We may discontinue the Flagyl. Treat with vancomycin and meropenem. Order a procalcitonin and the sputum culture and urine the culture and the urinalysis. We will follow with you. Juan Thompson MD
--- NOTE | 2017-12-11 22:51 | CP.PCM.PN ---
Subjective - Date & Time of Evaluation Date of Evaluation: 12/11/17 Time of Evaluation: 07:00 - Subjective Subjective: Patient seen and examined. No acute events over night. Patient reports pain along surgical incision site. Denies n/v. Denies passing flatus or having BM. NGT output: 1.5L. AMPARO drainage: 45cc serosanguinous. Objective - Vital Signs/Intake and Output Vital Signs (last 24 hours): Temp Pulse Resp BP Pulse Ox 99.0 F 87 18 136/53 L 91 L 12/11/17 18:12 12/11/17 17:03 12/11/17 17:03 12/11/17 17:03 12/11/17 17:03 Intake and Output: 12/11/17 12/12/17 18:59 06:59 Intake Total 1950 Output Total 1760 Balance 190 - Medications Medications: Current Medications Acetaminophen (Tylenol 325 Mg Supp) 325 mg RC Q4H PRN PRN Reason: Fever >100.4 F Last Admin: 12/11/17 15:39 Dose: 325 mg Dextrose (Dextrose 50% Inj) 0 ml IV STAT PRN; Protocol PRN Reason: Hypoglycemia Protocol Enoxaparin Sodium (Lovenox) 40 mg SC DAILY [facility]; Protocol Last Admin: 12/11/17 09:43 Dose: 40 mg Fentanyl (Duragesic) 1 patch TD Q72H [facility] Last Admin: 12/10/17 10:42 Dose: 1 patch Hydromorphone HCl (Dilaudid) 0.5 mg IVP Q4H PRN PRN Reason: Pain, severe (8-10) Last Admin: 12/11/17 20:54 Dose: 0.5 mg Lactated Ringer's (Lactated Ringer's) 1,000 mls @ 150 mls/hr IV .Q6H40M [facility] Last Admin: 12/11/17 20:58 Dose: Not Given Dextrose (Dextrose 5% In Water 1000 Ml) 1,000 mls @ 0 mls/hr IV .Q0M PRN; Protocol PRN Reason: Hypoglycemia Protocol Meropenem (Merrem Iv 1 Gm Premix) 1 gm in 50 mls @ 100 mls/hr IVPB Q8 [facility]; Protocol Stop: 12/19/17 14:01 Last Admin: 12/11/17 21:00 Dose: 100 mls/hr Vancomycin HCl (Vancomycin 1gm) 1 gm in 250 mls @ 167 mls/hr IVPB Q12H [facility]; Protocol Last Admin: 12/11/17 20:59 Dose: 167 mls/hr Hydromorphone HCl (Dilaudid 0.2 Mg/Ml Core Machine Tender) 30 mls @ 3 mls/hr IV PRN PRN PRN Reason: MIXER DIAMOND POWDER PER MD ORDER Last Admin: 12/11/17 22:31 Dose: 3 mls/hr Insulin Human Lispro (Humalog Med) 0 units SC ACHS [facility]; Protocol Last Admin: 12/11/17 17:17 Dose: Not Given Lidocaine (Lidoderm) 1 ea TD DAILY [facility] Last Admin: 12/11/17 14:03 Dose: Not Given Ondansetron HCl (Zofran Inj) 4 mg IVP Q6H PRN PRN Reason: Nausea/Vomiting Last Admin: 12/11/17 21:00 Dose: 4 mg - Labs Labs: 12/11/17 06:30 12/11/17 11:45 PT 11.8 SECONDS (9.4-12.5) 12/09/17 11:45 INR 1.03 12/09/17 11:45 APTT 30.4 Seconds (25.1-36.5) 12/09/17 11:45 - Constitutional Appears: No Acute Distress - Head Exam Head Exam: NORMOCEPHALIC - Eye Exam Eye Exam: EOMI, Normal appearance - ENT Exam ENT Exam: Mucous Membranes Moist, Normal Exam - Respiratory Exam Respiratory Exam: NORMAL BREATHING PATTERN - Cardiovascular Exam Cardiovascular Exam: +S1, +S2 - GI/Abdominal Exam GI & Abdominal Exam: Soft, Tenderness. absent: Firm, Rigid - Neurological Exam Neurological Exam: Alert, Awake, Oriented x3 - Psychiatric Exam Psychiatric exam: Normal Mood - Skin Skin Exam: Normal Color, Warm Assessment and Plan - Assessment and Plan (Free Text) Assessment: 62F s/p exploratory laparotomy. ventral hernia repair with biologic mesh. extensive lysis of adhesions. excision of infected mesh. small bowel resection with primary anastomosis x2. enterorrhaphyx2. abdominal washout POD2 Plan: -remain NPO -c/w NGT to LIS -IVF -ABx -Analgesics -Strict I&Os -Monitor bowel function -Encourage IS -OOB to chair -DVT ppx Further recs per Dr. Feliciano Rudd PGY3
[2017-12-11] MEDS: HYDROmorphone 1 mg/ml ISec IVP STA (23:40)
--- NOTE | 2017-12-11 23:40 | OP ---
PROCEDURE DATE: 12/09/2017 SURGEON: Devon Wiggins MD. CLOTHESPIN DRIER OPERATOR: Telma Encarnacion DO, PGY-4. SECOND MANAGER RADIATION: Kirit Kaufman DO, PGY-3. ANESTHESIA ADMINISTERED BY: Selvin Perez MD and then he was relieved snf through the procedure by Dr. Joshi. TYPE OF ANESTHESIA: General endotracheal. PREOPERATIVE DIAGNOSES: 1. Infected recurrent ventral hernia - mesh. 2. Neurogenic bladder and rectum - colostomy. 3. Rectovaginal fistula. 4. Hypertension. 5. Diabetes mellitus. POSTOPERATIVE DIAGNOSES: 1. Recurrent ventral hernia secondary to infected mesh (two). 2. Extensive adhesions. 3. Compromised small bowel secondary to mesh involvement with small bowel. OPERATIONS: 1. Exploratory laparotomy. 2. Extensive enterolysis. 3. Removal of mesh (two). 4. Small bowel resection with anastomosis. 5. Ventral herniorrhaphy with absorbable mesh. 6. Excision of a mesenteric lymph node. OPERATIVE INDICATIONS: The patient is a 62-year-old obese female with a history of diabetes, hypertension, rectovaginal fistula, neurogenic bladder, neurogenic rectum, colostomy, and multiple abdominal hernias. The patient had undergone a previous laparotomy 1 year earlier for a draining MRSA infection and at that time, the infected mesh was removed and the patient was free of any drainage for 8 months. The infection seemed to have recurred and this time, has returned with cultures showing repeated Klebsiella pneumonia infection and was presumptively thought to be due to the proximity of the colostomy several inches above this area where the invading infection. Three weeks of IV antibiotic (meropenem) have been given to the patient in preparation for this procedure. She had a PICC line placed for this purpose and is ready for the procedure to be performed. OPERATIVE NOTE: The patient was brought to the operating room from the same-day holding area and is identified by her wristband and is placed on the table in a supine manner. She undergoes time-out procedure, undergoes the induction of general anesthesia and the insertion of an endotracheal tube. A Mark catheter was inserted and sequential compression devices were placed on her lower extremities and nasogastric tube was inserted into her stomach. The abdomen is now prepped with Hibiclens and the patient is aseptically draped. An elliptical incision was made over the previous operative site where the draining abscess is noted. Incision was carried on down through the cicatrix and subcutaneous tissues to the fascia below and hemostasis is contained with cautery. Once the peritoneum was entered between clamps, the fascial incisions were elevated and dissection is carried on down caudad towards the pubis with extreme careful and extensive lysis of adhesions taking several hours to completely remove the mesh and a clear wall intestine in the area. Cultures of the abscess are taken at this point aerobically and anaerobically. The mesh was placed in a specimen container. Attention was now drawn to the upper end of the incision (cephalad) and even more dense adhesions are encountered, taking another 2 to 3 more hours to attempt to free these up. Getting close to the colostomy above, a portion of very much infiltrated mesh (Marlex) with suture and lily into the small bowel are noted and apparently partly obstructing same. Multiple attempts were made to free the bowel and this could not be done and it was decided to resect the two separate obstructing portions with the BERNIE staplers and anastomose both in a [id number] manner with the BERNIE stapler. The mesenteric defects were closed with 2-0 Polysorb suture and the meshes were then submitted, cultured aerobically and anaerobically, also to pathology. The mesenteric wall has a large lesion on it which was removed which most presumptively represents a lymph node or an occult tumor. This is separately submitted to pathology in formalin as well. The entire abdomen is now lavaged with antibiotic-containing saline solution and hemostasis is confirmed at this point after aspiration. It is to be explained at this point that the transverse incision had to be extended vertically with a to completely remove all the inflamed and infected bowel and mesh that were incorporated into same and this requires repair of this hernia with interrupted [id number] buried #1 Novafil sutures and placement of a antibiotic-containing absorbable mesh 6 x 8 inches in size on the inside of the abdominal wall, secured with interrupted 3-0 Polysorb sutures. The closure once intact is now lavaged with normal saline solution until the return is clear and subcutaneous approximation with 3-0 Polysorb was employed and the skin closed with the AutoSuture skin stapler. Infiltration of the skin and the fascia was employed with Exparel 20 mL full strength to facilitate postoperative analgesia. A dry dressing is placed over same. A Al drain had been inserted prior to the closure via trocar technique, secured with 2-0 surgery Surgidac polyester suture and the patient was then placed in an abdominal binder, awakened, extubated , and transported to the recovery room in a satisfactory condition. Sponge, instrument, and suture was verified as correct at the end of the procedure. Estimated blood loss was less than 200 mL of blood. This dictation will be electronically signed without being read. The surgical assistants were present throughout the procedure from beginning to end and were exceedingly essential during the procedure for the extensive, very long-acting, release of frozen abdomen throughout a 5+ hour procedure. Devon Wiggins MD
[2017-12-12] MEDS: Lactated Ringer's 1,000 ML IV SCH (01:46)
[2017-12-12] MEDS: HYDROmorphone 0.2 mg/ml (30ml) 30 ML IV PRN ×2 (04:02→07:51)
[2017-12-12] MEDS: Meropenem IV 1 gm in NS 1 GM/50 ML BAG IVPB SCH ×3 (05:44→21:20)
[2017-12-12 07:11] LABS: BASO # 0.03 K/mm3 (0.0-2.0); BASO % 0.2 % (0.0-3.0); EOS # 0.6 (0.0-0.7); EOS % 4.6 % (1.5-5.0); GRAN # 10.11 (1.4-6.5); GRAN % 79.4 % (50.0-68.0); HEMOGLOBIN 11.2 g/dL (12.0-16.0); LYMPH % 7.5 % (22.0-35.0); MEAN CELL VOLUME 95.5 fl (80.0-105.0); MEAN CORPUSCULAR HEMOGLOBIN 29.9 pg (25.0-35.0); MEAN CORPUSCULAR HGB CONC 31.4 g/dl (31.0-37.0); MEAN PLATELET VOLUME 10.4 fl (7.0-11.0); MONO # 1.1 (0.1-0.6); MONO % 8.3 % (1.0-6.0); RBC 3.74 10^6/uL (3.5-6.1); RED CELL DISTRIBUTION WIDTH 13.6 % (11.5-14.5); WHITE BLOOD COUNT 12.7 10^3/uL (4.5-11.0)
[2017-12-12 07:45] LABS: ALB/GLOB RATIO 1.1 (1.1-1.8); ALBUMIN 3.2 g/dL (3.0-4.8); ALT/SGPT 35 U/L (7-56); AST/SGOT 21 U/L (14-36); BLOOD UREA NITROGEN 12 mg/dL (7-21); CALCIUM 8.9 mg/dL (8.4-10.5); GFR NON-AFRICAN AMERICAN > 60
[2017-12-12] MEDS: Insulin Lispro (humaLOG) MEDIUM Coverage SC SCH ×4 (08:11→21:20)
--- NOTE | 2017-12-12 08:18 | CP.PCM.PN ---
Subjective - Date & Time of Evaluation Date of Evaluation: 12/12/17 Time of Evaluation: 07:00 - Subjective Subjective: Patient seen and examined. No acute events over night. Tmax 101. [id number]. AMPARO drain output 10cc serosanguinous. Patient reports abdominal pain is improve. No output from stoma yet. Objective - Vital Signs/Intake and Output Vital Signs (last 24 hours): Temp Pulse Resp BP Pulse Ox 100.3 F H 87 18 136/53 L 91 L 12/12/17 05:45 12/11/17 17:03 12/11/17 17:03 12/11/17 17:03 12/11/17 17:03 Intake and Output: 12/12/17 12/12/17 06:59 18:59 Intake Total 1800 Output Total 375 Balance 1425 - Medications Medications: Current Medications Acetaminophen (Tylenol 325 Mg Supp) 325 mg RC Q4H PRN PRN Reason: Fever >100.4 F Last Admin: 12/12/17 05:45 Dose: 325 mg Dextrose (Dextrose 50% Inj) 0 ml IV STAT PRN; Protocol PRN Reason: Hypoglycemia Protocol Enoxaparin Sodium (Lovenox) 40 mg SC DAILY LEROY; Protocol Last Admin: 12/11/17 09:43 Dose: 40 mg Fentanyl (Duragesic) 1 patch TD Q72H LEROY Last Admin: 12/10/17 10:42 Dose: 1 patch Hydromorphone HCl (Dilaudid) 0.5 mg IVP Q4H PRN PRN Reason: Pain, severe (8-10) Last Admin: 12/11/17 20:54 Dose: 0.5 mg Lactated Ringer's (Lactated Ringer's) 1,000 mls @ 150 mls/hr IV .Q6H40M LEROY Last Admin: 12/12/17 01:46 Dose: 150 mls/hr Dextrose (Dextrose 5% In Water 1000 Ml) 1,000 mls @ 0 mls/hr IV .Q0M PRN; Protocol PRN Reason: Hypoglycemia Protocol Meropenem (Merrem Iv 1 Gm Premix) 1 gm in 50 mls @ 100 mls/hr IVPB Q8 LEROY; Protocol Stop: 12/19/17 14:01 Last Admin: 12/12/17 05:44 Dose: 100 mls/hr Vancomycin HCl (Vancomycin 1gm) 1 gm in 250 mls @ 167 mls/hr IVPB Q12H LEROY; Protocol Last Admin: 12/11/17 20:59 Dose: 167 mls/hr Hydromorphone HCl (Dilaudid 0.2 Mg/Ml Retort Or Condenser Press Operator) 30 mls @ 1.8 mls/hr IV PRN PRN PRN Reason: CHAINSTITCH TUNNEL ELASTIC OPERATOR PER MD ORDER Last Admin: 12/12/17 07:51 Dose: 1.8 mls/hr Insulin Human Lispro (Humalog Med) 0 units SC ACHS LEROY; Protocol Last Admin: 12/12/17 08:11 Dose: Not Given Lidocaine (Lidoderm) 1 ea TD DAILY LEROY Last Admin: 12/11/17 14:03 Dose: Not Given Ondansetron HCl (Zofran Inj) 4 mg IVP Q6H PRN PRN Reason: Nausea/Vomiting Last Admin: 12/11/17 21:00 Dose: 4 mg - Labs Labs: 12/12/17 06:45 12/12/17 06:45 PT 11.8 SECONDS (9.4-12.5) 12/09/17 11:45 INR 1.03 12/09/17 11:45 APTT 30.4 Seconds (25.1-36.5) 12/09/17 11:45 Assessment and Plan - Assessment and Plan (Free Text) Assessment: 62F s/p exploratory laparotomy. ventral hernia repair with biologic mesh. extensive lysis of adhesions. excision of infected mesh. small bowel resection with primary anastomosis x2. enterorrhaphyx2. abdominal washout POD3 Plan: -remain NPO -Will pull back NGT ~5cm -c/w NGT to LIS -IVF -ABx -Analgesics -Strict I&Os -Monitor bowel function -Encourage IS -OOB to chair -DVT ppx -Physical therapy Further recs per Dr. Feliciano Rudd PGY3
[2017-12-12] MEDS ORDERED: Potassium Ch 20mEq in D5W 20 ML in Dextrose 5%/0.45% NS 1,000 ML IV SCH (09:00)
[2017-12-12] MEDS: Lidocaine 5% Patch TD SCH (09:17)
[2017-12-12] MEDS: Enoxaparin 40 mg Syringe SC SCH (09:17)
[2017-12-12] MEDS: Vancomycin 1gm in NS 250ml 1 GM/250 ML BAG IVPB SCH ×2 (09:20→23:46)
[2017-12-12] MEDS: Potassium Ch 20mEq in D5-1/2NS 1,000 ML IV SCH ×2 (10:25→21:21)
[2017-12-12] MEDS ORDERED: Barium Sulfate Susp 2.1% w/v, 2.0% w/w 450 mL Bottle PO ONE (10:44)
--- NOTE | 2017-12-12 12:26 | CP.PCM.PCO ---
Physician Communication Note - Physician Communication Note Physician Communication Note: ET CO2 55-60/NO real flatus-Keep NG Tube now/taper Opiates
[2017-12-12] MEDS: Micafungin 100 MG in Sodium Chloride 0.9% 100 ML IV SCH (12:45)
[2017-12-12 12:48] LABS: PH,URINE 6.5 (4.7-8.0); URINE BILIRUBIN MODERATE (NEGATIVE); URINE BLOOD TRACE-INTACT (NEGATIVE); URINE GLUCOSE (UA) NEGATIVE (NEGATIVE); URINE LEUKOCYTE ESTERASE SMALL Leu/uL (NEGATIVE); URINE PROTEIN 30 mg/dL (<30 mg/dL); URINE UROBILINOGEN 0.2 E.U./dL (<1 E.U./dL)
[2017-12-12 12:51] LABS: URINE APPEARANCE SLIGHT-CLOUDY (CLEAR); URINE COLOR DARK YELLOW (YELLOW)
[2017-12-12 13:02] LABS: URINE BACTERIA LARGE (NEG)
[2017-12-12 13:03] LABS: URINE AMORPHOUS SEDIMENT MODERATE
[2017-12-12] MEDS: Albuterol-Ipratrop 3 mg / 0.5 (3 ml) UD IH SCH ×2 (13:26→20:21)
[2017-12-12] MEDS ORDERED: Iohexol 350 MG/100 ML VIAL ONE (13:58)
[2017-12-12] MEDS: HYDROmorphone 0.5 mg/0.5 ml ISec IVP PRN ×4 (14:05→23:45)
--- NOTE | 2017-12-12 15:04 | PN ---
DATE: 12/12/2017 SUBJECTIVE: Patient is in bed, in no acute distress. She is still having fever. She had fevers yesterday. She has some cough. She has mild shortness of breath. She still continues to complain of abdominal pain. As of this morning, she is complaining of abdominal pain. PHYSICAL EXAMINATION: VITAL SIGNS: Temperature is 100.3, blood pressure is 140/90, respiratory rate of 22, her heart rate of 87. Patient is desaturating at 91% to 94%. HEENT: Unremarkable. NECK: Supple. LUNGS: Have decreased breath sounds. HEART: Normal S1 and S2. ABDOMEN: Soft. LABORATORY DATA: Reveals the white count is down to 12,700, hemoglobin of 11. Chemistries reveals BUN of 12, creatinine of 0.5 and microbiology reveals the repeat blood cultures on the 12/10/2017 are negative. Bowel cultures are also negative. The abdominal abscess cultures are no growth x2 different specimens. In view of the imaging reveals the patient had a chest x-ray on the , no active disease. Review of orders reveals the patient to be on meropenem and vancomycin. ASSESSMENT AND PLAN: A 62-year-old female with hypertension, bladder stimulator, rectovaginal fistula, long-standing mesh infection, coronary artery disease, hypertension, status post hernia and removal of an infected mesh, now postoperatively, systemic inflammatory response syndrome, must rule out healthcare-associated pneumonia. We will order a CT of the chest and abdomen, rule out abdominal pathology versus lungs and urine. Urinalysis, urine culture, procalcitonin. We will add Mycamine, repeat pancultures, procalcitonin. We will follow closely with you. Juan Thompson MD
--- NOTE | 2017-12-12 15:10 | CT ---
Date of service: 12/12/2017 PROCEDURE: CT Chest, Abdomen and Pelvis with intravenous contrast HISTORY: sepsis COMPARISON: CT abdomen/pelvis 11/07/2017 TECHNIQUE: IV dose administered: 100 mL Omnipaque 350 Radiation dose: Total exam DLP = 1452.11 mGy-cm. This CT exam was performed using one or more of the following dose reduction techniques: Automated exposure control, adjustment of the mA and/or kV according to patient size, and/or use of iterative reconstruction technique. FINDINGS: CT CHEST WITH CONTRAST: LUNGS: Multifocal small ill-defined opacities in right upper lobe. Suspicious for infectious process. Two small irregular ground-glass opacities are seen in the left upper lobe, each pleural-based. Nonspecific. Follow-up advised with CT. Linear scar/atelectasis in both lower lobes, right middle lobe and lingula. MEDIASTINUM: Unremarkable. Normal caliber aorta and pulmonary arterial trunk. No aortic dissection. Normal size heart. Nasogastric tube traverses the thoracic esophagus to the stomach. Please note that there is atherosclerotic calcification of the thoracic aorta. LYMPH NODES: No significantly enlarged mediastinal or hilar lymph nodes. PLEURA: Unremarkable. No pneumothorax. No pleural fluid. BONES: Unremarkable. OTHER FINDINGS: None. CT ABDOMEN AND PELVIS: LIVER: Unremarkable. No gross lesion or ductal dilatation. GALLBLADDER AND BILE DUCTS: Unremarkable. PANCREAS: Unremarkable. No gross lesion or ductal dilatation. SPLEEN: Unremarkable. ADRENALS: Unremarkable. No mass. KIDNEYS AND URETERS: Unremarkable. No hydronephrosis. No solid mass. VASCULATURE: There is calcified atheromatous plaque of the abdominal aorta and iliac vessels. Unremarkable. No aortic aneurysm. BOWEL: Status post partial colectomy. Right parasagittal colostomy noted. Several small bowel anastomoses are noted. Descending colon and splenic flexure are absent. No bowel obstruction. Superior rectum is oversewn. APPENDIX: Status post appendectomy PERITONEUM: No ascites. Very small residual collection seen in the anterior supraumbilical midline abdomen adjacent to surgical anastomosis. This collection measures approximately 10 x 13 mm. This is in the location of the previously identified suspected abscess. There is a small amount of nonspecific fluid in a few bubbles of gas seen just inferior to a left parasagittal supraumbilical ventral hernia. Nonspecific. Possible postoperative change. There are postoperative changes seen just above the umbilicus with trace fluid and a few bubbles of gas. Surgical lily are seen across the anterior midline abdomen. A surgical drain is seen traversing the lower abdomen, exiting the left anterior abdominal wall. LYMPH NODES: Unremarkable. No enlarged lymph nodes. BLADDER: Mark catheter. Nondistended. REPRODUCTIVE: Hysterectomy BONES: No acute fracture. Incidentally noted sacral spinal stimulator. OTHER FINDINGS: None. IMPRESSION: Multifocal ill-defined opacities in the right upper lobe suspicious for early pneumonia. Two small ill-defined ground-glass opacities are seen in the left upper lobe as well. Follow-up advised. Very small residual anterior supraumbilical collection, 10 x 13 mm. Markedly improved compared to prior CT of 11/07/2017. Postoperative structure changes are seen in the anterior abdominal wall. Left hemicolectomy. Multiple bowel anastomoses. Right upper abdominal colostomy.
[2017-12-12] MEDS ORDERED: Morphine 5 MG/ML SYRINGE IVP STA (21:03)
[2017-12-12] MEDS ORDERED: Morphine 2 mg/ml ISec IVP STA (21:09)
--- NOTE | 2017-12-13 00:15 | PN ---
DATE: 12/12/2017 SUBJECTIVE: Patient is 62 years old, seen and examined, status post infected mesh removal and ventral hernia repair and biological mesh placement. Patient was seen and examined, sitting in chair, complained of pain at the surgical site. Still having nasogastric suction on, draining greenish bile. PHYSICAL EXAMINATION: VITAL SIGNS: She is afebrile, pulse 70, respirations 18, blood pressure 141/58. LUNGS: Bilateral fair airflow. No rhonchi or crackle. HEART: S1 and S2 audible. ABDOMEN: Soft. Colostomy has no fluid. Nasogastric suction is draining greenish bile. NEUROLOGIC: She is awake and alert, able to communicate. LABORATORY EXAM: WBC 12.7, hemoglobin 11.2, hematocrit 35.7, platelets 237. Chemistry: Sodium 145, potassium 3.8, chloride 103, CO2 38, BUN 12, creatinine 0.5, blood sugar of 127. CT scan of the abdomen and pelvis were done and shows multifocal ill-defined opacities in the right upper quadrant, probably pneumonia, there is small ill-defined ground glass opacity seen in the left upper lobe. ASSESSMENT: 1. Status post laparotomy. 2. Status post abscess and drainage. 3. Status post partial small bowel resection. 4. Status post infected mesh removal. PLAN: So, plan is currently patient is on Duragesic patch. Nasogastric suction is on. She is on DVT prophylaxis. She is getting meropenem. She is on 125 mL of IV fluid. She is on vancomycin. Continue incentive spirometry. I will start her on nebulizer treatment every 6 hour round the clock. Keep her n.p.o. Follow up electrolyte in the a.m. Olga Goyal MD
[2017-12-13] MEDS: Albuterol-Ipratrop 3 mg / 0.5 (3 ml) UD IH SCH ×4 (02:41→19:50)
[2017-12-13] MEDS: HYDROmorphone 0.5 mg/0.5 ml ISec IVP PRN ×4 (05:19→21:51)
[2017-12-13] MEDS: Meropenem IV 1 gm in NS 1 GM/50 ML BAG IVPB SCH ×3 (05:19→21:48)
[2017-12-13 07:56] LABS: BASO # 0.02 K/mm3 (0.0-2.0); BASO % 0.2 % (0.0-3.0); EOS # 1.1 (0.0-0.7); EOS % 12.1 % (1.5-5.0); GRAN # 5.89 (1.4-6.5); GRAN % 67.7 % (50.0-68.0); HEMOGLOBIN 11.1 g/dL (12.0-16.0); LYMPH # 0.9 (1.2-3.4); LYMPH % 10.4 % (22.0-35.0); MEAN CELL VOLUME 95.4 fl (80.0-105.0); MEAN CORPUSCULAR HEMOGLOBIN 30.2 pg (25.0-35.0); MEAN CORPUSCULAR HGB CONC 31.7 g/dl (31.0-37.0); MEAN PLATELET VOLUME 10.4 fl (7.0-11.0); MONO # 0.8 (0.1-0.6); MONO % 9.6 % (1.0-6.0); RBC 3.67 10^6/uL (3.5-6.1); RED CELL DISTRIBUTION WIDTH 13.3 % (11.5-14.5); WHITE BLOOD COUNT 8.7 10^3/uL (4.5-11.0)
[2017-12-13] MEDS: Insulin Lispro (humaLOG) MEDIUM Coverage SC SCH ×3 (08:05→17:07)
[2017-12-13 08:40] LABS: ALB/GLOB RATIO 1.2 (1.1-1.8); ALBUMIN 3.3 g/dL (3.0-4.8); ALT/SGPT 27 U/L (7-56); AST/SGOT 18 U/L (14-36); BLOOD UREA NITROGEN 13 mg/dL (7-21); CALCIUM 8.8 mg/dL (8.4-10.5); GFR NON-AFRICAN AMERICAN > 60
[2017-12-13] MEDS: Lidocaine 5% Patch TD SCH (09:18)
[2017-12-13] MEDS: Enoxaparin 40 mg Syringe SC SCH (09:18)
[2017-12-13] MEDS: Potassium Ch 20mEq in D5-1/2NS 1,000 ML IV SCH ×2 (09:19→17:08)
[2017-12-13] MEDS: Vancomycin 1gm in NS 250ml 1 GM/250 ML BAG IVPB SCH ×2 (09:25→21:48)
--- NOTE | 2017-12-13 13:03 | RAD ---
Date of service: 12/13/2017 HISTORY: Assess NGT location COMPARISON: No prio 12/10/2017. FINDINGS: LUNGS: The lungs are well inflated and clear. There is linear atelectasis in the right lower lobe. PLEURA: No pleural effusions or pneumothorax. CARDIOVASCULAR: Mild cardiomegaly. No aortic atherosclerotic calcification present. OSSEOUS STRUCTURES: Within normal limits for the patient's age. VISUALIZED UPPER ABDOMEN: Normal. OTHER FINDINGS: The nasogastric tube terminates in the stomach. IMPRESSION: Nasogastric tube terminates in the stomach. No acute findings.
--- NOTE | 2017-12-13 13:08 | PN ---
DATE: 12/13/2017 SUBJECTIVE: The patient is in bed, in no acute distress, nontoxic. PHYSICAL EXAMINATION: VITAL SIGNS: On exam, temperature is 98, blood pressure is 140/50, respiratory rate of 20. HEENT: Examination of HEENT is unremarkable. NECK: Supple. LUNGS: Have decreased breath sounds. HEART: Normal S1, S2. ABDOMEN: Soft, nontender. LABORATORY DATA: Laboratory examination reveals a white count of 8.7, hemoglobin 11. Chemistries are noted. BUN of 13, creatinine of 0.5. Procalcitonin is noted. Blood cultures are negative. Repeat blood cultures are negative. Review of orders reveals the patient to be on meropenem, vancomycin. This morning's chest x-ray is pending. The patient had a CAT scan of the abdomen and pelvis and chest CT yesterday. The patient's lungs on the CAT scan, multifocal ill-defined opacities are noted. CAT scan of the abdomen, postoperative changes. Dr. Goyal's note from yesterday is reviewed. ASSESSMENT AND PLAN: A 62-year-old female with hypertension, bladder stimulator, rectovaginal fistula, longstanding mesh infection, coronary artery disease, hypertension, status post hernia, removal of an infected mesh, now with sepsis with healthcare-associated pneumonia on CAT scan. Day #2 of vancomycin and meropenem and Micafungin with negative procalcitonin from yesterday and creatinine holding at 0.5. We will check on the final culture results. Juan Thompson MD
--- NOTE | 2017-12-13 13:26 | CP.PCM.PN ---
Subjective - Date & Time of Evaluation Date of Evaluation: 12/13/17 Time of Evaluation: 07:00 - Subjective Subjective: Patient seen and examined. No acute events over night. Denies n/v. States abdominal pain is improving. As per nursing patient had 1 BM yesterday. 10cc seronsanguinous fluid in nanette drain. NGT output ~1.5L of bilious ouput. Objective - Vital Signs/Intake and Output Vital Signs (last 24 hours): Temp Pulse Resp BP Pulse Ox 98.4 F 63 20 147/55 L 97 12/13/17 06:00 12/13/17 06:00 12/13/17 06:00 12/13/17 06:00 12/13/17 06:00 Intake and Output: 12/13/17 12/13/17 06:59 18:59 Intake Total 3000 Output Total 1610 Balance 1390 - Medications Medications: Current Medications Acetaminophen (Tylenol 325 Mg Supp) 325 mg RC Q4H PRN PRN Reason: Fever >100.4 F Last Admin: 12/12/17 05:45 Dose: 325 mg Albuterol/Ipratropium (Duoneb 3 Mg/0.5 Mg (3 Ml) Ud) 3 ml IH [id number] LEROY Last Admin: 12/13/17 07:42 Dose: 3 ml Dextrose (Dextrose 50% Inj) 0 ml IV STAT PRN; Protocol PRN Reason: Hypoglycemia Protocol Enoxaparin Sodium (Lovenox) 40 mg SC DAILY LEROY; Protocol Last Admin: 12/13/17 09:18 Dose: 40 mg Fentanyl (Duragesic) 1 patch TD Q72H LEROY Last Admin: 12/13/17 09:17 Dose: 1 patch Hydromorphone HCl (Dilaudid) 0.5 mg IVP Q3H PRN PRN Reason: Pain, severe (8-10) Last Admin: 12/13/17 08:05 Dose: 0.5 mg Dextrose (Dextrose 5% In Water 1000 Ml) 1,000 mls @ 0 mls/hr IV .Q0M PRN; Protocol PRN Reason: Hypoglycemia Protocol Meropenem (Merrem Iv 1 Gm Premix) 1 gm in 50 mls @ 100 mls/hr IVPB Q8 LEROY; Protocol Stop: 12/19/17 14:01 Last Admin: 12/13/17 13:16 Dose: 100 mls/hr Vancomycin HCl (Vancomycin 1gm) 1 gm in 250 mls @ 167 mls/hr IVPB Q12H LEROY; Protocol Last Admin: 12/13/17 09:25 Dose: 167 mls/hr Potassium Chloride/Dextrose/Sod Cl (Potassium Chl 20 Meq In D5-1/2ns) 1,000 mls @ 125 mls/hr IV .Q8H LEROY Last Admin: 12/13/17 09:19 Dose: 125 mls/hr Micafungin Sodium 100 mg/ (Sodium Chloride) 100 mls @ 100 mls/hr IV DAILY LEROY; Protocol Stop: 12/21/17 10:46 Last Admin: 12/12/17 12:45 Dose: 100 mls/hr Potassium Chloride (Potassium Chloride 10 Meq/100 Ml) 10 meq in 100 mls @ 50 mls/hr IVPB Q2H LEROY Stop: 12/13/17 14:29 Last Admin: 12/13/17 13:12 Dose: 50 mls/hr Insulin Human Lispro (Humalog Med) 0 units SC ACHS LEROY; Protocol Last Admin: 12/13/17 13:13 Dose: Not Given Ketorolac Tromethamine (Toradol) 15 mg IVP Q6H LEROY Last Admin: 12/13/17 13:17 Dose: 15 mg Lidocaine (Lidoderm) 1 ea TD DAILY LEROY Last Admin: 12/13/17 09:18 Dose: Not Given Ondansetron HCl (Zofran Inj) 4 mg IVP Q6H PRN PRN Reason: Nausea/Vomiting Last Admin: 12/11/17 21:00 Dose: 4 mg - Labs Labs: 12/13/17 06:40 12/13/17 06:40 PT 11.8 SECONDS (9.4-12.5) 12/09/17 11:45 INR 1.03 12/09/17 11:45 APTT 30.4 Seconds (25.1-36.5) 12/09/17 11:45 - Constitutional Appears: No Acute Distress - Head Exam Head Exam: NORMOCEPHALIC - Eye Exam Eye Exam: EOMI, Normal appearance - ENT Exam ENT Exam: Mucous Membranes Moist - Respiratory Exam Respiratory Exam: NORMAL BREATHING PATTERN - Cardiovascular Exam Cardiovascular Exam: +S1, +S2 - GI/Abdominal Exam GI & Abdominal Exam: Soft, Tenderness. absent: Distended, Firm, Guarding, Rigid, Rebound - Neurological Exam Neurological Exam: Alert, Awake, Oriented x3 - Psychiatric Exam Psychiatric exam: Normal Mood - Skin Skin Exam: Dry, Intact, Warm Assessment and Plan - Assessment and Plan (Free Text) Assessment: 62F s/p exploratory laparotomy. ventral hernia repair with biologic mesh. extensive lysis of adhesions. excision of infected mesh. small bowel resection with primary anastomosis x2. enterorrhaphyx2. abdominal washout POD5 Plan: -NPO with ice chips -May have 60cc's of water hourly -F/u CXR -c/w NGT to LIS -IVF -ABx -Analgesics prn -Strict I&Os -Monitor bowel function -Encourage IS -OOB to chair -DVT ppx -Physical therapy Further recs per Dr. Feliciano Rudd PGY3
--- NOTE | 2017-12-13 15:25 | PN ---
DATE: 12/13/2017 SUBJECTIVE: The patient is 62 years old, seen and examined. Sitting in chair. She states that her abdominal pain is better, but she is very frustrated about her nasogastric tube. She want this to be out. Belly pain is improving. Had one BM in the colostomy. In the last 24 hours, she has 1200 mL nasogastric suction. PHYSICAL EXAMINATION: VITAL SIGNS: She is afebrile, pulse 63, respirations 20, blood pressure 147/55. LUNGS: Bilateral fair airflow. No rhonchi or crackle. HEART: S1 and S2 audible. ABDOMEN: Soft. Palpable discomfort at surgical site. NEUROLOGICAL: She is awake, alert, oriented, communicative. LABORATORY EXAM: WBC is 8.7, hemoglobin 11.1, hematocrit 35, platelet 257. Chemistry: Sodium 142, potassium 3.4, chloride 104, CO2 of 38, BUN 13, creatinine 0.5, blood sugar of 123. Blood cultures are negative. Had CT of the abdomen and pelvis done yesterday that shows multifocal ill-defined opacities in the right upper lobe suspicious for early pneumonia and 2 small ill-defined ground-glass opacities are seen in the left upper lobe. ASSESSMENT: 1. Status post laparotomy. 2. Status post small bowel resection. 3. Ventral hernia repair after infected mesh was removed and biological mesh was placed. 4. Probably aspiration pneumonia. 5. Ileus. PLAN: Although the patient wants the nasogastric tube out, but since she has large volume output, probably that need to be kept in. We will supplement her potassium. She is already on meropenem. We will continue nebulizer treatment. We will supplement potassium. Follow up electrolyte in the a.m. Olga Goyal MD
[2017-12-14] MEDS: Insulin Lispro (humaLOG) MEDIUM Coverage SC SCH ×4 (00:40→17:36)
[2017-12-14] MEDS: Potassium Ch 20mEq in D5-1/2NS 1,000 ML IV SCH ×2 (01:40→09:58)
[2017-12-14] MEDS: HYDROmorphone 0.5 mg/0.5 ml ISec IVP PRN ×6 (02:06→20:36)
[2017-12-14] MEDS: Albuterol-Ipratrop 3 mg / 0.5 (3 ml) UD IH SCH ×4 (02:08→21:03)
[2017-12-14] MEDS: Meropenem IV 1 gm in NS 1 GM/50 ML BAG IVPB SCH ×3 (06:16→21:59)
--- NOTE | 2017-12-14 09:29 | PN ---
DATE: 12/14/2017 SUBJECTIVE: The patient has no complaint of any chest pain, shortness of breath, or headaches. She does feel better. PHYSICAL EXAMINATION: VITAL SIGNS: Temperature is 97.9, pulse of 66, blood pressure 159/60, respirations 20. GENERAL: The patient is lying in bed, flat, comfortable. HEENT: No oral lesion. Anicteric sclerae. Moist mucosa. NECK: No JVD, adenopathy, or thyromegaly. CARDIOVASCULAR: S1 and S2, regular. No murmurs, rubs, or gallops. LUNGS: Clear to auscultation bilaterally. No wheeze, rales, or rhonchi. ABDOMEN: Bowel sounds are positive, soft, nontender and nondistended. EXTREMITIES: No cyanosis, clubbing or edema. LABORATORY DATA: White count of 8.7, hemoglobin 11.1, creatinine 0.5. Potassium is 3.4. ASSESSMENT: 1. Status post laparotomy due to small bowel obstruction. 2. Ventral hernia repair with infected mesh. 3. Ileus. 4. PENICILLIN ALLERGY. 5. Healthcare-associated pneumonia. PLAN: The patient is currently uncomfortable. He is receiving fentanyl for chronic pain. The patient is on lidocaine. She is on Lovenox for DVT prophylaxis. She is on meropenem for antibiotics. She is on IV fluids with potassium replacement. I will decrease the patient's IV fluids to a rate of 75 an hour. We will order a.m. labs. Raad Chatman MD
--- NOTE | 2017-12-14 09:37 | CP.PCM.PN ---
Subjective - Date & Time of Evaluation Date of Evaluation: 12/14/17 Time of Evaluation: 09:32 - Subjective Subjective: Surgery: Dr. Wiggins Patient reports feeling much better today. She reports being out of bed. She reports control of abdominal pain with current medication. She denies n/v/f/c. She reports air in ostomy bag, no stool. She reports feeling hungry. Objective - Vital Signs/Intake and Output Vital Signs (last 24 hours): Temp Pulse Resp BP Pulse Ox 97.6 F 59 L 18 140/60 90 L 12/14/17 06:00 12/14/17 06:00 12/14/17 06:00 12/14/17 06:00 12/14/17 06:00 Intake and Output: 12/14/17 12/14/17 06:59 18:59 Intake Total 2100 Output Total 1560 Balance 540 - Medications Medications: Current Medications Acetaminophen (Tylenol 325 Mg Supp) 325 mg RC Q4H PRN PRN Reason: Fever >100.4 F Last Admin: 12/12/17 05:45 Dose: 325 mg Albuterol/Ipratropium (Duoneb 3 Mg/0.5 Mg (3 Ml) Ud) 3 ml IH [id number] [facility] Last Admin: 12/14/17 07:52 Dose: 3 ml Dextrose (Dextrose 50% Inj) 0 ml IV STAT PRN; Protocol PRN Reason: Hypoglycemia Protocol Enoxaparin Sodium (Lovenox) 40 mg SC DAILY [facility]; Protocol Last Admin: 12/13/17 09:18 Dose: 40 mg Fentanyl (Duragesic) 1 patch TD Q72H [facility] Last Admin: 12/13/17 09:17 Dose: 1 patch Hydromorphone HCl (Dilaudid) 0.5 mg IVP Q3H PRN PRN Reason: Pain, severe (8-10) Last Admin: 12/14/17 04:58 Dose: 0.5 mg Dextrose (Dextrose 5% In Water 1000 Ml) 1,000 mls @ 0 mls/hr IV .Q0M PRN; Protocol PRN Reason: Hypoglycemia Protocol Meropenem (Merrem Iv 1 Gm Premix) 1 gm in 50 mls @ 100 mls/hr IVPB Q8 [facility]; Protocol Stop: 12/19/17 14:01 Last Admin: 12/14/17 06:16 Dose: 100 mls/hr Vancomycin HCl (Vancomycin 1gm) 1 gm in 250 mls @ 167 mls/hr IVPB Q12H [facility]; Protocol Last Admin: 12/13/17 21:48 Dose: 167 mls/hr Micafungin Sodium 100 mg/ (Sodium Chloride) 100 mls @ 100 mls/hr IV DAILY [facility]; Protocol Stop: 12/21/17 10:46 Last Admin: 12/12/17 12:45 Dose: 100 mls/hr Potassium Chloride/Dextrose/Sod Cl (Potassium Chl 20 Meq In D5-1/2ns) 1,000 mls @ 75 mls/hr IV .[id number] [facility] Insulin Human Lispro (Humalog Med) 0 units SC ACHS [facility]; Protocol Last Admin: 12/14/17 08:39 Dose: Not Given Ketorolac Tromethamine (Toradol) 15 mg IVP Q6H [facility] Last Admin: 12/14/17 06:17 Dose: 15 mg Lidocaine (Lidoderm) 1 ea TD DAILY [facility] Last Admin: 12/13/17 09:18 Dose: Not Given Ondansetron HCl (Zofran Inj) 4 mg IVP Q6H PRN PRN Reason: Nausea/Vomiting Last Admin: 12/13/17 15:42 Dose: 4 mg - Labs Labs: 12/13/17 06:40 12/13/17 06:40 PT 11.8 SECONDS (9.4-12.5) 12/09/17 11:45 INR 1.03 12/09/17 11:45 APTT 30.4 Seconds (25.1-36.5) 12/09/17 11:45 - Constitutional Appears: Non-toxic, No Acute Distress - Head Exam Head Exam: ATRAUMATIC, NORMOCEPHALIC - Eye Exam Eye Exam: EOMI, Normal appearance - ENT Exam ENT Exam: Mucous Membranes Moist - Respiratory Exam Respiratory Exam: NORMAL BREATHING PATTERN. absent: Respiratory Distress - Cardiovascular Exam Cardiovascular Exam: REGULAR RHYTHM. absent: Tachycardia - GI/Abdominal Exam GI & Abdominal Exam: Soft, Tenderness (rayna-incisional which is appropriate). absent: Guarding, Rigid, Rebound Additional comments: ostomy pink and patent - Neurological Exam Neurological Exam: Alert, Awake - Psychiatric Exam Psychiatric exam: Normal Affect, Normal Mood - Skin Skin Exam: Dry, Warm Assessment and Plan - Assessment and Plan (Free Text) Assessment: 62F s/p ex lap, VHR w/ biologic mesh, EMILIANO, SB rsxn with primary anastomosis x2 Plan: -ok for ice chips and sips of water -c/w NGT to LIS, may consider clamp trial vs removal today -IVF -ABx -Analgesics prn -Strict I&Os -Monitor bowel function -Encourage IS -OOB to chair -DVT ppx -Physical therapy -further recs per Dr. Wiggins [place] PGY4
[2017-12-14] MEDS: Enoxaparin 40 mg Syringe SC SCH (09:57)
[2017-12-14] MEDS: Lidocaine 5% Patch TD SCH (09:57)
[2017-12-14] MEDS: Micafungin 100 MG in Sodium Chloride 0.9% 100 ML IV SCH (09:58)
[2017-12-14] MEDS: Vancomycin 1gm in NS 250ml 1 GM/250 ML BAG IVPB SCH ×2 (10:00→21:59)
--- NOTE | 2017-12-14 12:03 | PN ---
DATE: 12/14/2017 SUBJECTIVE: The patient is in bed, in no acute distress, nontoxic. PHYSICAL EXAMINATION: VITAL SIGNS: On exam, temperature is 97, blood pressure is 140/60, respiratory rate of 18. HEENT: Examination of HEENT is unremarkable. NECK: Supple. LUNGS: Have decreased breath sounds. HEART: Normal S1, S2. ABDOMEN: Soft. LABORATORY DATA: Laboratory examination reveals the patient's white count is down to 8.7, which is decreased from 15,500, hemoglobin is 11 and platelets of 257. Chemistries reveals a BUN of 13, creatinine of 0.5 and procalcitonin is 0.05. Urinalysis is noted. Microbiology reveals the blood cultures are negative. Urine culture has yeast. Review of orders reveals the patient to have meropenem, micafungin and vancomycin. ASSESSMENT AND PLAN: A 62-year-old female with hypertension, bladder stimulator, rectovaginal fistula, longstanding mesh infection, coronary artery disease, hypertension, status post hernia, removal of an infected mesh, now with sepsis with healthcare-associated pneumonia on CAT scan and yeast urinary tract infection. On day #3 of vancomycin, meropenem and micafungin with a negative procalcitonin. We will continue to follow with you. The patient appears to be improving. Will need 4-7 days of antibiotics. Juan Thompson MD
[2017-12-15] MEDS: HYDROmorphone 0.5 mg/0.5 ml ISec IVP PRN ×7 (00:13→22:54)
[2017-12-15] MEDS: Albuterol-Ipratrop 3 mg / 0.5 (3 ml) UD IH SCH ×4 (02:27→19:52)
[2017-12-15] MEDS: Potassium Ch 20mEq in D5-1/2NS 1,000 ML IV SCH (02:48)
[2017-12-15] MEDS: Meropenem IV 1 gm in NS 1 GM/50 ML BAG IVPB SCH ×3 (06:19→21:37)
[2017-12-15 07:20] LABS: HEMOGLOBIN 11.1 g/dL (12.0-16.0); MEAN CELL VOLUME 93.5 fl (80.0-105.0); MEAN CORPUSCULAR HEMOGLOBIN 29.8 pg (25.0-35.0); MEAN CORPUSCULAR HGB CONC 31.9 g/dl (31.0-37.0); MEAN PLATELET VOLUME 10.1 fl (7.0-11.0); RBC 3.72 10^6/uL (3.5-6.1); RED CELL DISTRIBUTION WIDTH 13.1 % (11.5-14.5); WHITE BLOOD COUNT 7.6 10^3/uL (4.5-11.0)
[2017-12-15] MEDS: Insulin Lispro (humaLOG) MEDIUM Coverage SC SCH ×4 (08:08→21:38)
--- NOTE | 2017-12-15 08:36 | PN ---
DATE: 12/15/2017 SUBJECTIVE: The patient is in bed, in no acute distress, nontoxic. PHYSICAL EXAMINATION: VITAL SIGNS: On exam, temperature is 98, blood pressure is 140/60, respiratory rate of 20. Examination of HEENT is unremarkable. NECK: Supple. LUNGS: Have decreased breath sounds. HEART: Normal S1, S2. ABDOMEN: Soft, nontender. LABORATORY DATA: Laboratory examination reveals a white count of 7.6, hemoglobin of 11, microbiology and yeast in the urine and the blood cultures are negative. The bowel cultures, no growth. Review of orders reveals the patient to be on meropenem, micafungin, vancomycin. ASSESSMENT AND PLAN: A 62-year-old female with hypertension, bladder stimulator, rectovaginal fistula, longstanding mesh infection, coronary artery disease, hypertension, status post hernia, removal of the infected mesh with sepsis with healthcare-associated pneumonia and yeast urinary tract infection. On day #4 of vancomycin and meropenem and micafungin, would complete 4-7 days of antibiotics. Today is day #4 of 4-7 days. The patient appears to be improving. She still has the nasogastric tube as of this morning. She had tolerated mao jarred yesterday. Juan Thompson MD
[2017-12-15 09:19] LABS: BLOOD UREA NITROGEN 15 mg/dL (7-21); CALCIUM 8.7 mg/dL (8.4-10.5); GFR NON-AFRICAN AMERICAN > 60
[2017-12-15 09:20] LABS: ALB/GLOB RATIO 1.1 (1.1-1.8); ALBUMIN 3.1 g/dL (3.0-4.8); ALT/SGPT 90 U/L (7-56); AST/SGOT 97 U/L (14-36)
[2017-12-15] MEDS: Micafungin 100 MG in Sodium Chloride 0.9% 100 ML IV SCH (10:40)
[2017-12-15] MEDS: Lidocaine 5% Patch TD SCH (10:44)
[2017-12-15] MEDS: Enoxaparin 40 mg Syringe SC SCH (10:44)
[2017-12-15] MEDS: Vancomycin 1gm in NS 250ml 1 GM/250 ML BAG IVPB SCH ×2 (10:46→20:55)
--- NOTE | 2017-12-15 13:52 | PN ---
DATE: 12/15/2017 SUBJECTIVE: Patient is 62 years old, seen and examined, still having nasogastric suction, lot of biliary aspirate is coming. Abdominal pain seems to be better. Complaint of back pain, complaint of pain at the surgical site. PHYSICAL EXAMINATION: VITAL SIGNS: She is afebrile, pulse 54, respirations 20, blood pressure 176/67. LUNGS: Bilateral fair airflow. No rhonchi or crackle. HEART: S1, S2 audible. ABDOMEN: Soft. Positive palpable discomfort. NEUROLOGICAL: Patient is awake, alert, oriented. Able to communicate. LABORATORY EXAM: WBC 7.6, hemoglobin 11, hematocrit 34, platelet 242. Chemistry: Sodium 142, potassium 3.6, chloride 106, CO2 32, BUN 15, creatinine 0.4, blood sugar of 95, AST 97, ALT 90. ASSESSMENT: 1. Status post laparotomy. 2. Status post partial small bowel resection. 3. Ileus. 4. Hypertension. 5. Hyperlipidemia. 6. Non-insulin dependent diabetes. PLAN: 1. Patient's blood pressure is running high. She is n.p.o. and is on NG suction. I will request for Catapres patch. 2. To control her blood pressure. I will continue her on analgesic, antibiotics. Monitor blood sugar and electrolyte. Her potassium is being supplemented. Olga Goyal MD
--- NOTE | 2017-12-15 14:36 | CP.PCM.PN ---
Subjective - Date & Time of Evaluation Date of Evaluation: 12/15/17 Time of Evaluation: 14:32 - Subjective Subjective: General Surgery Progress Note for Dr. Wiggins This 62F was seen and examined this AM at bedside. No acute events overnight. She is not passing gas, NGT with dilute bilious output 1050cc/24 hours. No new complaints at this time. Objective - Vital Signs/Intake and Output Vital Signs (last 24 hours): Temp Pulse Resp BP Pulse Ox 98 F 60 20 176/67 H 95 12/15/17 09:05 12/15/17 13:08 12/15/17 09:05 12/15/17 13:08 12/15/17 09:05 Intake and Output: 12/15/17 12/15/17 06:59 18:59 Intake Total 1992 Output Total 605 Balance 1387 - Medications Medications: Current Medications Acetaminophen (Tylenol 325 Mg Supp) 325 mg RC Q4H PRN PRN Reason: Fever >100.4 F Last Admin: 12/12/17 05:45 Dose: 325 mg Albuterol/Ipratropium (Duoneb 3 Mg/0.5 Mg (3 Ml) Ud) 3 ml IH [id number] [facility] Last Admin: 12/15/17 13:24 Dose: Not Given Dextrose (Dextrose 50% Inj) 0 ml IV STAT PRN; Protocol PRN Reason: Hypoglycemia Protocol Enoxaparin Sodium (Lovenox) 40 mg SC DAILY [facility]; Protocol Last Admin: 12/15/17 10:44 Dose: 40 mg Fentanyl (Duragesic) 1 patch TD Q72H [facility] Hydromorphone HCl (Dilaudid) 0.5 mg IVP Q3H PRN PRN Reason: Pain, severe (8-10) Last Admin: 12/15/17 11:03 Dose: 0.5 mg Dextrose (Dextrose 5% In Water 1000 Ml) 1,000 mls @ 0 mls/hr IV .Q0M PRN; Protocol PRN Reason: Hypoglycemia Protocol Meropenem (Merrem Iv 1 Gm Premix) 1 gm in 50 mls @ 100 mls/hr IVPB Q8 [facility]; Protocol Stop: 12/19/17 14:01 Last Admin: 12/15/17 06:19 Dose: 100 mls/hr Vancomycin HCl (Vancomycin 1gm) 1 gm in 250 mls @ 167 mls/hr IVPB Q12H [facility]; Protocol Last Admin: 12/15/17 10:46 Dose: 167 mls/hr Micafungin Sodium 100 mg/ (Sodium Chloride) 100 mls @ 100 mls/hr IV DAILY [facility]; Protocol Stop: 12/21/17 10:46 Last Admin: 12/15/17 10:40 Dose: 100 mls/hr Potassium Chloride/Dextrose/Sod Cl (Potassium Chl 20 Meq In D5-1/2ns) 1,000 mls @ 75 mls/hr IV .[id number] [facility] Last Admin: 12/15/17 02:48 Dose: 75 mls/hr Insulin Human Lispro (Humalog Med) 0 units SC ACHS [facility]; Protocol Last Admin: 12/15/17 12:26 Dose: Not Given Ketorolac Tromethamine (Toradol) 15 mg IVP Q6H [facility] Last Admin: 12/15/17 13:05 Dose: 15 mg Lidocaine (Lidoderm) 1 ea TD DAILY [facility] Last Admin: 12/15/17 10:44 Dose: 1 ea Ondansetron HCl (Zofran Inj) 4 mg IVP Q6H PRN PRN Reason: Nausea/Vomiting Last Admin: 12/15/17 13:06 Dose: 4 mg - Labs Labs: 12/15/17 06:30 12/15/17 06:30 PT 11.8 SECONDS (9.4-12.5) 12/09/17 11:45 INR 1.03 12/09/17 11:45 APTT 30.4 Seconds (25.1-36.5) 12/09/17 11:45 - Constitutional Appears: Non-toxic, No Acute Distress - Head Exam Head Exam: ATRAUMATIC, NORMOCEPHALIC - Eye Exam Eye Exam: EOMI - ENT Exam ENT Exam: Mucous Membranes Moist - Respiratory Exam Respiratory Exam: NORMAL BREATHING PATTERN - Cardiovascular Exam Cardiovascular Exam: +S1, +S2 - GI/Abdominal Exam GI & Abdominal Exam: Soft. absent: Rigid, Tenderness - Neurological Exam Neurological Exam: Alert, Awake - Psychiatric Exam Psychiatric exam: Normal Affect, Normal Mood - Skin Skin Exam: Dry, Intact Assessment and Plan - Assessment and Plan (Free Text) Assessment: 62F s/p ex lap, VHR w/ biologic mesh, EMILIANO, SB rsxn with primary anastomosis x2 Plan: -ok for ice chips and sips of water -NGT until pt passes flatus into bag -IVF -ABx -Analgesics prn -Strict I&Os -Monitor bowel function -Encourage IS -OOB to chair -DVT ppx -Physical therapy -will pull drain before discharge -further recs per Dr. Wiggins
[2017-12-16] MEDS: Potassium Ch 20mEq in D5-1/2NS 1,000 ML IV SCH ×2 (01:09→15:10)
[2017-12-16] MEDS: Albuterol-Ipratrop 3 mg / 0.5 (3 ml) UD IH SCH ×4 (01:33→19:48)
[2017-12-16] MEDS: HYDROmorphone 0.5 mg/0.5 ml ISec IVP PRN ×6 (02:22→22:32)
[2017-12-16] MEDS: Meropenem IV 1 gm in NS 1 GM/50 ML BAG IVPB SCH ×3 (05:00→21:03)
[2017-12-16 06:32] LABS: BASO # 0.03 K/mm3 (0.0-2.0); BASO % 0.4 % (0.0-3.0); EOS # 1.2 (0.0-0.7); EOS % 15.8 % (1.5-5.0); GRAN # 4.91 (1.4-6.5); GRAN % 62.5 % (50.0-68.0); HEMOGLOBIN 11.1 g/dL (12.0-16.0); LYMPH # 1.1 (1.2-3.4); LYMPH % 14.3 % (22.0-35.0); MEAN CELL VOLUME 91.7 fl (80.0-105.0); MEAN CORPUSCULAR HEMOGLOBIN 29.8 pg (25.0-35.0); MEAN CORPUSCULAR HGB CONC 32.5 g/dl (31.0-37.0); MEAN PLATELET VOLUME 9.9 fl (7.0-11.0); MONO # 0.6 (0.1-0.6); RBC 3.73 10^6/uL (3.5-6.1); RED CELL DISTRIBUTION WIDTH 12.9 % (11.5-14.5); WHITE BLOOD COUNT 7.9 10^3/uL (4.5-11.0)
[2017-12-16 06:45] LABS: ALB/GLOB RATIO 1.1 (1.1-1.8); ALBUMIN 3.1 g/dL (3.0-4.8); ALT/SGPT 129 U/L (7-56); AST/SGOT 93 U/L (14-36); BLOOD UREA NITROGEN 13 mg/dL (7-21); CALCIUM 8.8 mg/dL (8.4-10.5); GFR NON-AFRICAN AMERICAN > 60
[2017-12-16] MEDS: Insulin Lispro (humaLOG) MEDIUM Coverage SC SCH ×4 (08:19→22:04)
[2017-12-16] MEDS: Enoxaparin 40 mg Syringe SC SCH (09:38)
[2017-12-16] MEDS: Lidocaine 5% Patch TD SCH (09:38)
[2017-12-16] MEDS: Micafungin 100 MG in Sodium Chloride 0.9% 100 ML IV SCH (09:39)
[2017-12-16] MEDS: Vancomycin 1gm in NS 250ml 1 GM/250 ML BAG IVPB SCH ×2 (09:41→21:03)
[2017-12-16] MEDS ORDERED: Vancomycin 1gm in NS 250ml 1 GM/250 ML BAG IVPB SCH (13:15)
--- NOTE | 2017-12-16 15:51 | CP.PCM.PN ---
Subjective - Date & Time of Evaluation Date of Evaluation: 12/16/17 Time of Evaluation: 06:00 - Subjective Subjective: Patient seen and examined. No acute events over night. Pt states abdominal pain has improved. No flatus as of yet. Removed small fecalith from stoma. Objective - Vital Signs/Intake and Output Vital Signs (last 24 hours): Temp Pulse Resp BP Pulse Ox 97.6 F 56 L 20 169/64 H 94 L 12/16/17 07:53 12/16/17 07:53 12/16/17 07:53 12/16/17 07:53 12/16/17 07:53 Intake and Output: 12/16/17 12/16/17 06:59 18:59 Intake Total 1260 Output Total 910 Balance 350 - Medications Medications: Current Medications Acetaminophen (Tylenol 325 Mg Supp) 325 mg RC Q4H PRN PRN Reason: Fever >100.4 F Last Admin: 12/12/17 05:45 Dose: 325 mg Albuterol/Ipratropium (Duoneb 3 Mg/0.5 Mg (3 Ml) Ud) 3 ml IH [id number] [facility] Last Admin: 12/16/17 13:26 Dose: 3 ml Dextrose (Dextrose 50% Inj) 0 ml IV STAT PRN; Protocol PRN Reason: Hypoglycemia Protocol Enoxaparin Sodium (Lovenox) 40 mg SC DAILY [facility]; Protocol Last Admin: 12/16/17 09:38 Dose: 40 mg Famotidine (Pepcid) 20 mg IVP DAILY [facility] Fentanyl (Duragesic) 1 patch TD Q72H [facility] Hydromorphone HCl (Dilaudid) 1 mg IVP Q3H PRN PRN Reason: Pain, severe (8-10) Last Admin: 12/16/17 15:11 Dose: 1 mg Dextrose (Dextrose 5% In Water 1000 Ml) 1,000 mls @ 0 mls/hr IV .Q0M PRN; Protocol PRN Reason: Hypoglycemia Protocol Meropenem (Merrem Iv 1 Gm Premix) 1 gm in 50 mls @ 100 mls/hr IVPB Q8 [facility]; Protocol Stop: 12/19/17 14:01 Last Admin: 12/16/17 15:09 Dose: 100 mls/hr Potassium Chloride/Dextrose/Sod Cl (Potassium Chl 20 Meq In D5-1/2ns) 1,000 mls @ 75 mls/hr IV .[id number] [facility] Last Admin: 12/16/17 15:10 Dose: 75 mls/hr Vancomycin HCl (Vancomycin 1gm) 1 gm in 250 mls @ 167 mls/hr IVPB Q12H [facility]; Protocol Insulin Human Lispro (Humalog Med) 0 units SC ACHS [facility]; Protocol Last Admin: 12/16/17 11:31 Dose: Not Given Ketorolac Tromethamine (Toradol) 15 mg IVP Q6H [facility] Last Admin: 12/16/17 15:11 Dose: Not Given Lidocaine (Lidoderm) 1 ea TD DAILY [facility] Last Admin: 12/16/17 09:38 Dose: Not Given Ondansetron HCl (Zofran Inj) 4 mg IVP Q6H PRN PRN Reason: Nausea/Vomiting Last Admin: 12/15/17 13:06 Dose: 4 mg - Labs Labs: 12/16/17 06:00 12/16/17 06:00 PT 11.8 SECONDS (9.4-12.5) 12/09/17 11:45 INR 1.03 12/09/17 11:45 APTT 30.4 Seconds (25.1-36.5) 12/09/17 11:45 - Constitutional Appears: No Acute Distress - Head Exam Head Exam: NORMOCEPHALIC - Eye Exam Eye Exam: EOMI, Normal appearance - Respiratory Exam Respiratory Exam: NORMAL BREATHING PATTERN - Cardiovascular Exam Cardiovascular Exam: +S1, +S2 - GI/Abdominal Exam GI & Abdominal Exam: Soft. absent: Distended, Firm, Guarding, Rigid - Neurological Exam Neurological Exam: Alert, Awake, Oriented x3 - Psychiatric Exam Psychiatric exam: Normal Mood - Skin Skin Exam: Dry, Intact, Warm Assessment and Plan - Assessment and Plan (Free Text) Assessment: 62F s/p ex lap, VHR w/ biologic mesh, EMILIANO, SB rsxn with primary anastomosis x2 POD 7 Plan: - F/u GI series -C/w ice chips and sips of water -NGT to gravity -IVF -Analgesics prn -Strict I&Os -Monitor bowel function -Encourage IS -OOB to chair -DVT ppx -Physical therapy -further recs per Dr. Feliciano Rudd PGY3
--- NOTE | 2017-12-16 19:49 | PN ---
DATE: 12/16/2017 SUBJECTIVE: The patient is in bed, in no acute distress, nontoxic. No fevers and no chills. PHYSICAL EXAMINATION: VITAL SIGNS: Temperature is 98, blood pressure is 160/60, respiratory rate 18. HEENT: Unremarkable. NECK: Supple. LUNGS: Decreased breath sounds. HEART: Normal S1 and S2. ABDOMEN: Soft. LABORATORY DATA: Reveals a white count of 7.9, hemoglobin of 11. Chemistries are noted and BUN is 13, creatinine of 0.5. Urinalysis is noted. Microbiology reveals the blood cultures have no growth. Urine culture has yeast. 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 The patient currently still has the Amrk catheter, today's date is #5 of vancomycin, meropenem and micafungin and on review of the culture reveals the blood culture are negative, MRSA nares, and the repeat cultures are negative, we will discontinue micafungin and white count is normalized. Ideally, we would like to remove the Mark catheter, discussed with Dr. Wiggins, he is concerned about patient's long history of urinary retentions and today is day #5 of meropenem, we would complete 4 to 7 days if the blood cultures are negative. We will check on the nasal MRSA screen and we will follow with you. Juan Thompson MD
--- NOTE | 2017-12-16 22:49 | PN ---
DATE: 12/16/2017 SUBJECTIVE: The patient is 62 years old, seen and examined. Complained of pain in the surgical site, especially after coming back from therapy. Still has copious aspirate and nasogastric tube is in place. PHYSICAL EXAMINATION: VITAL SIGNS: She is afebrile, pulse 56, respirations 20, blood pressure 116/64. LUNGS: Bilateral fair airflow. Few occasional expiratory rhonchi at bases, more pronounced posteriorly. HEART: S1 and S2 audible. ABDOMEN: Soft. Bowel sounds are sluggish. NEUROLOGICAL: She is awake, alert, oriented, communicative. LABORATORY EXAM: WBC 7.9, hemoglobin 11, hematocrit 34, platelet 243. Chemistry: Sodium 139, potassium 3.8, chloride 106, CO2 of 31, BUN 13, creatinine 0.5, blood sugar of 108, AST 93, ALT 129. Blood cultures are negative. ASSESSMENT: 1. Status post rectal mesh removal. 2. Ventral hernia repair and placement of biological mesh. PLAN: Currently, the patient is on IV fluid and nasogastric suction. The patient's blood pressure seems to be running high. I will continue Catapres #2 and add Catapres #1 in addition to Catapres #2. Since the patient is n.p.o., we will defer oral antihypertensive, monitor blood sugar. Continue meropenem. I increased her Dilaudid 1 mg every 3 p.r.n. for moderate to severe pain. Olga Goyal MD
[2017-12-17] MEDS: HYDROmorphone 0.5 mg/0.5 ml ISec IVP PRN ×3 (02:28→11:24)
[2017-12-17] MEDS: Albuterol-Ipratrop 3 mg / 0.5 (3 ml) UD IH SCH ×3 (03:09→13:48)
[2017-12-17] MEDS: Potassium Ch 20mEq in D5-1/2NS 1,000 ML IV SCH ×2 (03:54→18:32)
[2017-12-17] MEDS: Meropenem IV 1 gm in NS 1 GM/50 ML BAG IVPB SCH ×3 (05:14→21:56)
[2017-12-17] MEDS: Insulin Lispro (humaLOG) MEDIUM Coverage SC SCH ×4 (07:43→22:00)
[2017-12-17] MEDS: Vancomycin 1gm in NS 250ml 1 GM/250 ML BAG IVPB SCH ×2 (08:51→20:41)
[2017-12-17] MEDS: Enoxaparin 40 mg Syringe SC SCH (09:53)
[2017-12-17] MEDS: Lidocaine 5% Patch TD SCH (09:54)
--- NOTE | 2017-12-17 10:40 | PN ---
DATE: 12/17/2017 SUBJECTIVE: The patient is seen earlier this morning. PHYSICAL EXAMINATION: VITAL SIGNS: Temperature is 97, blood pressure is 150/60, respiratory rate 18. HEENT: Examination of HEENT is unremarkable. NECK: Supple. LUNGS: Have decreased breath sounds. HEART: Exam reveals normal S1, S2. ABDOMEN: Examination is soft, nontender. LABORATORY EXAMINATION: Reveals the patient's white count of 7.9, hemoglobin of 11. Chemistries are noted. Urinalysis is noted and microbiology reveals yeast in the urine. Blood cultures are no growth, and the patient still has an NG tube in. ASSESSMENT AND PLAN: This is a 62-year-old female, who is seen earlier with an NG tube, history of bladder stimulator that was years ago, rectovaginal fistula, long standing mesh infection, coronary artery disease, hypertension, status post hernia and removal of an infected mesh with sepsis with healthcare-associated pneumonia, currently still has a Mark in. The patient states that she has not had any urinary retention in many years. She has not had to do a catheterization in many years and the bladder stimulator has been out for many years. Currently on vancomycin and meropenem. Micafungin was discontinued. Vancomycin was discontinued, day #6 of meropenem. We would complete 7 days of meropenem, and we will discuss with Dr. Wiggins again regarding removal of the Mark catheter at this point, and the patient is also on vancomycin, awaiting for final culture results and nasal MRSA screen. Juan Thompson MD
[2017-12-17] MEDS ORDERED: Barium Sulfate for Susp 96% w/w 176g Bottle PR ONE (10:54)
[2017-12-17] MEDS: EnalaprilAT 1.25 mg/ml Inj IVP SCH ×2 (12:02→17:03)
[2017-12-17] MEDS ORDERED: Barium Sulfate for Susp 98% w/w 340g Bottle ONE (12:48)
--- NOTE | 2017-12-17 14:18 | CP.PCM.PN ---
Subjective - Date & Time of Evaluation Date of Evaluation: 12/17/17 Time of Evaluation: 14:13 - Subjective Subjective: Cory Rouse, PGY-1, Surgery Progress Note for Dr. Wiggins Patient seen and examined at bedside. Patient had no acute overnight events. Patient today reports headache, nausea, abdominal pain, no bowel movement, and aguiar catheter is present at this time. Objective - Vital Signs/Intake and Output Vital Signs (last 24 hours): Temp Pulse Resp BP Pulse Ox 97.9 F 66 20 173/81 H 98 12/17/17 07:45 12/17/17 07:45 12/17/17 07:45 12/17/17 10:30 12/17/17 07:45 Intake and Output: 12/17/17 12/17/17 06:59 18:59 Intake Total 950 Output Total 1355 Balance -405 - Medications Medications: Current Medications Acetaminophen (Tylenol 325 Mg Supp) 325 mg RC Q4H PRN PRN Reason: Fever >100.4 F Last Admin: 12/12/17 05:45 Dose: 325 mg Albuterol/Ipratropium (Duoneb 3 Mg/0.5 Mg (3 Ml) Ud) 3 ml IH [id number] [facility] Last Admin: 12/17/17 13:48 Dose: Not Given Clonidine HCl (Catapres-Tts3 0.3 Mg/24 Hr) 1 patch TD Q7D@1000 [facility] Last Admin: 12/17/17 10:30 Dose: 1 patch Dextrose (Dextrose 50% Inj) 0 ml IV STAT PRN; Protocol PRN Reason: Hypoglycemia Protocol Enalaprilat (Vasotec Iv) 1.25 mg IVP Q6H [facility] Enoxaparin Sodium (Lovenox) 40 mg SC DAILY [facility]; Protocol Last Admin: 12/17/17 09:53 Dose: 40 mg Famotidine (Pepcid) 20 mg IVP DAILY [facility] Last Admin: 12/17/17 09:53 Dose: 20 mg Fentanyl (Duragesic) 1 patch TD Q72H [facility] Hydromorphone HCl (Dilaudid) 1 mg IVP Q3H PRN PRN Reason: Pain, severe (8-10) Dextrose (Dextrose 5% In Water 1000 Ml) 1,000 mls @ 0 mls/hr IV .Q0M PRN; Protocol PRN Reason: Hypoglycemia Protocol Meropenem (Merrem Iv 1 Gm Premix) 1 gm in 50 mls @ 100 mls/hr IVPB Q8 [facility]; Protocol Stop: 12/19/17 14:01 Last Admin: 12/17/17 05:14 Dose: 100 mls/hr Potassium Chloride/Dextrose/Sod Cl (Potassium Chl 20 Meq In D5-1/2ns) 1,000 mls @ 75 mls/hr IV .[id number] [facility] Last Admin: 12/17/17 03:54 Dose: Not Given Vancomycin HCl (Vancomycin 1gm) 1 gm in 250 mls @ 167 mls/hr IVPB Q12H [facility]; Protocol Last Admin: 12/17/17 08:51 Dose: 167 mls/hr Insulin Human Lispro (Humalog Med) 0 units SC ACHS [facility]; Protocol Last Admin: 12/17/17 12:11 Dose: Not Given Ketorolac Tromethamine (Toradol) 15 mg IVP Q6H [facility] Last Admin: 12/17/17 07:51 Dose: 15 mg Lidocaine (Lidoderm) 1 ea TD DAILY [facility] Last Admin: 12/17/17 09:54 Dose: 1 ea Ondansetron HCl (Zofran Inj) 4 mg IVP Q6H PRN PRN Reason: Nausea/Vomiting Last Admin: 12/15/17 13:06 Dose: 4 mg - Labs Labs: 12/16/17 06:00 12/16/17 06:00 PT 11.8 SECONDS (9.4-12.5) 12/09/17 11:45 INR 1.03 12/09/17 11:45 APTT 30.4 Seconds (25.1-36.5) 12/09/17 11:45 - Constitutional Appears: Well, Non-toxic, No Acute Distress - Head Exam Head Exam: ATRAUMATIC, NORMAL INSPECTION, NORMOCEPHALIC - Eye Exam Eye Exam: EOMI Pupil Exam: PERRL - ENT Exam ENT Exam: Mucous Membranes Moist - Respiratory Exam Respiratory Exam: Clear to Ausculation Bilateral, NORMAL BREATHING PATTERN - Cardiovascular Exam Cardiovascular Exam: REGULAR RHYTHM - GI/Abdominal Exam GI & Abdominal Exam: Distended Additional comments: Stoma look healthy, without erythema or necrosis. staple line looks nonerythematous, is not warm, and is nontender. Edema has improved - Extremities Exam Extremities Exam: Full ROM - Neurological Exam Neurological Exam: Alert, Awake, CN II-XII Intact, Oriented x3 - Skin Skin Exam: Dry, Intact, Normal Color Assessment and Plan - Assessment and Plan (Free Text) Assessment: 62 year old female with past medical history of HTN, NIDDM, and HLD presents s/p exploratory laparatomy with excision of infected mesh. Plan: Upper GI series results pending. Do not remove NG tube until results have been read. Patient should be out of bed and walking as tolerated Blood pressure medications have been converted to IV. Patient is now on enalaprit. Patient's home propanolol held due to patient's low heart rate. DVT prophylaxis with lovenox and SCD. GI prophylaxis with pepcid. Replete electrolytes as needed. Will discuss case with Dr. Wiggins.
[2017-12-17] MEDS: HYDROmorphone 1 mg/ml ISec IVP PRN ×3 (14:27→21:57)
--- NOTE | 2017-12-17 17:10 | PN ---
DATE: 12/17/2017 SUBJECTIVE: The patient is 62 years old, seen and examined, lying in bed, complained of abdominal pain, still has a nasogastric suction tube at gravity. She still has almost 1000 aspirate. Belly seems to be soft. PHYSICAL EXAMINATION: VITAL SIGNS: She is afebrile, pulse 66, respirations 20, and blood pressure 173/81. LUNGS: Bilateral fair airflow. No rhonchi or crackle. HEART: S1 and S2 audible. ABDOMEN: Soft. Slight epigastric discomfort and palpable discomfort at surgical site. NEUROLOGICAL: She is awake, alert, oriented, and communicative. LABORATORY EXAM: There is no new lab available today. However, AST 93, ALT 129. ASSESSMENT: 1. Status post infected mesh removal. 2. Status post ventral hernia repair and placement of biological mesh. 3. Hypertension. 4. History of hypertension. 5. Cbm-azwfzgc-[id number] diabetes. PLAN: The patient is currently on clonidine patch #3, hydralazine 10 mg every 6 hours p.r.n. for systolic more than 150. I will continue her on DVT prophylaxis. She is on meropenem. She is on vancomycin. I will follow up her electrolyte. The patient has been started on Vasotec 1.25 mg every 6 hours. So, we will hold off her hydralazine for now. Monitor her blood pressure closely. Follow up her electrolyte, CBC, and CMP in a.m. Olga Goyal MD
[2017-12-18] MEDS: EnalaprilAT 1.25 mg/ml Inj IVP SCH ×3 (00:04→20:27)
[2017-12-18] MEDS: Albuterol-Ipratrop 3 mg / 0.5 (3 ml) UD IH SCH ×4 (01:42→20:55)
[2017-12-18] MEDS: HYDROmorphone 1 mg/ml ISec IVP PRN (02:41)
[2017-12-18] MEDS: Meropenem IV 1 gm in NS 1 GM/50 ML BAG IVPB SCH ×3 (05:38→22:15)
[2017-12-18 07:05] LABS: BASO # 0.03 K/mm3 (0.0-2.0); BASO % 0.4 % (0.0-3.0); EOS % 11.8 % (1.5-5.0); GRAN # 5.28 (1.4-6.5); GRAN % 65.6 % (50.0-68.0); HEMOGLOBIN 10.8 g/dL (12.0-16.0); LYMPH # 1.1 (1.2-3.4); LYMPH % 13.5 % (22.0-35.0); MEAN CELL VOLUME 90.4 fl (80.0-105.0); MEAN CORPUSCULAR HEMOGLOBIN 29.7 pg (25.0-35.0); MEAN CORPUSCULAR HGB CONC 32.8 g/dl (31.0-37.0); MEAN PLATELET VOLUME 10.6 fl (7.0-11.0); MONO # 0.7 (0.1-0.6); MONO % 8.7 % (1.0-6.0); RBC 3.64 10^6/uL (3.5-6.1); RED CELL DISTRIBUTION WIDTH 12.9 % (11.5-14.5); WHITE BLOOD COUNT 8.1 10^3/uL (4.5-11.0)
[2017-12-18 07:19] LABS: ALB/GLOB RATIO 1.1 (1.1-1.8); ALBUMIN 2.9 g/dL (3.0-4.8); ALT/SGPT 83 U/L (7-56); AST/SGOT 33 U/L (14-36); BLOOD UREA NITROGEN 7 mg/dL (7-21); CALCIUM 8.6 mg/dL (8.4-10.5); GFR NON-AFRICAN AMERICAN > 60
--- NOTE | 2017-12-18 07:44 | RAD ---
Date of service: 12/18/2017 HISTORY: f/u contrast progression COMPARISON: Upper GI and small bowel study performed earlier in the day FINDINGS: BOWEL: Films were obtained 6 hr after the beginning of the upper GI small bowel exam. Contrast can be seen in the distal ileum extending to the right upper quadrant ostomy. The distal ileum is normal in caliber. There is mild dilatation of the proximal small bowel. There is residual contrast in the cecum which was present on the phys asst film BONES: Normal. OTHER FINDINGS: None. IMPRESSION: Contrast extends into the distal ileum.
--- NOTE | 2017-12-18 07:49 | RAD ---
Date of service: 12/17/2017 HISTORY: r/o obstruction COMPARISON: None. TECHNIQUE: Single contrast upper GI series and small bowel series was performed. FINDINGS: The mounter flutes and piccolos film shows residual contrast in the cecum and ascending colon. A nasogastric tube is seen in the distal stomach ESOPHAGUS: Esophageal mucosa appeared preserved. No evidence of stricture or mass lesion. STOMACH: Gastric mucosa appear preserved. No evidence of ulceration or mass lesion. The proximal small bowel is mildly dilated. There is slow transit of contrast. At 2 hr and 30 min most of the contrast is still seen on the left side of the the abdomen. A follow-up portable abdominal film shows progression of the contrast into the distal ileum at 6 hr. OTHER FINDINGS: None. IMPRESSION: Slow transit of contrast through the small bowel. Contrast reaches the ostomy at 6 hr
--- NOTE | 2017-12-18 08:01 | CP.PCM.PN ---
Subjective - Date & Time of Evaluation Date of Evaluation: 12/18/17 Time of Evaluation: 08:01 - Subjective Subjective: Cory Rouse, PGY-1, Surgery Progress Note for Dr. Wiggins Patient seen and examined at bedside. Patient reports continued abdominal pain. Patient has not passed gas. Patient denies headache, dizziness, fever, chest pain, heart palpitations, shortness of breath, nausea, vomiting, dysuria, and hematuria. Objective - Vital Signs/Intake and Output Vital Signs (last 24 hours): Temp Pulse Resp BP Pulse Ox 97.8 F 58 L 20 146/62 94 L 12/18/17 00:00 12/18/17 00:00 12/18/17 00:00 12/18/17 05:40 12/18/17 00:00 Intake and Output: 12/18/17 12/18/17 06:59 18:59 Intake Total 1970 Output Total 2155 Balance -185 - Medications Medications: Current Medications Acetaminophen (Tylenol 325 Mg Supp) 325 mg RC Q4H PRN PRN Reason: Fever >100.4 F Last Admin: 12/12/17 05:45 Dose: 325 mg Albuterol/Ipratropium (Duoneb 3 Mg/0.5 Mg (3 Ml) Ud) 3 ml IH [id number] [facility] Last Admin: 12/18/17 01:42 Dose: 3 ml Clonidine HCl (Catapres-Tts3 0.3 Mg/24 Hr) 1 patch TD Q7D@1000 [facility] Last Admin: 12/17/17 10:30 Dose: 1 patch Dextrose (Dextrose 50% Inj) 0 ml IV STAT PRN; Protocol PRN Reason: Hypoglycemia Protocol Enalaprilat (Vasotec Iv) 1.25 mg IVP Q6H [facility] Last Admin: 12/18/17 05:40 Dose: 1.25 mg Enoxaparin Sodium (Lovenox) 40 mg SC DAILY [facility]; Protocol Last Admin: 12/17/17 09:53 Dose: 40 mg Famotidine (Pepcid) 20 mg IVP DAILY [facility] Last Admin: 12/17/17 09:53 Dose: 20 mg Fentanyl (Duragesic) 1 patch TD Q72H [facility] Last Admin: 12/17/17 15:15 Dose: 1 patch Hydromorphone HCl (Dilaudid) 0.5 mg IVP Q4H PRN PRN Reason: Pain, moderate (4-7) Dextrose (Dextrose 5% In Water 1000 Ml) 1,000 mls @ 0 mls/hr IV .Q0M PRN; Protocol PRN Reason: Hypoglycemia Protocol Meropenem (Merrem Iv 1 Gm Premix) 1 gm in 50 mls @ 100 mls/hr IVPB Q8 [facility]; Protocol Stop: 12/19/17 14:01 Last Admin: 12/18/17 05:38 Dose: 100 mls/hr Potassium Chloride/Dextrose/Sod Cl (Potassium Chl 20 Meq In D5-1/2ns) 1,000 mls @ 75 mls/hr IV .[id number] [facility] Last Admin: 12/17/17 18:32 Dose: 75 mls/hr Vancomycin HCl (Vancomycin 1gm) 1 gm in 250 mls @ 167 mls/hr IVPB Q12H [facility]; Protocol Last Admin: 12/17/17 20:41 Dose: 167 mls/hr Insulin Human Lispro (Humalog Med) 0 units SC ACHS [facility]; Protocol Last Admin: 12/17/17 22:00 Dose: Not Given Ketorolac Tromethamine (Toradol) 15 mg IVP Q6H [facility] Last Admin: 12/18/17 05:35 Dose: 15 mg Lidocaine (Lidoderm) 1 ea TD DAILY [facility] Last Admin: 12/17/17 09:54 Dose: 1 ea Ondansetron HCl (Zofran Inj) 4 mg IVP Q6H PRN PRN Reason: Nausea/Vomiting Last Admin: 12/15/17 13:06 Dose: 4 mg - Labs Labs: 12/18/17 06:00 12/18/17 06:00 PT 11.8 SECONDS (9.4-12.5) 12/09/17 11:45 INR 1.03 12/09/17 11:45 APTT 30.4 Seconds (25.1-36.5) 12/09/17 11:45 - Constitutional Appears: Well, Non-toxic, No Acute Distress - Head Exam Head Exam: ATRAUMATIC, NORMAL INSPECTION, NORMOCEPHALIC - Eye Exam Eye Exam: EOMI Pupil Exam: PERRL - Respiratory Exam Respiratory Exam: Clear to Ausculation Bilateral, NORMAL BREATHING PATTERN - Cardiovascular Exam Cardiovascular Exam: REGULAR RHYTHM - GI/Abdominal Exam GI & Abdominal Exam: Distended, Soft, Tenderness, Normal Bowel Sounds Additional comments: edema present under the staple line - Extremities Exam Extremities Exam: Full ROM - Neurological Exam Neurological Exam: Alert, Awake, CN II-XII Intact, Oriented x3 - Skin Skin Exam: Dry, Intact, Normal Color Additional comments: nonerythematous, nontender, and not warm around staple line Assessment and Plan - Assessment and Plan (Free Text) Assessment: 62 year old female with past medical history of HTN, NIDDM, and HLD presents s/p exploratory laparatomy with excision of infected mesh. Plan: NG tube suction has been stopped. Awaiting output from ostomy or will have to restart NG tube suction. Patient should be out of bed and walking as tolerated Possible enema through ostomy. DVT prophylaxis with lovenox and SCD. GI prophylaxis with pepcid. Replete electrolytes as needed. Will discuss case with Dr. Wiggins.
[2017-12-18] MEDS: HYDROmorphone 0.5 mg/0.5 ml ISec IVP PRN ×2 (08:35→13:15)
[2017-12-18] MEDS: Insulin Lispro (humaLOG) MEDIUM Coverage SC SCH ×4 (08:36→21:45)
[2017-12-18] MEDS: Enoxaparin 40 mg Syringe SC SCH (09:33)
[2017-12-18] MEDS: Lidocaine 5% Patch TD SCH (09:33)
[2017-12-18] MEDS: Vancomycin 1gm in NS 250ml 1 GM/250 ML BAG IVPB SCH ×2 (09:45→20:27)
--- NOTE | 2017-12-18 10:30 | CP.PCM.PCO ---
Physician Communication Note - Physician Communication Note Physician Communication Note: ?DC NGT/RRelistor-Colostomy enema
[2017-12-18] MEDS: Potassium Ch 20mEq in D5-1/2NS 1,000 ML IV SCH ×2 (14:44→20:34)
[2017-12-18] MEDS ORDERED: HYDROmorphone 1 mg/ml ISec IVP STA ×2 (15:39→23:31)
[2017-12-18] MEDS: POLYETHYLENE GLYCOL 3350 17 GM/Dose PACKET PO SCH (20:27)
--- NOTE | 2017-12-18 22:24 | PN ---
DATE: 12/18/2017 SUBJECTIVE: The patient is a 62-year-old female seen and examined, went for upper GI series. She states she was in pain. She also complained that 0.5 mg of Dilaudid is not helping her. She also added that she vomited all the contrast that she drank and since then I am evaluating also. PHYSICAL EXAMINATION: GENERAL: On examination, she is awake, alert, and oriented, communicative. VITAL SIGNS: She is afebrile. Pulse 62, respirations 19, blood pressure 146/62. LUNGS: Bilateral fair air flow. No rhonchi or crackles. HEART: S1 and S2, audible. ABDOMEN: Soft. Colostomy has brownish fluid. EXTREMITIES: Bilateral legs, no edema. LABORATORY DATA: WBC 8.1, hemoglobin 10.8, hematocrit 32.9, platelets 256. Chemistries: Sodium 138, potassium 3.9, chloride 106, CO2 27, BUN 7, creatinine 0.4, blood sugar of 101. ASSESSMENT: 1. Status post infected mesh removal. 2. Ventral hernia repair. 3. Hypertension. 4. Vwx-eptmviz-ypsespawy diabetes. PLAN: Dr. Wiggins' input noted and appreciated. Her nasogastric tube will be removed and she has been started on ____. She is requesting for at least 1 mg of Dilaudid. She said 0.5 is not helping. We will continue her on Catapres #3 for control of blood pressure. She is on DVT prophylaxis. She is on meropenem. She is given dose of Relistor. We will monitor her electrolytes in the a.m. Olga Goyal MD
[2017-12-19] MEDS: EnalaprilAT 1.25 mg/ml Inj IVP SCH ×2 (00:10→05:54)
[2017-12-19] MEDS: Albuterol-Ipratrop 3 mg / 0.5 (3 ml) UD IH SCH ×4 (03:05→20:13)
[2017-12-19] MEDS: Meropenem IV 1 gm in NS 1 GM/50 ML BAG IVPB SCH (05:53)
--- NOTE | 2017-12-19 07:52 | CP.PCM.PN ---
Subjective - Date & Time of Evaluation Date of Evaluation: 12/19/17 Time of Evaluation: 07:39 - Subjective Subjective: Cory Rouse, PGY-1, Surgery Progress Note for Dr. Wiggins Patient seen and examined at bedside. Overnight, patient refused dilaudid. Patient continues to report headache and no stool in stoma. Patient reports mild abdominal pain at site of incision. Patient denies dysuria, hematuria, fever, chest pain, shortness of breath. Objective - Vital Signs/Intake and Output Vital Signs (last 24 hours): Temp Pulse Resp BP Pulse Ox 98.1 F 56 L 19 191/70 H 96 12/18/17 16:27 12/18/17 22:56 12/18/17 16:27 12/19/17 05:54 12/18/17 16:27 - Medications Medications: Current Medications Acetaminophen (Tylenol 325 Mg Supp) 325 mg RC Q4H PRN PRN Reason: Fever >100.4 F Last Admin: 12/12/17 05:45 Dose: 325 mg Albuterol/Ipratropium (Duoneb 3 Mg/0.5 Mg (3 Ml) Ud) 3 ml IH [id number] [facility] Last Admin: 12/19/17 03:05 Dose: 3 ml Clonidine HCl (Catapres-Tts3 0.3 Mg/24 Hr) 1 patch TD Q7D@1000 [facility] Last Admin: 12/17/17 10:30 Dose: 1 patch Dextrose (Dextrose 50% Inj) 0 ml IV STAT PRN; Protocol PRN Reason: Hypoglycemia Protocol Enalaprilat (Vasotec Iv) 1.25 mg IVP Q6H [facility] Last Admin: 12/19/17 05:54 Dose: 1.25 mg Enoxaparin Sodium (Lovenox) 40 mg SC DAILY [facility]; Protocol Last Admin: 12/18/17 09:33 Dose: 40 mg Famotidine (Pepcid) 20 mg IVP DAILY [facility] Last Admin: 12/18/17 09:33 Dose: 20 mg Fentanyl (Duragesic) 1 patch TD Q72H [facility] Last Admin: 12/18/17 09:32 Dose: 1 patch Hydromorphone HCl (Dilaudid) 0.5 mg IVP Q4H PRN PRN Reason: Pain, moderate (4-7) Last Admin: 12/18/17 13:15 Dose: 0.5 mg Dextrose (Dextrose 5% In Water 1000 Ml) 1,000 mls @ 0 mls/hr IV .Q0M PRN; Protocol PRN Reason: Hypoglycemia Protocol Meropenem (Merrem Iv 1 Gm Premix) 1 gm in 50 mls @ 100 mls/hr IVPB Q8 [facility]; Protocol Stop: 12/19/17 14:01 Last Admin: 12/19/17 05:53 Dose: 100 mls/hr Potassium Chloride/Dextrose/Sod Cl (Potassium Chl 20 Meq In D5-1/2ns) 1,000 mls @ 75 mls/hr IV .[id number] [facility] Last Admin: 12/18/17 20:34 Dose: 75 mls/hr Vancomycin HCl (Vancomycin 1gm) 1 gm in 250 mls @ 167 mls/hr IVPB Q12H [facility]; Protocol Last Admin: 12/18/17 20:27 Dose: 167 mls/hr Insulin Human Lispro (Humalog Med) 0 units SC ACHS [facility]; Protocol Last Admin: 12/18/17 21:45 Dose: Not Given Ketorolac Tromethamine (Toradol) 15 mg IVP Q6H [facility] Last Admin: 12/19/17 01:24 Dose: Not Given Lidocaine (Lidoderm) 1 ea TD DAILY [facility] Last Admin: 12/18/17 09:33 Dose: Not Given Ondansetron HCl (Zofran Inj) 4 mg IVP Q6H PRN PRN Reason: Nausea/Vomiting Last Admin: 12/15/17 13:06 Dose: 4 mg Polyethylene Glycol (Miralax) 17 gm PO BID [facility] Last Admin: 12/18/17 20:27 Dose: 17 gm - Labs Labs: 12/18/17 06:00 12/18/17 06:00 PT 11.8 SECONDS (9.4-12.5) 12/09/17 11:45 INR 1.03 12/09/17 11:45 APTT 30.4 Seconds (25.1-36.5) 12/09/17 11:45 - Constitutional Appears: Well, Non-toxic, No Acute Distress - Head Exam Head Exam: ATRAUMATIC, NORMAL INSPECTION, NORMOCEPHALIC - Eye Exam Eye Exam: EOMI Pupil Exam: PERRL - Respiratory Exam Respiratory Exam: Clear to Ausculation Bilateral, NORMAL BREATHING PATTERN - Cardiovascular Exam Cardiovascular Exam: REGULAR RHYTHM - GI/Abdominal Exam GI & Abdominal Exam: Soft, Normal Bowel Sounds Additional comments: staple line intact, nonerythematous, not warm. mild edema below staple line - Neurological Exam Neurological Exam: Alert, Awake, CN II-XII Intact, Oriented x3 Assessment and Plan - Assessment and Plan (Free Text) Assessment: 62 year old female with past medical history of hypertension, NIDDM, HLD presents s/p day 10 of exlap with excision of infected mesh. Plan: Continue with enema. No stool in stoma. Continue with dilaudid, fentanyl patch, and lidoderm. PT OOB Will switch to home PO meds as patient is tolerating sips. Will discuss plan with Dr. Wiggins.
[2017-12-19 08:07] LABS: ALB/GLOB RATIO 1.1 (1.1-1.8); ALBUMIN 3.2 g/dL (3.0-4.8); ALT/SGPT 74 U/L (7-56); AST/SGOT 37 U/L (14-36); BLOOD UREA NITROGEN 3 mg/dL (7-21); GFR NON-AFRICAN AMERICAN > 60
--- NOTE | 2017-12-19 09:46 | PN ---
DATE: 12/18/2017 SUBJECTIVE: The patient seen earlier this morning in no acute distress and nontoxic. No fevers. No chills. PHYSICAL EXAMINATION: VITAL SIGNS: On exam, temperature is 97, blood pressure is 140/60 and respiratory rate 20. HEENT: Unremarkable. NG tube is still in. NECK: Supple. LUNGS: Have decreased breath sounds. HEART: Normal S1 and S2. ABDOMINAL: Soft. LABORATORY EXAMINATION: Reveals a white count of 8.1 and hemoglobin of 10. Chemistries reveals the BUN of 7 and creatinine of 0.4. Vancomycin trough at 7.3. Microbiology reveals yeast in the urine. MEDICATIONS: Review of orders reveals the patient to be on meropenem and vancomycin. Dr. Wiggins's communication report is reviewed and GI, radiology procedure is reviewed. Slow transit of contrast through the small bowel is present. ASSESSMENT AND PLAN: This is a 62-year-old female seen with a history of bladder stimulator years ago and rectovaginal fistula, longstanding mesh infection, coronary artery disease, hypertension and status post hernia and removal of the infected mesh with sepsis and healthcare-associated pneumonia. We will discontinue Mark today and today is day #7 of antibiotics. We will discontinue the antibiotics after today's last dose. The patient's white count is normal. She is afebrile. Recommending, discontinue the nasogastric tube also if possible; however, the Mark catheter must be discontinued today as discussed with Dr. Wiggins. Today is day #7 of antibiotics, we will discontinue the antibiotics after today's last dose vancomycin and meropenem. Juan Thompson MD
[2017-12-19] MEDS: Insulin Lispro (humaLOG) MEDIUM Coverage SC SCH ×4 (09:53→22:00)
[2017-12-19] MEDS: Propranolol 60 mg ER Cap PO SCH (09:54)
[2017-12-19] MEDS: Lidocaine 5% Patch TD SCH (09:54)
[2017-12-19] MEDS: Enoxaparin 40 mg Syringe SC SCH (09:55)
[2017-12-19] MEDS: POLYETHYLENE GLYCOL 3350 17 GM/Dose PACKET PO SCH ×2 (09:57→17:31)
[2017-12-19] MEDS: Oxycodone/Acetaminophen 5/325 mg Tab PO PRN ×3 (09:58→23:46)
[2017-12-19] MEDS: Potassium Ch 20mEq in D5-1/2NS 1,000 ML IV SCH (09:59)
[2017-12-19] MEDS ORDERED: SIMVASTATIN 80 MG PO SCH (10:00)
[2017-12-19] MEDS: Vancomycin 1gm in NS 250ml 1 GM/250 ML BAG IVPB SCH (10:00)
[2017-12-19] MEDS ORDERED: AMLODIPINE PO SCH (10:00)
[2017-12-19] MEDS ORDERED: VALSARTAN PO SCH (10:00)
--- NOTE | 2017-12-19 11:34 | CP.PCM.PCO ---
Physician Communication Note - Physician Communication Note Physician Communication Note: Barium in [facility]/Rx SSE/Liquids/dulcolax
--- NOTE | 2017-12-19 12:28 | RAD ---
Date of service: 12/19/2017 HISTORY: constipation COMPARISON: 12/18/2017 FINDINGS: BOWEL: Residual contrast is seen in the small bowel and the right side of the colon. There is a right upper quadrant ostomy. The proximal small bowel is dilated with air-fluid levels consistent with partial obstruction. BONES: Normal. OTHER FINDINGS: None. IMPRESSION: Residual contrast is seen in the small bowel and the right side of the colon. There is a right upper quadrant ostomy. The proximal small bowel is dilated with air-fluid levels consistent with partial obstruction.
--- NOTE | 2017-12-19 13:35 | US ---
Date of service: 12/19/2017 PROCEDURE: HISTORY: Residual Urine post void @ Bedside COMPARISON: TECHNIQUE: FINDINGS: Prevoid bladder volume is 37 cc. No significant postvoid residual. No ureteral jets are identified. No bladder wall thickening or calculus is observed. IMPRESSION: As above.
[2017-12-19] MEDS ORDERED: Bisacodyl 5mg EC Tab PO ONE (15:17)
--- NOTE | 2017-12-19 16:04 | PN ---
DATE: 12/19/2017 SUBJECTIVE: The patient seen in bed, in no acute distress and nontoxic. No fevers and chills. PHYSICAL EXAMINATION: VITAL SIGNS: Temperature is 98, blood pressure is 190/70, respiratory rate of 18. HEENT: Unremarkable. NECK: Supple. LUNGS: Have decreased breath sounds. HEART: Normal S1 and S2. ABDOMINAL: Soft. LABORATORY EXAMINATION: Reveals a white count of 8, hemoglobin of 10. Chemistries are noted. Urine analysis is noted and vanco trough of 7.3. Microbiology reveals the urine culture positive for yeast and MRS jaden is not detected. Blood cultures are negative and white count is normal. Review of orders reveals the patient to be on vanco and meropenem. Dr. Wiggins' communication report is noted and x-ray of the abdomen is noted. ASSESSMENT AND PLAN: A 62-year-old female seen earlier this morning. Her Mark catheter is out. Her NG tube is out. She is doing much better and longstanding mesh infection and coronary artery disease, hypertension, status post hernia, removal of the infected mesh, sepsis, healthcare-associated pneumonia and off of antibiotics. The patient is day #8 of antibiotics. We will discontinue vancomycin and meropenem. Normal white count, afebrile and status post removal of infected mesh.. Juan Thompson MD
--- NOTE | 2017-12-19 16:15 | PN ---
DATE: SUBJECTIVE: The patient is a 62-year-old seen and examined and feels happy. Still has abdominal discomfort. Nasogastric tube has been removed. Doing well. No nausea or vomiting. PHYSICAL EXAMINATION: VITAL SIGNS: She is afebrile, pulse 66, respirations 20, blood pressure 191/70. LUNGS: Bilateral fair air flow. No rhonchi or crackles. HEART: S1 and S2, audible. ABDOMEN: Soft. Palpable discomfort at the surgical side. NEUROLOGICAL: Patient is awake, alert, oriented, communicative, ambulatory. ASSESSMENT AND PLAN: 1. Status post partial small bowel resection. 2. Infected mesh removal with ventral hernia repair. 3. Wec-qjbyqrq-sbesomzlp diabetes. 4. Hypertension. X-ray of the abdomen was done this morning, it shows partial small bowel obstruction. PLAN: Nasogastric tube has been removed. Patient has been started on clear liquid as per surgeon. Currently, she is on IV fluids, we will continue that and give her analgesic as needed. We will follow up the patient in a.m. Olga Goyal MD
[2017-12-19] MEDS: HYDROmorphone 1 mg/ml ISec IVP SCH (21:12)
[2017-12-20] MEDS: Albuterol-Ipratrop 3 mg / 0.5 (3 ml) UD IH SCH ×4 (02:20→20:05)
[2017-12-20] MEDS: Potassium Ch 20mEq in D5-1/2NS 1,000 ML IV SCH ×2 (02:21→18:12)
[2017-12-20] MEDS: Insulin Lispro (humaLOG) MEDIUM Coverage SC SCH ×4 (08:03→21:56)
[2017-12-20] MEDS: Oxycodone/Acetaminophen 5/325 mg Tab PO PRN ×4 (08:15→23:48)
[2017-12-20] MEDS ORDERED: Bisacodyl 5mg EC Tab PO ONE (08:30)
--- NOTE | 2017-12-20 08:53 | CP.PCM.PCO ---
Physician Communication Note - Physician Communication Note Physician Communication Note: +BM/Rx Diet-PO Percocet
[2017-12-20 09:15] LABS: BASO # 0.02 K/mm3 (0.0-2.0); BASO % 0.3 % (0.0-3.0); EOS # 0.9 (0.0-0.7); EOS % 12.8 % (1.5-5.0); GRAN # 3.97 (1.4-6.5); GRAN % 58.3 % (50.0-68.0); HEMOGLOBIN 11.9 g/dL (12.0-16.0); LYMPH # 1.3 (1.2-3.4); LYMPH % 19.3 % (22.0-35.0); MEAN CELL VOLUME 89.8 fl (80.0-105.0); MEAN CORPUSCULAR HEMOGLOBIN 30.4 pg (25.0-35.0); MEAN CORPUSCULAR HGB CONC 33.9 g/dl (31.0-37.0); MEAN PLATELET VOLUME 10.6 fl (7.0-11.0); MONO # 0.6 (0.1-0.6); MONO % 9.3 % (1.0-6.0); RBC 3.91 10^6/uL (3.5-6.1); RED CELL DISTRIBUTION WIDTH 13.3 % (11.5-14.5); WHITE BLOOD COUNT 6.8 10^3/uL (4.5-11.0)
[2017-12-20 09:25] LABS: ALB/GLOB RATIO 1.1 (1.1-1.8); ALBUMIN 3.4 g/dL (3.0-4.8); ALT/SGPT 70 U/L (7-56); AMYLASE < 30 U/L (35-125); AST/SGOT 42 U/L (14-36); BLOOD UREA NITROGEN 5 mg/dL (7-21); CALCIUM 9.2 mg/dL (8.4-10.5); GFR NON-AFRICAN AMERICAN > 60
[2017-12-20] MEDS: Lidocaine 5% Patch TD SCH (09:33)
[2017-12-20] MEDS: Enoxaparin 40 mg Syringe SC SCH (09:33)
[2017-12-20] MEDS: Propranolol 60 mg ER Cap PO SCH (09:33)
[2017-12-20] MEDS: POLYETHYLENE GLYCOL 3350 17 GM/Dose PACKET PO SCH ×2 (09:34→17:26)
--- NOTE | 2017-12-20 11:29 | CP.PCM.PN ---
Subjective - Date & Time of Evaluation Date of Evaluation: 12/20/17 Time of Evaluation: 07:30 - Subjective Subjective: General Surgery Progress Note for Dr. Wiggins 62F, seen and evaluated this morning at bedside. No acute events overnight. Patient is tolerating her diet. Positive stool output from ostomy site. Ostomy is pink, patent and functioning well. No complaints at this time. Denies f/c, n/v/d, SOB, CP, or urinary symptoms. Objective - Vital Signs/Intake and Output Vital Signs (last 24 hours): Temp Pulse Resp BP Pulse Ox 97.6 F 49 L 20 162/56 H 96 12/20/17 08:04 12/20/17 08:04 12/20/17 08:04 12/20/17 09:34 12/20/17 08:04 Intake and Output: 12/20/17 12/20/17 06:59 18:59 Intake Total 1080 Output Total 755 Balance 325 - Medications Medications: Current Medications Acetaminophen (Tylenol 325 Mg Supp) 325 mg RC Q4H PRN PRN Reason: Fever >100.4 F Last Admin: 12/12/17 05:45 Dose: 325 mg Albuterol/Ipratropium (Duoneb 3 Mg/0.5 Mg (3 Ml) Ud) 3 ml IH [id number] [facility] Last Admin: 12/20/17 09:00 Dose: 3 ml Amlodipine Besylate (Norvasc) 10 mg PO DAILY [facility] Last Admin: 12/20/17 09:34 Dose: 10 mg Atorvastatin Calcium (Lipitor) 40 mg PO DAILY [facility] Last Admin: 12/20/17 09:33 Dose: 40 mg Clonidine HCl (Catapres) 0.1 mg PO BID [facility] Last Admin: 12/20/17 09:29 Dose: 0.1 mg Dextrose (Dextrose 50% Inj) 0 ml IV STAT PRN; Protocol PRN Reason: Hypoglycemia Protocol Ezetimibe (Zetia) 10 mg PO DAILY [facility] Last Admin: 12/20/17 09:43 Dose: 10 mg Enoxaparin Sodium (Lovenox) 40 mg SC DAILY [facility]; Protocol Last Admin: 12/20/17 09:33 Dose: 40 mg Famotidine (Pepcid) 20 mg IVP DAILY [facility] Last Admin: 12/20/17 09:35 Dose: 20 mg Fentanyl (Duragesic) 1 patch TD Q72H [facility] Last Admin: 12/18/17 09:32 Dose: 1 patch Hydromorphone HCl (Dilaudid) 1 mg IVP HS [facility] Last Admin: 12/19/17 21:12 Dose: 1 mg Dextrose (Dextrose 5% In Water 1000 Ml) 1,000 mls @ 0 mls/hr IV .Q0M PRN; Protocol PRN Reason: Hypoglycemia Protocol Potassium Chloride/Dextrose/Sod Cl (Potassium Chl 20 Meq In D5-1/2ns) 1,000 mls @ 75 mls/hr IV .[id number] [facility] Last Admin: 12/20/17 02:21 Dose: 75 mls/hr Insulin Human Lispro (Humalog Med) 0 units SC ACHS [facility]; Protocol Last Admin: 12/20/17 08:03 Dose: Not Given Ketorolac Tromethamine (Toradol) 15 mg IVP Q6H [facility] Last Admin: 12/20/17 08:05 Dose: Not Given Lidocaine (Lidoderm) 1 ea TD DAILY [facility] Last Admin: 12/20/17 09:33 Dose: 1 ea Ondansetron HCl (Zofran Inj) 4 mg IVP Q6H PRN PRN Reason: Nausea/Vomiting Last Admin: 12/20/17 09:35 Dose: 4 mg Oxycodone/Acetaminophen (Percocet 5/325 Mg Tab) 1 tab PO QID PRN PRN Reason: Pain, moderate (4-7) Stop: 12/22/17 08:02 Last Admin: 12/20/17 08:15 Dose: 1 tab Polyethylene Glycol (Miralax) 17 gm PO BID [facility] Last Admin: 12/20/17 09:34 Dose: 17 gm Propranolol HCl (Inderal La) 60 mg PO DAILY [facility] Last Admin: 12/20/17 09:33 Dose: 60 mg Valsartan (Diovan) 320 mg PO DAILY [facility] Last Admin: 12/20/17 09:32 Dose: 320 mg - Labs Labs: 12/20/17 09:00 12/20/17 09:00 PT 11.8 SECONDS (9.4-12.5) 12/09/17 11:45 INR 1.03 12/09/17 11:45 APTT 30.4 Seconds (25.1-36.5) 12/09/17 11:45 - Constitutional Appears: Well, Non-toxic, No Acute Distress - Head Exam Head Exam: ATRAUMATIC, NORMAL INSPECTION, NORMOCEPHALIC - Eye Exam Eye Exam: EOMI - ENT Exam ENT Exam: Mucous Membranes Moist - GI/Abdominal Exam GI & Abdominal Exam: Soft, Normal Bowel Sounds. absent: Tenderness - Neurological Exam Neurological Exam: Alert, Awake, Oriented x3 - Psychiatric Exam Psychiatric exam: Normal Affect, Normal Mood - Skin Skin Exam: Dry, Intact, Normal Color, Warm Assessment and Plan - Assessment and Plan (Free Text) Assessment: 62F w/ ventral hernia infected mesh s/p ex-lap w/ small bowel resection and removal of infected mesh POD11 Plan: Continue to monitor bowel function Pain control and antiemetics Encourage ambulation DVT/GI PPX Further recommendations per Dr. Feliciano Carson PGY1
--- NOTE | 2017-12-20 14:22 | PN ---
DATE: 12/20/2017 SUBJECTIVE: The patient is in bed, in no acute distress, nontoxic. PHYSICAL EXAMINATION: VITAL SIGNS: Temperature is 97, blood pressure is 160/60, respiratory rate of 20, heart rate of 49. HEENT: Unremarkable. NECK: Supple. LUNGS: Have decreased breath sounds. HEART: Normal S1, S2. ABDOMINAL: Soft, nontender. LABORATORY EXAMINATION: Reveals a white count of 6.8, hemoglobin 11, platelets of 297. BUN of 5, creatinine of 0.5. LFTs are noted. Urinalysis is noted. Vanco trough is 7.3. Microbiology reveals the urine cultures are yeast. The blood cultures are negative and nares MRSA is negative. Review of orders reveals the patient now to be off of antibiotics. ASSESSMENT AND PLAN: A 62-year-old female who was seen earlier is much better. NG tube is out who has a history of longstanding mesh infection, coronary artery disease, hypertension, status post hernia, removal of an infected mesh with sepsis, healthcare-associated pneumonia and has completed 8 days of vancomycin and meropenem. Currently off of antibiotics, afebrile and normal white count at this point and negative procalcitonin; however, the patient is at risk for developing nosocomial infections. We will follow closely with you. Juan Thompson MD
--- NOTE | 2017-12-20 17:22 | PN ---
DATE: SUBJECTIVE: The patient is a 62-year-old, seen and examined, sitting in chair, seems to be comfortable. Had small , so far no abdominal pain and tolerating. No vomiting. PHYSICAL EXAMINATION VITAL SIGNS: She is afebrile, pulse 49, respirations 20, blood pressure /56. LUNGS: Bilateral good airflow. No rhonchi or crackle. HEART: S1 and S2, audible. ABDOMEN: Soft and palpable discomfort at the surgical site and colostomy is functional. NEUROLOGICAL: She is awake, alert, oriented, communicative. LABORATORY DATA: WBC 6.8, hemoglobin 11.9, hematocrit 35.1, platelets 297. Chemistry: Sodium 138, potassium 4.2, chloride 106, CO2 of 27, BUN 5, creatinine 0.5. Blood sugar of 133. AST 42, ALT 70. MRSA screen is unremarkable. ASSESSMENT: 1. Status post partial small bowel resection with ventral hernia repair and infected mesh removed. 2. Hypertension. 3. Hyperlipidemia. PLAN: The patient seems to be bradycardic, I will discontinue propranolol. Her blood pressure usually controlled with Norvasc and valsartan. I will give her a dose of Norvasc. Monitor an electrolyte closely and monitor blood pressure and her diet has been advanced. Medication has been switched to p.o. If she remains stable, she will be discharged in a.m. Olga Goyal MD
[2017-12-20] MEDS: HYDROmorphone 1 mg/ml ISec IVP SCH (21:12)
[2017-12-21] MEDS: Albuterol-Ipratrop 3 mg / 0.5 (3 ml) UD IH SCH ×4 (01:17→19:29)
[2017-12-21] MEDS: Potassium Ch 20mEq in D5-1/2NS 1,000 ML IV SCH (01:41)
[2017-12-21] MEDS: Oxycodone/Acetaminophen 5/325 mg Tab PO PRN ×2 (06:14→15:18)
[2017-12-21] MEDS: Insulin Lispro (humaLOG) MEDIUM Coverage SC SCH ×3 (07:30→21:22)
[2017-12-21] MEDS: Enoxaparin 40 mg Syringe SC SCH (10:14)
[2017-12-21] MEDS: POLYETHYLENE GLYCOL 3350 17 GM/Dose PACKET PO SCH ×2 (10:14→18:04)
[2017-12-21] MEDS: Lidocaine 5% Patch TD SCH (10:14)
[2017-12-21 10:58] LABS: BLOOD UREA NITROGEN 8 mg/dL (7-21); GFR NON-AFRICAN AMERICAN > 60
[2017-12-21 10:59] LABS: CALCIUM 9.7 mg/dL (8.4-10.5)
--- NOTE | 2017-12-21 12:33 | CP.PCM.PCO ---
Physician Communication Note - Physician Communication Note Physician Communication Note: Vomiting-RxLiquids/Dulcolax/IV Fluids
--- NOTE | 2017-12-21 15:26 | PN ---
DATE: 12/21/2017 SUBJECTIVE: The patient is in bed, in no acute distress, nontoxic. PHYSICAL EXAMINATION: VITAL SIGNS: On exam, temperature is 97, blood pressure is 140/60, respiratory rate of 18. HEENT: Examination of HEENT is unremarkable. NECK: Supple. LUNGS: Have decreased breath sounds. HEART: Normal S1 and S2. ABDOMEN: Soft, nontender. LABORATORY DATA: Laboratory examination reveals a BUN of 8, creatinine of 0.6. Urinalysis is noted. Toxicology is reviewed. ASSESSMENT AND PLAN: A 62-year-old female who was seen earlier with history of longstanding mesh infection, coronary artery disease, hypertension, status post hernia, removal of an infected mesh, developed sepsis and healthcare-associated pneumonia. Has completed 8 days of vancomycin and meropenem, currently now off of antibiotics. The patient is afebrile with white count is normal, clinically improving. Review of orders reveals the patient is off of antibiotics and the patient is at risk for developing nosocomial infections. Juan Thompson MD
--- NOTE | 2017-12-21 16:31 | CP.PCM.PN ---
Subjective - Date & Time of Evaluation Date of Evaluation: 12/21/17 Time of Evaluation: 06:45 - Subjective Subjective: Patient seen and examined. Reported having two episodes of bilious vomiting. Denies fever/chills. Liquid output into stoma. Scant serous output from AMPARO drain. Objective - Vital Signs/Intake and Output Vital Signs (last 24 hours): Temp Pulse Resp BP Pulse Ox 97.6 F 51 L 20 142/63 95 12/21/17 08:25 12/21/17 10:09 12/21/17 08:25 12/21/17 10:15 12/21/17 08:25 Intake and Output: 12/21/17 12/21/17 06:59 18:59 Intake Total Output Total Balance - Medications Medications: Current Medications Acetaminophen (Tylenol 325 Mg Supp) 325 mg RC Q4H PRN PRN Reason: Fever >100.4 F Last Admin: 12/12/17 05:45 Dose: 325 mg Albuterol/Ipratropium (Duoneb 3 Mg/0.5 Mg (3 Ml) Ud) 3 ml IH [id number] [facility] Last Admin: 12/21/17 13:44 Dose: Not Given Amlodipine Besylate (Norvasc) 10 mg PO DAILY [facility] Last Admin: 12/21/17 10:15 Dose: 10 mg Atorvastatin Calcium (Lipitor) 40 mg PO DAILY [facility] Last Admin: 12/21/17 10:14 Dose: 40 mg Clonidine HCl (Catapres) 0.1 mg PO BID [facility] Last Admin: 12/21/17 10:09 Dose: 0.1 mg Dextrose (Dextrose 50% Inj) 0 ml IV STAT PRN; Protocol PRN Reason: Hypoglycemia Protocol Ezetimibe (Zetia) 10 mg PO DAILY [facility] Last Admin: 12/21/17 10:16 Dose: 10 mg Enoxaparin Sodium (Lovenox) 40 mg SC DAILY [facility]; Protocol Last Admin: 12/21/17 10:14 Dose: 40 mg Famotidine (Pepcid) 20 mg IVP DAILY [facility] Last Admin: 12/21/17 10:15 Dose: 20 mg Fentanyl (Duragesic) 1 patch TD Q72H [facility] Last Admin: 12/21/17 08:30 Dose: 1 patch Hydromorphone HCl (Dilaudid) 1 mg IVP HS [facility] Last Admin: 12/20/17 21:12 Dose: 1 mg Dextrose (Dextrose 5% In Water 1000 Ml) 1,000 mls @ 0 mls/hr IV .Q0M PRN; Protocol PRN Reason: Hypoglycemia Protocol Lactated Ringer's (Lactated Ringer's) 1,000 mls @ 100 mls/hr IV .Q10H [facility] Insulin Human Lispro (Humalog Med) 0 units SC ACHS [facility]; Protocol Last Admin: 12/20/17 21:56 Dose: Not Given Ketorolac Tromethamine (Toradol) 15 mg IVP Q6H [facility] Last Admin: 12/21/17 15:06 Dose: 15 mg Lidocaine (Lidoderm) 1 ea TD DAILY [facility] Last Admin: 12/21/17 10:14 Dose: 1 ea Ondansetron HCl (Zofran Inj) 4 mg IVP Q6H PRN PRN Reason: Nausea/Vomiting Last Admin: 12/20/17 22:25 Dose: 4 mg Oxycodone/Acetaminophen (Percocet 5/325 Mg Tab) 1 tab PO QID PRN PRN Reason: Pain, moderate (4-7) Stop: 12/22/17 08:02 Last Admin: 12/21/17 15:18 Dose: 1 tab Polyethylene Glycol (Miralax) 17 gm PO BID [facility] Last Admin: 12/21/17 10:14 Dose: 17 gm Valsartan (Diovan) 320 mg PO DAILY [facility] Last Admin: 12/21/17 10:09 Dose: 320 mg - Labs Labs: 12/20/17 09:00 12/21/17 10:35 PT 11.8 SECONDS (9.4-12.5) 12/09/17 11:45 INR 1.03 12/09/17 11:45 APTT 30.4 Seconds (25.1-36.5) 12/09/17 11:45 - Constitutional Appears: No Acute Distress - Head Exam Head Exam: NORMOCEPHALIC - Eye Exam Eye Exam: EOMI, Normal appearance - ENT Exam ENT Exam: Mucous Membranes Moist, Normal Exam - Respiratory Exam Respiratory Exam: NORMAL BREATHING PATTERN - Cardiovascular Exam Cardiovascular Exam: +S1, +S2 - GI/Abdominal Exam GI & Abdominal Exam: Soft - Rectal Exam Rectal Exam: NORMAL INSPECTION - Neurological Exam Neurological Exam: Alert, Awake, Oriented x3 - Psychiatric Exam Psychiatric exam: Normal Mood - Skin Skin Exam: Dry, Intact, Warm Assessment and Plan - Assessment and Plan (Free Text) Assessment: 62F w/ ventral hernia infected mesh s/p ex-lap w/ small bowel resection and removal of infected mesh POD12 Plan: D/C AMPARO drain NPO IVF Dulcolax supp Continue to monitor bowel function Pain control and antiemetics Encourage ambulation DVT/GI PPX Further recommendations per Dr. Feliciano Rudd PGY3
--- NOTE | 2017-12-21 19:46 | PN ---
DATE: 12/21/2017 SUBJECTIVE: The patient is 62 years old, seen and examined. The patient stated last yesterday evening, she started vomiting, she had multiple episodes of vomiting, complains of some abdominal discomfort, has vomited once this morning. Currently, she is n.p.o., was seen by surgical team and remained n.p.o. PHYSICAL EXAMINATION: VITAL SIGNS: She is afebrile, pulse 81, respirations 20, blood pressure 142/63. LUNGS: Bilateral fair airflow. No rhonchi or crackle. HEART: S1 and S2 audible. ABDOMEN: Soft, bowel sounds are positive. Colostomy has some liquid stool. Slight palpable discomfort at the surgical site. NEUROLOGIC: She is awake, alert, oriented, communicative, moves all extremities. EXTREMITIES: Bilateral legs, no edema. LABORATORY DATA: Sodium 139, potassium 4.0, chloride 103, CO2 31, BUN 8, creatinine 0.6, blood sugar 118. ASSESSMENT AND PLAN: 1. Status post infected mesh removal, status post partial small bowel resection. 2. [id number] diabetes. So, currently the patient is on her oral medication. She is on clear liquid. She has been on IV fluids and she is on DVT prophylaxis. She has been started on laxative. She is on incentive spirometry. Follow up electrolytes. Olga Goyal MD
[2017-12-21] MEDS: HYDROmorphone 1 mg/ml ISec IVP SCH (21:21)
[2017-12-21] MEDS: Lactated Ringer's 1,000 ML IV SCH (21:22)
[2017-12-22] MEDS: Albuterol-Ipratrop 3 mg / 0.5 (3 ml) UD IH SCH ×4 (01:54→19:53)
[2017-12-22] MEDS: Oxycodone/Acetaminophen 5/325 mg Tab PO PRN ×3 (04:37→22:52)
[2017-12-22 07:02] LABS: BASO # 0.02 K/mm3 (0.0-2.0); BASO % 0.3 % (0.0-3.0); EOS # 0.2 (0.0-0.7); EOS % 2.9 % (1.5-5.0); GRAN # 4.61 (1.4-6.5); GRAN % 73.9 % (50.0-68.0); HEMOGLOBIN 12.8 g/dL (12.0-16.0); LYMPH # 0.8 (1.2-3.4); MEAN CELL VOLUME 89.7 fl (80.0-105.0); MEAN CORPUSCULAR HEMOGLOBIN 29.8 pg (25.0-35.0); MEAN CORPUSCULAR HGB CONC 33.2 g/dl (31.0-37.0); MEAN PLATELET VOLUME 11.1 fl (7.0-11.0); MONO # 0.7 (0.1-0.6); MONO % 10.9 % (1.0-6.0); RBC 4.29 10^6/uL (3.5-6.1); RED CELL DISTRIBUTION WIDTH 13.2 % (11.5-14.5); WHITE BLOOD COUNT 6.2 10^3/uL (4.5-11.0)
[2017-12-22 07:33] LABS: ALB/GLOB RATIO 1.2 (1.1-1.8); ALBUMIN 3.6 g/dL (3.0-4.8); ALT/SGPT 53 U/L (7-56); AST/SGOT 18 U/L (14-36); BLOOD UREA NITROGEN 13 mg/dL (7-21); CALCIUM 9.5 mg/dL (8.4-10.5); GFR NON-AFRICAN AMERICAN > 60
[2017-12-22] MEDS: Insulin Lispro (humaLOG) MEDIUM Coverage SC SCH ×4 (07:56→22:34)
--- NOTE | 2017-12-22 09:00 | CP.PCM.PN ---
Subjective - Date & Time of Evaluation Date of Evaluation: 12/22/17 Time of Evaluation: 08:59 - Subjective Subjective: Cory Rouse, PGY-1, Surgery Progress Note for Dr. Wiggins Patient seen and examined at bedside. Patient had 2 episodes of green vomitus yesterday morning. Patient was able to tolerate eating a pancake but has not been able to tolerate coffee or orange juice. Patient was initially NPO after the event and started on resuscitative fluids. Patient's diet has been progressed. Patient complains of abdominal pain, but has no longer had any nausea or vomiting. Patient has had sufficient ostomy output. Patient denies fever, chills, chest pain, heart palpitations, shortness of breath. Objective - Vital Signs/Intake and Output Vital Signs (last 24 hours): Temp Pulse Resp BP Pulse Ox 97.7 F 56 L 20 146/64 95 12/22/17 08:22 12/22/17 08:22 12/22/17 08:22 12/22/17 08:22 12/22/17 08:22 Intake and Output: 12/22/17 12/22/17 06:59 18:59 Intake Total 1440 Output Total 1900 Balance -460 - Medications Medications: Current Medications Acetaminophen (Tylenol 325 Mg Supp) 325 mg RC Q4H PRN PRN Reason: Fever >100.4 F Last Admin: 12/12/17 05:45 Dose: 325 mg Albuterol/Ipratropium (Duoneb 3 Mg/0.5 Mg (3 Ml) Ud) 3 ml IH [id number] [facility] Last Admin: 12/22/17 08:06 Dose: Not Given Amlodipine Besylate (Norvasc) 10 mg PO DAILY [facility] Last Admin: 12/21/17 10:15 Dose: 10 mg Atorvastatin Calcium (Lipitor) 40 mg PO DAILY [facility] Last Admin: 12/21/17 10:14 Dose: 40 mg Clonidine HCl (Catapres) 0.1 mg PO BID [facility] Last Admin: 12/21/17 17:58 Dose: 0.1 mg Dextrose (Dextrose 50% Inj) 0 ml IV STAT PRN; Protocol PRN Reason: Hypoglycemia Protocol Ezetimibe (Zetia) 10 mg PO DAILY [facility] Last Admin: 12/21/17 10:16 Dose: 10 mg Enoxaparin Sodium (Lovenox) 40 mg SC DAILY [facility]; Protocol Last Admin: 12/21/17 10:14 Dose: 40 mg Famotidine (Pepcid) 20 mg IVP DAILY [facility] Last Admin: 12/21/17 10:15 Dose: 20 mg Hydromorphone HCl (Dilaudid) 1 mg IVP HS [facility] Last Admin: 12/21/17 21:21 Dose: 1 mg Dextrose (Dextrose 5% In Water 1000 Ml) 1,000 mls @ 0 mls/hr IV .Q0M PRN; Protocol PRN Reason: Hypoglycemia Protocol Lactated Ringer's (Lactated Ringer's) 1,000 mls @ 100 mls/hr IV .Q10H [facility] Last Admin: 12/21/17 21:22 Dose: 100 mls/hr Insulin Human Lispro (Humalog Med) 0 units SC ACHS [facility]; Protocol Last Admin: 12/22/17 07:56 Dose: Not Given Ketorolac Tromethamine (Toradol) 15 mg IVP Q6H [facility] Last Admin: 12/22/17 01:23 Dose: Not Given Lidocaine (Lidoderm) 1 ea TD DAILY [facility] Last Admin: 12/21/17 10:14 Dose: 1 ea Ondansetron HCl (Zofran Inj) 4 mg IVP Q6H PRN PRN Reason: Nausea/Vomiting Last Admin: 12/21/17 21:21 Dose: 4 mg Polyethylene Glycol (Miralax) 17 gm PO BID [facility] Last Admin: 12/21/17 18:04 Dose: 17 gm Valsartan (Diovan) 320 mg PO DAILY [facility] Last Admin: 12/21/17 10:09 Dose: 320 mg - Labs Labs: 12/22/17 06:45 12/22/17 06:45 PT 11.8 SECONDS (9.4-12.5) 12/09/17 11:45 INR 1.03 12/09/17 11:45 APTT 30.4 Seconds (25.1-36.5) 12/09/17 11:45 - Constitutional Appears: Well, Non-toxic, No Acute Distress - Head Exam Head Exam: ATRAUMATIC, NORMAL INSPECTION, NORMOCEPHALIC - Eye Exam Eye Exam: EOMI Pupil Exam: PERRL - Respiratory Exam Respiratory Exam: Clear to Ausculation Bilateral, NORMAL BREATHING PATTERN - Cardiovascular Exam Cardiovascular Exam: REGULAR RHYTHM - GI/Abdominal Exam GI & Abdominal Exam: Distended, Soft, Tenderness, Normal Bowel Sounds - Extremities Exam Extremities Exam: Full ROM - Neurological Exam Neurological Exam: Alert, Awake, CN II-XII Intact, Oriented x3 Assessment and Plan - Assessment and Plan (Free Text) Assessment: 62 year old female with past medical history of hypertension, NIDDM, HLD presents s/p day 10 of exlap with excision of infected mesh. Patient has had output from ostomy has had 2 episodes of green vomitus yesterday. Plan: Patient has been progressed to bland diet. Continue to monitor ostomy output. Dulcolax for bowel movement. OOB Pain control with lidoderm patch. Continue to monitor and replete electrolytes as needed. DVT prophylaxis with lovenox, GI prophylaxis with pepcid. Will discuss case with Dr. Wiggins.
[2017-12-22] MEDS: Lidocaine 5% Patch TD SCH ×2 (09:28→10:01)
[2017-12-22] MEDS: Lactated Ringer's 1,000 ML IV SCH (09:28)
[2017-12-22] MEDS: Enoxaparin 40 mg Syringe SC SCH (09:28)
[2017-12-22] MEDS: POLYETHYLENE GLYCOL 3350 17 GM/Dose PACKET PO SCH ×3 (09:30→17:12)
--- NOTE | 2017-12-22 10:27 | CP.PCM.PCO ---
Physician Communication Note - Physician Communication Note Physician Communication Note: Trial bland diet/Dulcolax/SSE
--- NOTE | 2017-12-22 14:00 | RAD ---
Date of service: 12/22/2017 HISTORY: r/o obstruction COMPARISON: 12/19/2017 FINDINGS: BOWEL: There is a small amount of residual contrast in the ascending colon. The remaining contrast from the upper GI small bowel exam has cleared. No evidence of obstruction BONES: Normal. OTHER FINDINGS: None. IMPRESSION: No evidence of obstruction
--- NOTE | 2017-12-22 19:18 | CP.PCM.PN ---
Subjective - Date & Time of Evaluation Date of Evaluation: 12/22/17 Time of Evaluation: 09:25 - Subjective Subjective: No fevers, not in distress. Objective - Vital Signs/Intake and Output Vital Signs (last 24 hours): Temp Pulse Resp BP Pulse Ox 98.2 F 52 L 20 139/63 93 L 12/21/17 16:45 12/21/17 17:58 12/21/17 16:45 12/21/17 17:58 12/21/17 16:45 - Medications Medications: Current Medications Acetaminophen (Tylenol 325 Mg Supp) 325 mg RC Q4H PRN PRN Reason: Fever >100.4 F Last Admin: 12/12/17 05:45 Dose: 325 mg Albuterol/Ipratropium (Duoneb 3 Mg/0.5 Mg (3 Ml) Ud) 3 ml IH [id number] [facility] Last Admin: 12/21/17 19:29 Dose: 3 ml Amlodipine Besylate (Norvasc) 10 mg PO DAILY [facility] Last Admin: 12/21/17 10:15 Dose: 10 mg Atorvastatin Calcium (Lipitor) 40 mg PO DAILY [facility] Last Admin: 12/21/17 10:14 Dose: 40 mg Clonidine HCl (Catapres) 0.1 mg PO BID [facility] Last Admin: 12/21/17 17:58 Dose: 0.1 mg Dextrose (Dextrose 50% Inj) 0 ml IV STAT PRN; Protocol PRN Reason: Hypoglycemia Protocol Ezetimibe (Zetia) 10 mg PO DAILY [facility] Last Admin: 12/21/17 10:16 Dose: 10 mg Enoxaparin Sodium (Lovenox) 40 mg SC DAILY [facility]; Protocol Last Admin: 12/21/17 10:14 Dose: 40 mg Famotidine (Pepcid) 20 mg IVP DAILY [facility] Last Admin: 12/21/17 10:15 Dose: 20 mg Fentanyl (Duragesic) 1 patch TD Q72H [facility] Last Admin: 12/21/17 08:30 Dose: 1 patch Hydromorphone HCl (Dilaudid) 1 mg IVP HS [facility] Last Admin: 12/21/17 21:21 Dose: 1 mg Dextrose (Dextrose 5% In Water 1000 Ml) 1,000 mls @ 0 mls/hr IV .Q0M PRN; Protocol PRN Reason: Hypoglycemia Protocol Lactated Ringer's (Lactated Ringer's) 1,000 mls @ 100 mls/hr IV .Q10H [facility] Last Admin: 12/21/17 21:22 Dose: 100 mls/hr Insulin Human Lispro (Humalog Med) 0 units SC ACHS [facility]; Protocol Last Admin: 12/21/17 21:22 Dose: Not Given Ketorolac Tromethamine (Toradol) 15 mg IVP Q6H [facility] Last Admin: 12/21/17 15:06 Dose: 15 mg Lidocaine (Lidoderm) 1 ea TD DAILY [facility] Last Admin: 12/21/17 10:14 Dose: 1 ea Ondansetron HCl (Zofran Inj) 4 mg IVP Q6H PRN PRN Reason: Nausea/Vomiting Last Admin: 12/21/17 21:21 Dose: 4 mg Oxycodone/Acetaminophen (Percocet 5/325 Mg Tab) 1 tab PO QID PRN PRN Reason: Pain, moderate (4-7) Stop: 12/22/17 08:02 Last Admin: 12/21/17 15:18 Dose: 1 tab Polyethylene Glycol (Miralax) 17 gm PO BID [facility] Last Admin: 12/21/17 18:04 Dose: 17 gm Valsartan (Diovan) 320 mg PO DAILY [facility] Last Admin: 12/21/17 10:09 Dose: 320 mg - Labs Labs: 12/20/17 09:00 12/21/17 10:35 PT 11.8 SECONDS (9.4-12.5) 12/09/17 11:45 INR 1.03 12/09/17 11:45 APTT 30.4 Seconds (25.1-36.5) 12/09/17 11:45 - Constitutional Appears: Chronically Ill - Head Exam Head Exam: NORMAL INSPECTION - Respiratory Exam Respiratory Exam: Decreased Breath Sounds - Cardiovascular Exam Cardiovascular Exam: +S1, +S2 - GI/Abdominal Exam GI & Abdominal Exam: Soft. 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
[2017-12-23] MEDS: Albuterol-Ipratrop 3 mg / 0.5 (3 ml) UD IH SCH ×4 (02:15→19:47)
[2017-12-23] MEDS: Potassium Ch 20mEq in D5-1/2NS 1,000 ML IV SCH (05:07)
[2017-12-23 06:41] LABS: ALB/GLOB RATIO 1.2 (1.1-1.8); ALBUMIN 3.8 g/dL (3.0-4.8); ALT/SGPT 52 U/L (7-56); AST/SGOT 27 U/L (14-36); BLOOD UREA NITROGEN 18 mg/dL (7-21); CALCIUM 9.1 mg/dL (8.4-10.5); GFR NON-AFRICAN AMERICAN > 60
[2017-12-23 06:44] LABS: BASO # 0.03 K/mm3 (0.0-2.0); BASO % 0.5 % (0.0-3.0); EOS # 0.5 (0.0-0.7); GRAN # 3.01 (1.4-6.5); GRAN % 45.6 % (50.0-68.0); HEMOGLOBIN 13.5 g/dL (12.0-16.0); LYMPH # 1.6 (1.2-3.4); LYMPH % 24.1 % (22.0-35.0); MEAN CELL VOLUME 90.5 fl (80.0-105.0); MEAN CORPUSCULAR HEMOGLOBIN 30.4 pg (25.0-35.0); MEAN CORPUSCULAR HGB CONC 33.6 g/dl (31.0-37.0); MEAN PLATELET VOLUME 11.3 fl (7.0-11.0); MONO # 1.4 (0.1-0.6); MONO % 21.8 % (1.0-6.0); PLATELET COUNT 385 10^3/uL (120.0-450.0); RBC 4.44 10^6/uL (3.5-6.1); RED CELL DISTRIBUTION WIDTH 13.4 % (11.5-14.5); WHITE BLOOD COUNT 6.6 10^3/uL (4.5-11.0)
[2017-12-23 07:58] LABS: EOSINOPHIL 3 % (0.0-3.0); LYMPHOCYTE 41 % (22.0-35.0); MONOCYTE 9 % (1.0-6.0); NEUTROPHIL 47 % (50.0-70.0); PLATELET ESTIMATE NORMAL (NORMAL)
[2017-12-23] MEDS ORDERED: Potassium Chloride 20 mEq ER Tab PO ONE ×3 (08:23→18:00)
--- NOTE | 2017-12-23 08:35 | CP.PCM.PN ---
Subjective - Date & Time of Evaluation Date of Evaluation: 12/23/17 Time of Evaluation: 08:25 - Subjective Subjective: Cory Rouse, PGY-1, Surgery Progress Note for Dr. Wiggins Patient seen and examined at bedside. Patient had one episode of green vomitus with consumption of bland diet. Patient reports nausea with any solid or liquid consumption. Patient has had adequate ostomy output, and continues to have left sided abdominal pain. Objective - Vital Signs/Intake and Output Vital Signs (last 24 hours): Temp Pulse Resp BP Pulse Ox 97.8 F 61 20 133/65 96 12/22/17 16:10 12/22/17 17:11 12/22/17 16:10 12/22/17 17:11 12/22/17 16:10 - Medications Medications: Current Medications Acetaminophen (Tylenol 325 Mg Supp) 325 mg RC Q4H PRN PRN Reason: Fever >100.4 F Last Admin: 12/12/17 05:45 Dose: 325 mg Albuterol/Ipratropium (Duoneb 3 Mg/0.5 Mg (3 Ml) Ud) 3 ml IH [id number] [facility] Last Admin: 12/23/17 07:39 Dose: Not Given Amlodipine Besylate (Norvasc) 10 mg PO DAILY [facility] Last Admin: 12/22/17 09:30 Dose: 10 mg Atorvastatin Calcium (Lipitor) 40 mg PO DAILY [facility] Last Admin: 12/22/17 09:28 Dose: 40 mg Clonidine HCl (Catapres) 0.1 mg PO BID [facility] Last Admin: 12/22/17 17:11 Dose: 0.1 mg Dextrose (Dextrose 50% Inj) 0 ml IV STAT PRN; Protocol PRN Reason: Hypoglycemia Protocol Ezetimibe (Zetia) 10 mg PO DAILY [facility] Last Admin: 12/22/17 09:32 Dose: 10 mg Enoxaparin Sodium (Lovenox) 40 mg SC DAILY [facility]; Protocol Last Admin: 12/22/17 09:28 Dose: 40 mg Famotidine (Pepcid) 20 mg IVP DAILY [facility] Last Admin: 12/22/17 09:30 Dose: 20 mg Dextrose (Dextrose 5% In Water 1000 Ml) 1,000 mls @ 0 mls/hr IV .Q0M PRN; Protocol PRN Reason: Hypoglycemia Protocol Potassium Chloride/Dextrose/Sod Cl (Potassium Chl 20 Meq In D5-1/2ns) 1,000 mls @ 100 mls/hr IV .Q10H [facility] Last Admin: 12/23/17 05:07 Dose: 100 mls/hr Insulin Human Lispro (Humalog Med) 0 units SC ACHS [facility]; Protocol Last Admin: 12/22/17 22:34 Dose: Not Given Ketorolac Tromethamine (Toradol) 15 mg IVP Q6H [facility] Last Admin: 12/23/17 02:00 Dose: Not Given Lidocaine (Lidoderm) 1 ea TD DAILY [facility] Last Admin: 12/22/17 10:01 Dose: Not Given Meclizine HCl (Antivert) 25 mg PO TID PRN PRN Reason: vertigo Metoclopramide HCl (Reglan) 5 mg PO ACTID [facility] Last Admin: 12/22/17 16:10 Dose: Not Given Ondansetron HCl (Zofran Inj) 4 mg IVP Q6H PRN PRN Reason: Nausea/Vomiting Last Admin: 12/23/17 05:07 Dose: 4 mg Oxycodone/Acetaminophen (Percocet 5/325 Mg Tab) 1 tab PO Q6H PRN PRN Reason: Pain, moderate (4-7) Stop: 12/25/17 10:19 Last Admin: 12/22/17 22:52 Dose: 1 tab Polyethylene Glycol (Miralax) 17 gm PO BID [facility] Last Admin: 12/22/17 17:12 Dose: Not Given Potassium Chloride (K-Dur 20 Meq Er Tab) 60 meq PO ONCE ONE Stop: 12/23/17 08:24 Potassium Chloride (K-Dur 20 Meq Er Tab) 40 meq PO ONCE ONE Stop: 12/23/17 18:01 Valsartan (Diovan) 320 mg PO DAILY [facility] Last Admin: 12/22/17 09:26 Dose: 320 mg - Labs Labs: 12/23/17 06:00 12/23/17 06:00 PT 11.8 SECONDS (9.4-12.5) 12/09/17 11:45 INR 1.03 12/09/17 11:45 APTT 30.4 Seconds (25.1-36.5) 12/09/17 11:45 - Constitutional Appears: Well, Non-toxic, No Acute Distress - Head Exam Head Exam: ATRAUMATIC, NORMAL INSPECTION, NORMOCEPHALIC - Eye Exam Eye Exam: EOMI Pupil Exam: PERRL - Respiratory Exam Respiratory Exam: Clear to Ausculation Bilateral, NORMAL BREATHING PATTERN - Cardiovascular Exam Cardiovascular Exam: REGULAR RHYTHM - GI/Abdominal Exam GI & Abdominal Exam: Distended, Tenderness (left side worse than right) Additional comments: ostomy intact, clean, nonerythematous, not warm - Extremities Exam Extremities Exam: Full ROM - Neurological Exam Neurological Exam: Alert, Awake, CN II-XII Intact, Oriented x3 - Skin Skin Exam: Dry, Intact, Normal Color Assessment and Plan - Assessment and Plan (Free Text) Assessment: 62 year old female with past medical history of hypertension, NIDDM, HLD presents s/p day 14 of exlap with excision of infected mesh. Patient has had output from ostomy has had 1 episodes of green vomitus yesterday. Plan: Patient will be switched to home protonix from pepcid. Trial of ice chips Remove lily OOB as tolerated. Replete electrolytes as needed. Follow up abdominal X ray to rule out SBO. DVT prophylaxis with lovenox. GI prophylaxis with protonix Will discuss case wit Dr. Wiggins.
[2017-12-23] MEDS: Insulin Lispro (humaLOG) MEDIUM Coverage SC SCH ×4 (08:46→22:00)
[2017-12-23] MEDS: Oxycodone/Acetaminophen 5/325 mg Tab PO PRN (08:49)
[2017-12-23] MEDS: Pantoprazole 40 mg EC Tab PO SCH (09:00)
--- NOTE | 2017-12-23 09:41 | RAD ---
Date of service: 12/23/2017 HISTORY: rule out SBO COMPARISON: 12/22/2017 FINDINGS: BOWEL: Normal. No obstruction. No free air. Minimal residual contrast in the ascending colon BONES: Normal. OTHER FINDINGS: None. IMPRESSION: No active disease.
[2017-12-23] MEDS: POLYETHYLENE GLYCOL 3350 17 GM/Dose PACKET PO SCH ×2 (10:00→17:37)
[2017-12-23] MEDS ORDERED: Potassium Chloride 20 mEq ER Tab PO SCH (10:00)
[2017-12-23] MEDS: Lidocaine 5% Patch TD SCH (10:00)
--- NOTE | 2017-12-23 10:04 | PN ---
DATE: 12/22/2017 SUBJECTIVE: Patient is 62 years old seen and examined. She states she started to vomit again, stayed on liquid in the evening. Patient stated as long as she is lying still, she feels okay; but when she tries to move her head or gets up, she feels dizzy. It seems like vertigo. PHYSICAL EXAMINATION: VITAL SIGNS: She is afebrile, pulse is 61, respirations 20, blood pressure 133/65. LUNGS: Bilateral fair airflow. No rhonchi or crackle. HEART: S1, S2 audible. ABDOMEN: Soft except slight palpable discomfort at surgical sites. NEUROLOGICAL: Patient is awake, alert, oriented, communicative. EXTREMITIES: Bilateral legs, no edema. LABORATORY DATA: WBC 6.2, hemoglobin 12.8, hematocrit 38.5, platelets 321. Chemistry: Sodium 141, potassium 3.7, chloride 100, CO2 of 31, BUN 13, creatinine 0.6, blood sugar 120. ASSESSMENT AND PLAN: 1. Status post , 2. Hernia repair. 3. History of hypertension. 4. [id number]-[id number] diabetes. So, the patient was given meclizine, we will make it t.i.d. p.r.n. Currently, she is on MiraLax, amlodipine, she is on IV fluids. Follow up her electrolytes in the a.m. Olga Goyal MD
[2017-12-23] MEDS ORDERED: Barium Sulfate Susp 2.1% w/v, 2.0% w/w 450 mL Bottle PO ONE (11:01)
[2017-12-23] MEDS: Enoxaparin 40 mg Syringe SC SCH (12:58)
[2017-12-23] MEDS: HYDROmorphone 0.5 mg/0.5 ml ISec IVP PRN ×3 (12:58→22:42)
--- NOTE | 2017-12-23 14:24 | CT ---
Date of service: 12/23/2017 PROCEDURE: CT Abdomen and Pelvis without intravenous contrast HISTORY: persistant n/v, abdominal pain s/p VHR COMPARISON: None. TECHNIQUE: Without contrast.. Contrast dose: Radiation dose: Total exam DLP = 857.49 mGy-cm. This CT exam was performed using one or more of the following dose reduction techniques: Automated exposure control, adjustment of the mA and/or kV according to patient size, and/or use of iterative reconstruction technique. FINDINGS: LOWER THORAX: Unremarkable. LIVER: Unremarkable. No gross lesion or ductal dilatation. GALLBLADDER AND BILE DUCTS: Unremarkable. PANCREAS: Unremarkable. No gross lesion or ductal dilatation. SPLEEN: Unremarkable. ADRENALS: Unremarkable. No mass. KIDNEYS AND URETERS: Unremarkable. No hydronephrosis. No solid mass. VASCULATURE: Unremarkable. No aortic aneurysm. Aortic calcification BOWEL: Dilated small bowel loops are seen on the left side of the abdomen. The distal small bowel loops are normal in caliber. The exact transition point is not visible. This is most likely due to adhesions. There is also distention of the stomach and duodenum. There is a right upper quadrant colostomy. There is some residual contrast material in the ascending colon extending into the ostomy. APPENDIX: Unremarkable. Normal appendix. PERITONEUM: Unremarkable. No free fluid. No free air. LYMPH NODES: Unremarkable. No enlarged lymph nodes. BLADDER: Unremarkable. REPRODUCTIVE: Unremarkable. BONES: No acute fracture. OTHER FINDINGS: None. IMPRESSION: Dilated small bowel loops are seen on the left side of the abdomen. The distal small bowel loops are normal in caliber. The exact transition point is not visible. This is most likely due to adhesions. There is also distention of the stomach and duodenum.
--- NOTE | 2017-12-24 01:04 | PN ---
DATE: 12/23/2017 SUBJECTIVE: The patient is a 62-year-old, seen and examined, had intractable vomiting, has been vomiting since last night. Because of vomiting, her belly is hurting. The patient was just given contrast to have a CAT scan done. PHYSICAL EXAMINATION GENERAL: She looks exhausted, tired, complains of abdominal pain. VITAL SIGNS: She is afebrile, pulse 60, respirations 18, blood pressure 142/70. LUNGS: Bilateral fair airflow. No rhonchi or crackle. HEART: S1 and S2 audible. ABDOMEN: Soft and has palpable discomfort. Colostomy is functional. LABORATORY DATA: WBC 6.6, hemoglobin 13.5, hematocrit 40.2, and platelets of 385. Chemistry: Sodium 140, potassium 3.0, chloride 94, CO2 of 37, BUN 18, creatinine 0.7, blood sugar of 119. Had CT scan of the abdomen and pelvis done that shows dilated small bowel loops that are seen on the left side of the abdomen. The distal small bowel loops are normal in caliber. The exact transition point is not visible probably secondary to . Distention of stomach and duodenum is also noted. ASSESSMENT AND PLAN: 1. Statu post laparotomy. 2. Probably ileus. 3. Electrolyte imbalance. 4. Hypertension. 5. Yhv-yioipqy-ybpmqjpwy diabetes. PLAN: The patient is n.p.o. again. We will start her on IV fluid. Potassium has been supplemented. We will follow up her electrolyte in a.m. She is on Reglan. She is n.p.o. Olga Goyal MD
[2017-12-24] MEDS: Albuterol-Ipratrop 3 mg / 0.5 (3 ml) UD IH SCH ×4 (02:03→20:24)
[2017-12-24] MEDS: Potassium Ch 20mEq in D5-1/2NS 1,000 ML IV SCH (03:44)
[2017-12-24] MEDS: HYDROmorphone 1 mg/ml ISec IVP PRN ×4 (03:51→23:59)
[2017-12-24] MEDS: Pantoprazole 40 mg EC Tab PO SCH (05:29)
[2017-12-24 06:45] LABS: BASO # 0.02 K/mm3 (0.0-2.0); BASO % 0.3 % (0.0-3.0); EOS # 0.2 (0.0-0.7); EOS % 2.9 % (1.5-5.0); GRAN # 4.44 (1.4-6.5); GRAN % 57.6 % (50.0-68.0); LYMPH # 2.5 (1.2-3.4); LYMPH % 32.8 % (22.0-35.0); MEAN CORPUSCULAR HGB CONC 32.9 g/dl (31.0-37.0); MEAN PLATELET VOLUME 11.2 fl (7.0-11.0); MONO # 0.5 (0.1-0.6); MONO % 6.4 % (1.0-6.0); RBC 4.67 10^6/uL (3.5-6.1); RED CELL DISTRIBUTION WIDTH 13.3 % (11.5-14.5); WHITE BLOOD COUNT 7.7 10^3/uL (4.5-11.0)
[2017-12-24 06:47] LABS: CALCIUM 8.9 mg/dL (8.4-10.5)
[2017-12-24] MEDS: Insulin Lispro (humaLOG) MEDIUM Coverage SC SCH ×4 (08:53→22:02)
[2017-12-24] MEDS: Enoxaparin 40 mg Syringe SC SCH (10:20)
[2017-12-24] MEDS: POLYETHYLENE GLYCOL 3350 17 GM/Dose PACKET PO SCH ×2 (10:20→17:23)
--- NOTE | 2017-12-24 12:06 | PN ---
DATE: 12/24/2017 SUBJECTIVE: The patient is 62 years old, seen and examined. She states she is craving for . Vomited last night. Had multiple episodes of vomiting yesterday evening, but stopped since last night. She thinks she can tolerate liquid diet. PHYSICAL EXAMINATION: VITAL SIGNS: She is afebrile, pulse 70, respirations 19, blood pressure 126/64. LUNGS: Bilateral fair airflow. No rhonchi or crackle. HEART: S1 and S2 audible. ABDOMEN: Soft. Bowel sounds are positive. EXTREMITIES: Bilateral leg, no edema. LABORATORY EXAM: WBC 7.7, hemoglobin 14, hematocrit 42.5, platelets 471. Chemistry: Sodium 137, potassium 3.9, chloride 91, CO2 of 37, BUN 27, creatinine 1.2, blood sugar of 119. CT scan of the abdomen and pelvis shows dilated small bowel loops are seen on the left side of the abdomen. Distal small bowel loops are normal in caliber. Probably ileus. ASSESSMENT: 1. Status post ventral hernia repair. 2. Status post biological mesh placement and removal of old infected mesh. 3. Hypertension. 4. Hyperlipidemia. 5. Noninsulin-dependent diabetes. PLAN: Currently, the patient is on Reglan. She is on IV fluid. We will start her on liquid diet and see if she tolerates her liquid diet, it would be advanced to liquid to solid tomorrow and we will make discharge plan. Olga Goyal MD
--- NOTE | 2017-12-24 12:12 | CP.PCM.PCO ---
Physician Communication Note - Physician Communication Note Physician Communication Note: Clear liquids with Reglan 5mgAC
--- NOTE | 2017-12-24 12:37 | CP.PCM.PN ---
Subjective - Date & Time of Evaluation Date of Evaluation: 12/24/17 Time of Evaluation: 12:30 - Subjective Subjective: Cory Rouse, PGY-1, Surgery Progress Note for Dr. Wiggins. Patient seen and examined at bedside. Patient had one episode of vomitus last night. Patient complains of abdominal pain, but does not complain of any nausea or vomiting at this time. Patient reports sufficient ostomy output Objective - Vital Signs/Intake and Output Vital Signs (last 24 hours): Temp Pulse Resp BP Pulse Ox 98.1 F 70 19 126/64 93 L 12/24/17 06:00 12/24/17 10:19 12/24/17 06:00 12/24/17 10:20 12/24/17 06:00 Intake and Output: 12/24/17 12/24/17 06:59 18:59 Intake Total 1200 Balance 1200 - Medications Medications: Current Medications Albuterol/Ipratropium (Duoneb 3 Mg/0.5 Mg (3 Ml) Ud) 3 ml IH [id number] [facility] Last Admin: 12/24/17 07:25 Dose: 3 ml Amlodipine Besylate (Norvasc) 10 mg PO DAILY [facility] Last Admin: 12/24/17 10:20 Dose: 10 mg Atorvastatin Calcium (Lipitor) 40 mg PO DAILY [facility] Last Admin: 12/24/17 10:20 Dose: 40 mg Clonidine HCl (Catapres) 0.1 mg PO BID [facility] Last Admin: 12/24/17 10:19 Dose: 0.1 mg Dextrose (Dextrose 50% Inj) 0 ml IV STAT PRN; Protocol PRN Reason: Hypoglycemia Protocol Ezetimibe (Zetia) 10 mg PO DAILY [facility] Last Admin: 12/24/17 10:21 Dose: 10 mg Enoxaparin Sodium (Lovenox) 40 mg SC DAILY [facility]; Protocol Last Admin: 12/24/17 10:20 Dose: 40 mg Famotidine (Pepcid) 20 mg IVP DAILY [facility] Last Admin: 12/24/17 10:21 Dose: 20 mg Hydromorphone HCl (Dilaudid) 1 mg IVP Q3 PRN PRN Reason: Pain, moderate (4-7) Last Admin: 12/24/17 03:51 Dose: 1 mg Dextrose (Dextrose 5% In Water 1000 Ml) 1,000 mls @ 0 mls/hr IV .Q0M PRN; Protocol PRN Reason: Hypoglycemia Protocol Potassium Chloride/Dextrose/Sod Cl (Potassium Chl 20 Meq In D5-1/2ns) 1,000 mls @ 100 mls/hr IV .Q10H [facility] Last Admin: 12/24/17 03:44 Dose: 100 mls/hr Insulin Human Lispro (Humalog Med) 0 units SC ACHS [facility]; Protocol Last Admin: 12/24/17 08:53 Dose: Not Given Ketorolac Tromethamine (Toradol) 15 mg IVP Q6H [facility] Last Admin: 12/24/17 08:54 Dose: Not Given Lidocaine (Lidoderm) 1 ea TD DAILY [facility] Last Admin: 12/23/17 10:00 Dose: Not Given Meclizine HCl (Antivert) 25 mg PO TID PRN PRN Reason: vertigo Metoclopramide HCl (Reglan) 5 mg PO ACTID [facility] Last Admin: 12/24/17 08:54 Dose: Not Given Ondansetron HCl (Zofran Inj) 4 mg IVP Q6H PRN PRN Reason: Nausea/Vomiting Last Admin: 12/23/17 22:42 Dose: 4 mg Oxycodone/Acetaminophen (Percocet 5/325 Mg Tab) 1 tab PO Q6H PRN PRN Reason: Pain, moderate (4-7) Stop: 12/25/17 10:19 Last Admin: 12/23/17 08:49 Dose: 1 tab Pantoprazole Sodium (Protonix Ec Tab) 40 mg PO 0600 [facility] Last Admin: 12/24/17 05:29 Dose: 40 mg Polyethylene Glycol (Miralax) 17 gm PO BID [facility] Last Admin: 12/24/17 10:20 Dose: Not Given Valsartan (Diovan) 320 mg PO DAILY [facility] Last Admin: 12/24/17 10:19 Dose: 320 mg - Labs Labs: 12/24/17 06:00 12/24/17 06:00 PT 11.8 SECONDS (9.4-12.5) 12/09/17 11:45 INR 1.03 12/09/17 11:45 APTT 30.4 Seconds (25.1-36.5) 12/09/17 11:45 - Constitutional Appears: Well, Non-toxic, No Acute Distress - Head Exam Head Exam: ATRAUMATIC, NORMAL INSPECTION, NORMOCEPHALIC - Eye Exam Eye Exam: EOMI Pupil Exam: PERRL - Neck Exam Neck Exam: Full ROM - Respiratory Exam Respiratory Exam: Clear to Ausculation Bilateral, NORMAL BREATHING PATTERN - Cardiovascular Exam Cardiovascular Exam: REGULAR RHYTHM - GI/Abdominal Exam GI & Abdominal Exam: Soft, Tenderness, Normal Bowel Sounds Additional comments: Incision intact, ostomy has sufficient output and is patent - Extremities Exam Extremities Exam: Full ROM - Neurological Exam Neurological Exam: Alert, Awake, CN II-XII Intact, Oriented x3 Assessment and Plan - Assessment and Plan (Free Text) Assessment: 62 year old female with past medical history of hypertension, NIDDM, HLD presents s/p day 14 of exlap with excision of infected mesh. Patient has had output from ostomy has had 1 episodes of green vomitus yesterday. Plan: Reglan 5 mg with trial of feeds with 6 small meals. No plans for OR at this time. Continue pain control with percocet and lidoderm. DVT prophylaxis with lovenox and GI prophylaxis with pepcid. Replete electrolytes as needed. Discussed case with Dr. Wiggins.
--- NOTE | 2017-12-24 12:53 | CP.PCM.PN ---
Subjective - Date & Time of Evaluation Date of Evaluation: 12/23/17 Time of Evaluation: 10:10 - Subjective Subjective: No fevers, better abdominal pain, no nausea, no vomiting, not in distress. Objective - Vital Signs/Intake and Output Vital Signs (last 24 hours): Temp Pulse Resp BP Pulse Ox 97.8 F 61 20 133/65 96 12/22/17 16:10 12/22/17 17:11 12/22/17 16:10 12/22/17 17:11 12/22/17 16:10 - Medications Medications: Current Medications Acetaminophen (Tylenol 325 Mg Supp) 325 mg RC Q4H PRN PRN Reason: Fever >100.4 F Last Admin: 12/12/17 05:45 Dose: 325 mg Albuterol/Ipratropium (Duoneb 3 Mg/0.5 Mg (3 Ml) Ud) 3 ml IH [id number] [facility] Last Admin: 12/22/17 13:36 Dose: Not Given Amlodipine Besylate (Norvasc) 10 mg PO DAILY [facility] Last Admin: 12/22/17 09:30 Dose: 10 mg Atorvastatin Calcium (Lipitor) 40 mg PO DAILY [facility] Last Admin: 12/22/17 09:28 Dose: 40 mg Clonidine HCl (Catapres) 0.1 mg PO BID [facility] Last Admin: 12/22/17 17:11 Dose: 0.1 mg Dextrose (Dextrose 50% Inj) 0 ml IV STAT PRN; Protocol PRN Reason: Hypoglycemia Protocol Ezetimibe (Zetia) 10 mg PO DAILY [facility] Last Admin: 12/22/17 09:32 Dose: 10 mg Enoxaparin Sodium (Lovenox) 40 mg SC DAILY [facility]; Protocol Last Admin: 12/22/17 09:28 Dose: 40 mg Famotidine (Pepcid) 20 mg IVP DAILY [facility] Last Admin: 12/22/17 09:30 Dose: 20 mg Dextrose (Dextrose 5% In Water 1000 Ml) 1,000 mls @ 0 mls/hr IV .Q0M PRN; Protocol PRN Reason: Hypoglycemia Protocol Potassium Chloride/Dextrose/Sod Cl (Potassium Chl 20 Meq In D5-1/2ns) 1,000 mls @ 100 mls/hr IV .Q10H [facility] Insulin Human Lispro (Humalog Med) 0 units SC ACHS [facility]; Protocol Last Admin: 12/22/17 17:11 Dose: Not Given Ketorolac Tromethamine (Toradol) 15 mg IVP Q6H [facility] Last Admin: 12/22/17 15:43 Dose: Not Given Lidocaine (Lidoderm) 1 ea TD DAILY [facility] Last Admin: 12/22/17 10:01 Dose: Not Given Metoclopramide HCl (Reglan) 5 mg PO ACTID [facility] Last Admin: 12/22/17 16:10 Dose: Not Given Ondansetron HCl (Zofran Inj) 4 mg IVP Q6H PRN PRN Reason: Nausea/Vomiting Last Admin: 12/22/17 11:51 Dose: 4 mg Oxycodone/Acetaminophen (Percocet 5/325 Mg Tab) 1 tab PO Q6H PRN PRN Reason: Pain, moderate (4-7) Stop: 12/25/17 10:19 Last Admin: 12/22/17 15:14 Dose: 1 tab Polyethylene Glycol (Miralax) 17 gm PO BID [facility] Last Admin: 12/22/17 17:12 Dose: Not Given Valsartan (Diovan) 320 mg PO DAILY [facility] Last Admin: 12/22/17 09:26 Dose: 320 mg - Labs Labs: 12/22/17 06:45 12/22/17 06:45 PT 11.8 SECONDS (9.4-12.5) 12/09/17 11:45 INR 1.03 12/09/17 11:45 APTT 30.4 Seconds (25.1-36.5) 12/09/17 11:45 - Constitutional Appears: Chronically Ill - Head Exam Head Exam: NORMAL INSPECTION - Respiratory Exam Respiratory Exam: Decreased Breath Sounds - Cardiovascular Exam Cardiovascular Exam: +S1, +S2 - GI/Abdominal Exam GI & Abdominal Exam: Soft. 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
[2017-12-25] MEDS: Albuterol-Ipratrop 3 mg / 0.5 (3 ml) UD IH SCH ×4 (01:36→19:26)
[2017-12-25] MEDS: Potassium Ch 20mEq in D5-1/2NS 1,000 ML IV SCH ×2 (01:52→23:51)
[2017-12-25] MEDS: Pantoprazole 40 mg EC Tab PO SCH (05:35)
[2017-12-25] MEDS: HYDROmorphone 1 mg/ml ISec IVP PRN (05:38)
--- NOTE | 2017-12-25 07:57 | CP.PCM.PN ---
Subjective - Date & Time of Evaluation Date of Evaluation: 12/25/17 Time of Evaluation: 07:51 - Subjective Subjective: Cory Rouse, PGY-1, Surgery Progress Note for Dr. Wiggins. Patient seen and evaluated at bedside. Patient had no overnight events. Patient reports nausea, mild abdominal pain, and back pain since last night but has not had an episode of vomiting. Patient denies fever, chills, chest pain, shortness of breath. Objective - Vital Signs/Intake and Output Vital Signs (last 24 hours): Temp Pulse Resp BP Pulse Ox 98.5 F 60 20 102/54 L 95 12/25/17 00:00 12/25/17 00:00 12/25/17 00:00 12/25/17 00:00 12/25/17 00:00 Intake and Output: 12/25/17 12/25/17 06:59 18:59 Intake Total 1300 Balance 1300 - Medications Medications: Current Medications Albuterol/Ipratropium (Duoneb 3 Mg/0.5 Mg (3 Ml) Ud) 3 ml IH [id number] [facility] Last Admin: 12/25/17 01:36 Dose: 3 ml Amlodipine Besylate (Norvasc) 10 mg PO DAILY [facility] Last Admin: 12/24/17 10:20 Dose: 10 mg Atorvastatin Calcium (Lipitor) 40 mg PO DAILY [facility] Last Admin: 12/24/17 10:20 Dose: 40 mg Clonidine HCl (Catapres) 0.1 mg PO BID [facility] Last Admin: 12/24/17 17:23 Dose: 0.1 mg Dextrose (Dextrose 50% Inj) 0 ml IV STAT PRN; Protocol PRN Reason: Hypoglycemia Protocol Ezetimibe (Zetia) 10 mg PO DAILY [facility] Last Admin: 12/24/17 10:21 Dose: 10 mg Enoxaparin Sodium (Lovenox) 40 mg SC DAILY [facility]; Protocol Last Admin: 12/24/17 10:20 Dose: 40 mg Famotidine (Pepcid) 20 mg IVP DAILY [facility] Last Admin: 12/24/17 10:21 Dose: 20 mg Hydromorphone HCl (Dilaudid) 0.5 mg IVP Q4H PRN PRN Reason: Pain, moderate (4-7) Dextrose (Dextrose 5% In Water 1000 Ml) 1,000 mls @ 0 mls/hr IV .Q0M PRN; Protocol PRN Reason: Hypoglycemia Protocol Potassium Chloride/Dextrose/Sod Cl (Potassium Chl 20 Meq In D5-1/2ns) 1,000 mls @ 100 mls/hr IV .Q10H [facility] Last Admin: 12/25/17 01:52 Dose: 100 mls/hr Insulin Human Lispro (Humalog Med) 0 units SC ACHS [facility]; Protocol Last Admin: 12/24/17 22:02 Dose: Not Given Ketorolac Tromethamine (Toradol) 15 mg IVP Q6H [facility] Last Admin: 12/25/17 01:53 Dose: Not Given Lidocaine (Lidoderm) 1 ea TD DAILY [facility] Last Admin: 12/23/17 10:00 Dose: Not Given Meclizine HCl (Antivert) 25 mg PO TID PRN PRN Reason: vertigo Metoclopramide HCl (Reglan) 5 mg IVP Q6 [facility] Last Admin: 12/25/17 05:38 Dose: 5 mg Pantoprazole Sodium (Protonix Ec Tab) 40 mg PO 0600 [facility] Last Admin: 12/25/17 05:35 Dose: 40 mg Polyethylene Glycol (Miralax) 17 gm PO BID [facility] Last Admin: 12/24/17 17:23 Dose: 17 gm Valsartan (Diovan) 320 mg PO DAILY [facility] Last Admin: 12/24/17 10:19 Dose: 320 mg - Labs Labs: 12/24/17 06:00 12/24/17 06:00 PT 11.8 SECONDS (9.4-12.5) 12/09/17 11:45 INR 1.03 12/09/17 11:45 APTT 30.4 Seconds (25.1-36.5) 12/09/17 11:45 - Constitutional Appears: Well, Non-toxic, No Acute Distress - Head Exam Head Exam: ATRAUMATIC, NORMAL INSPECTION, NORMOCEPHALIC - Eye Exam Eye Exam: EOMI Pupil Exam: PERRL - Respiratory Exam Respiratory Exam: Clear to Ausculation Bilateral, NORMAL BREATHING PATTERN - Cardiovascular Exam Cardiovascular Exam: REGULAR RHYTHM - GI/Abdominal Exam GI & Abdominal Exam: Soft, Tenderness (minimal), Normal Bowel Sounds Additional comments: Incision intact, good stoma output, minimal drainage from incision but nonerythematous and not warm - Extremities Exam Extremities Exam: Full ROM - Neurological Exam Neurological Exam: Alert, Awake, CN II-XII Intact, Oriented x3 - Skin Skin Exam: Dry, Intact, Normal Color Assessment and Plan - Assessment and Plan (Free Text) Assessment: 62 year old female with past medical history of hypertension, NIDDM, HLD pre sents s/p day 16 of exlap with excision of infected mesh. Patient has had output from ostomy has had 1 episodes of green vomitus yesterday. Plan: Patient has tolerated small meal with reglan diet. Continue to progress diet as tolerated and monitor ostomy output and for vom iting. Taper dilaudid dose. Replete electrolytes as necessary. DVT prophylaxis with lovenox and GI prophylaxis with protonix. Will discuss plan with Dr. Wiggins
[2017-12-25] MEDS: HYDROmorphone 0.5 mg/0.5 ml ISec IVP PRN ×4 (08:04→22:31)
[2017-12-25] MEDS: Insulin Lispro (humaLOG) MEDIUM Coverage SC SCH ×4 (08:06→21:45)
[2017-12-25] MEDS: Lidocaine 5% Patch TD SCH (09:35)
[2017-12-25] MEDS: Enoxaparin 40 mg Syringe SC SCH (09:35)
[2017-12-25] MEDS: POLYETHYLENE GLYCOL 3350 17 GM/Dose PACKET PO SCH ×2 (09:36→17:23)
--- NOTE | 2017-12-25 12:28 | CP.PCM.PN ---
Subjective - Date & Time of Evaluation Date of Evaluation: 12/25/17 Time of Evaluation: 10:55 - Subjective Subjective: No fevers, not in distress, abdominal pain is better, no nausea or vomiting, no diarrhea. Objective - Vital Signs/Intake and Output Vital Signs (last 24 hours): Temp Pulse Resp BP Pulse Ox 98.1 F 70 19 126/64 93 L 12/24/17 06:00 12/24/17 10:19 12/24/17 06:00 12/24/17 10:20 12/24/17 06:00 Intake and Output: 12/24/17 12/24/17 06:59 18:59 Intake Total 1200 Balance 1200 - Medications Medications: Current Medications Albuterol/Ipratropium (Duoneb 3 Mg/0.5 Mg (3 Ml) Ud) 3 ml IH [id number] [facility] Last Admin: 12/24/17 07:25 Dose: 3 ml Amlodipine Besylate (Norvasc) 10 mg PO DAILY [facility] Last Admin: 12/24/17 10:20 Dose: 10 mg Atorvastatin Calcium (Lipitor) 40 mg PO DAILY [facility] Last Admin: 12/24/17 10:20 Dose: 40 mg Clonidine HCl (Catapres) 0.1 mg PO BID [facility] Last Admin: 12/24/17 10:19 Dose: 0.1 mg Dextrose (Dextrose 50% Inj) 0 ml IV STAT PRN; Protocol PRN Reason: Hypoglycemia Protocol Ezetimibe (Zetia) 10 mg PO DAILY [facility] Last Admin: 12/24/17 10:21 Dose: 10 mg Enoxaparin Sodium (Lovenox) 40 mg SC DAILY [facility]; Protocol Last Admin: 12/24/17 10:20 Dose: 40 mg Famotidine (Pepcid) 20 mg IVP DAILY [facility] Last Admin: 12/24/17 10:21 Dose: 20 mg Hydromorphone HCl (Dilaudid) 1 mg IVP Q3 PRN PRN Reason: Pain, moderate (4-7) Last Admin: 12/24/17 03:51 Dose: 1 mg Dextrose (Dextrose 5% In Water 1000 Ml) 1,000 mls @ 0 mls/hr IV .Q0M PRN; Protocol PRN Reason: Hypoglycemia Protocol Potassium Chloride/Dextrose/Sod Cl (Potassium Chl 20 Meq In D5-1/2ns) 1,000 mls @ 100 mls/hr IV .Q10H [facility] Last Admin: 12/24/17 03:44 Dose: 100 mls/hr Insulin Human Lispro (Humalog Med) 0 units SC [facility]; Protocol Last Admin: 12/24/17 08:53 Dose: Not Given Ketorolac Tromethamine (Toradol) 15 mg IVP Q6H [facility] Last Admin: 12/24/17 08:54 Dose: Not Given Lidocaine (Lidoderm) 1 ea TD DAILY [facility] Last Admin: 12/23/17 10:00 Dose: Not Given Meclizine HCl (Antivert) 25 mg PO TID PRN PRN Reason: vertigo Metoclopramide HCl (Reglan) 5 mg PO ACTID [facility] Last Admin: 12/24/17 08:54 Dose: Not Given Ondansetron HCl (Zofran Inj) 4 mg IVP Q6H PRN PRN Reason: Nausea/Vomiting Last Admin: 12/23/17 22:42 Dose: 4 mg Oxycodone/Acetaminophen (Percocet 5/325 Mg Tab) 1 tab PO Q6H PRN PRN Reason: Pain, moderate (4-7) Stop: 12/25/17 10:19 Last Admin: 12/23/17 08:49 Dose: 1 tab Pantoprazole Sodium (Protonix Ec Tab) 40 mg PO 0600 [facility] Last Admin: 12/24/17 05:29 Dose: 40 mg Polyethylene Glycol (Miralax) 17 gm PO BID [facility] Last Admin: 12/24/17 10:20 Dose: Not Given Valsartan (Diovan) 320 mg PO DAILY [facility] Last Admin: 12/24/17 10:19 Dose: 320 mg - Labs Labs: 12/24/17 06:00 12/24/17 06:00 PT 11.8 SECONDS (9.4-12.5) 12/09/17 11:45 INR 1.03 12/09/17 11:45 APTT 30.4 Seconds (25.1-36.5) 12/09/17 11:45 - Constitutional Appears: Chronically Ill - Head Exam Head Exam: NORMAL INSPECTION - ENT Exam ENT Exam: Mucous Membranes Moist - Neck Exam Neck Exam: absent: Meningismus - Respiratory Exam Respiratory Exam: Decreased Breath Sounds - Cardiovascular Exam Cardiovascular Exam: +S1, +S2 - GI/Abdominal Exam GI & Abdominal Exam: Soft. 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 coli in 2017, associated with abdominal wall abscess,with infected mesh obesity with BMI 31 DM HTN history of bladder resection with history of rectovaginal fistula history of uterine fibroids S/P hysterectomy S/P colostomy placement history of ventral hernia S/P repair and mesh placement with history of mesh infection and removal S/P appendectomy Plan completed Vancomycin and Merrem (8 days) - continue to monitor off antibiotics since she is at risk for hospital-acquired infections
--- NOTE | 2017-12-25 13:55 | PN ---
DATE: 12/25/2017 SUBJECTIVE: Patient is 62 years old, seen and examined, lying in bed. Seems to be comfortable. No more vomiting since last night. Ate some oatmeal this morning. States she was able to tolerate. PHYSICAL EXAMINATION: VITAL SIGNS: Patient is afebrile, pulse 61, respiration 20, blood pressure 108/71. LUNGS: Bilateral fair airflow. N o rhonchi or crackle. HEART: S1, S2 audible. ABDOMEN: Soft. Colostomy is functional. Still complain of pain in the periumbilical area. Middle part of the wound seems to be little erythematous. LABORATORY EXAMINATION: WBC 7.7, hemoglobin 14, hematocrit 42, platelets 471. Chemistry: Blood sugar is 127. ASSESSMENT AND PLAN: 1. Postoperative ileus. 2. Partial small bowel resection with end to end anastomosis. 3. Ventral hernia repair and biological mesh placement. 4. Insulin dependent diabetes. 5. Hypertension. 6. Hyperlipidemia. PLAN: Patient is off of antibiotics. She is on DVT prophylaxis. She is on her usual medication. Blood pressure is being monitored. Encouraged ambulation. If she tolerates food, possible discharge. Olga Goyal MD
[2017-12-26] MEDS: Albuterol-Ipratrop 3 mg / 0.5 (3 ml) UD IH SCH ×4 (02:18→19:45)
[2017-12-26] MEDS: Pantoprazole 40 mg EC Tab PO SCH (05:15)
[2017-12-26] MEDS: HYDROmorphone 0.5 mg/0.5 ml ISec IVP PRN ×4 (05:15→20:34)
[2017-12-26] MEDS: Insulin Lispro (humaLOG) MEDIUM Coverage SC SCH ×4 (08:02→21:33)
--- NOTE | 2017-12-26 09:08 | CP.PCM.PN ---
Subjective - Date & Time of Evaluation Date of Evaluation: 12/26/17 Time of Evaluation: 09:04 - Subjective Subjective: Cory Rouse, PGY-1, Surgery Progress Note for Dr. Wiggins. Patient seen and examined at bedside. Patient had one episode of green vomit yesterday. Patient tolerated diet well yesterday. Patient was not consuming food when episode of vomitus occurred. Patient continues to complain of abdominal pain and headache and reports adequate ostomy output. Objective - Vital Signs/Intake and Output Vital Signs (last 24 hours): Temp Pulse Resp BP Pulse Ox 98 F 58 L 20 128/56 L 94 L 12/26/17 08:09 12/26/17 08:09 12/26/17 08:09 12/26/17 08:09 12/26/17 08:09 Intake and Output: 12/26/17 12/26/17 06:59 18:59 Intake Total 1380 Balance 1380 - Medications Medications: Current Medications Albuterol/Ipratropium (Duoneb 3 Mg/0.5 Mg (3 Ml) Ud) 3 ml IH [id number] [facility] Last Admin: 12/26/17 07:42 Dose: Not Given Amlodipine Besylate (Norvasc) 10 mg PO DAILY [facility] Last Admin: 12/25/17 09:36 Dose: 10 mg Atorvastatin Calcium (Lipitor) 40 mg PO DAILY [facility] Last Admin: 12/25/17 09:35 Dose: 40 mg Clonidine HCl (Catapres) 0.1 mg PO BID [facility] Last Admin: 12/25/17 17:22 Dose: 0.1 mg Dextrose (Dextrose 50% Inj) 0 ml IV STAT PRN; Protocol PRN Reason: Hypoglycemia Protocol Ezetimibe (Zetia) 10 mg PO DAILY [facility] Last Admin: 12/25/17 09:37 Dose: 10 mg Enoxaparin Sodium (Lovenox) 40 mg SC DAILY [facility]; Protocol Last Admin: 12/25/17 09:35 Dose: 40 mg Famotidine (Pepcid) 20 mg IVP DAILY [facility] Last Admin: 12/25/17 09:37 Dose: 20 mg Hydromorphone HCl (Dilaudid) 0.5 mg IVP Q4H PRN PRN Reason: Pain, moderate (4-7) Last Admin: 12/26/17 05:15 Dose: 0.5 mg Dextrose (Dextrose 5% In Water 1000 Ml) 1,000 mls @ 0 mls/hr IV .Q0M PRN; Protocol PRN Reason: Hypoglycemia Protocol Potassium Chloride/Dextrose/Sod Cl (Potassium Chl 20 Meq In D5-1/2ns) 1,000 mls @ 100 mls/hr IV .Q10H [facility] Last Admin: 12/25/17 23:51 Dose: 100 mls/hr Insulin Human Lispro (Humalog Med) 0 units SC ACHS [facility]; Protocol Last Admin: 12/26/17 08:02 Dose: Not Given Ketorolac Tromethamine (Toradol) 15 mg IVP Q6H [facility] Last Admin: 12/25/17 20:19 Dose: Not Given Lidocaine (Lidoderm) 1 ea TD DAILY [facility] Last Admin: 12/25/17 09:35 Dose: 1 ea Meclizine HCl (Antivert) 25 mg PO TID PRN PRN Reason: vertigo Last Admin: 12/25/17 10:52 Dose: 25 mg Metoclopramide HCl (Reglan) 5 mg IVP Q6 [facility] Last Admin: 12/26/17 05:16 Dose: 5 mg Pantoprazole Sodium (Protonix Ec Tab) 40 mg PO 0600 [facility] Last Admin: 12/26/17 05:15 Dose: 40 mg Polyethylene Glycol (Miralax) 17 gm PO BID [facility] Last Admin: 12/25/17 17:23 Dose: Not Given Valsartan (Diovan) 320 mg PO DAILY [facility] Last Admin: 12/25/17 09:34 Dose: 320 mg - Labs Labs: 12/24/17 06:00 12/24/17 06:00 PT 11.8 SECONDS (9.4-12.5) 12/09/17 11:45 INR 1.03 12/09/17 11:45 APTT 30.4 Seconds (25.1-36.5) 12/09/17 11:45 - Constitutional Appears: Well, Non-toxic, No Acute Distress - Head Exam Head Exam: ATRAUMATIC, NORMAL INSPECTION, NORMOCEPHALIC - Eye Exam Eye Exam: EOMI Pupil Exam: PERRL - Respiratory Exam Respiratory Exam: Clear to Ausculation Bilateral, NORMAL BREATHING PATTERN - Cardiovascular Exam Cardiovascular Exam: REGULAR RHYTHM - GI/Abdominal Exam GI & Abdominal Exam: Soft, Tenderness (minimal), Normal Bowel Sounds. absent: Distended - Extremities Exam Extremities Exam: Full ROM - Neurological Exam Neurological Exam: Alert, Awake, CN II-XII Intact, Oriented x3 Assessment and Plan - Assessment and Plan (Free Text) Assessment: 62 year old female with past medical history of hypertension, NIDDM, HLD presents s/p day 16 of exlap with excision of infected mesh. Patient has had output from ostomy has had 1 episodes of green vomitus yesterday. Plan: Continue with 6 small meals with reglan. Monitor for vomiting. Continue to taper pain medication. Replete electrolytes as necessary. DVT prophylaxis with lovenox and GI prophylaxis with protonix. Will discuss case with Dr. Wiggins.
[2017-12-26] MEDS: Lidocaine 5% Patch TD SCH (09:15)
[2017-12-26] MEDS: Enoxaparin 40 mg Syringe SC SCH (09:16)
[2017-12-26] MEDS: POLYETHYLENE GLYCOL 3350 17 GM/Dose PACKET PO SCH ×2 (09:16→17:09)
--- NOTE | 2017-12-26 12:06 | RAD ---
Date of service: 12/26/2017 HISTORY: r/o obstruction COMPARISON: 12/23/2017. Single-view abdomen. 12/23/2017 CT abdomen and pelvis. FINDINGS: BOWEL: No evidence of obstruction or free air. BONES: Normal. OTHER FINDINGS: None. IMPRESSION: No acute findings related to/accounting for the clinical presentation. No significant interval change compared to the prior examination(s).
--- NOTE | 2017-12-26 12:09 | PN ---
DATE: 12/26/2017 SUBJECTIVE: The patient is 62 years old, seen and examined. She states she has not vomited since last night. Had pancake and tolerated well. Minimal abdominal pain. PHYSICAL EXAMINATION: VITAL SIGNS: The patient is afebrile, pulse 60, respirations 20, blood pressure 128/61. LUNGS: Bilateral fair airflow. No rhonchi or crackle. HEART: S1 and S2 audible. ABDOMEN: Soft. Slight palpable discomfort at surgical site. Colostomy has some liquid stool. LABORATORY EXAM: WBC 7.7, hemoglobin 14, hematocrit 42.5, platelet 471. Chemistry: Blood sugar is 143. Urine has yeast in it. ASSESSMENT: 1. Status post infected mesh removal. 2. Status post biological mesh placement. 3. Status post ileus. 4. Hypertension. 5. Noninsulin-dependent diabetes. PLAN: Currently, the patient is on 0.5 of Dilaudid. She states she cannot tolerate Percocet. We will monitor her blood sugar. She is on DVT prophylaxis. Encourage ambulation. We will discontinue her fluid. Spoke to Dr. Wiggins. If the patient remains stable over next 24 hours, possible discharge in the a.m. Olga Goyal MD
--- NOTE | 2017-12-26 13:43 | CP.PCM.PN ---
Subjective - Date & Time of Evaluation Date of Evaluation: 12/26/17 Time of Evaluation: 09:55 - Subjective Subjective: Afebrile, no increased abdominal pain. Objective - Vital Signs/Intake and Output Vital Signs (last 24 hours): Temp Pulse Resp BP Pulse Ox 98.1 F 61 20 108/71 96 12/25/17 08:15 12/25/17 09:30 12/25/17 08:15 12/25/17 09:36 12/25/17 08:15 Intake and Output: 12/25/17 12/25/17 06:59 18:59 Intake Total 1300 Balance 1300 - Medications Medications: Current Medications Albuterol/Ipratropium (Duoneb 3 Mg/0.5 Mg (3 Ml) Ud) 3 ml IH [id number] [facility] Last Admin: 12/25/17 07:59 Dose: Not Given Amlodipine Besylate (Norvasc) 10 mg PO DAILY [facility] Last Admin: 12/25/17 09:36 Dose: 10 mg Atorvastatin Calcium (Lipitor) 40 mg PO DAILY [facility] Last Admin: 12/25/17 09:35 Dose: 40 mg Clonidine HCl (Catapres) 0.1 mg PO BID [facility] Last Admin: 12/25/17 09:30 Dose: 0.1 mg Dextrose (Dextrose 50% Inj) 0 ml IV STAT PRN; Protocol PRN Reason: Hypoglycemia Protocol Ezetimibe (Zetia) 10 mg PO DAILY [facility] Last Admin: 12/25/17 09:37 Dose: 10 mg Enoxaparin Sodium (Lovenox) 40 mg SC DAILY [facility]; Protocol Last Admin: 12/25/17 09:35 Dose: 40 mg Famotidine (Pepcid) 20 mg IVP DAILY [facility] Last Admin: 12/25/17 09:37 Dose: 20 mg Hydromorphone HCl (Dilaudid) 0.5 mg IVP Q4H PRN PRN Reason: Pain, moderate (4-7) Last Admin: 12/25/17 08:04 Dose: 0.5 mg Dextrose (Dextrose 5% In Water 1000 Ml) 1,000 mls @ 0 mls/hr IV .Q0M PRN; Protocol PRN Reason: Hypoglycemia Protocol Potassium Chloride/Dextrose/Sod Cl (Potassium Chl 20 Meq In D5-1/2ns) 1,000 mls @ 100 mls/hr IV .Q10H [facility] Last Admin: 12/25/17 01:52 Dose: 100 mls/hr Insulin Human Lispro (Humalog Med) 0 units SC ACHS [facility]; Protocol Last Admin: 12/25/17 12:13 Dose: Not Given Ketorolac Tromethamine (Toradol) 15 mg IVP Q6H [facility] Last Admin: 12/25/17 09:37 Dose: Not Given Lidocaine (Lidoderm) 1 ea TD DAILY [facility] Last Admin: 12/25/17 09:35 Dose: 1 ea Meclizine HCl (Antivert) 25 mg PO TID PRN PRN Reason: vertigo Last Admin: 12/25/17 10:52 Dose: 25 mg Metoclopramide HCl (Reglan) 5 mg IVP Q6 [facility] Last Admin: 12/25/17 12:15 Dose: 5 mg Pantoprazole Sodium (Protonix Ec Tab) 40 mg PO 0600 [facility] Last Admin: 12/25/17 05:35 Dose: 40 mg Polyethylene Glycol (Miralax) 17 gm PO BID [facility] Last Admin: 12/25/17 09:36 Dose: 17 gm Valsartan (Diovan) 320 mg PO DAILY [facility] Last Admin: 12/25/17 09:34 Dose: 320 mg - Labs Labs: 12/24/17 06:00 12/24/17 06:00 PT 11.8 SECONDS (9.4-12.5) 12/09/17 11:45 INR 1.03 12/09/17 11:45 APTT 30.4 Seconds (25.1-36.5) 12/09/17 11:45 - Constitutional Appears: No Acute Distress, Chronically Ill - Head Exam Head Exam: NORMAL INSPECTION - Respiratory Exam Respiratory Exam: Decreased Breath Sounds - Cardiovascular Exam Cardiovascular Exam: +S1, +S2 - GI/Abdominal Exam GI & Abdominal Exam: Soft. 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 coli in 2017, associated with abdominal wall abscess,with infected mesh obesity with BMI 31 DM HTN history of bladder resection with history of rectovaginal fistula history of uterine fibroids S/P hysterectomy S/P colostomy placement history of ventral hernia S/P repair and mesh placement with history of mesh infection and removal S/P appendectomy Plan completed Vancomycin and Merrem (8 days) - continue to monitor off antibiotics since she is at risk for healthcare-associated infections
--- NOTE | 2017-12-26 18:21 | CP.PCM.PCO ---
Physician Communication Note - Physician Communication Note Physician Communication Note: Tapering opiate sq/Rx Reglan po around the clock/add SSE
[2017-12-26] MEDS: Metoclopramide 5 mg/5 ml Oral Sol PO SCH (22:05)
[2017-12-27] MEDS: HYDROmorphone 0.5 mg/0.5 ml ISec IVP PRN ×2 (01:46→05:55)
[2017-12-27] MEDS: Albuterol-Ipratrop 3 mg / 0.5 (3 ml) UD IH SCH ×2 (03:02→07:38)
[2017-12-27] MEDS: Pantoprazole 40 mg EC Tab PO SCH (05:53)
[2017-12-27] MEDS: Metoclopramide 5 mg/5 ml Oral Sol PO SCH (05:54)
[2017-12-27 08:34] VITALS: BP 124/66; PULSE 65; RESP 20; TEMP 98.1; O2SAT 95
--- NOTE | 2017-12-27 09:01 | CP.PCM.PN ---
<YamilethSixto - Last Filed: 12/29/17 07:27> Subjective - Date & Time of Evaluation Date of Evaluation: 12/27/17 Time of Evaluation: 08:55 - Subjective Subjective: General Surgery Progress Note for Dr. Wiggins 62F seen and evaluated at bedside this morning. No acute events overnight. Patient complaining of some mild nausea but no vomiting. Good ostomy output. Denies f/c, n/v/d, abdominal pain, SOB, CP, and urinary symptoms. Objective - Vital Signs/Intake and Output Vital Signs (last 24 hours): Temp Pulse Resp BP Pulse Ox 98.1 F 65 20 124/66 95 12/27/17 05:00 12/27/17 05:00 12/27/17 05:00 12/27/17 05:00 12/27/17 05:00 Intake and Output: 12/27/17 12/27/17 06:59 18:59 Intake Total 120 Output Total 0 Balance 120 - Medications Medications: Current Medications Albuterol/Ipratropium (Duoneb 3 Mg/0.5 Mg (3 Ml) Ud) 3 ml IH [id number] [facility] Last Admin: 12/27/17 07:38 Dose: Not Given Amlodipine Besylate (Norvasc) 10 mg PO DAILY [facility] Last Admin: 12/26/17 09:16 Dose: 10 mg Atorvastatin Calcium (Lipitor) 40 mg PO DAILY [facility] Last Admin: 12/26/17 09:16 Dose: 40 mg Clonidine HCl (Catapres) 0.1 mg PO BID [facility] Last Admin: 12/26/17 17:08 Dose: 0.1 mg Dextrose (Dextrose 50% Inj) 0 ml IV STAT PRN; Protocol PRN Reason: Hypoglycemia Protocol Ezetimibe (Zetia) 10 mg PO DAILY [facility] Last Admin: 12/26/17 09:18 Dose: 10 mg Enoxaparin Sodium (Lovenox) 40 mg SC DAILY [facility]; Protocol Last Admin: 12/26/17 09:16 Dose: 40 mg Hydromorphone HCl (Dilaudid) 0.5 mg IVP Q4H PRN PRN Reason: Pain, moderate (4-7) Last Admin: 12/27/17 05:55 Dose: 0.5 mg Dextrose (Dextrose 5% In Water 1000 Ml) 1,000 mls @ 0 mls/hr IV .Q0M PRN; Protocol PRN Reason: Hypoglycemia Protocol Insulin Human Lispro (Humalog Med) 0 units SC ACHS [facility]; Protocol Last Admin: 12/26/17 21:33 Dose: Not Given Ketorolac Tromethamine (Toradol) 15 mg IVP Q6H [facility] Last Admin: 12/27/17 05:24 Dose: Not Given Lidocaine (Lidoderm) 1 ea TD DAILY [facility] Last Admin: 12/26/17 09:15 Dose: 1 ea Meclizine HCl (Antivert) 25 mg PO TID PRN PRN Reason: vertigo Last Admin: 12/25/17 10:52 Dose: 25 mg Metoclopramide HCl (Reglan) 10 mg PO 0600,1130,1630,2200 [facility] Last Admin: 12/27/17 05:54 Dose: 10 mg Pantoprazole Sodium (Protonix Ec Tab) 40 mg PO 0600 [facility] Last Admin: 12/27/17 05:53 Dose: 40 mg Polyethylene Glycol (Miralax) 17 gm PO BID [facility] Last Admin: 12/26/17 17:09 Dose: 17 gm Valsartan (Diovan) 320 mg PO DAILY [facility] Last Admin: 12/26/17 09:15 Dose: 320 mg - Labs Labs: 12/24/17 06:00 12/24/17 06:00 PT 11.8 SECONDS (9.4-12.5) 12/09/17 11:45 INR 1.03 12/09/17 11:45 APTT 30.4 Seconds (25.1-36.5) 12/09/17 11:45 - Constitutional Appears: Well, Non-toxic, No Acute Distress - Head Exam Head Exam: ATRAUMATIC, NORMAL INSPECTION, NORMOCEPHALIC - Eye Exam Eye Exam: EOMI - ENT Exam ENT Exam: Mucous Membranes Moist - Respiratory Exam Respiratory Exam: NORMAL BREATHING PATTERN - GI/Abdominal Exam GI & Abdominal Exam: Soft, Normal Bowel Sounds. absent: Distended, Tenderness Additional comments: ostomy pink, patent, productive abdominal incisions c/d/i - Neurological Exam Neurological Exam: Alert, Awake, Oriented x3 Assessment and Plan - Assessment and Plan (Free Text) Assessment: 62F s/p exlap with excision of infected mesh [id number] Plan: Continue with 6 small meals with reglan Monitor for vomiting Continue to taper pain medication Replete electrolytes as necessary Cleared for discharge from a surgical standpoint Sixto Carson PGY1 <Devon Wiggins - Last Filed: 12/29/17 08:48> Objective - Vital Signs/Intake and Output Vital Signs (last 24 hours): Temp Pulse Resp BP Pulse Ox 98.1 F 65 20 124/66 95 12/27/17 05:00 12/27/17 09:21 12/27/17 05:00 12/27/17 09:23 12/27/17 05:00 - Labs Labs: 12/24/17 06:00 12/24/17 06:00 PT 11.8 SECONDS (9.4-12.5) 12/09/17 11:45 INR 1.03 12/09/17 11:45 APTT 30.4 Seconds (25.1-36.5) 12/09/17 11:45
[2017-12-27] MEDS: Insulin Lispro (humaLOG) MEDIUM Coverage SC SCH (09:22)
[2017-12-27] MEDS: Enoxaparin 40 mg Syringe SC SCH (09:23)
[2017-12-27] MEDS: POLYETHYLENE GLYCOL 3350 17 GM/Dose PACKET PO SCH (09:23)
[2017-12-27] MEDS: Lidocaine 5% Patch TD SCH (09:23)
--- NOTE | 2017-12-27 13:47 | PN ---
DATE: 12/27/2017 SUBJECTIVE: The patient is a 62-year-old, seen and examined. She has been tolerating food yesterday. Has minimal abdominal pain. No nausea or vomiting in the last 24 hours. PHYSICAL EXAMINATION: VITAL SIGNS: She is afebrile. Pulse 65, respirations 20, blood pressure 124/66. LUNGS: Bilateral fair airflow. No rhonchi or crackle. HEART: S1, S2 audible. ABDOMEN: Soft. Slightly palpable discomfort. NEUROLOGIC: The patient is awake, alert, oriented, communicative. LABORATORY DATA: WBC 7.7, hemoglobin 14, hematocrit 42.5, platelet of 471. Chemistry, blood sugar is 128. ASSESSMENT: 1. Status post infected mesh removal after she had multiple rounds of antibiotics. 2. Postoperative ileus. 3. Hypertension. 4. Lta-[id number] diabetes. 5. Status post electrolyte imbalance. PLAN: The patient is off of IV fluids. She is tolerating oral feeding. Awaiting Dr. Wiggins' round. After that, she possibly will be discharged . Olga Goyal MD
== END 2017-12-27 12:18 | disposition home or self-care (01) | DRG 907 ==
LOC: SDS 10:44 → 3RNO 20:38 → 3RSO 12-17 17:34
PROVIDERS: ADMIT Surgery; ATTEND Surgery
PROC: 0DN80ZZ Release Small Intestine, Open Approach (ICD-10-PCS; 2017-12-09)
PROC: 0DT80ZZ Resection of Small Intestine, Open Approach (ICD-10-PCS; 2017-12-09)
PROC: 07BB0ZX Excision of Mesenteric Lymphatic, Open Approach, Diagnostic (ICD-10-PCS; 2017-12-09)
PROC: 0WPF0JZ Removal of Synthetic Substitute from Abdominal Wall, Open Approach (ICD-10-PCS; principal; 2017-12-09 13:15)
PROC: 0WUF0JZ Supplement Abdominal Wall with Synthetic Substitute, Open Approach (ICD-10-PCS; 2017-12-09 13:15)
PROC: 0DNW0ZZ Release Peritoneum, Open Approach (ICD-10-PCS; 2017-12-09 13:15)
PROC: 3E0F7GC Introduction of Other Therapeutic Substance into Respiratory Tract, Via Natural or Artificial Opening (ICD-10-PCS; 2017-12-12)
DX: T85.79XA Infection and inflammatory reaction due to other internal prosthetic devices, implants and grafts, initial encounter (principal); A41.9 Sepsis, unspecified organism; J18.9 Pneumonia, unspecified organism; L02.211 Cutaneous abscess of abdominal wall; K91.89 Other postprocedural complications and disorders of digestive system; N82.3 Fistula of vagina to large intestine; B37.49 Other urogenital candidiasis; K56.7 Ileus, unspecified; K43.2 Incisional hernia without obstruction or gangrene; K66.0 Peritoneal adhesions (postprocedural) (postinfection); I25.10 Atherosclerotic heart disease of native coronary artery without angina pectoris; I10 Essential (primary) hypertension; E11.9 Type 2 diabetes mellitus without complications; E78.5 Hyperlipidemia, unspecified; N31.9 Neuromuscular dysfunction of bladder, unspecified; Y95 Nosocomial condition; F17.200 Nicotine dependence, unspecified, uncomplicated; Y83.2 Surgical operation with anastomosis, bypass or graft as the cause of abnormal reaction of the patient, or of later complication, without mention of misadventure at the time of the procedure; Z93.3 Colostomy status; E66.9 Obesity, unspecified; Z68.31 Body mass index [BMI] 31.0-31.9, adult; Z86.14 Personal history of Methicillin resistant Staphylococcus aureus infection; Z79.4 Long term (current) use of insulin; Z88.0 Allergy status to penicillin; Z90.710 Acquired absence of both cervix and uterus

== ENCOUNTER 2018-03-23 10:29 | Outpatient (CLI) | payer BC | END 2018-03-23 10:30 | disposition home or self-care (01) | LOC: RAD 10:29 ==

== ENCOUNTER 2018-05-04 08:47 | Outpatient (CLI) | payer BC | END 2018-05-04 08:48 | disposition home or self-care (01) | LOC: RAD 08:47 ==

== ENCOUNTER 2018-06-18 13:47 | Outpatient (CLI) | payer BC | END 2018-06-18 13:48 | disposition home or self-care (01) | LOC: LAB 13:47 ==